=== PATIENT | female | born 1935 | race Two or more races ===

== ENCOUNTER 2020-07-19 01:58 | Inpatient (IN) | payer MEDICARE, OTHER ==
[2020-07-19] VITALS (7 sets, daily range): BP systolic 105–146; BP diastolic 66–97
[~2020-07-19] VITALS: Ht 167.6 cm; Wt 59.0 kg
[~2020-07-19 01:58] MED LIST: ASPIR 8181 MG ORAL; CENTRUM CHEWAB1 EACH PO; COD LIVER OIL1 EAC3 PO; LEVOTHYROXINE112 MCG ORAL; LISINOPRIL5 MG ORAL; METFORMIN HCL500 M1 ORAL; METOPROLOL TART25 MG ORAL; OMEPRAZOLE20 M3 ORAL; [UNRECOGNIZED DRUG - CODE] PO
[2020-07-19] MEDS ORDERED: dexAMETHasone 10mg/ml Inj IV ONE (02:00)
[2020-07-19] MEDS ORDERED: cefTRIAXone 1 GM in NS 55 ML IV ONE (02:00)
[2020-07-19] MEDS ORDERED: Azithromycin 500 MG in NS 275 ML IVPB ONE (02:00)
[2020-07-19] MEDS ORDERED: Enoxaparin 60mg Inj SUBQ ONE (02:00)
--- NOTE | 2020-07-19 02:06 | Emergency Room Report ---
History of Present Illness General Chief Complaint: To Be Triaged Source: Patient, Medical Record, EMS Present Illness HPI This is a 84-year-old female from a [facility]. She has a past medical history of CHF, A. fib, hypertension, diabetes and recently diagnosed with Covid on July 15. She presents with chief complaint of respiratory distress. She was desaturation to 79% on room air. Nursing staff called 911. EMS placed her on nonrebreather which brought it up to the mid 80 percentile. Patient history is limited because of her dementia. There is no noted fever or chills. No nausea no vomiting. She does have a cough. Patient is a DNR/DNI. Allergies: Coded Allergies: SULFAMETHOXAZOLE (Verified Allergy, Unknown, 07/19/20) TRIMETHOPRIM (Verified Allergy, Unknown, 07/19/20) Patient History Past Medical History: see triage record, old chart reviewed, HTN, CHF, AFib Past Surgical History: other Pertinent Family History: none Social History: Denies: smoking Now: No Immunizations: other Reviewed Nursing Documentation: PMH: Agreed; PSxH: Agreed Nursing Documentation-PMH Hx Cardiac Problems: No - HYPERTHYROID Hx Hypertension: Yes Hx Diabetes: Yes Review of Systems Eye: Denies: eye pain, blurred vision ENT: Denies: ear pain, nose congestion, throat swelling Respiratory: Reports: shortness of breath; Denies: cough Cardiovascular: Denies: chest pain, palpitations Gastrointestinal: Denies: abdominal pain, diarrhea, nausea, vomiting Musculoskeletal: Denies: back pain, joint pain Skin: Denies: rash Neurological: Denies: headache, numbness Endocrine: Denies: increased thirst, increased urine Hematologic/Lymphatic: Denies: easy bruising All Other Systems: negative except mentioned in HPI Physical Exam Vitals with hypoxia Sp02 EP Interpretation: reviewed, abnormal General Appearance: alert, moderate distress, cachetic, Chronically Ill Head: normocephalic, atraumatic Eyes: bilateral eye PERRL, bilateral eye EOMI ENT: hearing grossly normal, dry mucus membranes Neck: full range of motion, supple, no meningismus Respiratory: chest non-tender, respiratory distress, decreased breath sounds Cardiovascular #1: regular rate, rhythm, no murmur Gastrointestinal: normal bowel sounds, non tender, no mass, no organomegaly, no bruit, non-distended Musculoskeletal: back normal, normal range of motion Neurologic: alert Psychiatric: mood/affect normal Skin: no rash Procedures Critical Care Time Critical Care Time Critical care is mandated in this patient who presented with respiratory distress with hypoxia. Patient require my urgent intervention to attenuate the risks of respiratory collapse which may lead to cardiovascular collapse and . Critical care time is 35 minutes excluding any reportable procedure. Critical care time included evaluation, multiple reevaluation, looking at old charts, interpreting laboratory and diagnostic data, discussing case with patient and family and consultants, and charting. Medical Decision Making Diagnostic Impression: Primary Impression: Pneumonia due to COVID-19 virus Additional Impressions: Respiratory failure with hypoxia Qualified Codes: J96.01 - Acute respiratory failure with hypoxia Acute hyponatremia Sepsis Qualified Codes: A41.9 - Sepsis, unspecified organism; R65.20 - Severe sepsis without septic shock; J96.01 - Acute respiratory failure with hypoxia SUZETTE (acute kidney injury) ER Course Patient presents with respiratory failure secondary to Covid pneumonia. Antibiotics given here. I also gave her steroid and Lovenox. Will admit for further work-up and monitoring. Prognosis is poor. I discussed the case with Dr. Rankin for admission. EKG Diagnostic Results Troponin ordered: Yes Rate: normal Rhythm: other - afib ST Segments: other - NSST changess Rhythm Strip Diag. Results EP Interpretation: yes Rate: 100 Rhythm: no PVC's, no ectopy Chest X-Ray Diagnostic Results Chest X-Ray Diagnostic Results : Chest X-Ray Ordered: Yes # of Views/Limited/Complete: 1 View Indication: Shortness of Breath EP Interpretation: Yes Interpretation: no effusion, no pneumothorax, other - b/l interstitial infiltrates Impression: Other - b/l interstitial infiltrates Status: improved Disposition: ADMITTED INPATIENT Condition: Serious Chandan Mijares MD Jul 19, 2020 02:06
--- NOTE | 2020-07-19 02:10 | NUR ---
ED Nurse Note: Pt LOWELL from [facility], staff reports they found pt satting in 70's, placed pt on non-rebreather and o2 sat did not go up, ptc spo2 in traige is 96% on 15L. PT is A&OX0, VSS, COVID +. Pt placed in isolation room and on phototypesetting equipment monitor.
[2020-07-19 02:29] LABS: EOSINOPHILS % (AUTO) 4.3 % (0.0-3.0); HEMATOCRIT 31.8 % (37.0-47.0); HEMOGLOBIN 11.4 G/DL (12.0-16.0); LYMPHOCYTES % (AUTO) 19.8 % (20.0-45.0); MEAN CORPUSCULAR VOLUME 91 FL (80-99); MONOCYTES % (AUTO) 9.5 % (1.0-10.0); NEUTROPHILS % (AUTO) 65.4 % (45.0-75.0); PLATELET COUNT 244 K/UL (150-450); WHITE BLOOD COUNT 9.5 K/UL (4.8-10.8)
[2020-07-19 02:41] LABS: INR 1.2 (0.9-1.1)
[2020-07-19 02:49] LABS: ALBUMIN 3.3 G/DL (3.4-5.0); ALBUMIN/GLOBULIN RATIO 0.7 (1.0-2.7); BILIRUBIN,TOTAL 0.6 MG/DL (0.2-1.0); CALCIUM 9.2 MG/DL (8.5-10.1); CKMB 3.4 NG/ML (0.0-3.6); CREATININE 1.9 MG/DL (0.55-1.30); POTASSIUM 5.4 MMOL/L (3.5-5.1)
--- NOTE | 2020-07-19 02:50 | Diagnostic Imaging Report ---
EXAM: XR Chest, 1 View CLINICAL HISTORY: SOB TECHNIQUE: Frontal view of the chest. COMPARISON: 01/14/14 FINDINGS: Lungs: Low lung volumes with bronchovascular crowding. No consolidation, pleural effusion, or pneumothorax. Pleural space: See above. Heart: Mild cardiomegaly. Mediastinum: Unremarkable. Bones/joints: Osteopenia. IMPRESSION: 1. Low lung volumes with bronchovascular crowding. 2. Mild cardiomegaly. 3. Otherwise no acute cardiopulmonary disease. 4. If there is continued concern, consider frontal and lateral chest radiographs or CT.
[2020-07-19] MEDS ORDERED: CARDIZEM CD240 MG ORAL (03:40)
[2020-07-19] MEDS ORDERED: FUROSEMIDE20 M1 ORAL (03:40)
[2020-07-19] MEDS ORDERED: VITAMIN D325 MC1 PO (03:40)
[2020-07-19] MEDS ORDERED: CEFTRIAXON1 GM/50 ML IV (03:40)
[2020-07-19] MEDS ORDERED: VITAMIN B-12500 MCG ORAL (03:40)
[2020-07-19] MEDS ORDERED: NOVOLIN R100 UNIT/1 SUBQ (03:40)
[2020-07-19] MEDS ORDERED: ACETAMINOPHEN325 M1 ORAL (03:40)
[2020-07-19] MEDS ORDERED: METFORMIN HCL850 M1 ORAL (03:43)
[2020-07-19] MEDS ORDERED: MAGNESIUM400 M1 PO (03:43)
[2020-07-19] MEDS ORDERED: MELATONIN3 M2 PO (03:43)
[2020-07-19] MEDS ORDERED: METOPROLOL TAR100 M1 ORAL (03:43)
[2020-07-19] MEDS ORDERED: LOSARTAN POTASS50 MG ORAL (03:44)
[2020-07-19] MEDS ORDERED: MIRTAZAPINE15 M3 ORAL (03:46)
[2020-07-19] MEDS ORDERED: MULTI-BETIC TA1 EAC1 ORAL (03:46)
[2020-07-19] MEDS ORDERED: TUBERSOL (PPD)0.1 ML IDERMAL (03:46)
[2020-07-19] MEDS ORDERED: POTASSIUM CHLO10 ME2 PO (03:46)
[2020-07-19] MEDS ORDERED: PERIDEX15 ML MM (03:46)
[2020-07-19] MEDS ORDERED: ZINC SULFATE220 M1 ORAL (03:47)
[2020-07-19 04:33] LABS: APPEARANCE,URINE TURBID; BILIRUBIN, URINE NEGATIVE (NEGATIVE); COLOR,URINE RED; GLUCOSE, URINE (UA) NEGATIVE (NEGATIVE); NITRITE,URINE NEGATIVE (NEGATIVE); PH,URINE 7 (4.5-8.0); PROTEIN,URINE 4+ (NEGATIVE); UROBILINOGEN,URINE NORMAL MG/DL (0.0-1.0)
[2020-07-19 04:36] LABS: KETONES,URINE 2+ (NEGATIVE); LEUKOCYTE ESTERASE ,URINE 1+ (NEGATIVE)
--- NOTE | 2020-07-19 04:40 | NUR ---
NURSE NOTES: Received report from JENNIFER Moran from ER for admission to room 207-2. Dx respiratory distress with desaturation, sepsis, and COVID positive 07/15/20; allergy to sulfamethoxazole-trimethoprim; DNR/DNI code status, with IV line on R forearm 20 gauge infusing IV NS 500 ml @ 125 ml/hr; f/c placed in ED 16FR @0215 with hematuria. Addendum: 07/19/20 at 0604 by Elina Means RN Per JENNIFER Moran from ER. Pt on non-rebreather mask 15L with 02 sat 100%; Will be transitioned to O2 therapy via NC @ 6L/min prior to floor transfer per JENNIFER Moran.
--- NOTE | 2020-07-19 05:00 | NUR ---
TRANSFER TO FLOOR: Patient transferred to as ordered, per Dr Rankin. Report given to JENNIFER Abbott. Belongings and medications given to . Family and or S/O informed of transfer.
--- NOTE | 2020-07-19 05:10 | NUR ---
NURSE NOTES: Received pt via gurney from ED @ 0510 with 2 RNs; transferred to bed by 2 RNs; On O2 therapy via NC @ 6L/min, R FA IV site infusing with IV NS 500 ml bolus, F/C noted 16FR with stat-lock in place draining with bloody urine; BLE also noted with heel protectors; Pt AOX0-1 (NAME), arousable to voice, verbal but confused; v/s taken; pt repositioned for comfort; with skin tear in L forearm 1cmx0.5cm, dry with scab, BUE/ble MULTIPLE SCATTERED BRUISES/DISCOLORATIONS, R foot +3-4 pitting edema; satellite project site monitor in place; Call light within reach; bed locked and in low position; side rails x 3. Will continue to monitor.
--- NOTE | 2020-07-19 05:55 | NUR ---
NURSE NOTES: Messaged Dr. Rankin regarding pt and for orders. Awaiting response.
--- NOTE | 2020-07-19 07:20 | NUR ---
NURSE HAND-OFF REPORT: Important Events on Shift: Admitted frrom ED @ 0510; dx: sepsis, covid positive, PNA; with FC 16 FR inserted at ED, with hematuria; L anterior forearm with dry scab, R forearm 20 gauge saline locked; Dr. Rankin messaged regarding pt condition and for orders; awaiting response; O2 via NC @ 6L/min Patient Status: stable Diet: cardiac Pending Orders: Y (admission orders) Pending Results/Labs: per MD orders Pending MD notification: Dr. Rankin for admission orders Latest Vital Signs: Temperature 95.1 , Pulse 128 , B/P 146 /73 , Respiratory Rate 20 , O2 SAT 100 , Nasal Cannula, O2 Flow Rate 6.0 . Vital Sign Comment: stable EKG Rhythm: Atrial Fibrillation Rhythm change?: N MD Notified?: N - MD Response: Latest [place] Fall Score: 45 Fall Risk: High Risk Safety Measures: Call light Within Reach, Bed Alarm Zone 1, Side Rails Side Rails x2, Bed position Low and Locked. Fall Precautions: Report given to JENNIFER Nation[].
--- NOTE | 2020-07-19 07:37 | NUR ---
NURSE NOTES: Pt received from Jerrell RODRIGUEZ. Pt in bed sleeping. Bed low and locked, call light within reach. Pt in contact/droplet isolation for Covid. Endorsed to me that some orders are still pending, I will follow up with Dr. Rankin. No distress notesd.
--- NOTE | 2020-07-19 09:12 | Consultation ---
Consult Note Consult Note I am asked to evaluate the patient at the request of Dr. Rankin for hyponatremia and renal failure Initial labs ordered Full note to follow This is a 84-year-old female from a residential. She has a past medical history of CHF, A. fib, hypertension, diabetes and recently diagnosed with Covid on July 15. She presents with chief complaint of respiratory distress. She was desaturation to 79% on room air. Nursing staff called 911. EMS placed her on nonrebreather which brought it up to the mid 80 percentile. Patient history is limited because of her dementia. There is no noted fever or chills. No nausea no vomiting. She does have a cough. Patient is a DNR/DNI. Allergies: SULFAMETHOXAZOLE (Verified Allergy, Unknown, 07/19/20) TRIMETHOPRIM (Verified Allergy, Unknown, 07/19/20) Past Medical History: see triage record, old chart reviewed, HTN, CHF, AFib Hx Cardiac Problems: No - HYPERTHYROID Hx Hypertension: Yes Hx Diabetes: Yes PHYSICAL EXAMINATION: The patient's physical examination was not performed by myself due to the patient's COVID-19 infection in order to minimize the chance of infection. Emergency room physician's data was reviewed. The patient was felt to be a cachectic, thin female. Neck was nontender. Normal alignment. Chest wall was supposedly nontender. Lungs are clear. Breath sounds were normal. Cardiac examination, regular pulses. Normal rate. Regular rate and rhythm. Abdomen is soft, nontender. Extremities, normal range of motion and nontender LABORATORY VALUES: Her white count was 8, hemoglobin 10.2, and platelet count 209. Chemistry, her sodium was 118. She has a history of 115 on prior evaluation earlier in the morning today, and in 2013 she was admitted with a sodium of 110. Potassium 5.4, chloride 82, bicarb 32, creatinine 1.8, and glucose of 131. A1c of 6.4, osmolality 268, uric acid is 7.3. Calcium is 9.2 with a magnesium of 1.8. Iron of 77, 27% saturation. Liver function tests were normal. Coags, INR 1.2 and PTT of 31. D-dimer of 0.44. Urinalysis, qge-cunzagmi-xz-count rbc's, 10-15 wbc's. . Assessment/Plan Acute renal failure Acute respiratory failure with hypoxia Severe hyponatremia Sepsis History of hypertension History of diabetes mellitus DNR DNI Plan of care: Saline infusion Monitor renal parameters and electrolytes Avoid nephrotoxic's Saline infusion Per consultants Jethro Cleaning MD Jul 19, 2020 09:12
[2020-07-19] MEDS ORDERED: Albuterol/Ipratropium 3ml neb HHN PRN (09:15)
[2020-07-19] MEDS ORDERED: Promethazine/Codeine 5ml UD ORAL PRN (09:15)
[2020-07-19] MEDS ORDERED: Miralax 17gm pkt ORAL PRN (09:15)
[2020-07-19 10:15] LABS: BASOPHILS % (AUTO) 0.4 % (0.0-2.0); EOSINOPHILS % (AUTO) 0.4 % (0.0-3.0); HEMATOCRIT 29.7 % (37.0-47.0); HEMOGLOBIN 10.2 G/DL (12.0-16.0); LYMPHOCYTES % (AUTO) 13.3 % (20.0-45.0); MEAN CORPUSCULAR VOLUME 93 FL (80-99); MONOCYTES % (AUTO) 2.3 % (1.0-10.0); NEUTROPHILS % (AUTO) 83.6 % (45.0-75.0); PLATELET COUNT 209 K/UL (150-450); RED BLOOD COUNT 3.21 M/UL (4.20-5.40); RED CELL DISTRIBUTION WIDTH 12.3 % (11.6-14.8)
--- NOTE | 2020-07-19 10:25 | Consultation ---
History of Present Illness General Date patient seen: Jul 19, 2020 Chief Complaint: Dyspnea/Respdistress Present Illness HPI 84-year-old female with a past medical history of CHF, A. fib, hypertension, diabetes and recently diagnosed with Covid on June 2020 presented with chief complaint of respiratory distress. She was desaturation to 79% on room air. Nursing staff called 911. EMS placed her on nonrebreather which brought it up to the mid 80 percentile. Patient history is limited because of her dementia. There is no noted fever or chills. No nausea no vomiting. She does have a cough. Patient is a DNR/DNI.n Her CXR showed hyperlucency without any infiltrate. Allergies: Coded Allergies: SULFAMETHOXAZOLE (Verified Allergy, Unknown, 07/19/20) TRIMETHOPRIM (Verified Allergy, Unknown, 07/19/20) Medication History Scheduled Albuterol Sulfate* (Albuterol Sulfate Hfa*), 2 PUFF INH Q6H, (Reported) Ascorbic Acid* (Ascorbic Acid*), 500 MG ORAL DAILY, (Reported) Ascorbic Acid* (Ascorbic Acid*), 1,000 MG ORAL DAILY, (Reported) Chlorhexidine Gluconate (Peridex), 15 ML MM BID, (Reported) Cholecalciferol (Vitamin D3) (Vitamin D3*), 25 MCG PO DAILY, (Reported) Cyanocobalamin (Vitamin B-12)* (Vitamin B-12*), 2,500 MCG ORAL DAILY, (Reported) Diltiazem Hcl* (Cardizem Cd*), 240 MG ORAL DAILY, (Reported) Furosemide* (Lasix*), 20 MG ORAL DAILY, (Reported) Insulin Regular, Human* (Novolin R*), 0 SUBQ .SLIDING SCALE, (Reported) Levothyroxine Sodium* (Synthroid*), 100 MCG ORAL DAILY, (Reported) Losartan Potassium* (Losartan Potassium*), 50 MG ORAL DAILY, (Reported) Magnesium Oxide (Magnesium), 400 MG PO BID, (Reported) Melatonin (Melatonin), 3 MG PO BEDTIME, (Reported) Metformin Hcl (Metformin Hcl Er), 750 MG ORAL BID, (Reported) Metoprolol Tartrate* (Metoprolol Tartrate*), 100 MG ORAL EVERY 12 HOURS, (Reported) Mirtazapine* (Mirtazapine*), 15 MG ORAL BEDTIME, (Reported) Multivit W-Mn/Fa/Lycop/Lut/Ala (Multi-Betic Tablet), 1 TAB ORAL DAILY, (Reported) Potassium Chloride (Potassium Chloride), 10 MEQ PO DAILY, (Reported) Zinc Sulfate (Zinc Sulfate*), 220 MG ORAL DAILY, (Reported) Scheduled PRN Acetaminophen* (Acetaminophen 325MG Tablet*), 650 MG ORAL Q6H PRN for Temp >100.5, (Reported) Discontinued Medications Aspirin* (Aspir 81*), 81 MG ORAL DAILY, (Reported) Discontinued Reason: Therapy completed Ceftriaxone Na/Dextrose,Iso (Ceftriaxone 1 Gm Piggyback), 1 GM IV, (Reported) Discontinued Reason: Therapy completed Cyanocobalamin (Vitamin B-12) (B-12), 5,000 MCG PO, (Reported) Discontinued Reason: Therapy completed Folic Acid/Mv,Fe,Other Min (Centrum Chewable Tablet), 1 EACH PO DAILY, (Report ed) Discontinued Reason: Therapy completed Levothyroxine Sodium* (Levothyroxine Sodium*), 100 MCG ORAL DAILY, (Reported) Discontinued Reason: Prescription changed Lisinopril (Lisinopril*), 2.5 MG ORAL DAILY, (Reported) Discontinued Reason: Therapy completed Metformin Hcl* (Metformin Hcl*), 500 MG ORAL TWICE A DAY, (Reported) Discontinued Reason: Therapy completed Metformin Hcl* (Metformin Hcl*), 750 MG ORAL DAILY, (Reported) Discontinued Reason: Therapy completed Metoprolol Tartrate* (Metoprolol Tartrate*), 25 MG ORAL BID, (Reported) Discontinued Reason: Therapy completed Omeprazole (Omeprazole), 20 MG ORAL DAILY, (Reported) Discontinued Reason: Therapy completed Tuberculin Ppd (Tubersol), 0.1 ML IDERMAL, (Reported) Discontinued Reason: Therapy completed Vit A & D3 In Cod Liver Oil (Cod Liver Oil Softgel), 1 EACH PO DAILY, (Reported) Discontinued Reason: Therapy completed Patient History Healthcare decision maker Resuscitation status Advanced Directive on File Past Medical/Surgical History Past Medical/Surgical History: (1) Alzheimer's dementia (2) Diabetes mellitus (3) Chronic atrial fibrillation Review of Systems All Other Systems: negative except mentioned in HPI Physical Exam General Appearance: cachetic, thin Lines, tubes and drains: peripheral HEENT: normocephalic, atraumatic Neck: non-tender, normal alignment Respiratory/Chest: chest wall non-tender, lungs clear, normal breath sounds Cardiovascular/Chest: normal peripheral pulses, normal rate, regular rhythm Abdomen: normal bowel sounds, non tender Genitourinary/Rectal: normal genital exam, normal rectal exam Extremities: normal range of motion, non-tender Skin Exam: normal pigmentation Last 24 Hour Vital Signs Date Time Temp Pulse Resp B/P (MAP) Pulse Ox O2 Delivery O2 Flow Rate FiO2 07/19/20 08:00 95.5 120 20 121/97 (105) 100 07/19/20 06:33 Nasal Cannula 6.0 07/19/20 05:00 128 07/19/20 05:00 95.1 114 20 146/73 (97) 100 07/19/20 05:00 99.0 76 18 105/67 99 Nasal Cannula 6.0 07/19/20 04:00 99.0 76 18 105/67 99 Nasal Cannula 6.0 07/19/20 02:15 99.0 68 20 144/97 76 Non-Rebreather 15.0 07/19/20 02:15 68 20 Non-Rebreather 15.0 07/19/20 02:04 99.0 68 20 144/97 (113) 76 Non-Rebreather 15.0 Intake and Output 07/18/20 07/19/20 19:00 07:00 Intake Total 500 ml Output Total 1200 ml Balance -700 ml Intake Other 500 ml Output Urine Total 1200 ml Laboratory Tests Test 07/19/20 02:00 07/19/20 04:00 07/19/20 04:10 07/19/20 09:50 White Blood Count 9.5 K/UL (4.8-10.8) 8.0 K/UL (4.8-10.8) Red Blood Count 3.50 M/UL (4.20-5.40) L 3.21 M/UL (4.20-5.40) L Hemoglobin 11.4 G/DL (12.0-16.0) L 10.2 G/DL (12.0-16.0) L Hematocrit 31.8 % (37.0-47.0) L 29.7 % (37.0-47.0) L Mean Corpuscular Volume 91 FL (80-99) 93 FL (80-99) Mean Corpuscular Hemoglobin 32.5 PG (27.0-31.0) H 31.7 PG (27.0-31.0) H Mean Corpuscular Hemoglobin Concent 35.9 G/DL (32.0-36.0) 34.3 G/DL (32.0-36.0) Red Cell Distribution Width 12.0 % (11.6-14.8) 12.3 % (11.6-14.8) Platelet Count 244 K/UL (150-450) 209 K/UL (150-450) Mean Platelet Volume 7.8 FL (6.5-10.1) 8.4 FL (6.5-10.1) Neutrophils (%) (Auto) 65.4 % (45.0-75.0) 83.6 % (45.0-75.0) H Lymphocytes (%) (Auto) 19.8 % (20.0-45.0) L 13.3 % (20.0-45.0) L Monocytes (%) (Auto) 9.5 % (1.0-10.0) 2.3 % (1.0-10.0) Eosinophils (%) (Auto) 4.3 % (0.0-3.0) H 0.4 % (0.0-3.0) Basophils (%) (Auto) 1.0 % (0.0-2.0) 0.4 % (0.0-2.0) Prothrombin Time 13.1 SEC (9.30-11.50) H Prothromb Time International Ratio 1.2 (0.9-1.1) H Activated Partial Thromboplast Time 31 SEC (23-33) D-Dimer 0.44 mg/L FEU (0.00-0.49) Sodium Level 115 MMOL/L (136-145) *L Pending Potassium Level 5.4 MMOL/L (3.5-5.1) H Pending Chloride Level 80 MMOL/L (98-107) L Pending Carbon Dioxide Level 29 MMOL/L (21-32) Pending Anion Gap 5 mmol/L (5-15) Blood Urea Nitrogen 27 mg/dL (7-18) H Pending Creatinine 1.9 MG/DL (0.55-1.30) H Pending Estimat Glomerular Filtration Rate 25.1 mL/min (>60) Pending Glucose Level 91 MG/DL (74-106) Pending Lactic Acid Level 2.50 mmol/L (0.4-2.0) H 3.60 mmol/L (0.66-2.22) H Calcium Level 9.2 MG/DL (8.5-10.1) Pending Ferritin 214 NG/ML (8-388) Total Bilirubin 0.6 MG/DL (0.2-1.0) Pending Aspartate Amino Transf (AST/SGOT) 28 U/L (15-37) Pending Alanine Aminotransferase (ALT/SGPT) 19 U/L (12-78) Pending Alkaline Phosphatase 84 U/L (46-116) Pending Lactate Dehydrogenase 226 U/L (81-234) Total Creatine Kinase 85 U/L (26-308) Creatine Kinase MB 3.4 NG/ML (0.0-3.6) Creatine Kinase MB Relative Index 4.0 Troponin I 0.000 ng/mL (0.000-0.056) C-Reactive Protein, Quantitative 4.8 mg/dL (0.00-0.90) H Pending Pro-B-Type Natriuretic Peptide 3711 pg/mL (0-125) H Pending Total Protein 7.8 G/DL (6.4-8.2) Pending Albumin 3.3 G/DL (3.4-5.0) L Pending Globulin 4.5 g/dL Pending Albumin/Globulin Ratio 0.7 (1.0-2.7) L Lipase 203 U/L (73-393) Urine Color Red Urine Appearance Turbid Urine pH 7 (4.5-8.0) Urine Specific Mcclure 1.010 (1.005-1.035) Urine Protein 4+ (NEGATIVE) H Urine Glucose (UA) Negative (NEGATIVE) Urine Ketones 2+ (NEGATIVE) H Urine Blood 5+ (NEGATIVE) H Urine Nitrite Negative (NEGATIVE) Urine Bilirubin Negative (NEGATIVE) Urine Urobilinogen Normal MG/DL (0.0-1.0) Urine Leukocyte Esterase 1+ (NEGATIVE) H Urine RBC Tntc /HPF (0 - 2) H Urine WBC 10-15 /HPF (0 - 2) H Urine Squamous Epithelial Cells Occasional /LPF Urine Bacteria Few /HPF (NONE) Osmolality Pending Uric Acid Pending Phosphorus Level Pending Magnesium Level Pending Iron Level Pending Unsaturated Iron Binding Pending Gamma Glutamyl Transpeptidase Pending Triglycerides Level Pending Cholesterol Level Pending LDL Cholesterol Pending HDL Cholesterol Pending Cholesterol/HDL Ratio Pending Vitamin B12 Level Pending Folate Pending Thyroid Stimulating Hormone (TSH) Pending Height (Feet): 5 Height (Inches): 6.00 Weight (Pounds): 130 Medications Current Medications Medications (Trade) Dose Ordered Sig/Ranjeet Route PRN Reason Start Time Stop Time Status Last Admin Dose Admin Acetaminophen (Tylenol) 650 mg Q6H PRN ORAL Temp >100.5 07/19/20 09:15 08/18/20 09:14 Albuterol/ Ipratropium (Albuterol/ Ipratropium) 3 ml Q4H PRN HHN Shortness of Breath 07/19/20 09:15 07/24/20 09:14 Aspirin (Ecotrin) 81 mg DAILY ORAL 07/20/20 09:00 09/03/20 08:59 Azithromycin 250 mg/Dextrose 275 ml @ 275 mls/hr Q24HRS IV 07/20/20 02:00 07/25/20 01:59 Ceftriaxone Sodium 1 gm/ Dextrose 55 ml @ 110 mls/hr Q24H IVPB 07/20/20 02:00 07/27/20 01:59 Dexamethasone (Decadron) 4 mg DAILY ORAL 07/20/20 09:00 07/29/20 09:01 Dextrose (Dextrose 50%) 25 ml Q30M PRN IV Hypoglycemia 07/19/20 09:15 10/17/20 09:14 Dextrose (Dextrose 50%) 50 ml Q30M PRN IV Hypoglycemia 07/19/20 09:15 10/17/20 09:14 Dextrose/Sodium Chloride 1,000 ml @ 75 mls/hr [id number] IV 07/19/20 09:15 08/18/20 09:14 Diltiazem HCl (Cardizem ER) 240 mg DAILY ORAL 07/20/20 09:00 08/19/20 08:59 Docusate Sodium (Colace) 100 mg THREE TIMES A DAY ORAL 07/19/20 13:00 08/18/20 12:59 Heparin Sodium (Porcine) (Heparin 5000 units/ml) 5,000 units EVERY 12 HOURS SUBQ 07/19/20 21:00 09/02/20 20:59 Insulin Aspart (NovoLOG) BEFORE MEALS AND HS SUBQ 07/19/20 11:30 10/17/20 11:29 Levothyroxine Sodium (Synthroid) 100 mcg Q24H ORAL 07/20/20 06:30 08/19/20 06:29 Metoprolol Tartrate (Lopressor) 25 mg Q12HR ORAL 07/19/20 21:00 10/17/20 20:59 Ondansetron HCl (Zofran) 4 mg Q6H PRN IVP Nausea & Vomiting 07/19/20 09:15 08/18/20 09:14 Pantoprazole (Protonix) 40 mg EVERY 12 HOURS ORAL 07/19/20 10:00 08/18/20 09:59 Polyethylene Glycol (Miralax) 17 gm DAILYPRN PRN ORAL Constipation 07/19/20 09:15 08/18/20 09:14 Promethazine HCl/ Codeine (Phenergan with Codeine) 5 ml Q6H PRN ORAL cough 07/19/20 09:15 08/18/20 09:14 Assessment/Plan Problem List: (1) Respiratory failure with hypoxia ICD Codes: J96.91 - Respiratory failure, unspecified with hypoxia SNOMED: 08827110084911523 Qualifiers: Qualified Codes: J96.01 - Acute respiratory failure with hypoxia (2) Acute hyponatremia ICD Codes: E87.1 - Hypo-osmolality and hyponatremia SNOMED: 0933063, 0904797 (3) SUZETTE (acute kidney injury) ICD Codes: N17.9 - Acute kidney failure, unspecified SNOMED: 90077449, 6326643 (4) Chronic atrial fibrillation ICD Codes: I48.20 - Chronic atrial fibrillation, unspecified SNOMED: 217636955 (5) Diabetes mellitus ICD Codes: E11.9 - Type 2 diabetes mellitus without complications SNOMED: 65550827 (6) Alzheimer's dementia ICD Codes: G30.9 - Alzheimer's disease, unspecified; F02.80 - Dementia in other diseases classified elsewhere without behavioral disturbance SNOMED: 97360672 Assessment/Plan: iv Fluids with NS hyponatremia work up V/q scan and duplex of legs. sliding scale diabetic diet respiratory treatment titrate fio2 to sat of 92% 2Decho to look at right heart pressure. Riccardo Drew MD Jul 19, 2020 10:25
[2020-07-19 10:42] LABS: ALANINE AMINOTRANSFERASE 13 U/L (12-78); ALBUMIN 3.1 G/DL (3.4-5.0); ALBUMIN/GLOBULIN RATIO 0.7 (1.0-2.7); ALKALINE PHOSPHATASE 79 U/L (46-116); ANION GAP 7 mmol/L (5-15); ASPARTATE AMINO TRANSFERASE 30 U/L (15-37); BILIRUBIN,TOTAL 0.5 MG/DL (0.2-1.0); BLOOD UREA NITROGEN 33 mg/dL (7-18); CARBON DIOXIDE 27 MMOL/L (21-32); CHLORIDE 83 MMOL/L (98-107); CHOLESTEROL 129 MG/DL (< 200); GAMMA GLUTAMYL TRANSPEPTIDASE 7 U/L (5-85); HDL CHOLESTEROL 41 MG/DL (40-60); PHOSPHORUS 3.4 MG/DL (2.5-4.9); POTASSIUM 5.4 MMOL/L (3.5-5.1); TRIGLYCERIDES 56 MG/DL (30-150)
[2020-07-19] MEDS: D5NS 1,000 ML IV SCH ×3 (10:48→22:19)
[2020-07-19 10:49] LABS: CALCIUM 9.2 MG/DL (8.5-10.1); CREATININE 1.8 MG/DL (0.55-1.30)
[2020-07-19 10:51] LABS: SODIUM 118 MMOL/L (136-145)
[2020-07-19] MEDS ORDERED: NaCl 3% 500ml 250 ML IV ONE (12:00)
--- NOTE | 2020-07-19 12:05 | Consultation ---
History of Present Illness General Date patient seen: Jul 19, 2020 Time patient seen: 12:00 Chief Complaint: Dyspnea/Respdistress Referring physician: Dr. Rankin Reason for Consultation: COVID Present Illness HPI 84yo F who presents from SN[facility] with COVID pna, acute hypoxia. Dx'd with COVID on 07/15. Was desatting to 79% on RA, now on 5L NC, calm in bed. No fevers/chills. No leukocytosis. No N/V. Does have a cough. Of note is DNR/DNI. Pt is not interactive, moans to touch PMH: CHF Afib HTN DM2 Allergies: Coded Allergies: SULFAMETHOXAZOLE (Verified Allergy, Unknown, 07/19/20) TRIMETHOPRIM (Verified Allergy, Unknown, 07/19/20) Medication History Scheduled Aspirin* (Aspir 81*), 81 MG ORAL DAILY, (Reported) Cholecalciferol (Vitamin D3) (Vitamin D3*), 25 MCG PO DAILY, (Reported) Cyanocobalamin (Vitamin B-12)* (Vitamin B-12*), 2,500 MCG ORAL DAILY, (Reported) Diltiazem Hcl* (Cardizem Cd*), 240 MG ORAL DAILY, (Reported) Folic Acid/Mv,Fe,Other Min (Centrum Chewable Tablet), 1 EACH PO DAILY, (Reported) Furosemide* (Lasix*), 20 MG ORAL DAILY, (Reported) Insulin Regular, Human* (Novolin R*), 0 SUBQ .SLIDING SCALE, (Reported) Levothyroxine Sodium* (Levothyroxine Sodium*), 100 MCG ORAL DAILY, (Reported) Lisinopril (Lisinopril*), 2.5 MG ORAL DAILY, (Reported) Losartan Potassium* (Losartan Potassium*), 50 MG ORAL DAILY, (Reported) Metformin Hcl* (Metformin Hcl*), 500 MG ORAL TWICE A DAY, (Reported) Metformin Hcl* (Metformin Hcl*), 750 MG ORAL DAILY, (Reported) Metoprolol Tartrate* (Metoprolol Tartrate*), 25 MG ORAL BID, (Reported) Metoprolol Tartrate* (Metoprolol Tartrate*), 100 MG ORAL EVERY 12 HOURS, (Reported) Mirtazapine* (Mirtazapine*), 15 MG ORAL BEDTIME, (Reported) Multivit W-Mn/Fa/Lycop/Lut/Ala (Multi-Betic Tablet), 1 TAB ORAL DAILY, (Reported) Omeprazole (Omeprazole), 20 MG ORAL DAILY, (Reported) Vit A & D3 In Cod Liver Oil (Cod Liver Oil Softgel), 1 EACH PO DAILY, (Reported) Zinc Sulfate (Zinc Sulfate*), 220 MG ORAL DAILY, (Reported) Scheduled PRN Acetaminophen* (Acetaminophen 325MG Tablet*), 650 MG ORAL Q6H PRN for Temp >100.5, (Reported) Miscellaneous Medications Ceftriaxone Na/Dextrose,Iso (Ceftriaxone 1 Gm Piggyback), 1 GM IV, (Reported) Chlorhexidine Gluconate (Peridex), 15 ML MM, (Reported) Cyanocobalamin (Vitamin B-12) (B-12), 5,000 MCG PO, (Reported) Magnesium Oxide (Magnesium), 400 MG PO, (Reported) Melatonin (Melatonin), 3 MG PO, (Reported) Potassium Chloride (Potassium Chloride), 10 MEQ PO, (Reported) Tuberculin Ppd (Tubersol), 0.1 ML IDERMAL, (Reported) Patient History Healthcare decision maker Resuscitation status Advanced Directive on File Review of Systems ROS Narrative Unable to assess 2/2 pt condition Physical Exam Physical Exam Narrative Gen: NAD on NC HEENT: NCAT Pulm: BL chest rise on NC Abd: Soft, NTND Ext: No c/c/e Neuro: Not interactive, moans to touch Lines: Alanis w/ blood tinged urine in bag Last 24 Hour Vital Signs Date Time Temp Pulse Resp B/P (MAP) Pulse Ox O2 Delivery O2 Flow Rate FiO2 07/19/20 08:00 95.5 120 20 121/97 (105) 100 07/19/20 06:33 Nasal Cannula 6.0 07/19/20 05:00 128 07/19/20 05:00 95.1 114 20 146/73 (97) 100 07/19/20 05:00 99.0 76 18 105/67 99 Nasal Cannula 6.0 07/19/20 04:00 99.0 76 18 105/67 99 Nasal Cannula 6.0 07/19/20 02:15 99.0 68 20 144/97 76 Non-Rebreather 15.0 07/19/20 02:15 68 20 Non-Rebreather 15.0 11/23/20 02:04 99.0 68 20 144/97 (113) 76 Non-Rebreather 15.0 Intake and Output0 07/18/20 07/19/20 19:00 07:00 Intake Total 500 ml Output Total 1200 ml Balance -700 ml Intake Other 500 ml Output Urine Total 1200 ml Laboratory Tests Test 07/19/20 02:00 07/19/20 04:00 07/19/20 04:10 07/19/20 09:50 White Blood Count 9.5 K/UL (4.8-10.8) 8.0 K/UL (4.8-10.8) Red Blood Count 3.50 M/UL (4.20-5.40) L 3.21 M/UL (4.20-5.40) L Hemoglobin 11.4 G/DL (12.0-16.0) L 10.2 G/DL (12.0-16.0) L Hematocrit 31.8 % (37.0-47.0) L 29.7 % (37.0-47.0) L Mean Corpuscular Volume 91 FL (80-99) 93 FL (80-99) Mean Corpuscular Hemoglobin 32.5 PG (27.0-31.0) H 31.7 PG (27.0-31.0) H Mean Corpuscular Hemoglobin Concent 35.9 G/DL (32.0-36.0) 34.3 G/DL (32.0-36.0) Red Cell Distribution Width 12.0 % (11.6-14.8) 12.3 % (11.6-14.8) Platelet Count 244 K/UL (150-450) 209 K/UL (150-450) Mean Platelet Volume 7.8 FL (6.5-10.1) 8.4 FL (6.5-10.1) Neutrophils (%) (Auto) 65.4 % (45.0-75.0) 83.6 % (45.0-75.0) H Lymphocytes (%) (Auto) 19.8 % (20.0-45.0) L 13.3 % (20.0-45.0) L Monocytes (%) (Auto) 9.5 % (1.0-10.0) 2.3 % (1.0-10.0) Eosinophils (%) (Auto) 4.3 % (0.0-3.0) H 0.4 % (0.0-3.0) Basophils (%) (Auto) 1.0 % (0.0-2.0) 0.4 % (0.0-2.0) Prothrombin Time 13.1 SEC (9.30-11.50) H Prothromb Time International Ratio 1.2 (0.9-1.1) H Activated Partial Thromboplast Time 31 SEC (23-33) D-Dimer 0.44 mg/L FEU (0.00-0.49) Sodium Level 115 MMOL/L (136-145) *L 118 MMOL/L (136-145) *L Potassium Level 5.4 MMOL/L (3.5-5.1) H 5.4 MMOL/L (3.5-5.1) H Chloride Level 80 MMOL/L (98-107) L 83 MMOL/L (98-107) L Carbon Dioxide Level 29 MMOL/L (21-32) 27 MMOL/L (21-32) Anion Gap 5 mmol/L (5-15) 7 mmol/L (5-15) Blood Urea Nitrogen 27 mg/dL (7-18) H 33 mg/dL (7-18) H Creatinine 1.9 MG/DL (0.55-1.30) H 1.8 MG/DL (0.55-1.30) H Estimat Glomerular Filtration Rate 25.1 mL/min (>60) 26.7 mL/min (>60) Glucose Level 91 MG/DL (74-106) 131 MG/DL (74-106) H Lactic Acid Level 2.50 mmol/L (0.4-2.0) H 3.60 mmol/L (0.66-2.22) H Calcium Level 9.2 MG/DL (8.5-10.1) 9.2 MG/DL (8.5-10.1) Ferritin 214 NG/ML (8-388) Total Bilirubin 0.6 MG/DL (0.2-1.0) 0.5 MG/DL (0.2-1.0) Aspartate Amino Transf (AST/SGOT) 28 U/L (15-37) 30 U/L (15-37) Alanine Aminotransferase (ALT/SGPT) 19 U/L (12-78) 13 U/L (12-78) Alkaline Phosphatase 84 U/L (46-116) 79 U/L (46-116) Lactate Dehydrogenase 226 U/L (81-234) Total Creatine Kinase 85 U/L (26-308) Creatine Kinase MB 3.4 NG/ML (0.0-3.6) Creatine Kinase MB Relative Index 4.0 Troponin I 0.000 ng/mL (0.000-0.056) C-Reactive Protein, Quantitative 4.8 mg/dL (0.00-0.90) H 4.2 mg/dL (0.00-0.90) H Pro-B-Type Natriuretic Peptide 3711 pg/mL (0-125) H 5171 pg/mL (0-125) H Total Protein 7.8 G/DL (6.4-8.2) 7.3 G/DL (6.4-8.2) Albumin 3.3 G/DL (3.4-5.0) L 3.1 G/DL (3.4-5.0) L Globulin 4.5 g/dL 4.2 g/dL Albumin/Globulin Ratio 0.7 (1.0-2.7) L 0.7 (1.0-2.7) L Lipase 203 U/L (73-393) Urine Color Red Urine Appearance Turbid Urine pH 7 (4.5-8.0) Urine Specific Norden 1.010 (1.005-1.035) Urine Protein 4+ (NEGATIVE) H Urine Glucose (UA) Negative (NEGATIVE) Urine Ketones 2+ (NEGATIVE) H Urine Blood 5+ (NEGATIVE) H Urine Nitrite Negative (NEGATIVE) Urine Bilirubin Negative (NEGATIVE) Urine Urobilinogen Normal MG/DL (0.0-1.0) Urine Leukocyte Esterase 1+ (NEGATIVE) H Urine RBC Tntc /HPF (0 - 2) H Urine WBC 10-15 /HPF (0 - 2) H Urine Squamous Epithelial Cells Occasional /LPF Urine Bacteria Few /HPF (NONE) Hemoglobin A1c 6.4 % (4.3-6.0) H Osmolality 268 mOsm/kg (297-317) L Uric Acid 7.3 MG/DL (2.6-7.2) H Phosphorus Level 3.4 MG/DL (2.5-4.9) Magnesium Level 1.8 MG/DL (1.8-2.4) Iron Level Pending Unsaturated Iron Binding Pending Gamma Glutamyl Transpeptidase 7 U/L (5-85) Triglycerides Level 56 MG/DL (30-150) Cholesterol Level 129 MG/DL (< 200) LDL Cholesterol 70 mg/dL (<100) HDL Cholesterol 41 MG/DL (40-60) Cholesterol/HDL Ratio 3.1 (3.3-4.4) L Vitamin B12 Level Pending Folate Pending Thyroid Stimulating Hormone (TSH) 1.046 uiU/mL (0.358-3.740) Height (Feet): 5 Height (Inches): 6.00 Weight (Pounds): 130 Medications Current Medications Medications (Trade) Dose Ordered Sig/Ranjeet Route PRN Reason Start Time Stop Time Status Last Admin Dose Admin Acetaminophen (Tylenol) 650 mg Q6H PRN ORAL Temp >100.5 07/19/20 09:15 08/18/20 09:14 Albuterol/ Ipratropium (Albuterol/ Ipratropium) 3 ml Q4H PRN HHN Shortness of Breath 07/19/20 09:15 07/24/20 09:14 Aspirin (Ecotrin) 81 mg DAILY ORAL 07/20/20 09:00 09/03/20 08:59 Azithromycin 250 mg/Dextrose 275 ml @ 275 mls/hr Q24HRS IV 07/20/20 02:00 07/25/20 01:59 Ceftriaxone Sodium 1 gm/ Dextrose 55 ml @ 110 mls/hr Q24H IVPB 07/20/20 02:00 07/27/20 01:59 Dexamethasone (Decadron) 4 mg DAILY ORAL 07/20/20 09:00 07/29/20 09:01 Dextrose (Dextrose 50%) 25 ml Q30M PRN IV Hypoglycemia 07/19/20 09:15 10/17/20 09:14 Dextrose (Dextrose 50%) 50 ml Q30M PRN IV Hypoglycemia 07/19/20 09:15 10/17/20 09:14 Dextrose/Sodium Chloride 1,000 ml @ 100 mls/hr Q10H IV 07/19/20 09:15 08/18/20 09:14 07/19/20 10:48 Diltiazem HCl (Cardizem ER) 240 mg DAILY ORAL 07/20/20 09:00 08/19/20 08:59 Docusate Sodium (Colace) 100 mg THREE TIMES A DAY ORAL 07/19/20 13:00 08/18/20 12:59 Heparin Sodium (Porcine) (Heparin 5000 units/ml) 5,000 units EVERY 12 HOURS SUBQ 07/19/20 21:00 09/02/20 20:59 Insulin Aspart (NovoLOG) BEFORE MEALS AND HS SUBQ 07/19/20 11:30 10/17/20 11:29 Levothyroxine Sodium (Synthroid) 100 mcg Q24H ORAL 07/20/20 06:30 08/19/20 06:29 Metoprolol Tartrate (Lopressor) 25 mg Q12HR ORAL 07/19/20 21:00 10/17/20 20:59 Ondansetron HCl (Zofran) 4 mg Q6H PRN IVP Nausea & Vomiting 07/19/20 09:15 08/18/20 09:14 Pantoprazole (Protonix) 40 mg EVERY 12 HOURS IVP 07/19/20 21:00 08/18/20 20:59 Polyethylene Glycol (Miralax) 17 gm DAILYPRN PRN ORAL Constipation 07/19/20 09:15 08/18/20 09:14 Promethazine HCl/ Codeine (Phenergan with Codeine) 5 ml Q6H PRN ORAL cough 07/19/20 09:15 08/18/20 09:14 Sodium Chloride 250 ml @ 30 mls/hr ONCE ONCE IV 07/19/20 12:00 07/19/20 20:19 Assessment/Plan Assessment/Plan: 84yo F with: Afebrile Normal WBC Leukopenia COVID pna, dx'd 07/15 Acute hypoxic resp failure 2/2 COVID pna 07/19 BCx p UA +blood, 10-15 WBC, UCx p Resp cx p CXR: No acute infiltrate SUZETTE on CKD, Cr 1.8, CrCl ~20 PMH: CHF Afib HTN DM2 Plan: Increase dexamethasone to 6mg daily, #1 Cont CTX/azithro #1/5 empiric Not candidate for remdesvir currently given CrCl <30, will trend SUZETTE and start RDV is able in coming days No convalescent plasma available at this institution unfortunately Monitor CBC/CMP Monitor resp status Monitor temp curve, hemodynamics D/w RN Thank you for this consult. [facility] will continue to follow. Nataly Babcock M.D. Jul 19, 2020 12:05
[2020-07-19 12:30] LABS: % IRON SATURATION 27 % (15-50); IRON 77 ug/dL (50-175); TOTAL IRON BINDING CAPACITY 291 ug/dL (250-450)
--- NOTE | 2020-07-19 12:37 | NUR ---
CASE MANAGEMENT:REVIEW 84 YR OLD FEMALE BIBA FROM [facility] CC: SOB. SATS 70% SI: SEPSIS. COVID PNEUMONIA. HYPONATREMIA RESPIRATORY FAILURE W/HYPOXIA 98.9 68 20 144/97 76% ON 15L NON REBREATHER NA-115 K+5.4 BUN+27 CR+1.9 IS: IV AZITHROMYCIN IV ROCEPHIN IV DECADRON IVF NS@ 125/HR LOVENOX CHEST XRAY : TO TELEMETRY DCP: RETURN TO [facility]
[2020-07-19] MEDS ORDERED: Varibar Nectar 240ml MC PRN (12:45)
[2020-07-19] MEDS ORDERED: Varibar Honey 250ml MC PRN (12:45)
[2020-07-19] MEDS ORDERED: Varibar Thin Liquid powder 148gm MC PRN (12:45)
[2020-07-19] MEDS ORDERED: Varibar Pudding 230ml MC PRN (12:45)
[2020-07-19] MEDS: Docusate 100mg cap ORAL SCH ×2 (13:00→17:19)
[2020-07-19] MEDS: NovoLOG Insulin Flexpen SUBQ SCH ×3 (14:33→21:00)
--- NOTE | 2020-07-19 15:49 | Diagnostic Imaging Report ---
Indications: Shortness of breath Technique: IV administration 5 mCi 99m technetium macroaggregated albumin. Images obtained over the lungs in multiple projections. No aerosol images obtained, due to patient being Covid positive Comparison: Chest radiograph earlier the same day Findings: On all of the views, tracer intensity within the right lung is uniformly lower than that of the left lung, although right lung tracer distribution is homogeneous without definite focal defect. Impression: Asymmetric tracer distribution, left lung more than right. Suspect that this is artifactual, probably due to asymmetric overlapping soft tissues, but makes exam nondiagnostic for exclusion of pulmonary embolus
--- NOTE | 2020-07-19 17:32 | NUR ---
Speech Pathology Note (Bedside Dysphagia Evaluation) [facility]: Admission date is 07/15/2020 Diet: Mechanical soft and thin liquid. COVID positive on 07/15/2020 Code Status: DNR/DNI Prior to [facility]: Unclear Brief Note: Ms. Aceves is a-84 year old female admitted from [facility] on 07/19/2020 for hypoxemia on room air. Pt was found to be hyponatremia (118), hyperkalemia (5.4) c/w BUN/Creatine 33/1.8. The CBC, coag. are unremarkable. Cardiac enzyme remarkable for BNP 5.171. CXR is noted to be no acute cardiopulmonary process. TTE is remarkable for moderate AV, and MV calcification, Moderate A.I, MR, and TR. Mild pulmonary hypertension reported. PMH: HTN, CHF, Afib Discussion with NSG: Pt tends to pocket food and not swallow concerning for poor intake. Urine output noted at bedside. Findings: Ms. Aceves is alert and oriented to self. She follows commands if she wants to. Tardive dyskinesia is noted. No dentures available. The mucosa is dry. Her voice is intact. Given her PO trials with mashed potato, carrot and apple juice. She was able to tolerate them without overt s.s of aspiration. However intake was minimum by stating " wait.. I don't want to anymore.." She consumed approximately 100c of apple juice and one bit each of food trial. Interpretation: 1. Adequate swallow 2. Poor PO intake with hyponatremia and renal failure Plan: 1. Change to pureed diet and thin liquid 2. Pt may need PEG feeding for failure to thrive Amy Villa
--- NOTE | 2020-07-19 17:46 | Diagnostic Imaging Report ---
Indication: Acute renal failure Technique: Grayscale and duplex images of the kidneys, retroperitoneum, and bladder were obtained. Comparison: none Findings: Right kidney measures 9 cm in length. Left kidney measures 8.7 cm in length. Both kidneys demonstrate normal echogenicity. There is mild right hydronephrosis. No hydronephrosis on the left. Right kidney demonstrates a cyst. Normal inferior vena cava. Bladder contains a Alanis catheter. Bladder volume calculated at 42 mL despite the Alanis catheter. Impression: Mild right hydronephrosis, etiology not demonstrated Alanis catheter. Incompletely empty bladder Incidental finding right renal cyst.
--- NOTE | 2020-07-19 18:27 | NUR ---
NURSE HAND-OFF REPORT: Important Events on Shift:[Pt in afib/flutter and tachy with higest of 136. Dr. Mcclure aware. Hematuria with clots noted, Dr. Cleaning aware. Per Speech eval, she can swallow puree however she only took 1 bite, possible NG tube if she is refusing nutrition and meds. ] Patient Status: [in bed resting] Diet: [Cardiac pure moist] Pending Orders: [] Pending Results/Labs:[] Pending MD notification:[Please relay to Dr Cleaning in AM that hematuria persists and urine output is more than normal with clots noted.] Latest Vital Signs: Temperature 97.7 , Pulse 132 , B/P 120 /69 , Respiratory Rate 22 , O2 SAT 100 , Nasal Cannula, O2 Flow Rate 4.0 . Vital Sign Comment: [] EKG Rhythm: Sinus Tachycardia Rhythm change?: Y Notified?: Y -Dr Kami WALTER Response: Aware, nno Latest [place] Fall Score: 45 Fall Risk: High Risk Safety Measures: Call light Within Reach, Bed Alarm Zone 1, Side Rails Side Rails x3, Bed position Low and Locked. Fall Precautions: Yellow Socks Yellow Gown Door Sign Report given to [Pending rn assignment]. Addendum: 07/19/20 at 1911 by Chapis Lewis RN Report given to Sunshine RODRIGUEZ.
--- NOTE | 2020-07-19 18:35 | History & Physical ---
History and Physical History & Physicial Dictated for Int Med-DR Rankin no. [id number] Dudley Rebollar MD Jul 19, 2020 18:35
--- NOTE | 2020-07-19 19:30 | NUR ---
NURSE NOTES: Patient received from JENNIFER Nation. Patient is sleeping but arousable. She is making some humming sound as I approach and introduced myself. Patient is A/O x 1. Addendum: 07/19/20 at 2204 by Sunshine Reeder RN Patient received from JENNIFER Nation. Patient is sleeping but arousable. She is making some humming sound as I approach and introduced myself. Patient is A/O x 1. Patient is unable to verbalize her needs. Patient is on 4 L nasal cannula satting at 99%. Patient has a 16 greenlandic nelson catheter, hematuria noted. Patient has a right forearm 20 gauge with NS 3% running at 30 ml/hr. Bed is in the lowest position and locked, call light within reach. Will continue to monitor.
--- NOTE | 2020-07-19 19:30 | History and Physical Report ---
DATE OF ADMISSION: 07/19/2020 CHIEF COMPLAINT: The patient is an 84-year-old white female, who presents with a chief complaint of respiratory distress. HISTORY OF PRESENT ILLNESS: The patient is a resident of [facility]. According to staff at [facility], the patient became extremely short of breath on July 18, 2020. The patient was found to have oxygen saturation of 97% on room air. EMS was called. The patient is transported to [facility] for evaluation of hypoxic respiratory distress. The patient was reportedly COVID positive on July 15, 2020. A chest x-ray in the emergency room revealed bilateral pneumonia. The patient is admitted with COVID-19 pneumonia. REVIEW OF SYSTEMS: Unable to assess secondary to the patient's mental status. PAST MEDICAL HISTORY: Significant for: 1. Alzheimer's dementia. 2. Hypertension. 3. Congestive heart failure. 4. Atrial fibrillation. 5. Hypothyroidism. 6. History of COVID-19 positive on July 15, 2020. PAST SURGICAL HISTORY: Denies. CURRENT MEDICATIONS: 1. Tylenol 650 mg p.o. q.6 h. p.r.n. 2. Aspirin 81 mg p.o. daily. 3. Ceftriaxone 1 g IV daily. 4. Vitamin D3 25 mcg p.o. daily. 5. Vitamin B12 5000 mcg p.o. daily. 6. Diltiazem 240 mg p.o. daily. 7. Folic acid/multivitamin one tablet p.o. daily. 8. Lasix 20 mg p.o. daily. 9. Regular insulin sliding scale. 10. Levothyroxine 112 mcg p.o. daily. 11. Lisinopril 2.5 mg p.o. daily. 12. Losartan 50 mg p.o. daily. 13. Metformin 500 mg p.o. twice daily. 14. Metoprolol 25 mg p.o. twice daily. 15. Mirtazapine 15 mg p.o. nightly. 16. Omeprazole 20 mg p.o. daily. 17. Potassium chloride 10 mEq p.o. daily. 18. Zinc sulfate 220 mg p.o. daily. ALLERGIES: Bactrim. SOCIAL HISTORY: The patient is a and lives at [facility]. The patient denies tobacco or alcohol use. PHYSICAL EXAMINATION: VITAL SIGNS: Temperature 99.0, respirations 20, pulse 60, blood pressure 144/97. Pulse oximetry 76% on 100% non-rebreather. GENERAL: The patient is a well-developed and well-nourished female, in moderate respiratory distress. HEENT: Eyes, pupils are equal and responsive to light and accommodation. Extraocular movements are intact. NECK: Supple without lymphadenopathy. CHEST: Decreased breath sounds in bilateral bases, otherwise without wheezes or rales. CARDIOVASCULAR: Regular rhythm and rate. S1, S2 normal without murmurs, rubs, or gallops. ABDOMEN: Soft, nontender, nondistended. Positive bowel sounds. No evidence of hepatosplenomegaly. Currently, no rebound or guarding noted. EXTREMITIES: Negative for clubbing, cyanosis, or edema. RECTAL/GENITAL: Not performed. NEUROLOGIC: Cranial nerves II through XII are grossly intact without focal deficits. IMAGING: Chest x-ray revealed no acute disease. LABORATORY STUDIES: WBC 9.5, hemoglobin 11.4, hematocrit 31.8, platelets 244,000. Sodium 115, potassium 5.4, chloride 80, CO2 29, BUN 27, creatinine 1.9. Glucose 91. BNP elevated 3711. ASSESSMENT: This is an 84-year-old female with: 1. COVID-19 positive. 2. Pneumonia. 3. Alzheimer's dementia. 4. Hypertension. 5. Congestive heart failure. 6. Atrial fibrillation. 7. Hypothyroidism. 8. Diabetes type 2. 9. Hyponatremia. TREATMENT: 1. COVID-19/pneumonia. An Infectious Disease consultation has been obtained with . The patient has been started on Decadron intravenously. We will follow recommendations of Infectious Disease. The patient has been started on ceftriaxone and azithromycin intravenously for presumed pneumonia. A Pulmonary consultation has been obtained with Dr. Riccardo Drew. 2. Alzheimer's dementia. 3. Hypertension. The patient is currently hypotensive. Restart diltiazem when blood pressure normalizes. 4. Congestive heart failure. Cardiology consultation has been obtained with Dr. Hema Mcclure. 5. Atrial fibrillation. 6. Hypothyroidism. Continue Levoxyl as above. 7. Diabetes type 2. NovoLog sliding scale has been instituted. Dudley Rebollar M.D. DR: FRANCISCO JOB#: [id number] CC:
[2020-07-19] MEDS: Heparin 5000 units/ml inj SUBQ SCH (19:53)
[2020-07-19] MEDS ORDERED: Pantoprazole Inj IVP SCH (21:00)
--- NOTE | 2020-07-19 21:12 | Cardiology Progress Note ---
Assessment/Plan Assessment/Plan [id number] iv bb to control heart rate dnr dni cvid 19 infection per id na treatment per dr millan Objective Last 24 Hour Vital Signs Date Time Temp Pulse Resp B/P (MAP) Pulse Ox O2 Delivery O2 Flow Rate FiO2 07/19/20 16:00 132 07/19/20 16:00 97.7 129 22 120/69 (86) 100 07/19/20 12:00 95.8 72 20 114/66 (82) 100 07/19/20 12:00 64 07/19/20 09:00 Nasal Cannula 4.0 07/19/20 08:00 95.5 120 20 121/97 (105) 100 07/19/20 06:33 Nasal Cannula 6.0 07/19/20 05:00 128 07/19/20 05:00 95.1 114 20 146/73 (97) 100 07/19/20 05:00 99.0 76 18 105/67 99 Nasal Cannula 6.0 07/19/20 04:00 99.0 76 18 105/67 99 Nasal Cannula 6.0 07/19/20 02:15 99.0 68 20 144/97 76 Non-Rebreather 15.0 07/19/20 02:15 68 20 Non-Rebreather 15.0 07/19/20 02:04 99.0 68 20 144/97 (113) 76 Non-Rebreather 15.0 Intake and Output 07/18/20 07/19/20 19:00 07:00 Intake Total 500 ml Output Total 1200 ml Balance -700 ml Intake Other 500 ml Output Urine Total 1200 ml Laboratory Tests Test 07/19/20 02:00 07/19/20 04:00 07/19/20 04:10 07/19/20 09:50 White Blood Count 9.5 K/UL (4.8-10.8) 8.0 K/UL (4.8-10.8) Red Blood Count 3.50 M/UL (4.20-5.40) L 3.21 M/UL (4.20-5.40) L Hemoglobin 11.4 G/DL (12.0-16.0) L 10.2 G/DL (12.0-16.0) L Hematocrit 31.8 % (37.0-47.0) L 29.7 % (37.0-47.0) L Mean Corpuscular Volume 91 FL (80-99) 93 FL (80-99) Mean Corpuscular Hemoglobin 32.5 PG (27.0-31.0) H 31.7 PG (27.0-31.0) H Mean Corpuscular Hemoglobin Concent 35.9 G/DL (32.0-36.0) 34.3 G/DL (32.0-36.0) Red Cell Distribution Width 12.0 % (11.6-14.8) 12.3 % (11.6-14.8) Platelet Count 244 K/UL (150-450) 209 K/UL (150-450) Mean Platelet Volume 7.8 FL (6.5-10.1) 8.4 FL (6.5-10.1) Neutrophils (%) (Auto) 65.4 % (45.0-75.0) 83.6 % (45.0-75.0) H Lymphocytes (%) (Auto) 19.8 % (20.0-45.0) L 13.3 % (20.0-45.0) L Monocytes (%) (Auto) 9.5 % (1.0-10.0) 2.3 % (1.0-10.0) Eosinophils (%) (Auto) 4.3 % (0.0-3.0) H 0.4 % (0.0-3.0) Basophils (%) (Auto) 1.0 % (0.0-2.0) 0.4 % (0.0-2.0) Prothrombin Time 13.1 SEC (9.30-11.50) H Prothromb Time International Ratio 1.2 (0.9-1.1) H Activated Partial Thromboplast Time 31 SEC (23-33) D-Dimer 0.44 mg/L FEU (0.00-0.49) Sodium Level 115 MMOL/L (136-145) *L 118 MMOL/L (136-145) *L Potassium Level 5.4 MMOL/L (3.5-5.1) H 5.4 MMOL/L (3.5-5.1) H Chloride Level 80 MMOL/L (98-107) L 83 MMOL/L (98-107) L Carbon Dioxide Level 29 MMOL/L (21-32) 27 MMOL/L (21-32) Anion Gap 5 mmol/L (5-15) 7 mmol/L (5-15) Blood Urea Nitrogen 27 mg/dL (7-18) H 33 mg/dL (7-18) H Creatinine 1.9 MG/DL (0.55-1.30) H 1.8 MG/DL (0.55-1.30) H Estimat Glomerular Filtration Rate 25.1 mL/min (>60) 26.7 mL/min (>60) Glucose Level 91 MG/DL (74-106) 131 MG/DL (74-106) H Lactic Acid Level 2.50 mmol/L (0.4-2.0) H 3.60 mmol/L (0.66-2.22) H Calcium Level 9.2 MG/DL (8.5-10.1) 9.2 MG/DL (8.5-10.1) Ferritin 214 NG/ML (8-388) Total Bilirubin 0.6 MG/DL (0.2-1.0) 0.5 MG/DL (0.2-1.0) Aspartate Amino Transf (AST/SGOT) 28 U/L (15-37) 30 U/L (15-37) Alanine Aminotransferase (ALT/SGPT) 19 U/L (12-78) 13 U/L (12-78) Alkaline Phosphatase 84 U/L (46-116) 79 U/L (46-116) Lactate Dehydrogenase 226 U/L (81-234) Total Creatine Kinase 85 U/L (26-308) Creatine Kinase MB 3.4 NG/ML (0.0-3.6) Creatine Kinase MB Relative Index 4.0 Troponin I 0.000 ng/mL (0.000-0.056) C-Reactive Protein, Quantitative 4.8 mg/dL (0.00-0.90) H 4.2 mg/dL (0.00-0.90) H Pro-B-Type Natriuretic Peptide 3711 pg/mL (0-125) H 5171 pg/mL (0-125) H Total Protein 7.8 G/DL (6.4-8.2) 7.3 G/DL (6.4-8.2) Albumin 3.3 G/DL (3.4-5.0) L 3.1 G/DL (3.4-5.0) L Globulin 4.5 g/dL 4.2 g/dL Albumin/Globulin Ratio 0.7 (1.0-2.7) L 0.7 (1.0-2.7) L Lipase 203 U/L (73-393) Urine Color Red Urine Appearance Turbid Urine pH 7 (4.5-8.0) Urine Specific [place] 1.010 (1.005-1.035) Urine Protein 4+ (NEGATIVE) H Urine Glucose (UA) Negative (NEGATIVE) Urine Ketones 2+ (NEGATIVE) H Urine Blood 5+ (NEGATIVE) H Urine Nitrite Negative (NEGATIVE) Urine Bilirubin Negative (NEGATIVE) Urine Urobilinogen Normal MG/DL (0.0-1.0) Urine Leukocyte Esterase 1+ (NEGATIVE) H Urine RBC Tntc /HPF (0 - 2) H Urine WBC 10-15 /HPF (0 - 2) H Urine Squamous Epithelial Cells Occasional /LPF Urine Bacteria Few /HPF (NONE) Hemoglobin A1c 6.4 % (4.3-6.0) H Osmolality 268 mOsm/kg (297-317) L Uric Acid 7.3 MG/DL (2.6-7.2) H Phosphorus Level 3.4 MG/DL (2.5-4.9) Magnesium Level 1.8 MG/DL (1.8-2.4) Iron Level 77 ug/dL (50-175) Total Iron Binding Capacity 291 ug/dL (250-450) Percent Iron Saturation 27 % (15-50) Unsaturated Iron Binding 214 ug/dL (112-346) Gamma Glutamyl Transpeptidase 7 U/L (5-85) Triglycerides Level 56 MG/DL (30-150) Cholesterol Level 129 MG/DL (< 200) LDL Cholesterol 70 mg/dL (<100) HDL Cholesterol 41 MG/DL (40-60) Cholesterol/HDL Ratio 3.1 (3.3-4.4) L Vitamin B12 Level > 2000 PG/ML (193-986) H Folate 24.4 NG/ML (8.6-58.9) Thyroid Stimulating Hormone (TSH) 1.046 uiU/mL (0.358-3.740) Test 07/19/20 21:00 POC Whole Blood Glucose 144 MG/DL (74-106) H Hema Mcclure MD Jul 19, 2020 21:12
[2020-07-19] MEDS ORDERED: Metoprolol Tartrate 5mg/5ml Inj IVP PRN (21:30)
[2020-07-20] VITALS: BP 115/63
[2020-07-20] MEDS ORDERED: Azithromycin 250 MG in D5W 275 ML IV SCH (02:00)
[2020-07-20] MEDS ORDERED: Azithromycin 500mg Inj ONE (03:15)
[2020-07-20] MEDS: cefTRIAXone 1 GM in D5W 55 ML IVPB SCH (03:29)
[2020-07-20 04:00] VITALS: BP 126/63
[2020-07-20] MEDS: Azithromycin 250 MG in D5W 275 ML IVPB SCH (05:03)
--- NOTE | 2020-07-20 05:14 | Consultation ---
DATE OF CONSULTATION: 07/19/2020 CARDIAC CONSULTATION REFERRING PHYSICIAN: Mateo Rankin M.D. REASON FOR REFERRAL: Tachycardia. HISTORY OF PRESENT ILLNESS: This is an 84-year-old female who is not able to provide any meaningful history. The patient is a resident of a convalescent facility. She has a history of multiple medical problems. She was diagnosed with COVID-19 in June 2020, presented with chief complaint of respiratory distress, saturation was 79% on room air. 911 was notified. EMS placed the patient on nonrebreather mask, brought her to the emergency room with saturation of 80%. The patient was not able to provide any meaningful history. She is in COVID isolation. Information is obtained from review of the patient's chart. PAST MEDICAL HISTORY: Positive for gastroesophageal reflux disease, urinary tract infection, combined systolic and diastolic heart failure, repeated falls, pressure ulcers, stage I, atrophic vaginitis, dysphagia, oropharyngeal phase, toxic metabolic encephalopathy, cellulitis, diabetes mellitus, hypothyroidism, hypertension, asthma, dementia, and atrial fibrillation. ALLERGIES: She is allergic to Septra. SOCIAL HISTORY: She lives in a convalescent facility . PHYSICAL EXAMINATION: The patient's physical examination was not performed by myself due to the patient's COVID-19 infection in order to minimize the chance of infection. Emergency room physician's data was reviewed. The patient was felt to be a cachectic, thin female. Neck was nontender. Normal alignment. Chest wall was supposedly nontender. Lungs are clear. Breath sounds were normal. Cardiac examination, regular pulses. Normal rate. Regular rate and rhythm. Abdomen is soft, nontender. Extremities, normal range of motion and nontender . LABORATORY VALUES: Her white count was 8, hemoglobin 10.2, and platelet count 209. Chemistry, her sodium was 118. She has a history of 115 on prior evaluation earlier in the morning today, and in 2013 she was admitted with a sodium of 110. Potassium 5.4, chloride 82, bicarb 32, creatinine 1.8, and glucose of 131. A1c of 6.4, osmolality 268, uric acid is 7.3. Calcium is 9.2 with a magnesium of 1.8. Iron of 77, 27% saturation. Liver function tests were normal. Coags, INR 1.2 and PTT of 31. D-dimer of 0.44. Urinalysis, ryl-zfuoczaa-ew-count rbc's, 10-15 wbc's. IMAGING: A chest x-ray performed showed low lung volumes, bronchoalveolar crowding, mild cardiomegaly, otherwise no acute cardiopulmonary disease processes. She did have a V/Q scan of her lung that showed asymmetric with left lung more than right, suspected to be artifactual due to asymmetric overlapping soft tissues, but the exam is felt to be nondiagnostic for pulmonary embolus. Renal ultrasound was performed and showed mild right hydronephrosis, etiology not demonstrated, Alanis catheter, incompletely empty bladder. Echocardiogram preliminary report shows technically difficult study, ejection fraction 55-60, moderate aortic, mitral, tricuspid regurgitation, PA pressure of 42. EKG, tremor artifact limits the interpretation, however appears to have atrial fibrillation and slight leftward axis. There is biphasic T-waves in V4, V5, and V6. The chronicity is unknown, although the patient's electrocardiogram in 2013 showed sinus rhythm and at least those T-wave changes were not present at that time. ASSESSMENT AND PLAN: 1. Respiratory failure. 2. Hyponatremia. 3. History of atrial fibrillation. 4. History of diastolic and systolic heart failure. 5. Moderate mitral, aortic, and tricuspid regurgitation. 6. Dementia. 7. Tachycardia, likely secondary to demand. This patient was seen in cardiac consultation. The patient's blood pressure is 120/69, last temperature of 97.7, axillary, heart rate of 129. She appears to be sinus on telemetry. She may have converted sometime between last night. The patient has advance directive of not to be resuscitated. She will have some medications to help with the heart rate. I will try to administer some beta-blockers to see if that will help her. Avoid beta-agonist inhalers if it all possible, and she will be treated under direction of Dr. Cleaning for her sodium. She has received some dexamethasone already and she has received some Cardizem 240 mg daily and metoprolol 25 mg q.12h. as well that she can take orally. If not, intravenous dosing can be administered. The patient is being treated under infectious disease consultation for the COVID. Hema Mcclure M.D. DR: ANN JOB#: [id number] CC:
[2020-07-20] MEDS: D5NS 1,000 ML IV SCH (05:53)
[2020-07-20 06:44] LABS: EOSINOPHILS % (AUTO) 0.1 % (0.0-3.0); HEMATOCRIT 27.1 % (37.0-47.0); HEMOGLOBIN 9.3 G/DL (12.0-16.0); LYMPHOCYTES % (AUTO) 10.4 % (20.0-45.0); MEAN CORPUSCULAR VOLUME 94 FL (80-99); MONOCYTES % (AUTO) 10.3 % (1.0-10.0); NEUTROPHILS % (AUTO) 78.2 % (45.0-75.0); PLATELET COUNT 215 K/UL (150-450); RED BLOOD COUNT 2.87 M/UL (4.20-5.40); RED CELL DISTRIBUTION WIDTH 12.7 % (11.6-14.8); WHITE BLOOD COUNT 8.3 K/UL (4.8-10.8)
[2020-07-20 07:15] LABS: ALBUMIN 2.7 G/DL (3.4-5.0); ALBUMIN/GLOBULIN RATIO 0.8 (1.0-2.7); BILIRUBIN,TOTAL 0.4 MG/DL (0.2-1.0); CALCIUM 8.6 MG/DL (8.5-10.1); CREATININE 1.6 MG/DL (0.55-1.30); PHOSPHORUS 3.2 MG/DL (2.5-4.9); POTASSIUM 4.5 MMOL/L (3.5-5.1)
[2020-07-20] MEDS: NovoLOG Insulin Flexpen SUBQ SCH ×3 (07:16→21:00)
--- NOTE | 2020-07-20 07:27 | Infectious Diseases Prog Note ---
Assessment/Plan 84yo F with: Afebrile Normal WBC Leukopenia COVID pna, dx'd 07/15 Acute hypoxic resp failure 2/2 COVID pna 07/19 BCx NTD UA +blood, 10-15 WBC, UCx NTD Resp cx p CXR: No acute infiltrate SUZETTE on CKD, Cr 1.8, CrCl ~20 07/19 Renal US: Mild right hydro. R/o PE: 07/19 VQ scan: Asymmetric tracer distribution, left lung more than right. Suspect that this is artifactual, probably due to asymmetric overlapping soft tissues, but makes exam nondiagnostic for exclusion of pulmonary embolus PMH: CHF Afib HTN DM2 Dementia Plan: Not yet candidate for remdesivir, CrCl 24, will trend SUZETTE and when CrCl 30 will start remdesivir, d/w Pharmacy at length Cont dexamethasone 6mg daily, #2 Cont CTX/azithro #2/5 empiric No convalescent plasma available at this institution unfortunately Monitor CBC/CMP Monitor resp status Monitor temp curve, hemodynamics D/w RN Thank you for this consult. [facility] will continue to follow. Subjective Allergies: Coded Allergies: SULFAMETHOXAZOLE (Verified Allergy, Unknown, 07/19/20) TRIMETHOPRIM (Verified Allergy, Unknown, 07/19/20) AF 3L NC WBC 8.3 NAD in bed, on 2L satting 100% More awake today, denies any complaint Objective Last 24 Hour Vital Signs Date Time Temp Pulse Resp B/P (MAP) Pulse Ox O2 Delivery O2 Flow Rate FiO2 07/20/20 00:00 116 07/20/20 00:00 97.5 92 20 115/63 (80) 99 07/19/20 22:26 100 Nasal Cannula 3.0 32 07/19/20 21:00 Nasal Cannula 4.0 07/19/20 20:00 97.9 125 21 119/80 (93) 99 07/19/20 20:00 134 07/19/20 16:00 132 07/19/20 16:00 97.7 129 22 120/69 (86) 100 07/19/20 12:00 95.8 72 20 114/66 (82) 100 07/19/20 12:00 64 07/19/20 09:00 Nasal Cannula 4.0 07/19/20 08:00 95.5 120 20 121/97 (105) 100 Height (Feet): 5 Height (Inches): 6.00 Weight (Pounds): 130 Gen: NAD in bed on NC HEENT: NCAT Pulm: BL chest rise on NC, non-labored Abd: Thin, soft, NTND Ext: No c/c/e Neuro: Awake, interactive Microbiology Date/Time Source Procedure Growth Status 07/19/20 02:10 Blood Blood Culture - Preliminary NO GROWTH AFTER 24 HOURS Resulted 07/19/20 02:00 Blood Blood Culture - Preliminary NO GROWTH AFTER 24 HOURS Resulted Laboratory Tests Test 07/19/20 09:50 07/19/20 21:00 07/20/20 05:42 White Blood Count 8.0 K/UL (4.8-10.8) 8.3 K/UL (4.8-10.8) Red Blood Count 3.21 M/UL (4.20-5.40) L 2.87 M/UL (4.20-5.40) L Hemoglobin 10.2 G/DL (12.0-16.0) L 9.3 G/DL (12.0-16.0) L Hematocrit 29.7 % (37.0-47.0) L 27.1 % (37.0-47.0) L Mean Corpuscular Volume 93 FL (80-99) 94 FL (80-99) Mean Corpuscular Hemoglobin 31.7 PG (27.0-31.0) H 32.3 PG (27.0-31.0) H Mean Corpuscular Hemoglobin Concent 34.3 G/DL (32.0-36.0) 34.2 G/DL (32.0-36.0) Red Cell Distribution Width 12.3 % (11.6-14.8) 12.7 % (11.6-14.8) Platelet Count 209 K/UL (150-450) 215 K/UL (150-450) Mean Platelet Volume 8.4 FL (6.5-10.1) 7.9 FL (6.5-10.1) Neutrophils (%) (Auto) 83.6 % (45.0-75.0) H 78.2 % (45.0-75.0) H Lymphocytes (%) (Auto) 13.3 % (20.0-45.0) L 10.4 % (20.0-45.0) L Monocytes (%) (Auto) 2.3 % (1.0-10.0) 10.3 % (1.0-10.0) H Eosinophils (%) (Auto) 0.4 % (0.0-3.0) 0.1 % (0.0-3.0) Basophils (%) (Auto) 0.4 % (0.0-2.0) 1.0 % (0.0-2.0) Sodium Level 118 MMOL/L (136-145) *L 126 MMOL/L (136-145) L Potassium Level 5.4 MMOL/L (3.5-5.1) H 4.5 MMOL/L (3.5-5.1) Chloride Level 83 MMOL/L (98-107) L 92 MMOL/L (98-107) L Carbon Dioxide Level 27 MMOL/L (21-32) 26 MMOL/L (21-32) Anion Gap 7 mmol/L (5-15) 8 mmol/L (5-15) Blood Urea Nitrogen 33 mg/dL (7-18) H 29 mg/dL (7-18) H Creatinine 1.8 MG/DL (0.55-1.30) H 1.6 MG/DL (0.55-1.30) H Estimat Glomerular Filtration Rate 26.7 mL/min (>60) 30.6 mL/min (>60) Glucose Level 131 MG/DL (74-106) H 222 MG/DL (74-106) H Hemoglobin A1c 6.4 % (4.3-6.0) H Osmolality 268 mOsm/kg (297-317) L Uric Acid 7.3 MG/DL (2.6-7.2) H 8.3 MG/DL (2.6-7.2) H Calcium Level 9.2 MG/DL (8.5-10.1) 8.6 MG/DL (8.5-10.1) Phosphorus Level 3.4 MG/DL (2.5-4.9) 3.2 MG/DL (2.5-4.9) Magnesium Level 1.8 MG/DL (1.8-2.4) 1.8 MG/DL (1.8-2.4) Iron Level 77 ug/dL (50-175) Total Iron Binding Capacity 291 ug/dL (250-450) Percent Iron Saturation 27 % (15-50) Unsaturated Iron Binding 214 ug/dL (112-346) Total Bilirubin 0.5 MG/DL (0.2-1.0) 0.4 MG/DL (0.2-1.0) Gamma Glutamyl Transpeptidase 7 U/L (5-85) Aspartate Amino Transf (AST/SGOT) 30 U/L (15-37) 20 U/L (15-37) Alanine Aminotransferase (ALT/SGPT) 13 U/L (12-78) 15 U/L (12-78) Alkaline Phosphatase 79 U/L (46-116) 61 U/L (46-116) C-Reactive Protein, Quantitative 4.2 mg/dL (0.00-0.90) H 3.2 mg/dL (0.00-0.90) H Pro-B-Type Natriuretic Peptide 5171 pg/mL (0-125) H 7449 pg/mL (0-125) H Total Protein 7.3 G/DL (6.4-8.2) 6.3 G/DL (6.4-8.2) L Albumin 3.1 G/DL (3.4-5.0) L 2.7 G/DL (3.4-5.0) L Globulin 4.2 g/dL 3.6 g/dL Albumin/Globulin Ratio 0.7 (1.0-2.7) L 0.8 (1.0-2.7) L Triglycerides Level 56 MG/DL (30-150) Cholesterol Level 129 MG/DL (< 200) LDL Cholesterol 70 mg/dL (<100) HDL Cholesterol 41 MG/DL (40-60) Cholesterol/HDL Ratio 3.1 (3.3-4.4) L Vitamin B12 Level > 2000 PG/ML (193-986) H Folate 24.4 NG/ML (8.6-58.9) Thyroid Stimulating Hormone (TSH) 1.046 uiU/mL (0.358-3.740) POC Whole Blood Glucose 144 MG/DL (74-106) H Current Medications Medications (Trade) Dose Ordered Sig/Ranjeet Route PRN Reason Start Time Stop Time Status Last Admin Dose Admin Acetaminophen (Tylenol) 650 mg Q6H PRN ORAL Temp >100.5 07/19/20 09:15 08/18/20 09:14 Albuterol/ Ipratropium (Albuterol/ Ipratropium) 3 ml Q4H PRN HHN Shortness of Breath 07/19/20 09:15 07/24/20 09:14 Aspirin (Ecotrin) 81 mg DAILY ORAL 07/20/20 09:00 09/03/20 08:59 Azithromycin 250 mg/Dextrose 275 ml @ 275 mls/hr Q24H IVPB 07/20/20 03:30 07/25/20 03:29 07/20/20 05:03 Barium Sulfate (Varibar Honey) 250 ml NOW PRN RAD 07/19/20 12:45 07/22/20 12:43 Barium Sulfate (Varibar [place]) 240 ml NOW PRN RAD 07/19/20 12:45 07/22/20 12:43 Barium Sulfate (Varibar Pudding) 230 ml NOW PRN RAD 07/19/20 12:45 07/22/20 12:43 Barium Sulfate (Varibar Thin Liquid powder) 148 gm NOW PRN RAD 07/19/20 12:45 07/22/20 12:43 Ceftriaxone Sodium 1 gm/ Dextrose 55 ml @ 110 mls/hr Q24H IVPB 07/20/20 02:00 07/27/20 01:59 07/20/20 03:29 Dexamethasone Sodium Phosphate (Decadron 10mg/ ml Inj) 6 mg DAILY IV 07/20/20 09:00 07/29/20 09:01 Dextrose (Dextrose 50%) 25 ml Q30M PRN IV Hypoglycemia 07/19/20 09:15 10/17/20 09:14 Dextrose (Dextrose 50%) 50 ml Q30M PRN IV Hypoglycemia 07/19/20 09:15 10/17/20 09:14 Dextrose/Sodium Chloride 1,000 ml @ 100 mls/hr Q10H IV 07/19/20 09:15 08/18/20 09:14 07/19/20 10:48 Diltiazem HCl (Cardizem ER) 240 mg DAILY ORAL 07/20/20 09:00 08/19/20 08:59 Docusate Sodium (Colace) 100 mg THREE TIMES A DAY ORAL 07/19/20 13:00 08/18/20 12:59 Heparin Sodium (Porcine) (Heparin 5000 units/ml) 5,000 units EVERY 12 HOURS SUBQ 07/19/20 21:00 09/02/20 20:59 Insulin Aspart (NovoLOG) BEFORE MEALS AND HS SUBQ 07/19/20 11:30 10/17/20 11:29 07/20/20 07:16 Levothyroxine Sodium (Synthroid) 100 mcg Q24H ORAL 07/20/20 06:30 08/19/20 06:29 Metoprolol Tartrate (Lopressor) 2.5 mg Q4H PRN IVP HR 118 or higher 07/19/20 21:30 10/17/20 21:29 Ondansetron HCl (Zofran) 4 mg Q6H PRN IVP Nausea & Vomiting 07/19/20 09:15 08/18/20 09:14 Polyethylene Glycol (Miralax) 17 gm DAILYPRN PRN ORAL Constipation 07/19/20 09:15 08/18/20 09:14 Promethazine HCl/ Codeine (Phenergan with Codeine) 5 ml Q6H PRN ORAL cough 07/19/20 09:15 08/18/20 09:14 Nataly Babcock M.D. Jul 20, 2020 07:27
--- NOTE | 2020-07-20 07:30 | NUR ---
NURSE NOTES: Received report from Larisa RN. Alert and oriented x0. Call light in reach. Bed at lowest position locked with side rails up.
--- NOTE | 2020-07-20 07:30 | NUR ---
NURSE HAND-OFF REPORT: Important Events on Shift:[Patient is DNI/DNR] Patient Status: [Stable] Diet: [] Pending Orders: [] Pending Results/Labs:[] Pending MD notification:[] Latest Vital Signs: Temperature 97.5 , Pulse 75 , B/P 126 /63 , Respiratory Rate 18 , O2 SAT 100 , Nasal Cannula, O2 Flow Rate 3.0 . Vital Sign Comment: [] EKG Rhythm: Atrial Flutter Rhythm change?: N MD Notified?: N -Dr Kami WALTER Response: Latest [place] Fall Score: 45 Fall Risk: High Risk Safety Measures: Call light Within Reach, Bed Alarm Zone 1, Side Rails Side Rails x3, Bed position Low and Locked. Fall Precautions: Yellow Socks Yellow Gown Door Sign Report given to [JENNIFER Peres].
--- NOTE | 2020-07-20 07:31 | NUR ---
NURSE NOTES: Received patient in bed asleep. O2 via NC at 4LPM in place. No SOB or acute distress. IV line intact and patent. FC intact, draining red-tinged urine. HOB elevated. Bed locked in low position. Call light within reach. Will continue plan of care.
[2020-07-20 08:00] VITALS: BP 125/61
[2020-07-20] MEDS: Heparin 5000 units/ml inj SUBQ SCH ×2 (09:00→21:00)
[2020-07-20] MEDS ORDERED: Aspirin EC 81mg tab ORAL SCH (09:00)
[2020-07-20] MEDS ORDERED: DILTIAZEM HCL 240 MG ORAL SCH (09:00)
[2020-07-20] MEDS: Aspirin EC 81mg tab ORAL SCH (10:00)
[2020-07-20] MEDS ORDERED: NaCl 3% 500ml 500 ML IV ONE (10:00)
[2020-07-20] MEDS: dexAMETHasone 10mg/ml Inj IV SCH (10:02)
[2020-07-20] MEDS: DILTIAZEM HCL 240 MG ORAL SCH (10:02)
[2020-07-20] MEDS: Docusate 100mg cap ORAL SCH ×3 (10:02→18:00)
--- NOTE | 2020-07-20 10:58 | NUR ---
NURSE NOTES:WOUND ASSESSMENT PATIENT AWAKE AND ALERT. NON-VERBAL AND REQUIRES ASSISTANCE WITH REPOSITIONING. NOTED BRUISING BILATERALLY ON FOREARMS WITH SCABS ON THE LEFT. SKIN INTACT. NO DRAINAGE. LEFT HEEL- DTI MEASURES 4.5X5.0CM. DARK PURPLE IN COLOR. SLIGHTLY BOGGY TO TOUCH. RECOMMEND- APPLY CAVILON SKIN PROTECTOR AND COVER WITH OPTIFOAM DRESSING. REPLACE EVERY 3 DAYS AND NEEDED. CONTINUE TO USE THE HEEL PROTECTOR BOOTS. LEAVE IN PLACE. ALSO RECOMMEND: REPOSITION AT LEAST EVERY 2 HOURS OR TOLERATED. ELEVATE HEELS WITH PILLOWS IF BOOTS REMOVED. CONTINUE WOUND PREVENTION PROTOCOLS
[2020-07-20] MEDS ORDERED: SYNTHROID100 MCG ORAL (11:28)
[2020-07-20] MEDS ORDERED: ALBUTEROL SULF8.5 G1 INH (11:28)
[2020-07-20] MEDS ORDERED: METFORMIN HCL750 MG ORAL (11:28)
[2020-07-20] MEDS ORDERED: ASCORBIC ACID500 MG ORAL (11:28)
--- NOTE | 2020-07-20 11:31 | Nephrology Progress Note ---
Assessment/Plan Problem List: (1) SUZETTE (acute kidney injury) (2) Acute hyponatremia (3) Alzheimer's dementia (4) Chronic atrial fibrillation (5) Diabetes mellitus Assessment Acute renal failure Acute respiratory failure with hypoxia Severe hyponatremia Sepsis History of hypertension History of diabetes mellitus DNR DNI Plan July 20: Serum sodium 126. Labs reviewed. Serum creatinine down to 1.6. Medication list reviewed. Continue current management. Continue to monitor electrolytes and renal parameters. July 19: Saline infusion Monitor renal parameters and electrolytes Avoid nephrotoxic's Saline infusion Per consultants Subjective ROS Limited/Unobtainable: No Constitutional: Reports: malaise, weakness Objective Objective Last 24 Hour Vital Signs Date Time Temp Pulse Resp B/P (MAP) Pulse Ox O2 Delivery O2 Flow Rate FiO2 07/20/20 10:02 64 125/61 07/20/20 08:00 97.7 64 24 125/61 (82) 100 07/20/20 07:20 100 Nasal Cannula 2.0 28 07/20/20 04:00 97.5 68 18 126/63 (84) 100 07/20/20 04:00 75 07/20/20 00:00 116 07/20/20 00:00 97.5 92 20 115/63 (80) 99 07/19/20 22:26 100 Nasal Cannula 3.0 32 07/19/20 21:00 Nasal Cannula 4.0 07/19/20 20:00 97.9 125 21 119/80 (93) 99 07/19/20 20:00 134 07/19/20 16:00 132 07/19/20 16:00 97.7 129 22 120/69 (86) 100 07/19/20 12:00 95.8 72 20 114/66 (82) 100 07/19/20 12:00 64 Intake and Output 07/19/20 07/20/20 19:00 07:00 Output Total 1300 ml 600 ml Balance -1300 ml -600 ml Output Urine Total 1300 ml 600 ml # Voids 1 1 Current Medications Medications (Trade) Dose Ordered Sig/Ranjeet Route PRN Reason Start Time Stop Time Status Last Admin Dose Admin Acetaminophen (Tylenol) 650 mg Q6H PRN ORAL Temp >100.5 07/19/20 09:15 08/18/20 09:14 Albuterol/ Ipratropium (Albuterol/ Ipratropium) 3 ml Q4H PRN HHN Shortness of Breath 07/19/20 09:15 07/24/20 09:14 Aspirin (Ecotrin) 81 mg DAILY ORAL 07/20/20 10:00 09/03/20 09:59 Azithromycin 250 mg/Dextrose 275 ml @ 275 mls/hr Q24H IVPB 07/20/20 03:30 07/25/20 03:29 07/20/20 05:03 Barium Sulfate (Varibar Honey) 250 ml NOW PRN RAD 07/19/20 12:45 07/22/20 12:43 Barium Sulfate (Varibar [place]) 240 ml NOW PRN RAD 07/19/20 12:45 07/22/20 12:43 Barium Sulfate (Varibar Pudding) 230 ml NOW PRN RAD 07/19/20 12:45 07/22/20 12:43 Barium Sulfate (Varibar Thin Liquid powder) 148 gm NOW PRN RAD 07/19/20 12:45 07/22/20 12:43 Ceftriaxone Sodium 1 gm/ Dextrose 55 ml @ 110 mls/hr Q24H IVPB 07/20/20 02:00 07/27/20 01:59 07/20/20 03:29 Dexamethasone Sodium Phosphate (Decadron 10mg/ ml Inj) 6 mg DAILY IV 07/20/20 09:00 07/29/20 09:01 07/20/20 10:02 Dextrose (Dextrose 50%) 25 ml Q30M PRN IV Hypoglycemia 07/19/20 09:15 10/17/20 09:14 Dextrose (Dextrose 50%) 50 ml Q30M PRN IV Hypoglycemia 07/19/20 09:15 10/17/20 09:14 Diltiazem HCl (Cardizem ER) 240 mg DAILY ORAL 07/20/20 10:00 08/19/20 09:59 07/20/20 10:02 Docusate Sodium (Colace) 100 mg THREE TIMES A DAY ORAL 07/20/20 09:45 08/19/20 09:44 07/20/20 10:02 Heparin Sodium (Porcine) (Heparin 5000 units/ml) 5,000 units EVERY 12 HOURS SUBQ 07/19/20 21:00 09/02/20 20:59 Insulin Aspart (NovoLOG) BEFORE MEALS AND HS SUBQ 07/19/20 11:30 10/17/20 11:29 07/20/20 07:16 Levothyroxine Sodium (Synthroid) 100 mcg Q24H ORAL 07/20/20 06:30 08/19/20 06:29 Metoprolol Tartrate (Lopressor) 2.5 mg Q4H PRN IVP HR 118 or higher 07/19/20 21:30 10/17/20 21:29 Ondansetron HCl (Zofran) 4 mg Q6H PRN IVP Nausea & Vomiting 07/19/20 09:15 08/18/20 09:14 Polyethylene Glycol (Miralax) 17 gm DAILYPRN PRN ORAL Constipation 07/19/20 09:15 08/18/20 09:14 Promethazine HCl/ Codeine (Phenergan with Codeine) 5 ml Q6H PRN ORAL cough 07/19/20 09:15 08/18/20 09:14 Sodium Chloride 500 ml @ 30 mls/hr ONCE ONCE IV 07/20/20 10:00 07/21/20 02:39 07/20/20 10:04 Laboratory Tests 07/19/20 21:00: POC Whole Blood Glucose 144H 07/20/20 05:42: White Blood Count 8.3, Red Blood Count 2.87L, Hemoglobin 9.3L, Hematocrit 27.1L, Mean Corpuscular Volume 94, Mean Corpuscular Hemoglobin 32.3H, Mean Corpuscular Hemoglobin Concent 34.2, Red Cell Distribution Width 12.7, Platelet Count 215, Mean Platelet Volume 7.9, Neutrophils (%) (Auto) 78.2H, Lymphocytes (%) (Auto) 10.4L, Monocytes (%) (Auto) 10.3H, Eosinophils (%) (Auto) 0.1, Basophils (%) (Auto) 1.0, Sodium Level 126L, Potassium Level 4.5, Chloride Level 92L, Carbon Dioxide Level 26, Anion Gap 8, Blood Urea Nitrogen 29H, Creatinine 1.6H, Estimat Glomerular Filtration Rate 30.6, Glucose Level 222H, Uric Acid 8.3H, Calcium Level 8.6, Phosphorus Level 3.2, Magnesium Level 1.8, Total Bilirubin 0.4, Aspartate Amino Transf (AST/SGOT) 20, Alanine Aminotransferase (ALT/SGPT) 15, Alkaline Phosphatase 61, C-Reactive Protein, Quantitative 3.2H, Pro-B-Type Natriuretic Peptide 7449H, Total Protein 6.3L, Albumin 2.7L, Globulin 3.6, Albumin/Globulin Ratio 0.8L Height (Feet): 5 Height (Inches): 6.00 Weight (Pounds): 130 General Appearance: no apparent distress, lethargic Cardiovascular: other - Variable Respiratory/Chest: decreased breath sounds Abdomen: distended Jethro Cleaning MD Jul 20, 2020 11:31
[2020-07-20 12:00] VITALS: BP 117/58
--- NOTE | 2020-07-20 12:20 | Pulmonology Progress Note ---
Subjective ROS Limited/Unobtainable: No Constitutional: Reports: no symptoms HEENT: Repors: no symptoms Allergies: Coded Allergies: SULFAMETHOXAZOLE (Verified Allergy, Unknown, 07/19/20) TRIMETHOPRIM (Verified Allergy, Unknown, 07/19/20) Objective Last 24 Hour Vital Signs Date Time Temp Pulse Resp B/P (MAP) Pulse Ox O2 Delivery O2 Flow Rate FiO2 07/20/20 10:02 64 125/61 07/20/20 08:00 97.7 64 24 125/61 (82) 100 07/20/20 07:20 100 Nasal Cannula 2.0 28 07/20/20 04:00 97.5 68 18 126/63 (84) 100 07/20/20 04:00 75 07/20/20 00:00 116 07/20/20 00:00 97.5 92 20 115/63 (80) 99 07/19/20 22:26 100 Nasal Cannula 3.0 32 07/19/20 21:00 Nasal Cannula 4.0 07/19/20 20:00 97.9 125 21 119/80 (93) 99 07/19/20 20:00 134 07/19/20 16:00 132 07/19/20 16:00 97.7 129 22 120/69 (86) 100 Intake and Output 07/19/20 07/20/20 19:00 07:00 Output Total 1300 ml 600 ml Balance -1300 ml -600 ml Output Urine Total 1300 ml 600 ml # Voids 1 1 General Appearance: cachetic HEENT: normocephalic, atraumatic Respiratory: chest wall non-tender, lungs clear Cardiovascular: normal peripheral pulses, normal rate Abdomen: normal bowel sounds, soft, non tender, no organomegaly Genitourinary: normal external genitalia Skin: no rash Microbiology Date/Time Source Procedure Growth Status 07/19/20 04:00 Urine,Clean Catch Urine Culture - Preliminary NO GROWTH Resulted 07/19/20 02:10 Blood Blood Culture - Preliminary NO GROWTH AFTER 24 HOURS Resulted 07/19/20 02:00 Blood Blood Culture - Preliminary NO GROWTH AFTER 24 HOURS Resulted Laboratory Tests 07/19/20 21:00: POC Whole Blood Glucose 144H 07/20/20 05:42: White Blood Count 8.3, Red Blood Count 2.87L, Hemoglobin 9.3L, Hematocrit 27.1L, Mean Corpuscular Volume 94, Mean Corpuscular Hemoglobin 32.3H, Mean Corpuscular Hemoglobin Concent 34.2, Red Cell Distribution Width 12.7, Platelet Count 215, Mean Platelet Volume 7.9, Neutrophils (%) (Auto) 78.2H, Lymphocytes (%) (Auto) 10.4L, Monocytes (%) (Auto) 10.3H, Eosinophils (%) (Auto) 0.1, Basophils (%) (Auto) 1.0, Sodium Level 126L, Potassium Level 4.5, Chloride Level 92L, Carbon Dioxide Level 26, Anion Gap 8, Blood Urea Nitrogen 29H, Creatinine 1.6H, Estimat Glomerular Filtration Rate 30.6, Glucose Level 222H, Uric Acid 8.3H, Calcium Level 8.6, Phosphorus Level 3.2, Magnesium Level 1.8, Total Bilirubin 0.4, Aspartate Amino Transf (AST/SGOT) 20, Alanine Aminotransferase (ALT/SGPT) 15, Alkaline Phosphatase 61, C-Reactive Protein, Quantitative 3.2H, Pro-B-Type Natriuretic Peptide 7449H, Total Protein 6.3L, Albumin 2.7L, Globulin 3.6, Albumin/Globulin Ratio 0.8L 07/20/20 11:44: POC Whole Blood Glucose 147H Current Medications Medications (Trade) Dose Ordered Sig/Ranjeet Route PRN Reason Start Time Stop Time Status Last Admin Dose Admin Acetaminophen (Tylenol) 650 mg Q6H PRN ORAL Temp >100.5 07/19/20 09:15 08/18/20 09:14 Albuterol/ Ipratropium (Albuterol/ Ipratropium) 3 ml Q4H PRN HHN Shortness of Breath 07/19/20 09:15 07/24/20 09:14 Aspirin (Ecotrin) 81 mg DAILY ORAL 07/20/20 10:00 09/03/20 09:59 Azithromycin 250 mg/Dextrose 275 ml @ 275 mls/hr Q24H IVPB 07/20/20 03:30 07/25/20 03:29 07/20/20 05:03 Barium Sulfate (Varibar Honey) 250 ml NOW PRN MC RAD 07/19/20 12:45 07/22/20 12:43 Barium Sulfate (Varibar [place]) 240 ml NOW PRN MC RAD 07/19/20 12:45 07/22/20 12:43 Barium Sulfate (Varibar Pudding) 230 ml NOW PRN RAD 07/19/20 12:45 07/22/20 12:43 Barium Sulfate (Varibar Thin Liquid powder) 148 gm NOW PRN RAD 07/19/20 12:45 07/22/20 12:43 Ceftriaxone Sodium 1 gm/ Dextrose 55 ml @ 110 mls/hr Q24H IVPB 07/20/20 02:00 07/27/20 01:59 07/20/20 03:29 Dexamethasone Sodium Phosphate (Decadron 10mg/ ml Inj) 6 mg DAILY IV 07/20/20 09:00 07/29/20 09:01 07/20/20 10:02 Dextrose (Dextrose 50%) 25 ml Q30M PRN IV Hypoglycemia 07/20/20 12:00 10/18/20 11:59 Dextrose (Dextrose 50%) 50 ml Q30M PRN IV Hypoglycemia 07/20/20 12:00 10/18/20 11:59 Diltiazem HCl (Cardizem ER) 240 mg DAILY ORAL 07/20/20 10:00 08/19/20 09:59 07/20/20 10:02 Docusate Sodium (Colace) 100 mg THREE TIMES A DAY ORAL 07/20/20 09:45 08/19/20 09:44 07/20/20 10:02 Heparin Sodium (Porcine) (Heparin 5000 units/ml) 5,000 units EVERY 12 HOURS SUBQ 07/19/20 21:00 09/02/20 20:59 Insulin Aspart (NovoLOG) give half dose if not eating BEFORE MEALS AND HS SUBQ 07/20/20 16:30 10/18/20 16:29 Levothyroxine Sodium (Synthroid) 100 mcg Q24H ORAL 07/20/20 06:30 08/19/20 06:29 Metoprolol Tartrate (Lopressor) 2.5 mg Q4H PRN IVP HR 118 or higher 07/19/20 21:30 10/17/20 21:29 Ondansetron HCl (Zofran) 4 mg Q6H PRN IVP Nausea & Vomiting 07/19/20 09:15 08/18/20 09:14 Polyethylene Glycol (Miralax) 17 gm DAILYPRN PRN ORAL Constipation 07/19/20 09:15 12/23/20 09:14 Promethazine HCl/ Codeine (Phenergan with Codeine) 5 ml Q6H PRN ORAL cough 07/19/20 09:15 08/18/20 09:14 Sodium Chloride 500 ml @ 30 mls/hr ONCE ONCE IV 07/20/20 10:00 07/21/20 02:39 07/20/20 10:04 Assessment/Plan Problems: (1) Respiratory failure with hypoxia (2) Acute hyponatremia (3) SUZETTE (acute kidney injury) (4) Chronic atrial fibrillation (5) Diabetes mellitus (6) Alzheimer's dementia Assessment/Plan continue Fluids with NS hyponatremia improving V/q scan was negative sliding scale diabetic diet, pending swallow study respiratory treatment titrate fio2 to sat of 92% 2Decho to look at right heart pressure. Riccardo Drew MD Jul 20, 2020 12:20
--- NOTE | 2020-07-20 12:31 | Cardiology Progress Note ---
Assessment/Plan Assessment/Plan 1. Respiratory insuf 2. Hyponatremia. 3. History of atrial fibrillation.now in atrial flutter 4. History of diastolic and systolic heart failure. 5. Moderate mitral, aortic, and tricuspid regurgitation. 6. Dementia. 7. Tachycardia, likely secondary to demand. 8.. Renal insuf hr controlled with iv bb cr improved na improved but still low nursing note reviewed tele persoanlly reviewed atrial flutter ekg personally reviewed on dexa but not remdizivir as has renal insuf watch for chf with hydration i do not see anticoag being administered priro to admission Subjective Subjective per nursing staff PATIENT AWAKE AND ALERT. NON-VERBAL AND REQUIRES ASSISTANCE WITH REPOSITIONING. NOTED BRUISING BILATERALLY ON FOREARMS WITH SCABS ON THE LEFT. SKIN INTACT. NO DRAINAGE. Objective Last 24 Hour Vital Signs Date Time Temp Pulse Resp B/P (MAP) Pulse Ox O2 Delivery O2 Flow Rate FiO2 07/20/20 10:02 64 125/61 07/20/20 08:00 97.7 64 24 125/61 (82) 100 07/20/20 07:20 100 Nasal Cannula 2.0 28 07/20/20 04:00 97.5 68 18 126/63 (84) 100 07/20/20 04:00 75 07/20/20 00:00 116 07/20/20 00:00 97.5 92 20 115/63 (80) 99 07/19/20 22:26 100 Nasal Cannula 3.0 32 07/19/20 21:00 Nasal Cannula 4.0 07/19/20 20:00 97.9 125 21 119/80 (93) 99 07/19/20 20:00 134 07/19/20 16:00 132 07/19/20 16:00 97.7 129 22 120/69 (86) 100 General Appearance: patient on isolation - pt with covid 19 in isoaltion i did nto phsycially see pt but reviewed exam finding from other MDs Intake and Output 07/19/20 07/20/20 19:00 07:00 Output Total 1300 ml 600 ml Balance -1300 ml -600 ml Output Urine Total 1300 ml 600 ml # Voids 1 1 Laboratory Tests Test 07/19/20 21:00 07/20/20 05:42 07/20/20 11:44 POC Whole Blood Glucose 144 MG/DL (74-106) H 147 MG/DL (74-106) H White Blood Count 8.3 K/UL (4.8-10.8) Red Blood Count 2.87 M/UL (4.20-5.40) L Hemoglobin 9.3 G/DL (12.0-16.0) L Hematocrit 27.1 % (37.0-47.0) L Mean Corpuscular Volume 94 FL (80-99) Mean Corpuscular Hemoglobin 32.3 PG (27.0-31.0) H Mean Corpuscular Hemoglobin Concent 34.2 G/DL (32.0-36.0) Red Cell Distribution Width 12.7 % (11.6-14.8) Platelet Count 215 K/UL (150-450) Mean Platelet Volume 7.9 FL (6.5-10.1) Neutrophils (%) (Auto) 78.2 % (45.0-75.0) H Lymphocytes (%) (Auto) 10.4 % (20.0-45.0) L Monocytes (%) (Auto) 10.3 % (1.0-10.0) H Eosinophils (%) (Auto) 0.1 % (0.0-3.0) Basophils (%) (Auto) 1.0 % (0.0-2.0) Sodium Level 126 MMOL/L (136-145) L Potassium Level 4.5 MMOL/L (3.5-5.1) Chloride Level 92 MMOL/L (98-107) L Carbon Dioxide Level 26 MMOL/L (21-32) Anion Gap 8 mmol/L (5-15) Blood Urea Nitrogen 29 mg/dL (7-18) H Creatinine 1.6 MG/DL (0.55-1.30) H Estimat Glomerular Filtration Rate 30.6 mL/min (>60) Glucose Level 222 MG/DL (74-106) H Uric Acid 8.3 MG/DL (2.6-7.2) H Calcium Level 8.6 MG/DL (8.5-10.1) Phosphorus Level 3.2 MG/DL (2.5-4.9) Magnesium Level 1.8 MG/DL (1.8-2.4) Total Bilirubin 0.4 MG/DL (0.2-1.0) Aspartate Amino Transf (AST/SGOT) 20 U/L (15-37) Alanine Aminotransferase (ALT/SGPT) 15 U/L (12-78) Alkaline Phosphatase 61 U/L (46-116) C-Reactive Protein, Quantitative 3.2 mg/dL (0.00-0.90) H Pro-B-Type Natriuretic Peptide 7449 pg/mL (0-125) H Total Protein 6.3 G/DL (6.4-8.2) L Albumin 2.7 G/DL (3.4-5.0) L Globulin 3.6 g/dL Albumin/Globulin Ratio 0.8 (1.0-2.7) L Microbiology Date/Time Source Procedure Growth Status 07/19/20 04:00 Urine,Clean Catch Urine Culture - Preliminary NO GROWTH Resulted 07/19/20 02:10 Blood Blood Culture - Preliminary NO GROWTH AFTER 24 HOURS Resulted 07/19/20 02:00 Blood Blood Culture - Preliminary NO GROWTH AFTER 24 HOURS Resulted Objective per ID HEENT: NCAT Pulm: BL chest rise on NC, non-labored Abd: Thin, soft, NTND Ext: No c/c/e Neuro: Awake, interactive Hema Mcclure MD Jul 20, 2020 12:31
--- NOTE | 2020-07-20 14:30 | NUR ---
NURSE NOTES: Daughter is allowing NG tube insertion for patient but will let patient keep it for only 3 to 5 days. But if patient pulls it out by herself, she does not want it reinserted. Daughter does not want patient to be on restraints either. Dr Drew aware and said not to but NG tube anymore. Patient still with very poor PO intake, insulin doses not given.
[2020-07-20 16:00] VITALS: BP 93/55
--- NOTE | 2020-07-20 17:31 | Internal Med Progress Note ---
Subjective Date of Service: Jul 20, 2020 Physician Name Dudley Rebollar Attending Physician Mateo Rankin MD Current Medications Medications (Trade) Dose Ordered Sig/Ranjeet Route PRN Reason Start Time Stop Time Status Last Admin Dose Admin Acetaminophen (Tylenol) 650 mg Q6H PRN ORAL Temp >100.5 07/19/20 09:15 08/18/20 09:14 Albuterol/ Ipratropium (Albuterol/ Ipratropium) 3 ml Q4H PRN HHN Shortness of Breath 07/19/20 09:15 07/24/20 09:14 Aspirin (Ecotrin) 81 mg DAILY ORAL 07/20/20 10:00 09/03/20 09:59 Azithromycin 250 mg/Dextrose 275 ml @ 275 mls/hr Q24H IVPB 07/20/20 03:30 07/25/20 03:29 07/20/20 05:03 Barium Sulfate (Varibar [place]) 250 ml NOW PRN MC RAD 07/19/20 12:45 07/22/20 12:43 Barium Sulfate (Varibar [place]) 240 ml NOW PRN MC RAD 07/19/20 12:45 07/22/20 12:43 Barium Sulfate (Varibar Pudding) 230 ml NOW PRN MC RAD 07/19/20 12:45 07/22/20 12:43 Barium Sulfate (Varibar Thin Liquid powder) 148 gm NOW PRN MC RAD 07/19/20 12:45 07/22/20 12:43 Ceftriaxone Sodium 1 gm/ Dextrose 55 ml @ 110 mls/hr Q24H IVPB 07/20/20 02:00 07/27/20 01:59 07/20/20 03:29 Dexamethasone Sodium Phosphate (Decadron 10mg/ ml Inj) 6 mg DAILY IV 07/20/20 09:00 07/29/20 09:01 07/20/20 10:02 Dextrose (Dextrose 50%) 25 ml Q30M PRN IV Hypoglycemia 07/20/20 12:00 10/18/20 11:59 Dextrose (Dextrose 50%) 50 ml Q30M PRN IV Hypoglycemia 07/20/20 12:00 10/18/20 11:59 Diltiazem HCl (Cardizem ER) 240 mg DAILY ORAL 07/20/20 10:00 08/19/20 09:59 07/20/20 10:02 Docusate Sodium (Colace) 100 mg THREE TIMES A DAY ORAL 07/20/20 09:45 08/19/20 09:44 07/20/20 10:02 Heparin Sodium (Porcine) (Heparin 5000 units/ml) 5,000 units EVERY 12 HOURS SUBQ 07/19/20 21:00 09/02/20 20:59 Insulin Aspart (NovoLOG) give half dose if not eating BEFORE MEALS AND HS SUBQ 07/20/20 16:30 10/18/20 16:29 Levothyroxine Sodium (Synthroid) 100 mcg Q24H ORAL 07/20/20 06:30 08/19/20 06:29 Metoprolol Tartrate (Lopressor) 2.5 mg Q4H PRN IVP HR 118 or higher 07/19/20 21:30 10/17/20 21:29 Ondansetron HCl (Zofran) 4 mg Q6H PRN IVP Nausea & Vomiting 07/19/20 09:15 08/18/20 09:14 Polyethylene Glycol (Miralax) 17 gm DAILYPRN PRN ORAL Constipation 07/19/20 09:15 08/18/20 09:14 Promethazine HCl/ Codeine (Phenergan with Codeine) 5 ml Q6H PRN ORAL cough 07/19/20 09:15 08/18/20 09:14 Sodium Chloride 500 ml @ 30 mls/hr ONCE ONCE IV 07/20/20 10:00 07/21/20 02:39 07/20/20 10:04 Allergies: Coded Allergies: SULFAMETHOXAZOLE (Verified Allergy, Unknown, 07/19/20) TRIMETHOPRIM (Verified Allergy, Unknown, 07/19/20) ROS Limited/Unobtainable: Yes Subjective 84 YO F admitted with COVID 19 pos and respiratory failure. Now COVID 19 pneumonia. Cover for Int Sergio-Dr Rankin Objective Last Vital Signs Date Time Temp Pulse Resp B/P (MAP) Pulse Ox O2 Delivery O2 Flow Rate FiO2 07/20/20 12:00 84 07/20/20 12:00 97.6 20 117/58 (77) 100 07/20/20 09:00 Nasal Cannula 4.0 07/20/20 07:20 28 Laboratory Tests Test 07/19/20 21:00 07/20/20 05:42 07/20/20 11:44 POC Whole Blood Glucose 144 MG/DL (74-106) H 147 MG/DL (74-106) H White Blood Count 8.3 K/UL (4.8-10.8) Red Blood Count 2.87 M/UL (4.20-5.40) L Hemoglobin 9.3 G/DL (12.0-16.0) L Hematocrit 27.1 % (37.0-47.0) L Mean Corpuscular Volume 94 FL (80-99) Mean Corpuscular Hemoglobin 32.3 PG (27.0-31.0) H Mean Corpuscular Hemoglobin Concent 34.2 G/DL (32.0-36.0) Red Cell Distribution Width 12.7 % (11.6-14.8) Platelet Count 215 K/UL (150-450) Mean Platelet Volume 7.9 FL (6.5-10.1) Neutrophils (%) (Auto) 78.2 % (45.0-75.0) H Lymphocytes (%) (Auto) 10.4 % (20.0-45.0) L Monocytes (%) (Auto) 10.3 % (1.0-10.0) H Eosinophils (%) (Auto) 0.1 % (0.0-3.0) Basophils (%) (Auto) 1.0 % (0.0-2.0) Sodium Level 126 MMOL/L (136-145) L Potassium Level 4.5 MMOL/L (3.5-5.1) Chloride Level 92 MMOL/L (98-107) L Carbon Dioxide Level 26 MMOL/L (21-32) Anion Gap 8 mmol/L (5-15) Blood Urea Nitrogen 29 mg/dL (7-18) H Creatinine 1.6 MG/DL (0.55-1.30) H Estimat Glomerular Filtration Rate 30.6 mL/min (>60) Glucose Level 222 MG/DL (74-106) H Uric Acid 8.3 MG/DL (2.6-7.2) H Calcium Level 8.6 MG/DL (8.5-10.1) Phosphorus Level 3.2 MG/DL (2.5-4.9) Magnesium Level 1.8 MG/DL (1.8-2.4) Total Bilirubin 0.4 MG/DL (0.2-1.0) Aspartate Amino Transf (AST/SGOT) 20 U/L (15-37) Alanine Aminotransferase (ALT/SGPT) 15 U/L (12-78) Alkaline Phosphatase 61 U/L (46-116) C-Reactive Protein, Quantitative 3.2 mg/dL (0.00-0.90) H Pro-B-Type Natriuretic Peptide 7449 pg/mL (0-125) H Total Protein 6.3 G/DL (6.4-8.2) L Albumin 2.7 G/DL (3.4-5.0) L Globulin 3.6 g/dL Albumin/Globulin Ratio 0.8 (1.0-2.7) L Microbiology Date/Time Source Procedure Growth Status 07/19/20 04:00 Urine,Clean Catch Urine Culture - Preliminary NO GROWTH Resulted 07/19/20 02:10 Blood Blood Culture - Preliminary NO GROWTH AFTER 24 HOURS Resulted 07/19/20 02:00 Blood Blood Culture - Preliminary NO GROWTH AFTER 24 HOURS Resulted Intake and Output 07/19/20 07/20/20 19:00 07:00 Output Total 1300 ml 600 ml Balance -1300 ml -600 ml Output Urine Total 1300 ml 600 ml # Voids 1 1 Objective PHYSICAL EXAMINATION: GENERAL: The patient is a well-developed and well-nourished female, in moderate respiratory distress. HEENT: Eyes, pupils are equal and responsive to light and accommodation. Extraocular movements are intact. NECK: Supple without lymphadenopathy. CHEST: Decreased breath sounds in bilateral bases, otherwise without wheezes or rales. CARDIOVASCULAR: Regular rhythm and rate. S1, S2 normal without murmurs, rubs, or gallops. ABDOMEN: Soft, nontender, nondistended. Positive bowel sounds. No evidence of hepatosplenomegaly. Currently, no rebound or guarding noted. EXTREMITIES: Negative for clubbing, cyanosis, or edema. RECTAL/GENITAL: Not performed. NEUROLOGIC: Cranial nerves II through XII are grossly intact without focal deficits. Assessment/Plan Assessment/Plan TREATMENT: 1. COVID-19/pneumonia. An Infectious Disease consultation has been obtained with Dr. Babcock. The patient has been started on Decadron intravenously. We will follow recommendations of Infectious Disease. ABX=ceftriaxone and azithromycin A Pulmonary consultation has been obtained with Dr. Riccardo Drew. 2. Alzheimer's dementia. 3. Hypertension. The patient is currently hypotensive. Hold diltiazem. 4. Congestive heart failure. Cardiology consultation has been obtained with Dr. Hema Mcclure. 5. Atrial fibrillation. 6. Hypothyroidism. Continue Levoxyl as above. 7. Diabetes type 2. A NovoLog sliding scale has been instituted. Dudley Rebollar MD Jul 20, 2020 17:31
--- NOTE | 2020-07-20 19:18 | NUR ---
NURSE HAND-OFF REPORT: Important Events on Shift:Patient for NG tube insertion, but daughter said that patient is likely to pull out NG tube and she doesn't want patient to be on restraints. If patient gets an NG tube, daughter wants it taken out within 3 to 5 days. If patient pulls out NG tube, daughter doesnt want it reinserted. Dr Drew aware and instructed RN not to insert NG tube anymore. Patient is not eating. Insulin doses not given today by RN. Patient Status: lethargic but arousable Diet: CCHO med, pureed moist Pending Orders: Pending Results/Labs: Pending MD notification: Latest Vital Signs: Temperature 97.7 , Pulse 170 , B/P 93 /55 , Respiratory Rate 20 , O2 SAT 100 , Nasal Cannula, O2 Flow Rate 2.0 . Vital Sign Comment: EKG Rhythm: Atrial Flutter Rhythm change?: N MD Notified?: Y -Dr Kami WALTER Response: Latest [place] Fall Score: 45 Fall Risk: High Risk Safety Measures: Call light Within Reach, Bed Alarm Zone 1, Side Rails Side Rails x3, Bed position Low and Locked. Fall Precautions: Yellow Socks Yellow Gown Door Sign Report given to Nona RODRIGUEZ.
[2020-07-20 20:00] VITALS: BP 101/66
[2020-07-21] VITALS: BP 118/71
[2020-07-21] MEDS: cefTRIAXone 1 GM in D5W 55 ML IVPB SCH (02:00)
[2020-07-21] MEDS: Azithromycin 250 MG in D5W 275 ML IVPB SCH (03:30)
[2020-07-21 04:00] VITALS: BP 119/65
[2020-07-21] MEDS ORDERED: cefTRIAXone 1 GM in D5W 55 ML IVPB SCH (04:30)
--- NOTE | 2020-07-21 05:00 | NUR ---
NURSE NOTES: Rocephin and Zithromycin administered late. Spoke with Jamie at pharmacy to clarify orders. Administered late due to medication dispensing issues and IV dislodged. Dr. Viki lee.
[2020-07-21] MEDS ORDERED: Azithromycin 250 MG in D5W 275 ML IV SCH (05:15)
[2020-07-21] MEDS ORDERED: Azithromycin 250 MG in D5W 275 ML IVPB SCH (06:15)
[2020-07-21] MEDS: NovoLOG Insulin Flexpen SUBQ SCH ×4 (06:30→20:52)
[2020-07-21 07:20] LABS: HEMATOCRIT 27.3 % (37.0-47.0); HEMOGLOBIN 9.1 G/DL (12.0-16.0); MEAN CORPUSCULAR VOLUME 97 FL (80-99); PLATELET COUNT 238 K/UL (150-450); RED BLOOD COUNT 2.81 M/UL (4.20-5.40); RED CELL DISTRIBUTION WIDTH 13.4 % (11.6-14.8); WHITE BLOOD COUNT 8.3 K/UL (4.8-10.8)
--- NOTE | 2020-07-21 07:32 | Infectious Diseases Prog Note ---
Assessment/Plan 84yo F with: Afebrile Normal WBC Leukopenia COVID pna, dx'd 07/15 Acute hypoxic resp failure 2/2 COVID pna 07/19 BCx NTD UA +blood, 10-15 WBC, UCx NTD Resp cx p CXR: No acute infiltrate SUZETTE on CKD, Cr 1.8, CrCl ~20 07/19 Renal US: Mild right hydro. R/o PE: 07/19 VQ scan: Asymmetric tracer distribution, left lung more than right. Suspect that this is artifactual, probably due to asymmetric overlapping soft tissues, but makes exam nondiagnostic for exclusion of pulmonary embolus PMH: CHF Afib HTN DM2 Dementia Plan: SUZETTE improving, but pt satting 100% on 2L NC, so will hold off on remdesivor for now Cont dexamethasone 6mg daily, #3 Cont CTX/azithro #3/5 empiric No convalescent plasma available at this institution unfortunately Monitor CBC/CMP Monitor resp status Monitor temp curve, hemodynamics D/w RN Thank you for this consult. [facility] will continue to follow. Subjective Allergies: Coded Allergies: SULFAMETHOXAZOLE (Verified Allergy, Unknown, 07/19/20) TRIMETHOPRIM (Verified Allergy, Unknown, 07/19/20) AF WBC 8.3 NAD in bed Satting 100% on 2L NC Objective Last 24 Hour Vital Signs Date Time Temp Pulse Resp B/P (MAP) Pulse Ox O2 Delivery O2 Flow Rate FiO2 07/21/20 00:00 111 07/21/20 00:00 97.7 110 16 118/71 (87) 100 07/20/20 21:00 Nasal Cannula 4.0 07/20/20 20:00 97.9 86 16 101/66 (78) 100 07/20/20 20:00 103 07/20/20 18:56 100 Nasal Cannula 2.0 28 07/20/20 16:00 97.7 61 20 93/55 (68) 100 07/20/20 16:00 170 07/20/20 12:00 84 07/20/20 12:00 97.6 99 20 117/58 (77) 100 07/20/20 10:02 64 125/61 07/20/20 09:00 Nasal Cannula 4.0 07/20/20 08:00 97.7 64 24 125/61 (82) 100 07/20/20 08:00 83 Height (Feet): 5 Height (Inches): 6.00 Weight (Pounds): 130 Gen: NAD in bed on NC HEENT: NCAT Pulm: BL chest rise on NC, non-labored Abd: Thin, soft, NTND Ext: No c/c/e Neuro: Awake, interactive Microbiology Date/Time Source Procedure Growth Status 07/19/20 04:00 Urine,Clean Catch Urine Culture - Final NO GROWTH AFTER 48 HOURS Complete 07/19/20 02:10 Blood Blood Culture - Preliminary NO GROWTH AFTER 48 HOURS Resulted 07/19/20 02:00 Blood Blood Culture - Preliminary NO GROWTH AFTER 48 HOURS Resulted Laboratory Tests Test 07/20/20 11:44 07/20/20 18:21 07/20/20 23:29 07/21/20 05:42 POC Whole Blood Glucose 147 MG/DL (74-106) H 168 MG/DL (74-106) H 167 MG/DL (74-106) H 214 MG/DL (74-106) H Test 07/21/20 06:49 White Blood Count 8.3 K/UL (4.8-10.8) Red Blood Count 2.81 M/UL (4.20-5.40) L Hemoglobin 9.1 G/DL (12.0-16.0) L Hematocrit 27.3 % (37.0-47.0) L Mean Corpuscular Volume 97 FL (80-99) Mean Corpuscular Hemoglobin 32.2 PG (27.0-31.0) H Mean Corpuscular Hemoglobin Concent 33.2 G/DL (32.0-36.0) Red Cell Distribution Width 13.4 % (11.6-14.8) Platelet Count 238 K/UL (150-450) Mean Platelet Volume 7.2 FL (6.5-10.1) Neutrophils (%) (Auto) % (45.0-75.0) Lymphocytes (%) (Auto) % (20.0-45.0) Monocytes (%) (Auto) % (1.0-10.0) Eosinophils (%) (Auto) % (0.0-3.0) Basophils (%) (Auto) % (0.0-2.0) Neutrophils % (Manual) Pending Lymphocytes % (Manual) Pending Platelet Estimate Pending Platelet Morphology Pending Sodium Level Pending Potassium Level Pending Chloride Level Pending Carbon Dioxide Level Pending Blood Urea Nitrogen Pending Creatinine Pending Estimat Glomerular Filtration Rate Pending Glucose Level Pending Calcium Level Pending Current Medications Medications (Trade) Dose Ordered Sig/Ranjeet Route PRN Reason Start Time Stop Time Status Last Admin Dose Admin Acetaminophen (Tylenol) 650 mg Q6H PRN ORAL Temp >100.5 07/19/20 09:15 08/18/20 09:14 Albuterol/ Ipratropium (Albuterol/ Ipratropium) 3 ml Q4H PRN HHN Shortness of Breath 07/19/20 09:15 07/24/20 09:14 Aspirin (Ecotrin) 81 mg DAILY ORAL 07/20/20 10:00 09/03/20 09:59 Azithromycin 250 mg/Dextrose 275 ml @ 275 mls/hr ONCE IVPB 07/21/20 06:15 07/21/20 09:00 07/21/20 06:42 Azithromycin 250 mg/Dextrose 275 ml @ 275 mls/hr Q24H IVPB 07/20/20 03:30 07/25/20 03:29 07/20/20 05:03 Barium Sulfate (Varibar Honey) 250 ml NOW PRN MC RAD 07/19/20 12:45 07/22/20 12:43 Barium Sulfate (Varibar [place]) 240 ml NOW PRN MC RAD 07/19/20 12:45 07/22/20 12:43 Barium Sulfate (Varibar Pudding) 230 ml NOW PRN MC RAD 07/19/20 12:45 07/22/20 12:43 Barium Sulfate (Varibar Thin Liquid powder) 148 gm NOW PRN MC RAD 07/19/20 12:45 07/22/20 12:43 Ceftriaxone Sodium 1 gm/ Dextrose 55 ml @ 110 mls/hr Q24H IVPB 07/20/20 02:00 07/27/20 01:59 07/20/20 03:29 Dexamethasone Sodium Phosphate (Decadron 10mg/ ml Inj) 6 mg DAILY IV 07/20/20 09:00 07/29/20 09:01 07/20/20 10:02 Dextrose (Dextrose 50%) 25 ml Q30M PRN IV Hypoglycemia 07/20/20 12:00 10/18/20 11:59 Dextrose (Dextrose 50%) 50 ml Q30M PRN IV Hypoglycemia 07/20/20 12:00 10/18/20 11:59 Diltiazem HCl (Cardizem ER) 240 mg DAILY ORAL 07/20/20 10:00 08/19/20 09:59 07/20/20 10:02 Docusate Sodium (Colace) 100 mg THREE TIMES A DAY ORAL 07/20/20 09:45 08/19/20 09:44 07/20/20 10:02 Heparin Sodium (Porcine) (Heparin 5000 units/ml) 5,000 units EVERY 12 HOURS SUBQ 07/19/20 21:00 09/02/20 20:59 Insulin Aspart (NovoLOG) give half dose if not eating BEFORE MEALS AND HS SUBQ 07/20/20 16:30 10/18/20 16:29 07/20/20 21:00 Levothyroxine Sodium (Synthroid) 100 mcg Q24H ORAL 07/21/20 06:30 08/20/20 06:29 Metoprolol Tartrate (Lopressor) 2.5 mg Q4H PRN IVP HR 118 or higher 07/19/20 21:30 10/17/20 21:29 Ondansetron HCl (Zofran) 4 mg Q6H PRN IVP Nausea & Vomiting 07/19/20 09:15 08/18/20 09:14 Polyethylene Glycol (Miralax) 17 gm DAILYPRN PRN ORAL Constipation 07/19/20 09:15 08/18/20 09:14 Promethazine HCl/ Codeine (Phenergan with Codeine) 5 ml Q6H PRN ORAL cough 07/19/20 09:15 08/18/20 09:14 Nataly Babcock M.D. Jul 21, 2020 07:32
[2020-07-21 07:48] LABS: CALCIUM 8.6 MG/DL (8.5-10.1); CREATININE 1.4 MG/DL (0.55-1.30); POTASSIUM 4.1 MMOL/L (3.5-5.1)
[2020-07-21 08:00] VITALS: BP 107/96
--- NOTE | 2020-07-21 08:16 | NUR ---
NURSE NOTES: Received report from Nona Perkins RN. Patient is in supine position, sleeping, in no apparent distress.
--- NOTE | 2020-07-21 08:18 | NUR ---
HAND-OFF: Report given to JENNIFER Platt. Endorsed plan of care. Patient stable remains at baseline.
[2020-07-21] MEDS: DILTIAZEM HCL 240 MG ORAL SCH (09:00)
[2020-07-21] MEDS: Heparin 5000 units/ml inj SUBQ SCH ×2 (09:00→20:49)
--- NOTE | 2020-07-21 09:03 | NUR ---
RD ASSESSMENT & RECOMMENDATIONS SEE CARE ACTIVITY FOR COMPLETE ASSESSMENT DAILY ESTIMATED NEEDS: Needs based on Pulmonary, DM, underweight 48.5kg 30-35 kcals/kg 6233-7309 total kcals 1-1.5 g protein/kg 49-73 g total protein 25-30ml/kcal mL/kg 8777-6814 total fluid mLs NUTRITION DIAGNOSIS: Altered nutrition related lab values r/t diabetes and clinical status as evidenced by A1C 6.4, BG 200's, on decadron. CURRENT DIET:CCHO MED/ puree PO DIET RECOMMENDATIONS: Liberalized REGULAR DIET/ texture per REGISTERED CLIENT ASSOCIATE ADDITIONAL RECOMMENDATIONS: 1) Add Glucerna 1 tetra TID w/ meals 2) NON ORAL FEEDS/ TEMPORARY if part of POC 3) Obtain an accurate CBW 4) Rec D5 w/ increased insulin coverage w/ current poor po intake
[2020-07-21 10:07] LABS: ALANINE AMINOTRANSFERASE 15 U/L (12-78); ALKALINE PHOSPHATASE 63 U/L (46-116); ASPARTATE AMINO TRANSFERASE 21 U/L (15-37); BILIRUBIN,DIRECT 0.1 MG/DL (0.0-0.3); BILIRUBIN,TOTAL 0.3 MG/DL (0.2-1.0); PHOSPHORUS 2.9 MG/DL (2.5-4.9)
[2020-07-21] MEDS: dexAMETHasone 10mg/ml Inj IV SCH (10:15)
[2020-07-21] MEDS: Aspirin EC 81mg tab ORAL SCH (10:16)
[2020-07-21] MEDS: Docusate 100mg cap ORAL SCH ×3 (10:16→17:15)
--- NOTE | 2020-07-21 11:35 | Pulmonology Progress Note ---
Subjective ROS Limited/Unobtainable: Yes Constitutional: Reports: no symptoms HEENT: Repors: no symptoms Allergies: Coded Allergies: SULFAMETHOXAZOLE (Verified Allergy, Unknown, 07/19/20) TRIMETHOPRIM (Verified Allergy, Unknown, 07/19/20) Objective Last 24 Hour Vital Signs Date Time Temp Pulse Resp B/P (MAP) Pulse Ox O2 Delivery O2 Flow Rate FiO2 07/21/20 09:00 61 107/96 07/21/20 08:00 80 07/21/20 08:00 96.7 61 20 107/96 (100) 100 07/21/20 04:00 98.2 85 16 119/65 (83) 100 07/21/20 04:00 114 07/21/20 00:00 111 07/21/20 00:00 97.7 110 16 118/71 (87) 100 07/20/20 21:00 Nasal Cannula 4.0 07/20/20 20:00 97.9 86 16 101/66 (78) 100 07/20/20 20:00 103 07/20/20 18:56 100 Nasal Cannula 2.0 28 07/20/20 16:00 97.7 61 20 93/55 (68) 100 07/20/20 16:00 170 07/20/20 12:00 84 07/20/20 12:00 97.6 99 20 117/58 (77) 100 Intake and Output 07/20/20 07/21/20 19:00 07:00 Output Total 600 ml Balance -600 ml Output Urine Total 600 ml # Voids 1 General Appearance: cachetic HEENT: normocephalic, atraumatic Respiratory: chest wall non-tender, lungs clear Cardiovascular: normal peripheral pulses, normal rate Abdomen: normal bowel sounds, soft, non tender, no organomegaly Genitourinary: normal external genitalia Skin: no rash Microbiology Date/Time Source Procedure Growth Status 07/19/20 04:00 Urine,Clean Catch Urine Culture - Final NO GROWTH AFTER 48 HOURS Complete 07/19/20 02:10 Blood Blood Culture - Preliminary NO GROWTH AFTER 48 HOURS Resulted 07/19/20 02:00 Blood Blood Culture - Preliminary NO GROWTH AFTER 48 HOURS Resulted Laboratory Tests 07/20/20 11:44: POC Whole Blood Glucose 147H 07/20/20 18:21: POC Whole Blood Glucose 168H 07/20/20 23:29: POC Whole Blood Glucose 167H 07/21/20 05:42: POC Whole Blood Glucose 214H 07/21/20 06:49: White Blood Count 8.3, Red Blood Count 2.81L, Hemoglobin 9.1L, Hematocrit 27.3L, Mean Corpuscular Volume 97, Mean Corpuscular Hemoglobin 32.2H, Mean Corpuscular Hemoglobin Concent 33.2, Red Cell Distribution Width 13.4, Platelet Count 238, Mean Platelet Volume 7.2, Neutrophils (%) (Auto) , Lymphocytes (%) (Auto) , Monocytes (%) (Auto) , Eosinophils (%) (Auto) , Basophils (%) (Auto) , Differential Total Cells Counted 100, Neutrophils % (Manual) 80H, Lymphocytes % (Manual) 8L, Monocytes % (Manual) 12H, Eosinophils % (Manual) 0, Basophils % (Manual) 0, Band Neutrophils 0, Platelet Estimate Adequate, Platelet Morphology Normal, Hypochromasia 1+, Sodium Level 139, Potassium Level 4.1, Chloride Level 104, Carbon Dioxide Level 26, Anion Gap 9, Blood Urea Nitrogen 23H, Creatinine 1.4H, Estimat Glomerular Filtration Rate 35.7, Glucose Level 221H, Uric Acid 7.5H, Calcium Level 8.6, Phosphorus Level 2.9, Magnesium Level 1.9, Total Bilirubin 0.3, Direct Bilirubin 0.1, Aspartate Amino Transf (AST/SGOT) 21, Alanine Aminotransferase (ALT/SGPT) 15, Alkaline Phosphatase 63, Total Protein 6.7, Albumin 3.0L 07/21/20 11:24: POC Whole Blood Glucose [Pending] Current Medications Medications (Trade) Dose Ordered Sig/Ranjeet Route PRN Reason Start Time Stop Time Status Last Admin Dose Admin Acetaminophen (Tylenol) 650 mg Q6H PRN ORAL Temp >100.5 07/19/20 09:15 08/18/20 09:14 Albuterol/ Ipratropium (Albuterol/ Ipratropium) 3 ml Q4H PRN HHN Shortness of Breath 07/19/20 09:15 07/24/20 09:14 Aspirin (Ecotrin) 81 mg DAILY ORAL 07/20/20 10:00 09/03/20 09:59 07/21/20 10:16 Azithromycin 250 mg/Dextrose 275 ml @ 275 mls/hr Q24H IVPB 07/20/20 03:30 07/25/20 03:29 07/20/20 05:03 Barium Sulfate (Varibar Honey) 250 ml NOW PRN RAD 07/19/20 12:45 07/22/20 12:43 Barium Sulfate (Varibar [place]) 240 ml NOW PRN RAD 07/19/20 12:45 07/22/20 12:43 Barium Sulfate (Varibar Pudding) 230 ml NOW PRN RAD 07/19/20 12:45 07/22/20 12:43 Barium Sulfate (Varibar Thin Liquid powder) 148 gm NOW PRN RAD 07/19/20 12:45 07/22/20 12:43 Ceftriaxone Sodium 1 gm/ Dextrose 55 ml @ 110 mls/hr Q24H IVPB 07/20/20 02:00 07/27/20 01:59 07/20/20 03:29 Dexamethasone Sodium Phosphate (Decadron 10mg/ ml Inj) 6 mg DAILY IV 07/20/20 09:00 07/29/20 09:01 07/21/20 10:15 Dextrose (Dextrose 50%) 25 ml Q30M PRN IV Hypoglycemia 07/20/20 12:00 10/18/20 11:59 Dextrose (Dextrose 50%) 50 ml Q30M PRN IV Hypoglycemia 07/20/20 12:00 10/18/20 11:59 Diltiazem HCl (Cardizem ER) 240 mg DAILY ORAL 07/20/20 10:00 08/19/20 09:59 07/20/20 10:02 Docusate Sodium (Colace) 100 mg THREE TIMES A DAY ORAL 07/20/20 09:45 08/19/20 09:44 07/21/20 10:16 Heparin Sodium (Porcine) (Heparin 5000 units/ml) 5,000 units EVERY 12 HOURS SUBQ 07/19/20 21:00 09/02/20 20:59 Insulin Aspart (NovoLOG) give half dose if not eating BEFORE MEALS AND HS SUBQ 07/20/20 16:30 10/18/20 16:29 07/21/20 06:30 Levothyroxine Sodium (Synthroid) 100 mcg Q24H ORAL 07/21/20 06:30 08/20/20 06:29 Metoprolol Tartrate (Lopressor) 2.5 mg Q4H PRN IVP HR 118 or higher 07/19/20 21:30 10/17/20 21:29 Ondansetron HCl (Zofran) 4 mg Q6H PRN IVP Nausea & Vomiting 07/19/20 09:15 08/18/20 09:14 Polyethylene Glycol (Miralax) 17 gm DAILYPRN PRN ORAL Constipation 07/19/20 09:15 08/18/20 09:14 Promethazine HCl/ Codeine (Phenergan with Codeine) 5 ml Q6H PRN ORAL cough 07/19/20 09:15 08/18/20 09:14 Assessment/Plan Problems: (1) Respiratory failure with hypoxia (2) Acute hyponatremia (3) SUZETTE (acute kidney injury) (4) Chronic atrial fibrillation (5) Diabetes mellitus (6) Alzheimer's dementia Assessment/Plan oxygenation improving renal function improving hyponatremia improving V/q scan was negative sliding scale diabetic diet, pending swallow study respiratory treatment titrate fio2 to sat of 92% dvt prophylaxis. Riccardo Drew MD Jul 21, 2020 11:35
--- NOTE | 2020-07-21 11:38 | Internal Med Progress Note ---
Subjective Date of Service: Jul 21, 2020 Physician Name Dudley Rebollar Attending Physician Mateo Rankin MD Current Medications Medications (Trade) Dose Ordered Sig/Ranjeet Route PRN Reason Start Time Stop Time Status Last Admin Dose Admin Acetaminophen (Tylenol) 650 mg Q6H PRN ORAL Temp >100.5 07/19/20 09:15 08/18/20 09:14 Albuterol/ Ipratropium (Albuterol/ Ipratropium) 3 ml Q4H PRN HHN Shortness of Breath 07/19/20 09:15 07/24/20 09:14 Aspirin (Ecotrin) 81 mg DAILY ORAL 07/20/20 10:00 09/03/20 09:59 07/21/20 10:16 Azithromycin 250 mg/Dextrose 275 ml @ 275 mls/hr Q24H IVPB 07/20/20 03:30 07/25/20 03:29 07/20/20 05:03 Barium Sulfate (Varibar Honey) 250 ml NOW PRN MC RAD 07/19/20 12:45 07/22/20 12:43 Barium Sulfate (Varibar [place]) 240 ml NOW PRN MC RAD 07/19/20 12:45 07/22/20 12:43 Barium Sulfate (Varibar Pudding) 230 ml NOW PRN MC RAD 07/19/20 12:45 07/22/20 12:43 Barium Sulfate (Varibar Thin Liquid powder) 148 gm NOW PRN MC RAD 07/19/20 12:45 07/22/20 12:43 Ceftriaxone Sodium 1 gm/ Dextrose 55 ml @ 110 mls/hr Q24H IVPB 07/20/20 02:00 07/27/20 01:59 07/20/20 03:29 Dexamethasone Sodium Phosphate (Decadron 10mg/ ml Inj) 6 mg DAILY IV 07/20/20 09:00 07/29/20 09:01 07/21/20 10:15 Dextrose (Dextrose 50%) 25 ml Q30M PRN IV Hypoglycemia 07/20/20 12:00 10/18/20 11:59 Dextrose (Dextrose 50%) 50 ml Q30M PRN IV Hypoglycemia 07/20/20 12:00 10/18/20 11:59 Diltiazem HCl (Cardizem ER) 240 mg DAILY ORAL 07/20/20 10:00 08/19/20 09:59 07/20/20 10:02 Docusate Sodium (Colace) 100 mg THREE TIMES A DAY ORAL 07/20/20 09:45 08/19/20 09:44 07/21/20 10:16 Heparin Sodium (Porcine) (Heparin 5000 units/ml) 5,000 units EVERY 12 HOURS SUBQ 07/19/20 21:00 09/02/20 20:59 Insulin Aspart (NovoLOG) give half dose if not eating BEFORE MEALS AND HS SUBQ 07/20/20 16:30 10/18/20 16:29 07/21/20 06:30 Levothyroxine Sodium (Synthroid) 100 mcg Q24H ORAL 07/21/20 06:30 08/20/20 06:29 Metoprolol Tartrate (Lopressor) 2.5 mg Q4H PRN IVP HR 118 or higher 07/19/20 21:30 10/17/20 21:29 Ondansetron HCl (Zofran) 4 mg Q6H PRN IVP Nausea & Vomiting 07/19/20 09:15 08/18/20 09:14 Polyethylene Glycol (Miralax) 17 gm DAILYPRN PRN ORAL Constipation 07/19/20 09:15 08/18/20 09:14 Promethazine HCl/ Codeine (Phenergan with Codeine) 5 ml Q6H PRN ORAL cough 07/19/20 09:15 08/18/20 09:14 Allergies: Coded Allergies: SULFAMETHOXAZOLE (Verified Allergy, Unknown, 07/19/20) TRIMETHOPRIM (Verified Allergy, Unknown, 07/19/20) ROS Limited/Unobtainable: No Constitutional: Reports: no symptoms HEENT: Reports: no symptoms Cardiovascular: Reports: no symptoms Respiratory: Reports: no symptoms Gastrointestinal/Abdominal: Reports: no symptoms Genitourinary: Reports: no symptoms Neurologic/Psychiatric: Reports: no symptoms Subjective 84 YO F admitted with COVID 19 pos and respiratory failure. Now COVID 19 pneumonia. Cover for Int Sergio-Dr Rankin Objective Last Vital Signs Date Time Temp Pulse Resp B/P (MAP) Pulse Ox O2 Delivery O2 Flow Rate FiO2 07/21/20 09:00 61 107/96 07/21/20 08:00 96.7 20 100 07/20/20 21:00 Nasal Cannula 4.0 11/24/20 18:56 28 Laboratory Tests Test 07/20/20 11:44 07/20/20 18:21 07/20/20 23:29 07/21/20 05:42 POC Whole Blood Glucose 147 MG/DL (74-106) H 168 MG/DL (74-106) H 167 MG/DL (74-106) H 214 MG/DL (74-106) H Test 07/21/20 06:49 07/21/20 11:24 White Blood Count 8.3 K/UL (4.8-10.8) Red Blood Count 2.81 M/UL (4.20-5.40) L Hemoglobin 9.1 G/DL (12.0-16.0) L Hematocrit 27.3 % (37.0-47.0) L Mean Corpuscular Volume 97 FL (80-99) Mean Corpuscular Hemoglobin 32.2 PG (27.0-31.0) H Mean Corpuscular Hemoglobin Concent 33.2 G/DL (32.0-36.0) Red Cell Distribution Width 13.4 % (11.6-14.8) Platelet Count 238 K/UL (150-450) Mean Platelet Volume 7.2 FL (6.5-10.1) Neutrophils (%) (Auto) % (45.0-75.0) Lymphocytes (%) (Auto) % (20.0-45.0) Monocytes (%) (Auto) % (1.0-10.0) Eosinophils (%) (Auto) % (0.0-3.0) Basophils (%) (Auto) % (0.0-2.0) Differential Total Cells Counted 100 Neutrophils % (Manual) 80 % (45-75) H Lymphocytes % (Manual) 8 % (20-45) L Monocytes % (Manual) 12 % (1-10) H Eosinophils % (Manual) 0 % (0-3) Basophils % (Manual) 0 % (0-2) Band Neutrophils 0 % (0-8) Platelet Estimate Adequate Platelet Morphology Normal Hypochromasia 1+ Sodium Level 139 MMOL/L (136-145) Potassium Level 4.1 MMOL/L (3.5-5.1) Chloride Level 104 MMOL/L (98-107) Carbon Dioxide Level 26 MMOL/L (21-32) Anion Gap 9 mmol/L (5-15) Blood Urea Nitrogen 23 mg/dL (7-18) H Creatinine 1.4 MG/DL (0.55-1.30) H Estimat Glomerular Filtration Rate 35.7 mL/min (>60) Glucose Level 221 MG/DL (74-106) H Uric Acid 7.5 MG/DL (2.6-7.2) H Calcium Level 8.6 MG/DL (8.5-10.1) Phosphorus Level 2.9 MG/DL (2.5-4.9) Magnesium Level 1.9 MG/DL (1.8-2.4) Total Bilirubin 0.3 MG/DL (0.2-1.0) Direct Bilirubin 0.1 MG/DL (0.0-0.3) Aspartate Amino Transf (AST/SGOT) 21 U/L (15-37) Alanine Aminotransferase (ALT/SGPT) 15 U/L (12-78) Alkaline Phosphatase 63 U/L (46-116) Total Protein 6.7 G/DL (6.4-8.2) Albumin 3.0 G/DL (3.4-5.0) L POC Whole Blood Glucose Pending Microbiology Date/Time Source Procedure Growth Status 07/19/20 04:00 Urine,Clean Catch Urine Culture - Final NO GROWTH AFTER 48 HOURS Complete 07/19/20 02:10 Blood Blood Culture - Preliminary NO GROWTH AFTER 48 HOURS Resulted 07/19/20 02:00 Blood Blood Culture - Preliminary NO GROWTH AFTER 48 HOURS Resulted Intake and Output 07/20/20 07/21/20 19:00 07:00 Output Total 600 ml Balance -600 ml Output Urine Total 600 ml # Voids 1 Objective PHYSICAL EXAMINATION: GENERAL: The patient is a well-developed and well-nourished female, in moderate respiratory distress. HEENT: Eyes, pupils are equal and responsive to light and accommodation. Extraocular movements are intact. NECK: Supple without lymphadenopathy. CHEST: Decreased breath sounds in bilateral bases, otherwise without wheezes or rales. CARDIOVASCULAR: Regular rhythm and rate. S1, S2 normal without murmurs, rubs, or gallops. ABDOMEN: Soft, nontender, nondistended. Positive bowel sounds. No evidence of hepatosplenomegaly. Currently, no rebound or guarding noted. EXTREMITIES: Negative for clubbing, cyanosis, or edema. RECTAL/GENITAL: Not performed. NEUROLOGIC: Cranial nerves II through XII are grossly intact without focal deficits. Assessment/Plan Assessment/Plan ASSESSMENT: This is an 84-year-old female with: 1. COVID-19 positive. 2. Pneumonia. 3. Alzheimer's dementia. 4. Hypertension. 5. Congestive heart failure. 6. Atrial fibrillation. 7. Hypothyroidism. 8. Diabetes type 2. 9. Hyponatremia-resolving TREATMENT: 1. COVID-19/pneumonia. An Infectious Disease consultation has been obtained with Dr. Babcock. The patient has been started on Decadron intravenously. We will follow recommendations of Infectious Disease. ABX=ceftriaxone and azithromycin A Pulmonary consultation has been obtained with Dr. Riccardo Drew. Not a candidate for remdesivir per ID 2. Alzheimer's dementia. 3. Hypertension. The patient is currently hypotensive. Hold diltiazem. 4. Congestive heart failure. Cardiology consultation has been obtained with Dr. Hema Mcclure. 5. Atrial fibrillation. 6. Hypothyroidism. Continue Levoxyl as above. 7. Diabetes type 2. A NovoLog sliding scale has been instituted. Dudley Rebollar MD Jul 21, 2020 11:38
[2020-07-21 12:00] VITALS: BP 127/85
--- NOTE | 2020-07-21 12:07 | Nephrology Progress Note ---
Assessment/Plan Problem List: (1) SUZETTE (acute kidney injury) (2) Acute hyponatremia (3) Alzheimer's dementia (4) Chronic atrial fibrillation (5) Diabetes mellitus Assessment Acute renal failure Acute respiratory failure with hypoxia Severe hyponatremia Sepsis History of hypertension History of diabetes mellitus DNR DNI Plan July 21: Serum sodium improved. Lab reviewed. Serum creatinine improved. Continue current management. July 20: Serum sodium 126. Labs reviewed. Serum creatinine down to 1.6. Medication list reviewed. Continue current management. Continue to monitor electrolytes and renal parameters. July 19: Saline infusion Monitor renal parameters and electrolytes Avoid nephrotoxic's Saline infusion Per consultants Subjective ROS Limited/Unobtainable: No Constitutional: Reports: malaise, weakness Objective Objective Last 24 Hour Vital Signs Date Time Temp Pulse Resp B/P (MAP) Pulse Ox O2 Delivery O2 Flow Rate FiO2 07/21/20 09:00 61 107/96 07/21/20 08:00 80 07/21/20 08:00 96.7 61 20 107/96 (100) 100 07/21/20 04:00 98.2 85 16 119/65 (83) 100 07/21/20 04:00 114 07/21/20 00:00 111 07/21/20 00:00 97.7 110 16 118/71 (87) 100 07/20/20 21:00 Nasal Cannula 4.0 07/20/20 20:00 97.9 86 16 101/66 (78) 100 07/20/20 20:00 103 07/20/20 18:56 100 Nasal Cannula 2.0 28 07/20/20 16:00 97.7 61 20 93/55 (68) 100 07/20/20 16:00 170 Intake and Output 07/20/20 07/21/20 19:00 07:00 Output Total 600 ml Balance -600 ml Output Urine Total 600 ml # Voids 1 Current Medications Medications (Trade) Dose Ordered Sig/Ranjeet Route PRN Reason Start Time Stop Time Status Last Admin Dose Admin Acetaminophen (Tylenol) 650 mg Q6H PRN ORAL Temp >100.5 07/19/20 09:15 08/18/20 09:14 Albuterol/ Ipratropium (Albuterol/ Ipratropium) 3 ml Q4H PRN HHN Shortness of Breath 07/19/20 09:15 07/24/20 09:14 Aspirin (Ecotrin) 81 mg DAILY ORAL 07/20/20 10:00 09/03/20 09:59 07/21/20 10:16 Azithromycin 250 mg/Dextrose 275 ml @ 275 mls/hr Q24H IVPB 07/20/20 03:30 07/25/20 03:29 07/20/20 05:03 Barium Sulfate (Varibar Honey) 250 ml NOW PRN MC RAD 07/19/20 12:45 07/22/20 12:43 Barium Sulfate (Varibar [place]) 240 ml NOW PRN MC RAD 07/19/20 12:45 07/22/20 12:43 Barium Sulfate (Varibar Pudding) 230 ml NOW PRN MC RAD 07/19/20 12:45 07/22/20 12:43 Barium Sulfate (Varibar Thin Liquid powder) 148 gm NOW PRN RAD 07/19/20 12:45 07/22/20 12:43 Ceftriaxone Sodium 1 gm/ Dextrose 55 ml @ 110 mls/hr Q24H IVPB 07/20/20 02:00 07/27/20 01:59 07/20/20 03:29 Dexamethasone Sodium Phosphate (Decadron 10mg/ ml Inj) 6 mg DAILY IV 07/20/20 09:00 07/29/20 09:01 07/21/20 10:15 Dextrose (Dextrose 50%) 25 ml Q30M PRN IV Hypoglycemia 07/20/20 12:00 10/18/20 11:59 Dextrose (Dextrose 50%) 50 ml Q30M PRN IV Hypoglycemia 07/20/20 12:00 10/18/20 11:59 Diltiazem HCl (Cardizem ER) 240 mg DAILY ORAL 07/20/20 10:00 08/19/20 09:59 07/20/20 10:02 Docusate Sodium (Colace) 100 mg THREE TIMES A DAY ORAL 07/20/20 09:45 08/19/20 09:44 07/21/20 10:16 Heparin Sodium (Porcine) (Heparin 5000 units/ml) 5,000 units EVERY 12 HOURS SUBQ 07/19/20 21:00 09/02/20 20:59 Insulin Aspart (NovoLOG) give half dose if not eating BEFORE MEALS AND HS SUBQ 07/20/20 16:30 10/18/20 16:29 07/21/20 06:30 Levothyroxine Sodium (Synthroid) 100 mcg Q24H ORAL 07/21/20 06:30 08/20/20 06:29 Metoprolol Tartrate (Lopressor) 2.5 mg Q4H PRN IVP HR 118 or higher 07/19/20 21:30 10/17/20 21:29 Ondansetron HCl (Zofran) 4 mg Q6H PRN IVP Nausea & Vomiting 07/19/20 09:15 08/18/20 09:14 Polyethylene Glycol (Miralax) 17 gm DAILYPRN PRN ORAL Constipation 07/19/20 09:15 08/18/20 09:14 Promethazine HCl/ Codeine (Phenergan with Codeine) 5 ml Q6H PRN ORAL cough 07/19/20 09:15 08/18/20 09:14 Laboratory Tests 07/20/20 18:21: POC Whole Blood Glucose 168H 07/20/20 23:29: POC Whole Blood Glucose 167H 07/21/20 05:42: POC Whole Blood Glucose 214H 07/21/20 06:49: White Blood Count 8.3, Red Blood Count 2.81L, Hemoglobin 9.1L, Hematocrit 27.3L, Mean Corpuscular Volume 97, Mean Corpuscular Hemoglobin 32.2H, Mean Corpuscular Hemoglobin Concent 33.2, Red Cell Distribution Width 13.4, Platelet Count 238, Mean Platelet Volume 7.2, Neutrophils (%) (Auto) , Lymphocytes (%) (Auto) , Monocytes (%) (Auto) , Eosinophils (%) (Auto) , Basophils (%) (Auto) , Differential Total Cells Counted 100, Neutrophils % (Manual) 80H, Lymphocytes % (Manual) 8L, Monocytes % (Manual) 12H, Eosinophils % (Manual) 0, Basophils % (Manual) 0, Band Neutrophils 0, Platelet Estimate Adequate, Platelet Morphology Normal, Hypochromasia 1+, Sodium Level 139, Potassium Level 4.1, Chloride Level 104, Carbon Dioxide Level 26, Anion Gap 9, Blood Urea Nitrogen 23H, Creatinine 1.4H, Estimat Glomerular Filtration Rate 35.7, Glucose Level 221H, Uric Acid 7.5H, Calcium Level 8.6, Phosphorus Level 2.9, Magnesium Level 1.9, Total Bilirubin 0.3, Direct Bilirubin 0.1, Aspartate Amino Transf (AST/SGOT) 21, Alanine Aminotransferase (ALT/SGPT) 15, Alkaline Phosphatase 63, Total Protein 6.7, Albumin 3.0L 07/21/20 11:24: POC Whole Blood Glucose [Pending] Height (Feet): 5 Height (Inches): 6.00 Weight (Pounds): 130 General Appearance: no apparent distress, lethargic Cardiovascular: other - Rate variable Respiratory/Chest: decreased breath sounds Abdomen: distended Jethro Cleaning MD Jul 21, 2020 12:07
--- NOTE | 2020-07-21 13:00 | Cardiology Report ---
APPROVED REPORT EKG Measurement Heart [id number] P70 [id number] <Conclusion> Atrial flutter with variable AV block Possible Anterior infarct, age undetermined Abnormal ECG
--- NOTE | 2020-07-21 13:01 | NUR ---
CASE MANAGEMENT:REVIEW 07/21/20 SI:COVID PNEUMONIA 96.7 82 20 127/85 100% ON 4L/NC H/H-9.1/27.3 BUN+23 CR+1.4 IS: SYNTHROID PO Q24 CARDIZEM PO QD ASA PO QD IV DECADRON Q24 IV AZITHROMYCIN Q24 IV ROCEPHIN Q24 HEPARIN SQ Q12 : TELEMETRY STATUS DCP: FROM [facility]
[2020-07-21 16:00] VITALS: BP 120/91
--- NOTE | 2020-07-21 19:10 | NUR ---
NURSE NOTES: RECEIVED REPORT FROM JENNIFER FLYNN. PATIENT ASLEEP, OPENS EYES TO TACTILE STIMULI ONLY. NO S/SX OF PAIN OR DISCOMFORT NOTED AT THIS TIME. BREATHING IS EVEN AND UNLABORED ON 3LPM VIA NC, NO S/SX OF DISTRESS NOTED AT THIS TIME- RR 17, SAO2 97% ON CURRENT SETTINGS. IV SITE ON RFA PATENT, INTACT, ASYMPTOMATIC, AND SALINE-LOCKED. VALDES CATHETER DRAINING WELL TO GRAVITY- NO URINE SEE IN DRAINAGE BAG AT THIS TIME. FALL AND ASPIRATION PRECAUTIONS IN PLACE. BED LOCKED AND IN LOWEST POSITION, SIDERAILS UP X 3. CALL LIGHT WITHIN REACH, WILL CONTINUE TO MONITOR PER POC.
--- NOTE | 2020-07-21 19:40 | NUR ---
NURSE HAND-OFF REPORT: Important Events on Shift: Patient slept most of the day. Patient Status: Stable Diet: CCHO medium puree. Patient not eating. Pending Orders: N/A Pending Results/Labs:am labs, CBC, CMP, Mg. Phos. Pending MD notification:N/A Latest Vital Signs: Temperature 98.1 , Pulse 101 , B/P 120 /91 , Respiratory Rate 19 , O2 SAT 100 , Nasal Cannula, O2 Flow Rate 4.0 . Vital Sign Comment: Stable EKG Rhythm: Atrial Flutter Rhythm change?: N Notified?: Y Katherine Mcclure MD Response: Latest [place] Fall Score: 45 Fall Risk: High Risk Safety Measures: Call light Within Reach, Bed Alarm Zone 1, Side Rails Side Rails x3, Bed position Low and Locked. Fall Precautions: Yellow Socks Yellow Gown Door Sign Report given to Argenis Lopez RN..
[2020-07-21 20:00] VITALS: BP 133/80
--- NOTE | 2020-07-21 20:40 | Cardiology Progress Note ---
Assessment/Plan Assessment/Plan 1. Respiratory insuf 2. Hyponatremia. 3. History of atrial fibrillation.now in atrial flutter 4. History of diastolic and systolic heart failure. 5. Moderate mitral, aortic, and tricuspid regurgitation. 6. Dementia. 7. Tachycardia, likely secondary to demand. 8.. 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 PATIENT ASLEEP, OPENS EYES TO TACTILE STIMULI ONLY. NO S/SX OF PAIN OR DISCOMFORT NOTED AT THIS TIME. BREATHING IS EVEN AND UNLABORED ON 3LPM VIA NC, NO S/SX OF DISTRESS NOTED AT THIS TIME- RR 17, SAO2 97% ON CURRENT SETTINGS. Objective Last 24 Hour Vital Signs Date Time Temp Pulse Resp B/P (MAP) Pulse Ox O2 Delivery O2 Flow Rate FiO2 07/21/20 16:00 101 07/21/20 16:00 98.1 71 19 120/91 (101) 100 07/21/20 12:00 90 07/21/20 12:00 96.7 82 20 127/85 (99) 100 07/21/20 09:00 Nasal Cannula 4.0 07/21/20 09:00 61 107/96 07/21/20 08:00 80 07/21/20 08:00 96.7 61 20 107/96 (100) 100 07/21/20 04:00 98.2 85 16 119/65 (83) 100 07/21/20 04:00 114 07/21/20 00:00 111 07/21/20 00:00 97.7 110 16 118/71 (87) 100 07/20/20 21:00 Nasal Cannula 4.0 Intake and Output 07/20/20 07/21/20 19:00 07:00 Output Total 600 ml Balance -600 ml Output Urine Total 600 ml # Voids 1 Laboratory Tests Test 07/20/20 23:29 07/21/20 05:42 07/21/20 06:49 07/21/20 11:24 POC Whole Blood Glucose 167 MG/DL (74-106) H 214 MG/DL (74-106) H Pending White Blood Count 8.3 K/UL (4.8-10.8) Red Blood Count 2.81 M/UL (4.20-5.40) L Hemoglobin 9.1 G/DL (12.0-16.0) L Hematocrit 27.3 % (37.0-47.0) L Mean Corpuscular Volume 97 FL (80-99) Mean Corpuscular Hemoglobin 32.2 PG (27.0-31.0) H Mean Corpuscular Hemoglobin Concent 33.2 G/DL (32.0-36.0) Red Cell Distribution Width 13.4 % (11.6-14.8) Platelet Count 238 K/UL (150-450) Mean Platelet Volume 7.2 FL (6.5-10.1) Neutrophils (%) (Auto) % (45.0-75.0) Lymphocytes (%) (Auto) % (20.0-45.0) Monocytes (%) (Auto) % (1.0-10.0) Eosinophils (%) (Auto) % (0.0-3.0) Basophils (%) (Auto) % (0.0-2.0) Differential Total Cells Counted 100 Neutrophils % (Manual) 80 % (45-75) H Lymphocytes % (Manual) 8 % (20-45) L Monocytes % (Manual) 12 % (1-10) H Eosinophils % (Manual) 0 % (0-3) Basophils % (Manual) 0 % (0-2) Band Neutrophils 0 % (0-8) Platelet Estimate Adequate Platelet Morphology Normal Hypochromasia 1+ Sodium Level 139 MMOL/L (136-145) Potassium Level 4.1 MMOL/L (3.5-5.1) Chloride Level 104 MMOL/L (98-107) Carbon Dioxide Level 26 MMOL/L (21-32) Anion Gap 9 mmol/L (5-15) Blood Urea Nitrogen 23 mg/dL (7-18) H Creatinine 1.4 MG/DL (0.55-1.30) H Estimat Glomerular Filtration Rate 35.7 mL/min (>60) Glucose Level 221 MG/DL (74-106) H Uric Acid 7.5 MG/DL (2.6-7.2) H Calcium Level 8.6 MG/DL (8.5-10.1) Phosphorus Level 2.9 MG/DL (2.5-4.9) Magnesium Level 1.9 MG/DL (1.8-2.4) Total Bilirubin 0.3 MG/DL (0.2-1.0) Direct Bilirubin 0.1 MG/DL (0.0-0.3) Aspartate Amino Transf (AST/SGOT) 21 U/L (15-37) Alanine Aminotransferase (ALT/SGPT) 15 U/L (12-78) Alkaline Phosphatase 63 U/L (46-116) Total Protein 6.7 G/DL (6.4-8.2) Albumin 3.0 G/DL (3.4-5.0) L Test 07/21/20 15:56 07/21/20 20:12 POC Whole Blood Glucose 196 MG/DL (74-106) H 160 MG/DL (74-106) H Microbiology Date/Time Source Procedure Growth Status 07/19/20 04:00 Urine,Clean Catch Urine Culture - Final NO GROWTH AFTER 48 HOURS Complete 07/19/20 02:10 Blood Blood Culture - Preliminary NO GROWTH AFTER 48 HOURS Resulted 07/19/20 02:00 Blood Blood Culture - Preliminary NO GROWTH AFTER 48 HOURS Resulted Objective per ID Gen: NAD in bed on NC HEENT: NCAT Pulm: BL chest rise on NC, non-labored Abd: Thin, soft, NTND Ext: No c/c/e Neuro: Awake, interactive Hema Mcclure MD Jul 21, 2020 20:40
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
--- NOTE | 2020-07-21 22:27 | NUR ---
INTER-FACILITY TRANSFER: Patient transferred to [facility]2 FROM 207-2, per MD ORDER BY DR. QUINTANA. Report given to JENNIFER BEE. Patient transferred with valuables and medications. Belongings verified upon transferr and given to CRISTAL- PATIENT ONLY HAS BILATERAL HEEL PROTECTORS IN POSSESSION. Family/S.O. notified of transfer.
[2020-07-22] VITALS: BP 137/87
[2020-07-22] MEDS: cefTRIAXone 1 GM in D5W 55 ML IVPB SCH (02:06)
[2020-07-22] MEDS: Azithromycin 250 MG in D5W 275 ML IVPB SCH (03:08)
--- NOTE | 2020-07-22 03:52 | NUR ---
NURSE NOTES: Patient noted to have dusky skin. 02 sat 92-93% on 3L nasal cannula. Patient responsive only to painful stimuli. IV access intact. Alanis catheter draining cloudy yellow liquid.
[2020-07-22 04:00] VITALS: BP 144/76
[2020-07-22 06:27] LABS: HEMATOCRIT 29.3 % (37.0-47.0); HEMOGLOBIN 9.5 G/DL (12.0-16.0); MEAN CORPUSCULAR VOLUME 98 FL (80-99); PLATELET COUNT 252 K/UL (150-450); RED BLOOD COUNT 2.98 M/UL (4.20-5.40); RED CELL DISTRIBUTION WIDTH 13.3 % (11.6-14.8); WHITE BLOOD COUNT 7.5 K/UL (4.8-10.8)
[2020-07-22] MEDS: NovoLOG Insulin Flexpen SUBQ SCH ×4 (06:31→21:23)
[2020-07-22 06:56] LABS: ALBUMIN 3.2 G/DL (3.4-5.0); ALBUMIN/GLOBULIN RATIO 0.8 (1.0-2.7); BILIRUBIN,TOTAL 0.4 MG/DL (0.2-1.0); CALCIUM 9.2 MG/DL (8.5-10.1); CREATININE 1.5 MG/DL (0.55-1.30); PHOSPHORUS 2.4 MG/DL (2.5-4.9); POTASSIUM 4.5 MMOL/L (3.5-5.1)
--- NOTE | 2020-07-22 07:10 | NUR ---
NURSE NOTES: Handoff received from Sugar RODRIGUEZ. Patient is awake, non-verbal, responsive to painful stimuli. Right forearm IV 20g is patent and intact. Alanis catheter is patent and draining to gravity. Patient is on 3L nasal cannula. Bed is low and locked, side rails up x2, call light is within reach.
[2020-07-22 08:00] VITALS: BP 131/62
--- NOTE | 2020-07-22 08:43 | Diagnostic Imaging Report ---
EXAM: XR Chest, 1 View CLINICAL HISTORY: SOB TECHNIQUE: Frontal view of the chest. COMPARISON: Chest radiograph July 19, 2020 FINDINGS/IMPRESSION: No focal consolidation, pleural effusion, or pneumothorax. Emphysema with chronically increased interstitial markings. Cardiomegaly. Calcified aorta. Right rotator cuff calcific tendinitis. Cholecystomy clips. Diffuse osseous demineralization.
[2020-07-22] MEDS: Docusate 100mg cap ORAL SCH ×3 (08:54→16:54)
[2020-07-22] MEDS: dexAMETHasone 10mg/ml Inj IV SCH (08:54)
[2020-07-22] MEDS: DILTIAZEM HCL 240 MG ORAL SCH (08:55)
[2020-07-22] MEDS: Aspirin EC 81mg tab ORAL SCH (08:56)
[2020-07-22] MEDS: Heparin 5000 units/ml inj SUBQ SCH ×2 (09:00→21:00)
--- NOTE | 2020-07-22 10:55 | Nephrology Progress Note ---
Assessment/Plan Problem List: (1) SUZETTE (acute kidney injury) (2) Acute hyponatremia (3) Alzheimer's dementia (4) Chronic atrial fibrillation (5) Diabetes mellitus Assessment Acute renal failure Acute respiratory failure with hypoxia Severe hyponatremia Sepsis History of hypertension History of diabetes mellitus DNR DNI Plan July 22: Labs reviewed. Renal parameters stable. Abnormal chemistries and electrolytes addressed. Continue per consultants. July 21: Serum sodium improved. Lab reviewed. Serum creatinine improved. Continue current management. July 20: Serum sodium 126. Labs reviewed. Serum creatinine down to 1.6. Medication list reviewed. Continue current management. Continue to monitor electrolytes and renal parameters. July 19: Saline infusion Monitor renal parameters and electrolytes Avoid nephrotoxic's Saline infusion Per consultants Subjective ROS Limited/Unobtainable: No Constitutional: Reports: malaise Objective Objective Last 24 Hour Vital Signs Date Time Temp Pulse Resp B/P (MAP) Pulse Ox O2 Delivery O2 Flow Rate FiO2 07/22/20 09:00 Nasal Cannula 3.0 07/22/20 08:55 76 131/62 07/22/20 08:00 96.6 76 17 131/62 (85) 100 07/22/20 04:00 97.0 59 17 144/76 (98) 93 07/22/20 00:00 97.9 79 18 137/87 (104) 96 07/21/20 21:00 Nasal Cannula 3.0 07/21/20 20:00 98.6 81 20 133/80 (97) 96 07/21/20 20:00 116 07/21/20 16:00 101 07/21/20 16:00 98.1 71 19 120/91 (101) 100 07/21/20 12:00 90 07/21/20 12:00 96.7 82 20 127/85 (99) 100 Intake and Output 07/21/20 07/22/20 19:00 07:00 Output Total 350 ml 750 ml Balance -350 ml -750 ml Output Urine Total 350 ml 750 ml # Voids 2 # Bowel Movements 1 Current Medications Medications (Trade) Dose Ordered Sig/Ranjeet Route PRN Reason Start Time Stop Time Status Last Admin Dose Admin Acetaminophen (Tylenol) 650 mg Q6H PRN ORAL Temp >100.5 07/19/20 09:15 08/18/20 09:14 Albuterol/ Ipratropium (Albuterol/ Ipratropium) 3 ml Q4H PRN HHN Shortness of Breath 07/19/20 09:15 07/24/20 09:14 Aspirin (Ecotrin) 81 mg DAILY ORAL 07/20/20 10:00 09/03/20 09:59 07/22/20 08:56 Azithromycin 250 mg/Dextrose 275 ml @ 275 mls/hr Q24H IVPB 07/20/20 03:30 07/25/20 03:29 07/22/20 03:08 Barium Sulfate (Varibar Honey) 250 ml NOW PRN RAD 07/19/20 12:45 07/22/20 12:43 Barium Sulfate (Varibar [place]) 240 ml NOW PRN RAD 07/19/20 12:45 07/22/20 12:43 Barium Sulfate (Varibar Pudding) 230 ml NOW PRN RAD 07/19/20 12:45 07/22/20 12:43 Barium Sulfate (Varibar Thin Liquid powder) 148 gm NOW PRN RAD 07/19/20 12:45 07/22/20 12:43 Ceftriaxone Sodium 1 gm/ Dextrose 55 ml @ 110 mls/hr Q24H IVPB 07/22/20 02:00 07/27/20 01:59 07/22/20 02:06 Dexamethasone Sodium Phosphate (Decadron 10mg/ ml Inj) 6 mg DAILY IV 07/20/20 09:00 07/29/20 09:01 07/22/20 08:54 Dextrose (Dextrose 50%) 25 ml Q30M PRN IV Hypoglycemia 07/20/20 12:00 10/18/20 11:59 Dextrose (Dextrose 50%) 50 ml Q30M PRN IV Hypoglycemia 07/20/20 12:00 10/18/20 11:59 Diltiazem HCl (Cardizem ER) 240 mg DAILY ORAL 07/20/20 10:00 08/19/20 09:59 07/22/20 08:55 Docusate Sodium (Colace) 100 mg THREE TIMES A DAY ORAL 07/20/20 09:45 08/19/20 09:44 07/22/20 08:54 Heparin Sodium (Porcine) (Heparin 5000 units/ml) 5,000 units EVERY 12 HOURS SUBQ 07/19/20 21:00 09/02/20 20:59 Insulin Aspart (NovoLOG) give half dose if not eating BEFORE MEALS AND HS SUBQ 07/20/20 16:30 10/18/20 16:29 07/22/20 06:31 Levothyroxine Sodium (Synthroid) 100 mcg Q24H ORAL 07/21/20 06:30 08/20/20 06:29 Metoprolol Tartrate (Lopressor) 2.5 mg Q4H PRN IVP HR 118 or higher 07/19/20 21:30 10/17/20 21:29 Ondansetron HCl (Zofran) 4 mg Q6H PRN IVP Nausea & Vomiting 07/19/20 09:15 08/18/20 09:14 Polyethylene Glycol (Miralax) 17 gm DAILYPRN PRN ORAL Constipation 07/19/20 09:15 08/18/20 09:14 Promethazine HCl/ Codeine (Phenergan with Codeine) 5 ml Q6H PRN ORAL cough 07/19/20 09:15 08/18/20 09:14 Sodium Phosphate 15 mm/Sodium Chloride 280 ml @ 70.273 mls/ hr ONCE ONCE IVPB 07/22/20 12:00 07/22/20 15:59 Laboratory Tests 07/21/20 11:24: POC Whole Blood Glucose [Pending] 07/21/20 15:56: POC Whole Blood Glucose 196H 07/21/20 20:12: POC Whole Blood Glucose 160H 07/22/20 04:00: White Blood Count 7.5, Red Blood Count 2.98L, Hemoglobin 9.5L, Hematocrit 29.3L, Mean Corpuscular Volume 98, Mean Corpuscular Hemoglobin 32.0H, Mean Corpuscular Hemoglobin Concent 32.5, Red Cell Distribution Width 13.3, Platelet Count 252, Mean Platelet Volume 6.6, Neutrophils (%) (Auto) , Lymphocytes (%) (Auto) , Monocytes (%) (Auto) , Eosinophils (%) (Auto) , Basophils (%) (Auto) , Neutrophils % (Manual) [Pending], Lymphocytes % (Manual) [Pending], Platelet Estimate [Pending], Platelet Morphology [Pending], Sodium Level 134L, Potassium Level 4.5, Chloride Level 100, Carbon Dioxide Level 28, Anion Gap 6, Blood Urea Nitrogen 23H, Creatinine 1.5H, Estimat Glomerular Filtration Rate 32.9, Glucose Level 168H, Calcium Level 9.2, Phosphorus Level 2.4L, Magnesium Level 1.9, Total Bilirubin 0.4, Aspartate Amino Transf (AST/SGOT) 26, Alanine Aminotransferase (ALT/SGPT) 20, Alkaline Phosphatase 63, Pro-B-Type Natriuretic Peptide 5563H, Total Protein 7.1, Albumin 3.2L, Globulin 3.9, Albumin/Globulin Ratio 0.8L Height (Feet): 5 Height (Inches): 6.00 Weight (Pounds): 130 General Appearance: no apparent distress, lethargic Cardiovascular: normal rate Respiratory/Chest: decreased breath sounds Abdomen: soft Jethro Cleaning MD Jul 22, 2020 10:55
[2020-07-22 12:00] VITALS: BP 141/61
[2020-07-22] MEDS ORDERED: Sodium Phosphate 15 MM in NS 275 ML IVPB ONE (12:00)
--- NOTE | 2020-07-22 12:03 | Pulmonology Progress Note ---
Subjective ROS Limited/Unobtainable: No Constitutional: Reports: no symptoms HEENT: Repors: no symptoms Respiratory: Reports: no symptoms Allergies: Coded Allergies: SULFAMETHOXAZOLE (Verified Allergy, Unknown, 07/19/20) TRIMETHOPRIM (Verified Allergy, Unknown, 07/19/20) Objective Last 24 Hour Vital Signs Date Time Temp Pulse Resp B/P (MAP) Pulse Ox O2 Delivery O2 Flow Rate FiO2 07/22/20 09:00 Nasal Cannula 3.0 07/22/20 08:55 76 131/62 07/22/20 08:00 96.6 76 17 131/62 (85) 100 07/22/20 04:00 97.0 59 17 144/76 (98) 93 07/22/20 00:00 97.9 79 18 137/87 (104) 96 07/21/20 21:00 Nasal Cannula 3.0 07/21/20 20:00 98.6 81 20 133/80 (97) 96 07/21/20 20:00 116 07/21/20 16:00 101 07/21/20 16:00 98.1 71 19 120/91 (101) 100 Intake and Output 07/21/20 07/22/20 19:00 07:00 Output Total 350 ml 750 ml Balance -350 ml -750 ml Output Urine Total 350 ml 750 ml # Voids 2 # Bowel Movements 1 General Appearance: cachetic HEENT: normocephalic, atraumatic Respiratory: chest wall non-tender, lungs clear Cardiovascular: normal peripheral pulses, normal rate Abdomen: normal bowel sounds, soft, non tender, no organomegaly Genitourinary: normal external genitalia Skin: no rash Laboratory Tests 07/21/20 15:56: POC Whole Blood Glucose 196H 07/21/20 20:12: POC Whole Blood Glucose 160H 07/22/20 04:00: White Blood Count 7.5, Red Blood Count 2.98L, Hemoglobin 9.5L, Hematocrit 29.3L, Mean Corpuscular Volume 98, Mean Corpuscular Hemoglobin 32.0H, Mean Corpuscular Hemoglobin Concent 32.5, Red Cell Distribution Width 13.3, Platelet Count 252, Mean Platelet Volume 6.6, Neutrophils (%) (Auto) , Lymphocytes (%) (Auto) , Monocytes (%) (Auto) , Eosinophils (%) (Auto) , Basophils (%) (Auto) , Differential Total Cells Counted 100, Neutrophils % (Manual) 93H, Lymphocytes % (Manual) 4L, Monocytes % (Manual) 3, Eosinophils % (Manual) 0, Basophils % (Manual) 0, Band Neutrophils 0, Platelet Estimate Adequate, Platelet Morphology Normal, Hypochromasia 1+, Macrocytosis 1+, Sodium Level 134L, Potassium Level 4.5, Chloride Level 100, Carbon Dioxide Level 28, Anion Gap 6, Blood Urea Nitrogen 23H, Creatinine 1.5H, Estimat Glomerular Filtration Rate 32.9, Glucose Level 168H, Calcium Level 9.2, Phosphorus Level 2.4L, Magnesium Level 1.9, Total Bilirubin 0.4, Aspartate Amino Transf (AST/SGOT) 26, Alanine Aminotransferase (ALT/SGPT) 20, Alkaline Phosphatase 63, Pro-B-Type Natriuretic Peptide 5563H, Total Protein 7.1, Albumin 3.2L, Globulin 3.9, Albumin/Globulin Ratio 0.8L Current Medications Medications (Trade) Dose Ordered Sig/Ranjeet Route PRN Reason Start Time Stop Time Status Last Admin Dose Admin Acetaminophen (Tylenol) 650 mg Q6H PRN ORAL Temp >100.5 07/19/20 09:15 08/18/20 09:14 Albuterol/ Ipratropium (Albuterol/ Ipratropium) 3 ml Q4H PRN HHN Shortness of Breath 07/19/20 09:15 07/24/20 09:14 Aspirin (Ecotrin) 81 mg DAILY ORAL 07/20/20 10:00 09/03/20 09:59 07/22/20 08:56 Azithromycin 250 mg/Dextrose 275 ml @ 275 mls/hr Q24H IVPB 07/20/20 03:30 07/25/20 03:29 07/22/20 03:08 Barium Sulfate (Varibar Honey) 250 ml NOW PRN MC RAD 07/19/20 12:45 07/22/20 12:43 Barium Sulfate (Varibar [place]) 240 ml NOW PRN MC RAD 07/19/20 12:45 07/22/20 12:43 Barium Sulfate (Varibar Pudding) 230 ml NOW PRN MC RAD 07/19/20 12:45 07/22/20 12:43 Barium Sulfate (Varibar Thin Liquid powder) 148 gm NOW PRN MC RAD 07/19/20 12:45 07/22/20 12:43 Ceftriaxone Sodium 1 gm/ Dextrose 55 ml @ 110 mls/hr Q24H IVPB 07/22/20 02:00 07/27/20 01:59 07/22/20 02:06 Dexamethasone Sodium Phosphate (Decadron 10mg/ ml Inj) 6 mg DAILY IV 07/20/20 09:00 07/29/20 09:01 07/22/20 08:54 Dextrose (Dextrose 50%) 25 ml Q30M PRN IV Hypoglycemia 07/20/20 12:00 10/18/20 11:59 Dextrose (Dextrose 50%) 50 ml Q30M PRN IV Hypoglycemia 07/20/20 12:00 10/18/20 11:59 Diltiazem HCl (Cardizem ER) 240 mg DAILY ORAL 07/20/20 10:00 08/19/20 09:59 07/22/20 08:55 Docusate Sodium (Colace) 100 mg THREE TIMES A DAY ORAL 07/20/20 09:45 08/19/20 09:44 07/22/20 08:54 Heparin Sodium (Porcine) (Heparin 5000 units/ml) 5,000 units EVERY 12 HOURS SUBQ 07/19/20 21:00 09/02/20 20:59 Insulin Aspart (NovoLOG) give half dose if not eating BEFORE MEALS AND HS SUBQ 07/20/20 16:30 10/18/20 16:29 07/22/20 06:31 Levothyroxine Sodium (Synthroid) 100 mcg Q24H ORAL 07/21/20 06:30 08/20/20 06:29 Metoprolol Tartrate (Lopressor) 2.5 mg Q4H PRN IVP HR 118 or higher 07/19/20 21:30 10/17/20 21:29 Ondansetron HCl (Zofran) 4 mg Q6H PRN IVP Nausea & Vomiting 07/19/20 09:15 08/18/20 09:14 Polyethylene Glycol (Miralax) 17 gm DAILYPRN PRN ORAL Constipation 07/19/20 09:15 08/18/20 09:14 Promethazine HCl/ Codeine (Phenergan with Codeine) 5 ml Q6H PRN ORAL cough 07/19/20 09:15 08/18/20 09:14 Sodium Phosphate 15 mm/Sodium Chloride 280 ml @ 70.273 mls/ hr ONCE ONCE IVPB 07/22/20 12:00 07/22/20 15:59 Assessment/Plan Problems: (1) Respiratory failure with hypoxia (2) Acute hyponatremia (3) SUZETTE (acute kidney injury) (4) Chronic atrial fibrillation (5) Diabetes mellitus (6) Alzheimer's dementia Assessment/Plan no new complains renal function stable, creatinine is 1.5 hyponatremia improving sliding scale diabetic diet, pending swallow study respiratory treatment titrate fio2 to sat of 92% dvt prophylaxis. Riccardo Drew MD Jul 22, 2020 12:03
--- NOTE | 2020-07-22 13:58 | Internal Med Progress Note ---
Subjective Date of Service: Jul 22, 2020 Physician Name KeturahDudley Attending Physician Mateo Rankin MD Current Medications Medications (Trade) Dose Ordered Sig/Ranjeet Route PRN Reason Start Time Stop Time Status Last Admin Dose Admin Acetaminophen (Tylenol) 650 mg Q6H PRN ORAL Temp >100.5 07/19/20 09:15 08/18/20 09:14 Albuterol/ Ipratropium (Albuterol/ Ipratropium) 3 ml Q4H PRN HHN Shortness of Breath 07/19/20 09:15 07/24/20 09:14 Aspirin (Ecotrin) 81 mg DAILY ORAL 07/20/20 10:00 09/03/20 09:59 07/22/20 08:56 Azithromycin 250 mg/Dextrose 275 ml @ 275 mls/hr Q24H IVPB 07/20/20 03:30 07/25/20 03:29 07/22/20 03:08 Ceftriaxone Sodium 1 gm/ Dextrose 55 ml @ 110 mls/hr Q24H IVPB 07/22/20 02:00 07/27/20 01:59 07/22/20 02:06 Dexamethasone Sodium Phosphate (Decadron 10mg/ ml Inj) 6 mg DAILY IV 07/20/20 09:00 07/29/20 09:01 07/22/20 08:54 Dextrose (Dextrose 50%) 25 ml Q30M PRN IV Hypoglycemia 07/20/20 12:00 10/18/20 11:59 Dextrose (Dextrose 50%) 50 ml Q30M PRN IV Hypoglycemia 07/20/20 12:00 10/18/20 11:59 Diltiazem HCl (Cardizem ER) 240 mg DAILY ORAL 07/20/20 10:00 08/19/20 09:59 07/22/20 08:55 Docusate Sodium (Colace) 100 mg THREE TIMES A DAY ORAL 07/20/20 09:45 08/19/20 09:44 07/22/20 08:54 Heparin Sodium (Porcine) (Heparin 5000 units/ml) 5,000 units EVERY 12 HOURS SUBQ 07/19/20 21:00 09/02/20 20:59 Insulin Aspart (NovoLOG) give half dose if not eating BEFORE MEALS AND HS SUBQ 07/20/20 16:30 10/18/20 16:29 07/22/20 12:19 Levothyroxine Sodium (Synthroid) 100 mcg Q24H ORAL 07/21/20 06:30 08/20/20 06:29 Metoprolol Tartrate (Lopressor) 2.5 mg Q4H PRN IVP HR 118 or higher 07/19/20 21:30 10/17/20 21:29 Ondansetron HCl (Zofran) 4 mg Q6H PRN IVP Nausea & Vomiting 07/19/20 09:15 08/18/20 09:14 Polyethylene Glycol (Miralax) 17 gm DAILYPRN PRN ORAL Constipation 07/19/20 09:15 08/18/20 09:14 Promethazine HCl/ Codeine (Phenergan with Codeine) 5 ml Q6H PRN ORAL cough 07/19/20 09:15 08/18/20 09:14 Sodium Phosphate 15 mm/Sodium Chloride 280 ml @ 70.273 mls/ hr ONCE ONCE IVPB 07/22/20 12:00 07/22/20 15:59 07/22/20 12:20 Allergies: Coded Allergies: SULFAMETHOXAZOLE (Verified Allergy, Unknown, 07/19/20) TRIMETHOPRIM (Verified Allergy, Unknown, 07/19/20) ROS Limited/Unobtainable: Yes Subjective 84 YO F admitted with COVID 19 pos and respiratory failure. Now COVID 19 pneumonia. Cover for Int Med-Dr Rankin Objective Last Vital Signs Date Time Temp Pulse Resp B/P (MAP) Pulse Ox O2 Delivery O2 Flow Rate FiO2 07/22/20 12:00 96.8 73 18 141/61 (87) 99 07/22/20 09:00 Nasal Cannula 3.0 07/20/20 18:56 28 Laboratory Tests Test 07/21/20 15:56 07/21/20 20:12 07/22/20 04:00 07/22/20 12:08 POC Whole Blood Glucose 196 MG/DL (74-106) H 160 MG/DL (74-106) H 156 MG/DL (74-106) H White Blood Count 7.5 K/UL (4.8-10.8) Red Blood Count 2.98 M/UL (4.20-5.40) L Hemoglobin 9.5 G/DL (12.0-16.0) L Hematocrit 29.3 % (37.0-47.0) L Mean Corpuscular Volume 98 FL (80-99) Mean Corpuscular Hemoglobin 32.0 PG (27.0-31.0) H Mean Corpuscular Hemoglobin Concent 32.5 G/DL (32.0-36.0) Red Cell Distribution Width 13.3 % (11.6-14.8) Platelet Count 252 K/UL (150-450) Mean Platelet Volume 6.6 FL (6.5-10.1) Neutrophils (%) (Auto) % (45.0-75.0) Lymphocytes (%) (Auto) % (20.0-45.0) Monocytes (%) (Auto) % (1.0-10.0) Eosinophils (%) (Auto) % (0.0-3.0) Basophils (%) (Auto) % (0.0-2.0) Differential Total Cells Counted 100 Neutrophils % (Manual) 93 % (45-75) H Lymphocytes % (Manual) 4 % (20-45) L Monocytes % (Manual) 3 % (1-10) Eosinophils % (Manual) 0 % (0-3) Basophils % (Manual) 0 % (0-2) Band Neutrophils 0 % (0-8) Platelet Estimate Adequate Platelet Morphology Normal Hypochromasia 1+ Macrocytosis 1+ Sodium Level 134 MMOL/L (136-145) L Potassium Level 4.5 MMOL/L (3.5-5.1) Chloride Level 100 MMOL/L (98-107) Carbon Dioxide Level 28 MMOL/L (21-32) Anion Gap 6 mmol/L (5-15) Blood Urea Nitrogen 23 mg/dL (7-18) H Creatinine 1.5 MG/DL (0.55-1.30) H Estimat Glomerular Filtration Rate 32.9 mL/min (>60) Glucose Level 168 MG/DL (74-106) H Calcium Level 9.2 MG/DL (8.5-10.1) Phosphorus Level 2.4 MG/DL (2.5-4.9) L Magnesium Level 1.9 MG/DL (1.8-2.4) Total Bilirubin 0.4 MG/DL (0.2-1.0) Aspartate Amino Transf (AST/SGOT) 26 U/L (15-37) Alanine Aminotransferase (ALT/SGPT) 20 U/L (12-78) Alkaline Phosphatase 63 U/L (46-116) Pro-B-Type Natriuretic Peptide 5563 pg/mL (0-125) H Total Protein 7.1 G/DL (6.4-8.2) Albumin 3.2 G/DL (3.4-5.0) L Globulin 3.9 g/dL Albumin/Globulin Ratio 0.8 (1.0-2.7) L Intake and Output 07/21/20 07/22/20 18:59 06:59 Output Total 350 ml 750 ml Balance -350 ml -750 ml Output Urine Total 350 ml 750 ml # Voids 2 # Bowel Movements 1 Objective PHYSICAL EXAMINATION: GENERAL: The patient is a well-developed and well-nourished female, in moderate respiratory distress. HEENT: Eyes, pupils are equal and responsive to light and accommodation. Extraocular movements are intact. NECK: Supple without lymphadenopathy. CHEST: Decreased breath sounds in bilateral bases, otherwise without wheezes or rales. CARDIOVASCULAR: Regular rhythm and rate. S1, S2 normal without murmurs, rubs, or gallops. ABDOMEN: Soft, nontender, nondistended. Positive bowel sounds. No evidence of hepatosplenomegaly. Currently, no rebound or guarding noted. EXTREMITIES: Negative for clubbing, cyanosis, or edema. RECTAL/GENITAL: Not performed. NEUROLOGIC: Cranial nerves II through XII are grossly intact without focal deficits. Assessment/Plan Assessment/Plan ASSESSMENT: This is an 84-year-old female with: 1. COVID-19 positive. 2. Pneumonia. 3. Alzheimer's dementia. 4. Hypertension. 5. Congestive heart failure. 6. Atrial fibrillation. 7. Hypothyroidism. 8. Diabetes type 2. 9. Hyponatremia-resolving TREATMENT: 1. COVID-19/pneumonia. An Infectious Disease = Dr. Babcock. Continue Decadron intravenously. ABX=ceftriaxone and azithromycin A Pulmonary consultation has been obtained with Dr. Riccardo Drew. Not a candidate for remdesivir per ID 2. Alzheimer's dementia. 3. Hypertension. The patient is currently hypotensive. Hold diltiazem. 4. Congestive heart failure. Cardiology consultation has been obtained with Dr. Hema Mcclure. 5. Atrial fibrillation. 6. Hypothyroidism. Continue Levoxyl as above. 7. Diabetes type 2. A NovoLog sliding scale has been instituted. Dudley Rebollar MD Jul 22, 2020 13:58
[2020-07-22 16:00] VITALS: BP 116/51
--- NOTE | 2020-07-22 18:16 | NUR ---
CHARGE NURSE NOTE: Spoke with DEANGELO Alonzo. She asked to call or (ID) to get an order for COVID PCR test . Pt has never been tested at [facility] [place] for COVID 19, but has a history Covid+ at [facility]. and were called, messages left.
--- NOTE | 2020-07-22 18:40 | NUR ---
NURSE HAND-OFF: Important Events on Shift:[None] Patient Status: Stable Diet: Pureed CCHO med Pending Orders: COVID swab PCR Pending Results/Labs:CBC BMP Pending MD notification: Latest Vital Signs: Temperature 96.3 , Pulse 73 , B/P 116 /51 , Respiratory Rate 17 , O2 SAT 100 , Nasal Cannula, O2 Flow Rate 3.0 . Vital Sign Comment: Stable Latest [place] Fall Score: 45 Fall Risk: High Risk Safety Measures: Call light Within Reach, Bed Alarm Zone 1, Side Rails Side Rails x3, Bed position Low and Locked. Fall Precautions: Yellow Socks Yellow Gown Door Sign Report given to Noa RODRIGUEZ.
--- NOTE | 2020-07-22 19:00 | NUR ---
NURSE NOTES: Received report from JENNIFER Connell. Pt sleeping in bed, on NC 3L. Iv site intact and patent. Alanis in place and draining yellow urine. No hematuria noted. No acute distress noted. Bed low and locked, side rails up, alarm on, call light is within reach. Will continue to monitor.
[2020-07-22 20:00] VITALS: BP 127/78
--- NOTE | 2020-07-22 21:24 | NUR ---
NURSE NOTES: Collected PCR covid swab and sent to the lab
[2020-07-23] VITALS: BP 123/50
[2020-07-23] MEDS: cefTRIAXone 1 GM in D5W 55 ML IVPB SCH (02:44)
[2020-07-23] MEDS: Azithromycin 250 MG in D5W 275 ML IVPB SCH (03:15)
[2020-07-23 04:00] VITALS: BP 118/70
[2020-07-23] MEDS: NovoLOG Insulin Flexpen SUBQ SCH ×4 (06:17→20:30)
--- NOTE | 2020-07-23 06:52 | NUR ---
NURSE HAND-OFF: Important Events on Shift:covid swab,tachycardia Patient Status: Diet: CCHO M, Pureed moist Pending Orders: Pending Results/Labs:AM labs Pending MD notification: Latest Vital Signs: Temperature 98.0 , Pulse 110 , B/P 118 /70 , Respiratory Rate 18 , O2 SAT 98 , Nasal Cannula, O2 Flow Rate 3.0 . Vital Sign Comment: [] Latest [place] Fall Score: 45 Fall Risk: High Risk Safety Measures: Call light Within Reach, Bed Alarm Zone 1, Side Rails Side Rails x3, Bed position Low and Locked. Fall Precautions: Yellow Socks Yellow Gown Door Sign Addendum: 07/23/20 at 0726 by ISH YI RN RN HAND-OFF: Report given to
[2020-07-23 07:01] LABS: CREATININE 1.3 MG/DL (0.55-1.30); POTASSIUM 3.6 MMOL/L (3.5-5.1)
[2020-07-23 07:02] LABS: HEMOGLOBIN 9.3 G/DL (12.0-16.0); MEAN CORPUSCULAR VOLUME 91 FL (80-99); PLATELET COUNT 270 K/UL (150-450); RED BLOOD COUNT 2.87 M/UL (4.20-5.40); RED CELL DISTRIBUTION WIDTH 13.6 % (11.6-14.8); WHITE BLOOD COUNT 11.4 K/UL (4.8-10.8)
--- NOTE | 2020-07-23 07:25 | NUR ---
NURSE NOTES: RECEIVED PATIENT A/A/OX1, CONFUSED. MUMBLES. RESPONSE TO TACTILE STIMULI. NO S/SX OF PAIN OR DISCOMFORT NOTED. BREATHING IS EVEN AND UNLABORED ON 3LPM VIA NC, NO S/SX OF DISTRESS NOTED AT THIS TIME. PIV SITE ON RFA PATENT, INTACT, ASYMPTOMATIC, AND SALINE-LOCKED. VALDES CATHETER DRAINING WELL TO GRAVITY WITH YELLOW COLORED URINE. NO HEMATURIA PRESENT. KEPT BED IN THE LOWEST POSITION. FALL AND ASPIRATION PRECAUTIONS INPLACE. SIDERAILS ARE UPX3. CALL LIGHT WITHIN REACH, WILL CONTINUE TO MONITOR.
[2020-07-23 08:00] VITALS: BP 126/62
[2020-07-23] MEDS: dexAMETHasone 10mg/ml Inj IV SCH (08:08)
[2020-07-23] MEDS: DILTIAZEM HCL 240 MG ORAL SCH (08:16)
[2020-07-23] MEDS: Docusate 100mg cap ORAL SCH ×3 (08:16→17:05)
[2020-07-23] MEDS: Aspirin EC 81mg tab ORAL SCH (08:16)
--- NOTE | 2020-07-23 09:44 | Infectious Diseases Prog Note ---
Assessment/Plan 84yo F with: Afebrile Normal WBC Leukopenia COVID pna, dx'd 07/15 Acute hypoxic resp failure 2/2 COVID pna 07/19 BCx NTD UA +blood, 10-15 WBC, UCx NTD Resp cx p CXR: No acute infiltrate SUZETTE , sp 07/19 Renal US: Mild right hydro. R/o PE: 07/19 VQ scan: Asymmetric tracer distribution, left lung more than right. Suspect that this is artifactual, probably due to asymmetric overlapping soft tissues, but makes exam nondiagnostic for exclusion of pulmonary embolus PMH: CHF Afib HTN DM2 Dementia Plan: Cont dexamethasone 6mg daily, #5 Cont CTX/azithro #5/5 empiric will start RDV (SUZETTE improved, on 3 L NC )( as per pharm, Hospital policy would not provide the Rx, if pt is not a candidate for RDV if DNR/DNI ) No convalescent plasma available at this institution unfortunately Monitor CBC/CMP Monitor resp status Monitor temp curve, hemodynamics D/w RN Thank you for this consult. [facility] will continue to follow. Subjective Allergies: Coded Allergies: SULFAMETHOXAZOLE (Verified Allergy, Unknown, 07/19/20) TRIMETHOPRIM (Verified Allergy, Unknown, 07/19/20) Afebrile no acute event Objective Last 24 Hour Vital Signs Date Time Temp Pulse Resp B/P (MAP) Pulse Ox O2 Delivery O2 Flow Rate FiO2 07/23/20 09:00 Nasal Cannula 3.0 07/23/20 08:16 68 126/62 07/23/20 08:00 97.8 68 18 126/62 (83) 100 07/23/20 04:00 98.0 110 18 118/70 (86) 98 07/23/20 00:00 98.4 95 18 123/50 (74) 98 07/22/20 21:00 Nasal Cannula 3.0 07/22/20 20:00 98.2 110 20 127/78 (94) 98 07/22/20 16:00 96.3 73 17 116/51 (72) 100 07/22/20 12:00 96.8 73 18 141/61 (87) 99 Height (Feet): 5 Height (Inches): 6.00 Weight (Pounds): 130 HEENT: anicteric Respiratory/Chest: no respiratory distress Cardiovascular: regularly irregular Abdomen: soft, non tender Laboratory Tests Test 07/22/20 12:08 07/22/20 15:54 07/22/20 21:18 07/23/20 05:15 POC Whole Blood Glucose 156 MG/DL (74-106) H 303 MG/DL (74-106) H 220 MG/DL (74-106) H White Blood Count 11.4 K/UL (4.8-10.8) #H Red Blood Count 2.87 M/UL (4.20-5.40) L Hemoglobin 9.3 G/DL (12.0-16.0) L Hematocrit 26.0 % (37.0-47.0) L Mean Corpuscular Volume 91 FL (80-99) Mean Corpuscular Hemoglobin 32.6 PG (27.0-31.0) H Mean Corpuscular Hemoglobin Concent 35.9 G/DL (32.0-36.0) Red Cell Distribution Width 13.6 % (11.6-14.8) Platelet Count 270 K/UL (150-450) Mean Platelet Volume 6.9 FL (6.5-10.1) Neutrophils (%) (Auto) % (45.0-75.0) Lymphocytes (%) (Auto) % (20.0-45.0) Monocytes (%) (Auto) % (1.0-10.0) Eosinophils (%) (Auto) % (0.0-3.0) Basophils (%) (Auto) % (0.0-2.0) Neutrophils % (Manual) Pending Lymphocytes % (Manual) Pending Platelet Estimate Pending Platelet Morphology Pending Sodium Level 138 MMOL/L (136-145) Potassium Level 3.6 MMOL/L (3.5-5.1) Chloride Level 100 MMOL/L (98-107) Carbon Dioxide Level 30 MMOL/L (21-32) Anion Gap 8 mmol/L (5-15) Blood Urea Nitrogen 26 mg/dL (7-18) H Creatinine 1.3 MG/DL (0.55-1.30) Estimat Glomerular Filtration Rate 38.8 mL/min (>60) Glucose Level 215 MG/DL (74-106) H Calcium Level 9.0 MG/DL (8.5-10.1) Current Medications Medications (Trade) Dose Ordered Sig/Ranjeet Route PRN Reason Start Time Stop Time Status Last Admin Dose Admin Acetaminophen (Tylenol) 650 mg Q6H PRN ORAL Temp >100.5 07/19/20 09:15 08/18/20 09:14 Albuterol/ Ipratropium (Albuterol/ Ipratropium) 3 ml Q4H PRN HHN Shortness of Breath 07/19/20 09:15 07/24/20 09:14 Aspirin (Ecotrin) 81 mg DAILY ORAL 07/20/20 10:00 09/03/20 09:59 07/23/20 08:16 Azithromycin 250 mg/Dextrose 275 ml @ 275 mls/hr Q24H IVPB 07/20/20 03:30 07/25/20 03:29 07/23/20 03:15 Ceftriaxone Sodium 1 gm/ Dextrose 55 ml @ 110 mls/hr Q24H IVPB 07/22/20 02:00 07/27/20 01:59 07/23/20 02:44 Dexamethasone Sodium Phosphate (Decadron 10mg/ ml Inj) 6 mg DAILY IV 07/20/20 09:00 07/29/20 09:01 07/23/20 08:08 Dextrose (Dextrose 50%) 25 ml Q30M PRN IV Hypoglycemia 07/20/20 12:00 10/18/20 11:59 Dextrose (Dextrose 50%) 50 ml Q30M PRN IV Hypoglycemia 07/20/20 12:00 10/18/20 11:59 Diltiazem HCl (Cardizem ER) 240 mg DAILY ORAL 07/20/20 10:00 08/19/20 09:59 07/23/20 08:16 Docusate Sodium (Colace) 100 mg THREE TIMES A DAY ORAL 07/20/20 09:45 08/19/20 09:44 07/23/20 08:16 Heparin Sodium (Porcine) (Heparin 5000 units/ml) 5,000 units EVERY 12 HOURS SUBQ 07/19/20 21:00 09/02/20 20:59 Insulin Aspart (NovoLOG) give half dose if not eating BEFORE MEALS AND HS SUBQ 07/20/20 16:30 10/18/20 16:29 07/23/20 06:17 Levothyroxine Sodium (Synthroid) 100 mcg Q24H ORAL 07/21/20 06:30 08/20/20 06:29 07/23/20 06:16 Metoprolol Tartrate (Lopressor) 2.5 mg Q4H PRN IVP HR 118 or higher 07/19/20 21:30 10/17/20 21:29 Ondansetron HCl (Zofran) 4 mg Q6H PRN IVP Nausea & Vomiting 07/19/20 09:15 08/18/20 09:14 Polyethylene Glycol (Miralax) 17 gm DAILYPRN PRN ORAL Constipation 07/19/20 09:15 08/18/20 09:14 Promethazine HCl/ Codeine (Phenergan with Codeine) 5 ml Q6H PRN ORAL cough 07/19/20 09:15 08/18/20 09:14 Jaron Carlson MD Jul 23, 2020 09:44
[2020-07-23] MEDS: Heparin 5000 units/ml inj SUBQ SCH ×2 (10:27→20:27)
--- NOTE | 2020-07-23 11:00 | Nephrology Progress Note ---
Assessment/Plan Problem List: (1) SUZETTE (acute kidney injury) (2) Acute hyponatremia (3) Alzheimer's dementia (4) Chronic atrial fibrillation (5) Diabetes mellitus Assessment Acute renal failure Acute respiratory failure with hypoxia Severe hyponatremia Sepsis History of hypertension History of diabetes mellitus DNR DNI Plan July 23: Labs reviewed. Renal parameters stable. Continue per consultants. July 22: Labs reviewed. Renal parameters stable. Abnormal chemistries and electrolytes addressed. Continue per consultants. July 21: Serum sodium improved. Lab reviewed. Serum creatinine improved. Continue current management. July 20: Serum sodium 126. Labs reviewed. Serum creatinine down to 1.6. Medication list reviewed. Continue current management. Continue to monitor electrolytes and renal parameters. July 19: Saline infusion Monitor renal parameters and electrolytes Avoid nephrotoxic's Saline infusion Per consultants Subjective ROS Limited/Unobtainable: No Constitutional: Reports: malaise, weakness Objective Objective Last 24 Hour Vital Signs Date Time Temp Pulse Resp B/P (MAP) Pulse Ox O2 Delivery O2 Flow Rate FiO2 07/23/20 09:00 Nasal Cannula 3.0 07/23/20 08:16 68 126/62 07/23/20 08:00 97.8 68 18 126/62 (83) 100 07/23/20 04:00 98.0 110 18 118/70 (86) 98 07/23/20 00:00 98.4 95 18 123/50 (74) 98 07/22/20 21:00 Nasal Cannula 3.0 07/22/20 20:00 98.2 110 20 127/78 (94) 98 07/22/20 16:00 96.3 73 17 116/51 (72) 100 07/22/20 12:00 96.8 73 18 141/61 (87) 99 l Intake and Output 07/22/20 07/23/20 19:00 07:00 Intake Total 350 ml Output Total 400 ml 500 ml Balance -50 ml -500 ml Other 350 ml Output Urine Total 400 ml 500 ml # Voids 1 Current Medications Medications (Trade) Dose Ordered Sig/Ranjeet Route PRN Reason Start Time Stop Time Status Last Admin Dose Admin Acetaminophen (Tylenol) 650 mg Q6H PRN ORAL Temp >100.5 07/19/20 09:15 08/18/20 09:14 Albuterol/ Ipratropium (Albuterol/ Ipratropium) 3 ml Q4H PRN HHN Shortness of Breath 07/19/20 09:15 07/24/20 09:14 Aspirin (Ecotrin) 81 mg DAILY ORAL 07/20/20 10:00 09/03/20 09:59 07/23/20 08:16 Azithromycin 250 mg/Dextrose 275 ml @ 275 mls/hr Q24H IVPB 07/20/20 03:30 07/24/20 23:59 07/23/20 03:15 Ceftriaxone Sodium 1 gm/ Dextrose 55 ml @ 110 mls/hr Q24H IVPB 07/22/20 02:00 07/23/20 23:59 07/23/20 02:44 Dexamethasone Sodium Phosphate (Decadron 10mg/ ml Inj) 6 mg DAILY IV 07/20/20 09:00 07/29/20 09:01 07/23/20 08:08 Dextrose (Dextrose 50%) 25 ml Q30M PRN IV Hypoglycemia 07/20/20 12:00 10/18/20 11:59 Dextrose (Dextrose 50%) 50 ml Q30M PRN IV Hypoglycemia 07/20/20 12:00 10/18/20 11:59 Diltiazem HCl (Cardizem ER) 240 mg DAILY ORAL 07/20/20 10:00 08/19/20 09:59 07/23/20 08:16 Docusate Sodium (Colace) 100 mg THREE TIMES A DAY ORAL 07/20/20 09:45 08/19/20 09:44 07/23/20 08:16 Heparin Sodium (Porcine) (Heparin 5000 units/ml) 5,000 units EVERY 12 HOURS SUBQ 07/23/20 10:30 09/06/20 10:29 07/23/20 10:27 Insulin Aspart (NovoLOG) give half dose if not eating BEFORE MEALS AND HS SUBQ 07/20/20 16:30 10/18/20 16:29 07/23/20 06:17 Levothyroxine Sodium (Synthroid) 100 mcg Q24H ORAL 07/21/20 06:30 08/20/20 06:29 07/23/20 06:16 Metoprolol Tartrate (Lopressor) 2.5 mg Q4H PRN IVP HR 118 or higher 07/19/20 21:30 10/17/20 21:29 Ondansetron HCl (Zofran) 4 mg Q6H PRN IVP Nausea & Vomiting 07/19/20 09:15 08/18/20 09:14 Polyethylene Glycol (Miralax) 17 gm DAILYPRN PRN ORAL Constipation 07/19/20 09:15 08/18/20 09:14 Promethazine HCl/ Codeine (Phenergan with Codeine) 5 ml Q6H PRN ORAL cough 07/19/20 09:15 08/18/20 09:14 Laboratory Tests 07/22/20 12:08: POC Whole Blood Glucose 156H 07/22/20 15:54: POC Whole Blood Glucose 303H 07/22/20 21:18: POC Whole Blood Glucose 220H 07/23/20 05:15: White Blood Count 11.4#H, Red Blood Count 2.87L, Hemoglobin 9.3L, Hematocrit 26.0L, Mean Corpuscular Volume 91, Mean Corpuscular Hemoglobin 32.6H, Mean Corpuscular Hemoglobin Concent 35.9, Red Cell Distribution Width 13.6, Platelet Count 270, Mean Platelet Volume 6.9, Neutrophils (%) (Auto) , Lymphocytes (%) (Auto) , Monocytes (%) (Auto) , Eosinophils (%) (Auto) , Basophils (%) (Auto) , Differential Total Cells Counted 100, Neutrophils % (Manual) 91H, Lymphocytes % (Manual) 6L, Monocytes % (Manual) 3, Eosinophils % (Manual) 0, Basophils % (Manual) 0, Band Neutrophils 0, Platelet Estimate Adequate, Platelet Morphology Normal, Hypochromasia 1+, Sodium Level 138, Potassium Level 3.6, Chloride Level 100, Carbon Dioxide Level 30, Anion Gap 8, Blood Urea Nitrogen 26H, Creatinine 1.3, Estimat Glomerular Filtration Rate 38.8, Glucose Level 215H, Calcium Level 9.0 Height (Feet): 5 Height (Inches): 6.00 Weight (Pounds): 130 General Appearance: no apparent distress, lethargic Cardiovascular: arrhythmia Respiratory/Chest: decreased breath sounds Jethro Cleaning MD Jul 23, 2020 11:00
[2020-07-23 11:37] VITALS: BP 130/61
--- NOTE | 2020-07-23 11:58 | Pulmonology Progress Note ---
Subjective ROS Limited/Unobtainable: No Constitutional: Reports: no symptoms HEENT: Repors: no symptoms Respiratory: Reports: no symptoms Allergies: Coded Allergies: SULFAMETHOXAZOLE (Verified Allergy, Unknown, 07/19/20) TRIMETHOPRIM (Verified Allergy, Unknown, 07/19/20) Objective Last 24 Hour Vital Signs Date Time Temp Pulse Resp B/P (MAP) Pulse Ox O2 Delivery O2 Flow Rate FiO2 07/23/20 11:37 96.3 59 18 130/61 (84) 100 07/23/20 09:00 Nasal Cannula 3.0 07/23/20 08:16 68 126/62 07/23/20 08:00 97.8 68 18 126/62 (83) 100 07/23/20 04:00 98.0 110 18 118/70 (86) 98 07/23/20 00:00 98.4 95 18 123/50 (74) 98 07/22/20 21:00 Nasal Cannula 3.0 07/22/20 20:00 98.2 110 20 127/78 (94) 98 07/22/20 16:00 96.3 73 17 116/51 (72) 100 07/22/20 12:00 96.8 73 18 141/61 (87) 99 Intake and Output 07/22/20 07/23/20 19:00 07:00 Intake Total 350 ml Output Total 400 ml 500 ml Balance -50 ml -500 ml Other 350 ml Output Urine Total 400 ml 500 ml # Voids 1 General Appearance: cachetic HEENT: normocephalic, atraumatic Respiratory: chest wall non-tender, lungs clear Cardiovascular: normal peripheral pulses, normal rate Abdomen: normal bowel sounds, soft, non tender, no organomegaly Genitourinary: normal external genitalia Skin: no rash Laboratory Tests 07/22/20 12:08: POC Whole Blood Glucose 156H 07/22/20 15:54: POC Whole Blood Glucose 303H 07/22/20 21:18: POC Whole Blood Glucose 220H 07/23/20 05:15: White Blood Count 11.4#H, Red Blood Count 2.87L, Hemoglobin 9.3L, Hematocrit 26.0L, Mean Corpuscular Volume 91, Mean Corpuscular Hemoglobin 32.6H, Mean Corpuscular Hemoglobin Concent 35.9, Red Cell Distribution Width 13.6, Platelet Count 270, Mean Platelet Volume 6.9, Neutrophils (%) (Auto) , Lymphocytes (%) (Auto) , Monocytes (%) (Auto) , Eosinophils (%) (Auto) , Basophils (%) (Auto) , Differential Total Cells Counted 100, Neutrophils % (Manual) 91H, Lymphocytes % (Manual) 6L, Monocytes % (Manual) 3, Eosinophils % (Manual) 0, Basophils % (Manual) 0, Band Neutrophils 0, Platelet Estimate Adequate, Platelet Morphology Normal, Hypochromasia 1+, Sodium Level 138, Potassium Level 3.6, Chloride Level 100, Carbon Dioxide Level 30, Anion Gap 8, Blood Urea Nitrogen 26H, Creatinine 1.3, Estimat Glomerular Filtration Rate 38.8, Glucose Level 215H, Calcium Level 9.0 Current Medications Medications (Trade) Dose Ordered Sig/Ranjeet Route PRN Reason Start Time Stop Time Status Last Admin Dose Admin Acetaminophen (Tylenol) 650 mg Q6H PRN ORAL Temp >100.5 07/19/20 09:15 08/18/20 09:14 Albuterol/ Ipratropium (Albuterol/ Ipratropium) 3 ml Q4H PRN HHN Shortness of Breath 07/19/20 09:15 07/24/20 09:14 Aspirin (Ecotrin) 81 mg DAILY ORAL 07/20/20 10:00 09/03/20 09:59 07/23/20 08:16 Azithromycin 250 mg/Dextrose 275 ml @ 275 mls/hr Q24H IVPB 07/20/20 03:30 07/24/20 23:59 07/23/20 03:15 Ceftriaxone Sodium 1 gm/ Dextrose 55 ml @ 110 mls/hr Q24H IVPB 07/22/20 02:00 07/23/20 23:59 07/23/20 02:44 Dexamethasone Sodium Phosphate (Decadron 10mg/ ml Inj) 6 mg DAILY IV 07/20/20 09:00 07/29/20 09:01 07/23/20 08:08 Dextrose (Dextrose 50%) 25 ml Q30M PRN IV Hypoglycemia 07/20/20 12:00 10/18/20 11:59 Dextrose (Dextrose 50%) 50 ml Q30M PRN IV Hypoglycemia 07/20/20 12:00 10/18/20 11:59 Diltiazem HCl (Cardizem ER) 240 mg DAILY ORAL 07/20/20 10:00 08/19/20 09:59 07/23/20 08:16 Docusate Sodium (Colace) 100 mg THREE TIMES A DAY ORAL 07/20/20 09:45 08/19/20 09:44 07/23/20 08:16 Heparin Sodium (Porcine) (Heparin 5000 units/ml) 5,000 units EVERY 12 HOURS SUBQ 07/23/20 10:30 09/06/20 10:29 07/23/20 10:27 Insulin Aspart (NovoLOG) give half dose if not eating BEFORE MEALS AND HS SUBQ 07/20/20 16:30 10/18/20 16:29 07/23/20 06:17 Levothyroxine Sodium (Synthroid) 100 mcg Q24H ORAL 07/21/20 06:30 08/20/20 06:29 07/23/20 06:16 Metoprolol Tartrate (Lopressor) 2.5 mg Q4H PRN IVP HR 118 or higher 07/19/20 21:30 10/17/20 21:29 Ondansetron HCl (Zofran) 4 mg Q6H PRN IVP Nausea & Vomiting 07/19/20 09:15 08/18/20 09:14 Polyethylene Glycol (Miralax) 17 gm DAILYPRN PRN ORAL Constipation 07/19/20 09:15 08/18/20 09:14 Promethazine HCl/ Codeine (Phenergan with Codeine) 5 ml Q6H PRN ORAL cough 07/19/20 09:15 08/18/20 09:14 Assessment/Plan Problems: (1) Respiratory failure with hypoxia (2) Acute hyponatremia (3) SUZETTE (acute kidney injury) (4) Chronic atrial fibrillation (5) Diabetes mellitus (6) Alzheimer's dementia Assessment/Plan no new complains renal function stable, creatinine is 1.3 today No new cultures hyponatremia improving sliding scale diabetic diet, pending swallow study respiratory treatment titrate fio2 to sat of 92% dvt prophylaxis. Riccardo Drew MD Jul 23, 2020 11:57
--- NOTE | 2020-07-23 14:21 | NUR ---
CASE MANAGEMENT:REVIEW SI;COVID PNEUMONIA. SEPSIS. 98.4 110 18 98% 3L NC WBC 11.4 H/H 9.3/26.0 BUN 26 BG 215 IS;HEPARIN SUBQ Q12 Na PHOSPHATE IV ONCE ROCEPHIN IV Q24 SYNTHROID PO QD ASA PO QD DECADRON IV QD ZITHROMAX IV QD MED SURG STATUS DCP;FROM [facility]
--- NOTE | 2020-07-23 14:45 | Internal Med Progress Note ---
Subjective Date of Service: Jul 23, 2020 Physician Name Dudley Rebollar Attending Physician Mateo Rankin MD Current Medications Medications (Trade) Dose Ordered Sig/Ranjeet Route PRN Reason Start Time Stop Time Status Last Admin Dose Admin Acetaminophen (Tylenol) 650 mg Q6H PRN ORAL Temp >100.5 07/19/20 09:15 08/18/20 09:14 Albuterol/ Ipratropium (Albuterol/ Ipratropium) 3 ml Q4H PRN HHN Shortness of Breath 07/19/20 09:15 07/24/20 09:14 Aspirin (Ecotrin) 81 mg DAILY ORAL 07/20/20 10:00 09/03/20 09:59 07/23/20 08:16 Azithromycin 250 mg/Dextrose 275 ml @ 275 mls/hr Q24H IVPB 07/20/20 03:30 07/24/20 23:59 07/23/20 03:15 Ceftriaxone Sodium 1 gm/ Dextrose 55 ml @ 110 mls/hr Q24H IVPB 07/22/20 02:00 07/23/20 23:59 07/23/20 02:44 Dexamethasone Sodium Phosphate (Decadron 10mg/ ml Inj) 6 mg DAILY IV 07/20/20 09:00 07/29/20 09:01 07/23/20 08:08 Dextrose (Dextrose 50%) 25 ml Q30M PRN IV Hypoglycemia 07/20/20 12:00 10/18/20 11:59 Dextrose (Dextrose 50%) 50 ml Q30M PRN IV Hypoglycemia 07/20/20 12:00 10/18/20 11:59 Diltiazem HCl (Cardizem ER) 240 mg DAILY ORAL 07/20/20 10:00 08/19/20 09:59 07/23/20 08:16 Docusate Sodium (Colace) 100 mg THREE TIMES A DAY ORAL 07/20/20 09:45 08/19/20 09:44 07/23/20 13:59 Heparin Sodium (Porcine) (Heparin 5000 units/ml) 5,000 units EVERY 12 HOURS SUBQ 07/23/20 10:30 09/06/20 10:29 07/23/20 10:27 Insulin Aspart (NovoLOG) give half dose if not eating BEFORE MEALS AND HS SUBQ 07/20/20 16:30 10/18/20 16:29 07/23/20 12:31 Levothyroxine Sodium (Synthroid) 100 mcg Q24H ORAL 07/21/20 06:30 08/20/20 06:29 07/23/20 06:16 Metoprolol Tartrate (Lopressor) 2.5 mg Q4H PRN IVP HR 118 or higher 07/19/20 21:30 10/17/20 21:29 Ondansetron HCl (Zofran) 4 mg Q6H PRN IVP Nausea & Vomiting 07/19/20 09:15 08/18/20 09:14 Polyethylene Glycol (Miralax) 17 gm DAILYPRN PRN ORAL Constipation 07/19/20 09:15 08/18/20 09:14 Promethazine HCl/ Codeine (Phenergan with Codeine) 5 ml Q6H PRN ORAL cough 07/19/20 09:15 08/18/20 09:14 Allergies: Coded Allergies: SULFAMETHOXAZOLE (Verified Allergy, Unknown, 07/19/20) TRIMETHOPRIM (Verified Allergy, Unknown, 07/19/20) ROS Limited/Unobtainable: Yes Subjective 84 YO F admitted with COVID 19 pos and respiratory failure. Now COVID 19 pneumonia. Cover for Int Med-Dr Rankin Objective Last Vital Signs Date Time Temp Pulse Resp B/P (MAP) Pulse Ox O2 Delivery O2 Flow Rate FiO2 07/23/20 11:37 96.3 59 18 130/61 (84) 100 07/23/20 09:00 Nasal Cannula 3.0 07/20/20 18:56 28 Laboratory Tests Test 07/22/20 15:54 07/22/20 21:18 07/23/20 05:15 07/23/20 12:27 POC Whole Blood Glucose 303 MG/DL (74-106) H 220 MG/DL (74-106) H Pending White Blood Count 11.4 K/UL (4.8-10.8) #H Red Blood Count 2.87 M/UL (4.20-5.40) L Hemoglobin 9.3 G/DL (12.0-16.0) L Hematocrit 26.0 % (37.0-47.0) L Mean Corpuscular Volume 91 FL (80-99) Mean Corpuscular Hemoglobin 32.6 PG (27.0-31.0) H Mean Corpuscular Hemoglobin Concent 35.9 G/DL (32.0-36.0) Red Cell Distribution Width 13.6 % (11.6-14.8) Platelet Count 270 K/UL (150-450) Mean Platelet Volume 6.9 FL (6.5-10.1) Neutrophils (%) (Auto) % (45.0-75.0) Lymphocytes (%) (Auto) % (20.0-45.0) Monocytes (%) (Auto) % (1.0-10.0) Eosinophils (%) (Auto) % (0.0-3.0) Basophils (%) (Auto) % (0.0-2.0) Differential Total Cells Counted 100 Neutrophils % (Manual) 91 % (45-75) H Lymphocytes % (Manual) 6 % (20-45) L Monocytes % (Manual) 3 % (1-10) Eosinophils % (Manual) 0 % (0-3) Basophils % (Manual) 0 % (0-2) Band Neutrophils 0 % (0-8) Platelet Estimate Adequate Platelet Morphology Normal Hypochromasia 1+ Sodium Level 138 MMOL/L (136-145) Potassium Level 3.6 MMOL/L (3.5-5.1) Chloride Level 100 MMOL/L (98-107) Carbon Dioxide Level 30 MMOL/L (21-32) Anion Gap 8 mmol/L (5-15) Blood Urea Nitrogen 26 mg/dL (7-18) H Creatinine 1.3 MG/DL (0.55-1.30) Estimat Glomerular Filtration Rate 38.8 mL/min (>60) Glucose Level 215 MG/DL (74-106) H Calcium Level 9.0 MG/DL (8.5-10.1) Intake and Output 07/22/20 07/23/20 19:00 07:00 Intake Total 350 ml Output Total 400 ml 500 ml Balance -50 ml -500 ml Other 350 ml Output Urine Total 400 ml 500 ml # Voids 1 Objective PHYSICAL EXAMINATION: GENERAL: The patient is a well-developed and well-nourished female, in moderate respiratory distress. HEENT: Eyes, pupils are equal and responsive to light and accommodation. Extraocular movements are intact. NECK: Supple without lymphadenopathy. CHEST: Decreased breath sounds in bilateral bases, otherwise without wheezes or rales. CARDIOVASCULAR: Regular rhythm and rate. S1, S2 normal without murmurs, rubs, or gallops. ABDOMEN: Soft, nontender, nondistended. Positive bowel sounds. No evidence of hepatosplenomegaly. Currently, no rebound or guarding noted. EXTREMITIES: Negative for clubbing, cyanosis, or edema. RECTAL/GENITAL: Not performed. NEUROLOGIC: Cranial nerves II through XII are grossly intact without focal deficits. Assessment/Plan Assessment/Plan ASSESSMENT: This is an 84-year-old female with: 1. COVID-19 positive. 2. Pneumonia. 3. Alzheimer's dementia. 4. Hypertension. 5. Congestive heart failure. 6. Atrial fibrillation. 7. Hypothyroidism. 8. Diabetes type 2. 9. Hyponatremia-resolving TREATMENT: 1. COVID-19/pneumonia. An Infectious Disease = Dr. Babcock. Continue Decadron intravenously. ABX=ceftriaxone; S/P azithromycin A Pulmonary consultation has been obtained with Dr. Riccardo Drew. Not a candidate for remdesivir per ID 2. Alzheimer's dementia. 3. Hypertension. The patient is currently hypotensive. Hold diltiazem. 4. Congestive heart failure. Cardiology consultation has been obtained with Dr. Hema Mcclure. 5. Atrial fibrillation. 6. Hypothyroidism. Continue Levoxyl as above. 7. Diabetes type 2. A NovoLog sliding scale has been instituted. Dudley Rebollar MD Jul 23, 2020 14:45
--- NOTE | 2020-07-23 15:42 | Cardiology Progress Note ---
Assessment/Plan Assessment/Plan 1. Respiratory insuf 2. Hyponatremia. 3. Hhis atrial fib atrial flutter 4. History of diastolic and systolic heart failure. 5. Moderate mitral, aortic, and tricuspid regurgitation. 6. Dementia. 7. Tachycardia, likely secondary to demand. 8.. Renal insuf hr controlled with iv bb cr improved na normal nursing note reviewed off tele not fel to need remdizivir as oxygeation has improved i do not see anticoag being administered priro to admission will consider if not at fall risk Subjective Subjective per nursing staff RECEIVED PATIENT A/A/OX1, CONFUSED. MUMBLES. RESPONSE TO TACTILE STIMULI. NO S/SX OF PAIN OR DISCOMFORT NOTED. BREATHING IS EVEN AND UNLABORED ON 3LPM VIA NC, NO S/SX OF DISTRESS NOTED AT THIS TIME. PIV SITE ON RFA PATENT, INTACT, ASYMPTOMATIC, AND SALINE-LOCKED Objective Last 24 Hour Vital Signs Date Time Temp Pulse Resp B/P (MAP) Pulse Ox O2 Delivery O2 Flow Rate FiO2 07/23/20 11:37 96.3 59 18 130/61 (84) 100 07/23/20 09:00 Nasal Cannula 3.0 07/23/20 08:16 68 126/62 07/23/20 08:00 97.8 68 18 126/62 (83) 100 07/23/20 04:00 98.0 110 18 118/70 (86) 98 07/23/20 00:00 98.4 95 18 123/50 (74) 98 07/22/20 21:00 Nasal Cannula 3.0 07/22/20 20:00 98.2 110 20 127/78 (94) 98 07/22/20 16:00 96.3 73 17 116/51 (72) 100 General Appearance: patient on isolation Intake and Output 07/22/20 07/23/20 19:00 07:00 Intake Total 350 ml Output Total 400 ml 500 ml Balance -50 ml -500 ml Other 350 ml Output Urine Total 400 ml 500 ml # Voids 1 Laboratory Tests Test 07/22/20 15:54 07/22/20 21:18 07/23/20 05:15 07/23/20 12:27 POC Whole Blood Glucose 303 MG/DL (74-106) H 220 MG/DL (74-106) H Pending White Blood Count 11.4 K/UL (4.8-10.8) #H Red Blood Count 2.87 M/UL (4.20-5.40) L Hemoglobin 9.3 G/DL (12.0-16.0) L Hematocrit 26.0 % (37.0-47.0) L Mean Corpuscular Volume 91 FL (80-99) Mean Corpuscular Hemoglobin 32.6 PG (27.0-31.0) H Mean Corpuscular Hemoglobin Concent 35.9 G/DL (32.0-36.0) Red Cell Distribution Width 13.6 % (11.6-14.8) Platelet Count 270 K/UL (150-450) Mean Platelet Volume 6.9 FL (6.5-10.1) Neutrophils (%) (Auto) % (45.0-75.0) Lymphocytes (%) (Auto) % (20.0-45.0) Monocytes (%) (Auto) % (1.0-10.0) Eosinophils (%) (Auto) % (0.0-3.0) Basophils (%) (Auto) % (0.0-2.0) Differential Total Cells Counted 100 Neutrophils % (Manual) 91 % (45-75) H Lymphocytes % (Manual) 6 % (20-45) L Monocytes % (Manual) 3 % (1-10) Eosinophils % (Manual) 0 % (0-3) Basophils % (Manual) 0 % (0-2) Band Neutrophils 0 % (0-8) Platelet Estimate Adequate Platelet Morphology Normal Hypochromasia 1+ Sodium Level 138 MMOL/L (136-145) Potassium Level 3.6 MMOL/L (3.5-5.1) Chloride Level 100 MMOL/L (98-107) Carbon Dioxide Level 30 MMOL/L (21-32) Anion Gap 8 mmol/L (5-15) Blood Urea Nitrogen 26 mg/dL (7-18) H Creatinine 1.3 MG/DL (0.55-1.30) Estimat Glomerular Filtration Rate 38.8 mL/min (>60) Glucose Level 215 MG/DL (74-106) H Calcium Level 9.0 MG/DL (8.5-10.1) Objective per ID Respiratory/Chest: no respiratory distress Cardiovascular: regularly irregular Abdomen: soft, non tender Heam Mcclure MD Jul 23, 2020 15:42
[2020-07-23 16:07] VITALS: BP 120/62
--- NOTE | 2020-07-23 19:20 | NUR ---
NURSE HAND-OFF: Important Events on Shift:[KEEP PATIENT CLEAN, COMFORTABLE. 1;1 FEEDING; BS MONITORING] Patient Status: [NO SIGNIFICANT CHANGE] Diet: [[facility] MED PUREED MOIST] Pending Orders: [LABS] Pending Results/Labs:[AM] Pending MD notification:[] Latest Vital Signs: Temperature 96.8 , Pulse 63 , B/P 120 /62 , Respiratory Rate 18 , O2 SAT 100 , Nasal Cannula, O2 Flow Rate 2.0 . Vital Sign Comment: [] Latest [place] Fall Score: 45 Fall Risk: High Risk Safety Measures: Call light Within Reach, Bed Alarm Zone 1, Side Rails Side Rails x3, Bed position Low and Locked. Fall Precautions: Yellow Socks Yellow Gown Door Sign Report given to [KARLOS].
--- NOTE | 2020-07-23 19:31 | NUR ---
NURSE NOTES: Received patient in bed, patient is confused, disoriented, mumbles , on oxygen at 3 liters/min, breathing treatments are scheduled q 4 hours, patient has a Alanis catheter 16 fr inserted 07/19/20 for retention. Call light is within reach, bed is lowered, locked, alarm is on, will continue to monitor for comfort and safety.
[2020-07-23 20:00] VITALS: BP 143/80
[2020-07-24] VITALS: BP 144/90
[2020-07-24] MEDS: Azithromycin 250 MG in D5W 275 ML IVPB SCH (03:55)
[2020-07-24 04:00] VITALS: BP 132/74
[2020-07-24] MEDS: NovoLOG Insulin Flexpen SUBQ SCH ×4 (06:07→21:12)
--- NOTE | 2020-07-24 07:25 | NUR ---
NURSE HAND-OFF: Important Events on Shift:am BS 226, turned , repositioned. Patient Status: DNR/DNI Diet: CCHO med pureed, crush meds Pending Orders: Pending Results/Labs: Pending MD notification: Latest Vital Signs: Temperature 97.5 , Pulse 87 , B/P 132 /74 , Respiratory Rate 18 , O2 SAT 98 , Nasal Cannula, O2 Flow Rate 3.0 . Vital Sign Comment: Latest Sal[place] Fall Score: 45 Fall Risk: High Risk Safety Measures: Call light Within Reach, Bed Alarm Zone 1, Side Rails Side Rails x3, Bed position Low and Locked. Fall Precautions: Yellow Socks Yellow Gown Door Sign Report given to Lorenzo RODRIGUEZ
--- NOTE | 2020-07-24 07:56 | NUR ---
NURSE NOTES: Received pt from JENNIFER Hoffman, pt was resting no acute distress. call light w/in reach.
[2020-07-24 08:00] VITALS: BP 141/70
[2020-07-24] MEDS: dexAMETHasone 10mg/ml Inj IV SCH (09:06)
[2020-07-24] MEDS: Docusate 100mg cap ORAL SCH ×3 (09:07→17:45)
[2020-07-24] MEDS: DILTIAZEM HCL 240 MG ORAL SCH (09:07)
[2020-07-24] MEDS: Aspirin EC 81mg tab ORAL SCH (09:07)
[2020-07-24] MEDS: Heparin 5000 units/ml inj SUBQ SCH ×2 (09:08→21:09)
--- NOTE | 2020-07-24 09:08 | Infectious Diseases Prog Note ---
Assessment/Plan 84yo F with: Afebrile Normal WBC Leukopenia COVID pna, dx'd 07/15 Acute hypoxic resp failure 2/2 COVID pna 07/19 BCx NTD UA +blood, 10-15 WBC, UCx NTD Resp cx p CXR: No acute infiltrate SUZETTE , sp 07/19 Renal US: Mild right hydro. R/o PE: 07/19 VQ scan: Asymmetric tracer distribution, left lung more than right. Suspect that this is artifactual, probably due to asymmetric overlapping soft tissues, but makes exam nondiagnostic for exclusion of pulmonary embolus PMH: CHF Afib HTN DM2 Dementia Plan: Cont dexamethasone 6mg daily, #6 07/23/20 - SP CTX/azithro #5/5 empiric would start RDV (SUZETTE improved, on 3 L NC ) as per pharm, Hospital policy would not provide the Rx, if pt is not a candidate for RDV if DNR/DNI ) No convalescent plasma available at this institution unfortunately Monitor CBC/CMP Monitor resp status Monitor temp curve, hemodynamics D/w RN Thank you for this consult. [facility] will continue to follow. Subjective Allergies: Coded Allergies: SULFAMETHOXAZOLE (Verified Allergy, Unknown, 07/19/20) TRIMETHOPRIM (Verified Allergy, Unknown, 07/19/20) Afebrile Remains on NC WBCs slightly increased today Objective Last 24 Hour Vital Signs Date Time Temp Pulse Resp B/P (MAP) Pulse Ox O2 Delivery O2 Flow Rate FiO2 07/24/20 04:00 97.5 87 18 132/74 (93) 98 07/24/20 00:00 98.3 94 18 144/90 (108) 100 07/23/20 21:21 Nasal Cannula 3.0 07/23/20 20:00 96.4 85 18 143/80 (101) 94 07/23/20 19:19 100 Nasal Cannula 2.0 28 07/23/20 16:07 96.8 63 18 120/62 (81) 96 07/23/20 11:37 96.3 59 18 130/61 (84) 100 Height (Feet): 5 Height (Inches): 6.00 Weight (Pounds): 130 GEN: NAD HEENT: NCAT, MMM, EOMI Chest: RRR, Equal rise and fall B/L Abdomen: soft, non distended Laboratory Tests Test 07/23/20 12:27 07/23/20 17:07 07/24/20 08:05 POC Whole Blood Glucose Pending 213 MG/DL (74-106) H White Blood Count Pending Red Blood Count Pending Hemoglobin Pending Hematocrit Pending Mean Corpuscular Volume Pending Mean Corpuscular Hemoglobin Pending Mean Corpuscular Hemoglobin Concent Pending Red Cell Distribution Width Pending Platelet Count Pending Mean Platelet Volume Pending Neutrophils (%) (Auto) Pending Lymphocytes (%) (Auto) Pending Monocytes (%) (Auto) Pending Eosinophils (%) (Auto) Pending Basophils (%) (Auto) Pending Sodium Level Pending Potassium Level Pending Chloride Level Pending Carbon Dioxide Level Pending Blood Urea Nitrogen Pending Creatinine Pending Estimat Glomerular Filtration Rate Pending Glucose Level Pending Calcium Level Pending Phosphorus Level Pending Magnesium Level Pending Total Bilirubin Pending Aspartate Amino Transf (AST/SGOT) Pending Alanine Aminotransferase (ALT/SGPT) Pending Alkaline Phosphatase Pending C-Reactive Protein, Quantitative Pending Pro-B-Type Natriuretic Peptide Pending Total Protein Pending Albumin Pending Globulin Pending Current Medications Medications (Trade) Dose Ordered Sig/Ranjeet Route PRN Reason Start Time Stop Time Status Last Admin Dose Admin Acetaminophen (Tylenol) 650 mg Q6H PRN ORAL Temp >100.5 07/19/20 09:15 08/18/20 09:14 Albuterol/ Ipratropium (Albuterol/ Ipratropium) 3 ml Q4H PRN HHN Shortness of Breath 07/19/20 09:15 07/24/20 09:14 Aspirin (Ecotrin) 81 mg DAILY ORAL 07/20/20 10:00 09/03/20 09:59 07/23/20 08:16 Azithromycin 250 mg/Dextrose 275 ml @ 275 mls/hr Q24H IVPB 07/20/20 03:30 07/24/20 23:59 07/24/20 03:55 Dexamethasone Sodium Phosphate (Decadron 10mg/ ml Inj) 6 mg DAILY IV 07/20/20 09:00 07/29/20 09:01 07/23/20 08:08 Dextrose (Dextrose 50%) 25 ml Q30M PRN IV Hypoglycemia 07/20/20 12:00 10/18/20 11:59 Dextrose (Dextrose 50%) 50 ml Q30M PRN IV Hypoglycemia 07/20/20 12:00 10/18/20 11:59 Diltiazem HCl (Cardizem ER) 240 mg DAILY ORAL 07/20/20 10:00 08/19/20 09:59 07/23/20 08:16 Docusate Sodium (Colace) 100 mg THREE TIMES A DAY ORAL 07/20/20 09:45 08/19/20 09:44 07/23/20 17:05 Heparin Sodium (Porcine) (Heparin 5000 units/ml) 5,000 units EVERY 12 HOURS SUBQ 07/23/20 10:30 09/06/20 10:29 07/23/20 20:27 Insulin Aspart (NovoLOG) give half dose if not eating BEFORE MEALS AND HS SUBQ 07/20/20 16:30 10/18/20 16:29 07/24/20 06:07 Levothyroxine Sodium (Synthroid) 100 mcg Q24H ORAL 07/21/20 06:30 08/20/20 06:29 07/23/20 06:16 Metoprolol Tartrate (Lopressor) 2.5 mg Q4H PRN IVP HR 118 or higher 07/19/20 21:30 10/17/20 21:29 Ondansetron HCl (Zofran) 4 mg Q6H PRN IVP Nausea & Vomiting 07/19/20 09:15 08/18/20 09:14 Polyethylene Glycol (Miralax) 17 gm DAILYPRN PRN ORAL Constipation 07/19/20 09:15 08/18/20 09:14 Promethazine HCl/ Codeine (Phenergan with Codeine) 5 ml Q6H PRN ORAL cough 07/19/20 09:15 08/18/20 09:14 Scar Zamora MD Jul 24, 2020 09:08
[2020-07-24 09:10] LABS: ALANINE AMINOTRANSFERASE 39 U/L (12-78); ALBUMIN 3.4 G/DL (3.4-5.0); ALKALINE PHOSPHATASE 65 U/L (46-116); ASPARTATE AMINO TRANSFERASE 39 U/L (15-37); BILIRUBIN,TOTAL 0.5 MG/DL (0.2-1.0); BLOOD UREA NITROGEN 23 mg/dL (7-18); CALCIUM 8.9 MG/DL (8.5-10.1); CARBON DIOXIDE 29 MMOL/L (21-32); CHLORIDE 99 MMOL/L (98-107); CREATININE 1.2 MG/DL (0.55-1.30); PHOSPHORUS 1.9 MG/DL (2.5-4.9); POTASSIUM 3.8 MMOL/L (3.5-5.1); SODIUM 136 MMOL/L (136-145)
[2020-07-24 10:13] LABS: HEMOGLOBIN 8.9 G/DL (12.0-16.0); MEAN CORPUSCULAR VOLUME 93 FL (80-99); PLATELET COUNT 239 K/UL (150-450); RED BLOOD COUNT 2.81 M/UL (4.20-5.40); RED CELL DISTRIBUTION WIDTH 12.8 % (11.6-14.8); WHITE BLOOD COUNT 13.6 K/UL (4.8-10.8)
[2020-07-24 12:00] VITALS: BP 126/68
--- NOTE | 2020-07-24 13:27 | Cardiology Progress Note ---
Assessment/Plan Assessment/Plan 1. Respiratory insuf 2. Hyponatremia. 3. Hhis atrial fib atrial flutter 4. History of diastolic and systolic heart failure. 5. Moderate mitral, aortic, and tricuspid regurgitation. 6. Dementia. 7. Tachycardia, likely secondary to demand. 8.. Renal insuf hr controlled with iv bb cr improved na normal nursing note reviewed off tele not fel to need remdizivir as oxygeation has improved i do not see anticoag being administered priro to admission will consider if not at fall risk Subjective ROS Limited/Unobtainable: Yes Subjective per nursing staff Received patient in bed, patient is confused, disoriented, mumbles , on oxygen at 3 liters/min, breathing treatments are scheduled q 4 hours, Objective Last 24 Hour Vital Signs Date Time Temp Pulse Resp B/P (MAP) Pulse Ox O2 Delivery O2 Flow Rate FiO2 07/24/20 12:00 97.0 91 18 126/68 (87) 96 07/24/20 10:03 99 Nasal Cannula 2.0 28 07/24/20 09:07 78 141/70 07/24/20 09:00 Nasal Cannula 3.0 07/24/20 08:00 97.8 87 18 141/70 (93) 100 07/24/20 04:00 97.5 87 18 132/74 (93) 98 07/24/20 00:00 98.3 94 18 144/90 (108) 100 07/23/20 21:21 Nasal Cannula 3.0 07/23/20 20:00 96.4 85 18 143/80 (101) 94 07/23/20 19:19 100 Nasal Cannula 2.0 28 07/23/20 16:07 96.8 63 18 120/62 (81) 96 Intake and Output 07/23/20 07/24/20 19:00 07:00 Intake Total 360 ml Output Total 400 ml 600 ml Balance -40 ml -600 ml Intake Oral 360 ml Output Urine Total 400 ml 600 ml Laboratory Tests Test 07/23/20 17:07 07/24/20 08:05 07/24/20 11:50 POC Whole Blood Glucose 213 MG/DL (74-106) H Pending White Blood Count 13.6 K/UL (4.8-10.8) H Red Blood Count 2.81 M/UL (4.20-5.40) L Hemoglobin 8.9 G/DL (12.0-16.0) L Hematocrit 26.0 % (37.0-47.0) L Mean Corpuscular Volume 93 FL (80-99) Mean Corpuscular Hemoglobin 31.6 PG (27.0-31.0) H Mean Corpuscular Hemoglobin Concent 34.1 G/DL (32.0-36.0) Red Cell Distribution Width 12.8 % (11.6-14.8) Platelet Count 239 K/UL (150-450) Mean Platelet Volume 6.7 FL (6.5-10.1) Neutrophils (%) (Auto) % (45.0-75.0) Lymphocytes (%) (Auto) % (20.0-45.0) Monocytes (%) (Auto) % (1.0-10.0) Eosinophils (%) (Auto) % (0.0-3.0) Basophils (%) (Auto) % (0.0-2.0) Differential Total Cells Counted 100 Neutrophils % (Manual) 95 % (45-75) H Lymphocytes % (Manual) 5 % (20-45) L Monocytes % (Manual) 0 % (1-10) L Eosinophils % (Manual) 0 % (0-3) Basophils % (Manual) 0 % (0-2) Band Neutrophils 0 % (0-8) Platelet Estimate Adequate Platelet Morphology Normal Red Blood Cell Morphology Normal Sodium Level 136 MMOL/L (136-145) Potassium Level 3.8 MMOL/L (3.5-5.1) Chloride Level 99 MMOL/L (98-107) Carbon Dioxide Level 29 MMOL/L (21-32) Blood Urea Nitrogen 23 mg/dL (7-18) H Creatinine 1.2 MG/DL (0.55-1.30) Estimat Glomerular Filtration Rate 42.6 mL/min (>60) Glucose Level 191 MG/DL (74-106) H Calcium Level 8.9 MG/DL (8.5-10.1) Phosphorus Level 1.9 MG/DL (2.5-4.9) L Magnesium Level 1.6 MG/DL (1.8-2.4) L Total Bilirubin 0.5 MG/DL (0.2-1.0) Aspartate Amino Transf (AST/SGOT) 39 U/L (15-37) H Alanine Aminotransferase (ALT/SGPT) 39 U/L (12-78) Alkaline Phosphatase 65 U/L (46-116) C-Reactive Protein, Quantitative < 0.4 mg/dL (0.00-0.90) Pro-B-Type Natriuretic Peptide 3798 pg/mL (0-125) H Total Protein 6.9 G/DL (6.4-8.2) Albumin 3.4 G/DL (3.4-5.0) Globulin 3.5 g/dL Albumin/Globulin Ratio 1.0 (1.0-2.7) Objective per ID Respiratory/Chest: no respiratory distress Cardiovascular: regularly irregular Abdomen: soft, non tender Hema Mcclure MD Jul 24, 2020 13:27
--- NOTE | 2020-07-24 14:49 | Internal Med Progress Note ---
Subjective Date of Service: Jul 24, 2020 Physician Name KeturahDudley Attending Physician Mateo Rankin MD Current Medications Medications (Trade) Dose Ordered Sig/Ranjeet Route PRN Reason Start Time Stop Time Status Last Admin Dose Admin Acetaminophen (Tylenol) 650 mg Q6H PRN ORAL Temp >100.5 07/19/20 09:15 08/18/20 09:14 Aspirin (Ecotrin) 81 mg DAILY ORAL 07/20/20 10:00 09/03/20 09:59 07/24/20 09:07 Dexamethasone Sodium Phosphate (Decadron 4mg/ml vial) 6 mg DAILY IVP 07/25/20 09:00 07/29/20 09:01 Dextrose (Dextrose 50%) 25 ml Q30M PRN IV Hypoglycemia 07/20/20 12:00 10/18/20 11:59 Dextrose (Dextrose 50%) 50 ml Q30M PRN IV Hypoglycemia 07/20/20 12:00 10/18/20 11:59 Diltiazem HCl (Cardizem ER) 240 mg DAILY ORAL 07/20/20 10:00 08/19/20 09:59 07/24/20 09:07 Docusate Sodium (Colace) 100 mg THREE TIMES A DAY ORAL 07/20/20 09:45 08/19/20 09:44 07/24/20 12:41 Heparin Sodium (Porcine) (Heparin 5000 units/ml) 5,000 units EVERY 12 HOURS SUBQ 07/23/20 10:30 09/06/20 10:29 07/24/20 09:08 Insulin Aspart (NovoLOG) give half dose if not eating BEFORE MEALS AND HS SUBQ 07/20/20 16:30 10/18/20 16:29 07/24/20 11:52 Levothyroxine Sodium (Synthroid) 100 mcg Q24H ORAL 07/21/20 06:30 08/20/20 06:29 07/23/20 06:16 Metoprolol Tartrate (Lopressor) 2.5 mg Q4H PRN IVP HR 118 or higher 07/19/20 21:30 10/17/20 21:29 Ondansetron HCl (Zofran) 4 mg Q6H PRN IVP Nausea & Vomiting 07/19/20 09:15 08/18/20 09:14 Polyethylene Glycol (Miralax) 17 gm DAILYPRN PRN ORAL Constipation 07/19/20 09:15 08/18/20 09:14 Promethazine HCl/ Codeine (Phenergan with Codeine) 5 ml Q6H PRN ORAL cough 07/19/20 09:15 08/18/20 09:14 Allergies: Coded Allergies: SULFAMETHOXAZOLE (Verified Allergy, Unknown, 07/19/20) TRIMETHOPRIM (Verified Allergy, Unknown, 07/19/20) ROS Limited/Unobtainable: Yes Subjective 84 YO F admitted with COVID 19 pos and respiratory failure. Now COVID 19 pneumonia. Cover for Int Med-Dr Rankin Objective Last Vital Signs Date Time Temp Pulse Resp B/P (MAP) Pulse Ox O2 Delivery O2 Flow Rate FiO2 07/24/20 12:00 97.0 91 18 126/68 (87) 96 07/24/20 10:03 Nasal Cannula 2.0 28 Laboratory Tests Test 07/23/20 17:07 07/24/20 08:05 07/24/20 11:50 POC Whole Blood Glucose 213 MG/DL (74-106) H Pending White Blood Count 13.6 K/UL (4.8-10.8) H Red Blood Count 2.81 M/UL (4.20-5.40) L Hemoglobin 8.9 G/DL (12.0-16.0) L Hematocrit 26.0 % (37.0-47.0) L Mean Corpuscular Volume 93 FL (80-99) Mean Corpuscular Hemoglobin 31.6 PG (27.0-31.0) H Mean Corpuscular Hemoglobin Concent 34.1 G/DL (32.0-36.0) Red Cell Distribution Width 12.8 % (11.6-14.8) Platelet Count 239 K/UL (150-450) Mean Platelet Volume 6.7 FL (6.5-10.1) Neutrophils (%) (Auto) % (45.0-75.0) Lymphocytes (%) (Auto) % (20.0-45.0) Monocytes (%) (Auto) % (1.0-10.0) Eosinophils (%) (Auto) % (0.0-3.0) Basophils (%) (Auto) % (0.0-2.0) Differential Total Cells Counted 100 Neutrophils % (Manual) 95 % (45-75) H Lymphocytes % (Manual) 5 % (20-45) L Monocytes % (Manual) 0 % (1-10) L Eosinophils % (Manual) 0 % (0-3) Basophils % (Manual) 0 % (0-2) Band Neutrophils 0 % (0-8) Platelet Estimate Adequate Platelet Morphology Normal Red Blood Cell Morphology Normal Sodium Level 136 MMOL/L (136-145) Potassium Level 3.8 MMOL/L (3.5-5.1) Chloride Level 99 MMOL/L (98-107) Carbon Dioxide Level 29 MMOL/L (21-32) Blood Urea Nitrogen 23 mg/dL (7-18) H Creatinine 1.2 MG/DL (0.55-1.30) Estimat Glomerular Filtration Rate 42.6 mL/min (>60) Glucose Level 191 MG/DL (74-106) H Calcium Level 8.9 MG/DL (8.5-10.1) Phosphorus Level 1.9 MG/DL (2.5-4.9) L Magnesium Level 1.6 MG/DL (1.8-2.4) L Total Bilirubin 0.5 MG/DL (0.2-1.0) Aspartate Amino Transf (AST/SGOT) 39 U/L (15-37) H Alanine Aminotransferase (ALT/SGPT) 39 U/L (12-78) Alkaline Phosphatase 65 U/L (46-116) C-Reactive Protein, Quantitative < 0.4 mg/dL (0.00-0.90) Pro-B-Type Natriuretic Peptide 3798 pg/mL (0-125) H Total Protein 6.9 G/DL (6.4-8.2) Albumin 3.4 G/DL (3.4-5.0) Globulin 3.5 g/dL Albumin/Globulin Ratio 1.0 (1.0-2.7) Intake and Output 07/23/20 07/24/20 19:00 07:00 Intake Total 360 ml Output Total 400 ml 600 ml Balance -40 ml -600 ml Intake Oral 360 ml Output Urine Total 400 ml 600 ml Objective PHYSICAL EXAMINATION: GENERAL: The patient is a well-developed and well-nourished female, in moderate respiratory distress. HEENT: Eyes, pupils are equal and responsive to light and accommodation. Extraocular movements are intact. NECK: Supple without lymphadenopathy. CHEST: Decreased breath sounds in bilateral bases, otherwise without wheezes or rales. CARDIOVASCULAR: Regular rhythm and rate. S1, S2 normal without murmurs, rubs, or gallops. ABDOMEN: Soft, nontender, nondistended. Positive bowel sounds. No evidence of hepatosplenomegaly. Currently, no rebound or guarding noted. EXTREMITIES: Negative for clubbing, cyanosis, or edema. RECTAL/GENITAL: Not performed. NEUROLOGIC: Cranial nerves II through XII are grossly intact without focal deficits. Assessment/Plan Assessment/Plan ASSESSMENT: This is an 84-year-old female with: 1. COVID-19 positive. 2. Pneumonia. 3. Alzheimer's dementia. 4. Hypertension. 5. Congestive heart failure. 6. Atrial fibrillation. 7. Hypothyroidism. 8. Diabetes type 2. 9. Hyponatremia-resolving TREATMENT: 1. COVID-19/pneumonia. An Infectious Disease = Dr. Babcock. Continue Decadron intravenously. ABX=ceftriaxone; S/P azithromycin A Pulmonary consultation has been obtained with Dr. Riccardo Drew. Not a candidate for remdesivir per ID 2. Alzheimer's dementia. 3. Hypertension. The patient is currently hypotensive. Hold diltiazem. 4. Congestive heart failure. Cardiology consultation has been obtained with Dr. Hema Mcclure. 5. Atrial fibrillation. 6. Hypothyroidism. Continue Levoxyl as above. 7. Diabetes type 2. A NovoLog sliding scale has been instituted. Dudley Rebollar MD Jul 24, 2020 14:49
--- NOTE | 2020-07-24 15:49 | Nephrology Progress Note ---
Assessment/Plan Problem List: (1) SUZETTE (acute kidney injury) (2) Acute hyponatremia (3) Alzheimer's dementia (4) Chronic atrial fibrillation (5) Diabetes mellitus Assessment Acute renal failure Acute respiratory failure with hypoxia Severe hyponatremia Sepsis History of hypertension History of diabetes mellitus DNR DNI Plan July 24: Labs reviewed. Abnormal electrolytes and chemistries addressed. Continue per consultants. July 23: Labs reviewed. Renal parameters stable. Continue per consultants. July 22: Labs reviewed. Renal parameters stable. Abnormal chemistries and electrolytes addressed. Continue per consultants. July 21: Serum sodium improved. Lab reviewed. Serum creatinine improved. Continue current management. July 20: Serum sodium 126. Labs reviewed. Serum creatinine down to 1.6. Medication list reviewed. Continue current management. Continue to monitor electrolytes and renal parameters. July 19: Saline infusion Monitor renal parameters and electrolytes Avoid nephrotoxic's Saline infusion Per consultants Subjective ROS Limited/Unobtainable: No Constitutional: Reports: malaise Objective Objective Last 24 Hour Vital Signs Date Time Temp Pulse Resp B/P (MAP) Pulse Ox O2 Delivery O2 Flow Rate FiO2 07/24/20 12:00 97.0 91 18 126/68 (87) 96 07/24/20 10:03 99 Nasal Cannula 2.0 28 07/24/20 09:07 78 141/70 07/24/20 09:00 Nasal Cannula 3.0 07/24/20 08:00 97.8 87 18 141/70 (93) 100 07/24/20 04:00 97.5 87 18 132/74 (93) 98 07/24/20 00:00 98.3 94 18 144/90 (108) 100 07/23/20 21:21 Nasal Cannula 3.0 07/23/20 20:00 96.4 85 18 143/80 (101) 94 07/23/20 19:19 100 Nasal Cannula 2.0 28 07/23/20 16:07 96.8 63 18 120/62 (81) 96 Intake and Output 07/23/20 07/24/20 19:00 07:00 Intake Total 360 ml Output Total 400 ml 600 ml Balance -40 ml -600 ml Intake Oral 360 ml Output Urine Total 400 ml 600 ml Current Medications Medications (Trade) Dose Ordered Sig/Ranjeet Route PRN Reason Start Time Stop Time Status Last Admin Dose Admin Acetaminophen (Tylenol) 650 mg Q6H PRN ORAL Temp >100.5 07/19/20 09:15 08/18/20 09:14 Aspirin (Ecotrin) 81 mg DAILY ORAL 07/20/20 10:00 09/03/20 09:59 07/24/20 09:07 Dexamethasone Sodium Phosphate (Decadron 4mg/ml vial) 6 mg DAILY IVP 07/25/20 09:00 07/29/20 09:01 Dextrose (Dextrose 50%) 25 ml Q30M PRN IV Hypoglycemia 07/20/20 12:00 10/18/20 11:59 Dextrose (Dextrose 50%) 50 ml Q30M PRN IV Hypoglycemia 07/20/20 12:00 10/18/20 11:59 Diltiazem HCl (Cardizem ER) 240 mg DAILY ORAL 07/20/20 10:00 08/19/20 09:59 07/24/20 09:07 Docusate Sodium (Colace) 100 mg THREE TIMES A DAY ORAL 07/20/20 09:45 08/19/20 09:44 07/24/20 12:41 Heparin Sodium (Porcine) (Heparin 5000 units/ml) 5,000 units EVERY 12 HOURS SUBQ 07/23/20 10:30 09/06/20 10:29 07/24/20 09:08 Insulin Aspart (NovoLOG) give half dose if not eating BEFORE MEALS AND HS SUBQ 07/20/20 16:30 10/18/20 16:29 07/24/20 11:52 Levothyroxine Sodium (Synthroid) 100 mcg Q24H ORAL 07/21/20 06:30 08/20/20 06:29 07/23/20 06:16 Metoprolol Tartrate (Lopressor) 2.5 mg Q4H PRN IVP HR 118 or higher 07/19/20 21:30 10/17/20 21:29 Ondansetron HCl (Zofran) 4 mg Q6H PRN IVP Nausea & Vomiting 07/19/20 09:15 08/18/20 09:14 Polyethylene Glycol (Miralax) 17 gm DAILYPRN PRN ORAL Constipation 07/19/20 09:15 08/18/20 09:14 Promethazine HCl/ Codeine (Phenergan with Codeine) 5 ml Q6H PRN ORAL cough 07/19/20 09:15 08/18/20 09:14 Laboratory Tests 07/23/20 17:07: POC Whole Blood Glucose 213H 07/24/20 08:05: White Blood Count 13.6H, Red Blood Count 2.81L, Hemoglobin 8.9L, Hematocrit 26.0L, Mean Corpuscular Volume 93, Mean Corpuscular Hemoglobin 31.6H, Mean Corpuscular Hemoglobin Concent 34.1, Red Cell Distribution Width 12.8, Platelet Count 239, Mean Platelet Volume 6.7, Neutrophils (%) (Auto) , Lymphocytes (%) (Auto) , Monocytes (%) (Auto) , Eosinophils (%) (Auto) , Basophils (%) (Auto) , Differential Total Cells Counted 100, Neutrophils % (Manual) 95H, Lymphocytes % (Manual) 5L, Monocytes % (Manual) 0L, Eosinophils % (Manual) 0, Basophils % (Manual) 0, Band Neutrophils 0, Platelet Estimate Adequate, Platelet Morphology Normal, Red Blood Cell Morphology Normal, Sodium Level 136, Potassium Level 3.8, Chloride Level 99, Carbon Dioxide Level 29, Blood Urea Nitrogen 23H, Creatinine 1.2, Estimat Glomerular Filtration Rate 42.6, Glucose Level 191H, Calcium Level 8.9, Phosphorus Level 1.9L, Magnesium Level 1.6L, Total Bilirubin 0.5, Aspartate Amino Transf (AST/SGOT) 39H, Alanine Aminotransferase (ALT/SGPT) 39, Alkaline Phosphatase 65, C-Reactive Protein, Quantitative < 0.4, Pro-B-Type Natriuretic Peptide 3798H, Total Protein 6.9, Albumin 3.4, Globulin 3.5, Albumin/Globulin Ratio 1.0 07/24/20 11:50: POC Whole Blood Glucose [Pending] Height (Feet): 5 Height (Inches): 6.00 Weight (Pounds): 130 General Appearance: no apparent distress Cardiovascular: normal rate Respiratory/Chest: decreased breath sounds Abdomen: soft, distended Jethro Cleaning MD Jul 24, 2020 15:49
[2020-07-24 16:00] VITALS: BP 121/56
[2020-07-24] MEDS ORDERED: Potassium Phosphate 20 MM in NS 275 ML IV ONE (17:00)
--- NOTE | 2020-07-24 18:42 | Pulmonology Progress Note ---
Subjective ROS Limited/Unobtainable: No Constitutional: Reports: no symptoms HEENT: Repors: no symptoms Respiratory: Reports: no symptoms Allergies: Coded Allergies: SULFAMETHOXAZOLE (Verified Allergy, Unknown, 07/19/20) TRIMETHOPRIM (Verified Allergy, Unknown, 07/19/20) Objective Last 24 Hour Vital Signs Date Time Temp Pulse Resp B/P (MAP) Pulse Ox O2 Delivery O2 Flow Rate FiO2 07/24/20 16:00 97.0 72 18 121/56 (77) 98 07/24/20 12:00 97.0 91 18 126/68 (87) 96 07/24/20 10:03 99 Nasal Cannula 2.0 28 07/24/20 09:07 78 141/70 07/24/20 09:00 Nasal Cannula 3.0 07/24/20 08:00 97.8 87 18 141/70 (93) 100 07/24/20 04:00 97.5 87 18 132/74 (93) 98 07/24/20 00:00 98.3 94 18 144/90 (108) 100 07/23/20 21:21 Nasal Cannula 3.0 07/23/20 20:00 96.4 85 18 143/80 (101) 94 07/23/20 19:19 100 Nasal Cannula 2.0 28 Intake and Output 07/23/20 07/24/20 19:00 07:00 Intake Total 360 ml Output Total 400 ml 600 ml Balance -40 ml -600 ml Intake Oral 360 ml Output Urine Total 400 ml 600 ml General Appearance: cachetic HEENT: normocephalic, atraumatic Respiratory: chest wall non-tender, lungs clear Cardiovascular: normal peripheral pulses, normal rate Abdomen: normal bowel sounds, soft, non tender, no organomegaly Genitourinary: normal external genitalia Skin: no rash Laboratory Tests 07/24/20 08:05: White Blood Count 13.6H, Red Blood Count 2.81L, Hemoglobin 8.9L, Hematocrit 26.0L, Mean Corpuscular Volume 93, Mean Corpuscular Hemoglobin 31.6H, Mean Corpuscular Hemoglobin Concent 34.1, Red Cell Distribution Width 12.8, Platelet Count 239, Mean Platelet Volume 6.7, Neutrophils (%) (Auto) , Lymphocytes (%) (Auto) , Monocytes (%) (Auto) , Eosinophils (%) (Auto) , Basophils (%) (Auto) , Differential Total Cells Counted 100, Neutrophils % (Manual) 95H, Lymphocytes % (Manual) 5L, Monocytes % (Manual) 0L, Eosinophils % (Manual) 0, Basophils % (Manual) 0, Band Neutrophils 0, Platelet Estimate Adequate, Platelet Morphology Normal, Red Blood Cell Morphology Normal, Sodium Level 136, Potassium Level 3.8, Chloride Level 99, Carbon Dioxide Level 29, Blood Urea Nitrogen 23H, Creatinine 1.2, Estimat Glomerular Filtration Rate 42.6, Glucose Level 191H, Calcium Level 8.9, Phosphorus Level 1.9L, Magnesium Level 1.6L, Total Bilirubin 0.5, Aspartate Amino Transf (AST/SGOT) 39H, Alanine Aminotransferase (ALT/SGPT) 39, Alkaline Phosphatase 65, C-Reactive Protein, Quantitative < 0.4, Pro-B-Type Natriuretic Peptide 3798H, Total Protein 6.9, Albumin 3.4, Globulin 3.5, Albumin/Globulin Ratio 1.0 07/24/20 11:50: POC Whole Blood Glucose [Pending] 07/24/20 16:55: POC Whole Blood Glucose 299H Current Medications Medications (Trade) Dose Ordered Sig/Ranjeet Route PRN Reason Start Time Stop Time Status Last Admin Dose Admin Acetaminophen (Tylenol) 650 mg Q6H PRN ORAL Temp >100.5 07/19/20 09:15 08/18/20 09:14 Aspirin (Ecotrin) 81 mg DAILY ORAL 07/20/20 10:00 09/03/20 09:59 07/24/20 09:07 Dexamethasone Sodium Phosphate (Decadron 4mg/ml vial) 6 mg DAILY IVP 07/25/20 09:00 07/29/20 09:01 Dextrose (Dextrose 50%) 25 ml Q30M PRN IV Hypoglycemia 07/20/20 12:00 10/18/20 11:59 Dextrose (Dextrose 50%) 50 ml Q30M PRN IV Hypoglycemia 07/20/20 12:00 10/18/20 11:59 Diltiazem HCl (Cardizem ER) 240 mg DAILY ORAL 07/20/20 10:00 08/19/20 09:59 07/24/20 09:07 Docusate Sodium (Colace) 100 mg THREE TIMES A DAY ORAL 07/20/20 09:45 08/19/20 09:44 07/24/20 17:45 Heparin Sodium (Porcine) (Heparin 5000 units/ml) 5,000 units EVERY 12 HOURS SUBQ 07/23/20 10:30 09/06/20 10:29 07/24/20 09:08 Insulin Aspart (NovoLOG) give half dose if not eating BEFORE MEALS AND HS SUBQ 07/20/20 16:30 10/18/20 16:29 07/24/20 16:57 Levothyroxine Sodium (Synthroid) 100 mcg Q24H ORAL 07/21/20 06:30 08/20/20 06:29 07/23/20 06:16 Metoprolol Tartrate (Lopressor) 2.5 mg Q4H PRN IVP HR 118 or higher 07/19/20 21:30 10/17/20 21:29 Ondansetron HCl (Zofran) 4 mg Q6H PRN IVP Nausea & Vomiting 07/19/20 09:15 08/18/20 09:14 Polyethylene Glycol (Miralax) 17 gm DAILYPRN PRN ORAL Constipation 07/19/20 09:15 08/18/20 09:14 Potassium Phosphate 20 mm/ Sodium Chloride 281.6667 ml @ 46.944 m... ONCE ONCE IV 07/24/20 17:00 07/24/20 22:59 07/24/20 17:44 Promethazine HCl/ Codeine (Phenergan with Codeine) 5 ml Q6H PRN ORAL cough 07/19/20 09:15 08/18/20 09:14 Assessment/Plan Problems: (1) Respiratory failure with hypoxia (2) Acute hyponatremia (3) SUZETTE (acute kidney injury) (4) Chronic atrial fibrillation (5) Diabetes mellitus (6) Alzheimer's dementia Assessment/Plan no new complains renal function stable, No new cultures hyponatremia improving sliding scale diabetic diet, pending swallow study respiratory treatment titrate fio2 to sat of 92% dvt prophylaxis. Riccardo Drew MD Jul 24, 2020 18:42
--- NOTE | 2020-07-24 19:00 | NUR ---
NURSE NOTES: received pt and report from JENNIFER Ventura. Pt alert and oriented x 1, she is drowsy and fatigued but responds to calling her name or shaking her. she does not speak. IV site noted and running fluid as ordered. nelson noted and draining. skin intact. optifoam dressings noted clean dry and intact. plan of care discussed.
--- NOTE | 2020-07-24 19:34 | NUR ---
HAND-OFF: Report given to JENNIFER Willson, pt is stable condition.
--- NOTE | 2020-07-24 19:57 | NUR ---
NURSE NOTES: Dr. Zamora notified of pts neg covid result. he still wants pt on covid isolation precautions. He said will most likely do another covid test on Sunday. Will carry out request.
[2020-07-24 20:00] VITALS: BP_SYST 128; BP_SYST 136; BP_DIAS 60; BP_DIAS 65
[2020-07-25] VITALS: BP 139/66
[2020-07-25 04:00] VITALS: BP 134/69
[2020-07-25] MEDS: NovoLOG Insulin Flexpen SUBQ SCH ×4 (05:46→23:06)
[2020-07-25 07:02] LABS: HEMATOCRIT 26.3 % (37.0-47.0); HEMOGLOBIN 9.4 G/DL (12.0-16.0); MEAN CORPUSCULAR VOLUME 91 FL (80-99); PLATELET COUNT 243 K/UL (150-450); RED BLOOD COUNT 2.91 M/UL (4.20-5.40); WHITE BLOOD COUNT 13.2 K/UL (4.8-10.8)
--- NOTE | 2020-07-25 07:38 | NUR ---
NURSE HAND-OFF: Important Events on Shift:accuchecks Patient Status: stable Diet: consistent carb Pending Orders: NA Pending Results/Labs:NA Pending MD notification:NA Latest Vital Signs: Temperature 98.9 , Pulse 76 , B/P 134 /69 , Respiratory Rate 20 , O2 SAT 96 , Nasal Cannula, O2 Flow Rate 3.0 . Vital Sign Comment: stable through the shift Latest [place] Fall Score: 45 Fall Risk: High Risk Safety Measures: Call light Within Reach, Bed Alarm Zone 1, Side Rails Side Rails x3, Bed position Low and Locked. Fall Precautions: Yellow Socks Yellow Gown Door Sign Report given to Eric/JENNIFER Tony.
[2020-07-25 07:44] LABS: POTASSIUM 4.5 MMOL/L (3.5-5.1)
[2020-07-25 08:00] VITALS: BP 133/67
--- NOTE | 2020-07-25 08:29 | NUR ---
Patient stable, alert to self, garbled speech. Vitals: 96.4 F, 80 BPM, 18 RR, 133/67 BP, 95% with 2 L of NC. Skin intact. Not Producing sputum for lab. Isolation precautions in place for Covid-19. Bed in lowest position and locked. Call light within reach. Will continue to monitor.
[2020-07-25] MEDS: Heparin 5000 units/ml inj SUBQ SCH ×2 (09:00→23:05)
[2020-07-25] MEDS: Aspirin EC 81mg tab ORAL SCH (09:52)
[2020-07-25] MEDS: DILTIAZEM HCL 240 MG ORAL SCH (09:52)
[2020-07-25] MEDS: Docusate 100mg cap ORAL SCH ×2 (09:53→12:13)
--- NOTE | 2020-07-25 10:15 | NUR ---
RN gave a warmer for her slightly low body temperature of 96.4 F. Patient states that her "legs are always cold". Patient stable and asymptomatic. Call light within reach. Bed in lowest position and locked. Will continue to monitor.
[2020-07-25 12:00] VITALS: BP 136/69
--- NOTE | 2020-07-25 12:33 | NUR ---
Patient's VS within normal range. Temperature laurent to 97.7. Skin is dry and warm. Call light within reach, bed in lowest position, locked. No respiratory distress noted. Will continue to monitor.
--- NOTE | 2020-07-25 14:15 | Nephrology Progress Note ---
Assessment/Plan Problem List: (1) SUZETTE (acute kidney injury) (2) Acute hyponatremia (3) Alzheimer's dementia (4) Chronic atrial fibrillation (5) Diabetes mellitus Assessment Acute renal failure Acute respiratory failure with hypoxia Severe hyponatremia Sepsis History of hypertension History of diabetes mellitus DNR DNI Plan July 25: Labs reviewed. Continue to observe serum sodium and glucose level. Continue per consultants. July 24: Labs reviewed. Abnormal electrolytes and chemistries addressed. Continue per consultants. July 23: Labs reviewed. Renal parameters stable. Continue per consultants. July 22: Labs reviewed. Renal parameters stable. Abnormal chemistries and electrolytes addressed. Continue per consultants. July 21: Serum sodium improved. Lab reviewed. Serum creatinine improved. Continue current management. July 20: Serum sodium 126. Labs reviewed. Serum creatinine down to 1.6. Medication list reviewed. Continue current management. Continue to monitor electrolytes and renal parameters. July 19: Saline infusion Monitor renal parameters and electrolytes Avoid nephrotoxic's Saline infusion Per consultants Subjective ROS Limited/Unobtainable: No Constitutional: Reports: malaise Objective Objective Last 24 Hour Vital Signs Date Time Temp Pulse Resp B/P (MAP) Pulse Ox O2 Delivery O2 Flow Rate FiO2 07/25/20 12:00 97.7 84 19 136/69 (91) 99 07/25/20 09:52 80 133/67 07/25/20 09:00 Nasal Cannula 3.0 07/25/20 08:00 96.4 80 18 133/67 (89) 95 07/25/20 07:41 95 Nasal Cannula 2.0 07/25/20 04:00 98.9 76 20 134/69 (90) 96 07/25/20 00:00 98.8 100 18 139/66 (90) 95 07/24/20 21:00 Nasal Cannula 3.0 07/24/20 20:00 98.9 83 20 128/65 (86) 96 07/24/20 19:55 98 Nasal Cannula 2.0 07/24/20 16:00 97.0 72 18 121/56 (77) 98 Intake and Output 07/24/20 07/25/20 19:00 07:00 Intake Total 720 ml Output Total 700 ml 900 ml Balance 20 ml -900 ml Intake Oral 720 ml Output Urine Total 700 ml 900 ml # Voids 1 # Bowel Movements 1 Current Medications Medications (Trade) Dose Ordered Sig/Ranjeet Route PRN Reason Start Time Stop Time Status Last Admin Dose Admin Acetaminophen (Tylenol) 650 mg Q6H PRN ORAL Temp >100.5 07/19/20 09:15 08/18/20 09:14 Aspirin (Ecotrin) 81 mg DAILY ORAL 07/20/20 10:00 09/03/20 09:59 07/25/20 09:52 Dexamethasone Sodium Phosphate (Decadron 4mg/ml vial) 6 mg DAILY IVP 07/25/20 09:00 07/29/20 09:01 07/25/20 09:53 Dextrose (Dextrose 50%) 25 ml Q30M PRN IV Hypoglycemia 07/20/20 12:00 10/18/20 11:59 Dextrose (Dextrose 50%) 50 ml Q30M PRN IV Hypoglycemia 07/20/20 12:00 10/18/20 11:59 Diltiazem HCl (Cardizem ER) 240 mg DAILY ORAL 07/20/20 10:00 08/19/20 09:59 07/25/20 09:52 Docusate Sodium (Colace) 100 mg THREE TIMES A DAY ORAL 07/20/20 09:45 08/19/20 09:44 07/25/20 12:13 Heparin Sodium (Porcine) (Heparin 5000 units/ml) 5,000 units EVERY 12 HOURS SUBQ 07/23/20 10:30 09/06/20 10:29 07/25/20 09:00 Insulin Aspart (NovoLOG) give half dose if not eating BEFORE MEALS AND HS SUBQ 07/20/20 16:30 10/18/20 16:29 07/25/20 12:13 Levothyroxine Sodium (Synthroid) 100 mcg Q24H ORAL 07/21/20 06:30 08/20/20 06:29 07/25/20 05:46 Metoprolol Tartrate (Lopressor) 2.5 mg Q4H PRN IVP HR 118 or higher 07/19/20 21:30 10/17/20 21:29 Ondansetron HCl (Zofran) 4 mg Q6H PRN IVP Nausea & Vomiting 07/19/20 09:15 08/18/20 09:14 Polyethylene Glycol (Miralax) 17 gm DAILYPRN PRN ORAL Constipation 07/19/20 09:15 08/18/20 09:14 Promethazine HCl/ Codeine (Phenergan with Codeine) 5 ml Q6H PRN ORAL cough 07/19/20 09:15 08/18/20 09:14 Laboratory Tests 07/24/20 16:55: POC Whole Blood Glucose 299H 07/24/20 21:04: POC Whole Blood Glucose 266H 07/25/20 05:23: POC Whole Blood Glucose 205H 07/25/20 06:35: White Blood Count 13.2H, Red Blood Count 2.91L, Hemoglobin 9.4L, Hematocrit 26.3L, Mean Corpuscular Volume 91, Mean Corpuscular Hemoglobin 32.5H, Mean Corpuscular Hemoglobin Concent 35.9, Red Cell Distribution Width 13.0, Platelet Count 243, Mean Platelet Volume 7.2, Neutrophils (%) (Auto) , Lymphocytes (%) (Auto) , Monocytes (%) (Auto) , Eosinophils (%) (Auto) , Basophils (%) (Auto) , Differential Total Cells Counted 100, Neutrophils % (Manual) 87H, Lymphocytes % (Manual) 4L, Monocytes % (Manual) 5, Eosinophils % (Manual) 0, Basophils % (Manual) 0, Metamyelocytes % 2H, Myelocytes % 2H, Band Neutrophils 0, Platelet Estimate Adequate, Platelet Morphology Normal, Anisocytosis 1+, Sodium Level 133L, Potassium Level 4.5, Chloride Level 98, Carbon Dioxide Level 29, Anion Gap 6, Blood Urea Nitrogen 22H, Creatinine 1.0, Estimat Glomerular Filtration Rate 52.5, Glucose Level 202H, Calcium Level 9.0 07/25/20 12:02: POC Whole Blood Glucose 233H Height (Feet): 5 Height (Inches): 6.00 Weight (Pounds): 130 General Appearance: no apparent distress Cardiovascular: normal rate Respiratory/Chest: decreased breath sounds Abdomen: soft Objective No change Jethro Cleaning MD Jul 25, 2020 14:14
--- NOTE | 2020-07-25 14:27 | Cardiology Progress Note ---
Assessment/Plan Assessment/Plan 1. Respiratory insuf 2. Hyponatremia. 3. Hhis atrial fib atrial flutter 4. History of diastolic and systolic heart failure. 5. Moderate mitral, aortic, and tricuspid regurgitation. 6. Dementia. 7. Tachycardia, likely secondary to demand. 8.. Renal insuf hr controlled with ipo cardizem cr improved na normal nursing note reviewed not fel to need remdizivir as oxygeation has improved will consider anticoag for stroke prevention if not at fall risk Subjective Subjective in covid 19 isoaltion Patient stable, alert to self, garbled speech. Vitals: 96.4 F, 80 BPM, 18 RR, 133/67 BP, 95% with 2 L of NC. Skin intact. Not Producing sputum for lab. Isolation precautions in place for Covid-19. Objective Last 24 Hour Vital Signs Date Time Temp Pulse Resp B/P (MAP) Pulse Ox O2 Delivery O2 Flow Rate FiO2 07/25/20 12:00 97.7 84 19 136/69 (91) 99 07/25/20 09:52 80 133/67 07/25/20 09:00 Nasal Cannula 3.0 07/25/20 08:00 96.4 80 18 133/67 (89) 95 07/25/20 07:41 95 Nasal Cannula 2.0 28 07/25/20 04:00 98.9 76 20 134/69 (90) 96 07/25/20 00:00 98.8 100 18 139/66 (90) 95 07/24/20 21:00 Nasal Cannula 3.0 07/24/20 20:00 98.9 83 20 128/65 (86) 96 07/24/20 19:55 98 Nasal Cannula 2.0 28 07/24/20 16:00 97.0 72 18 121/56 (77) 98 Intake and Output 07/24/20 07/25/20 19:00 07:00 Intake Total 720 ml Output Total 700 ml 900 ml Balance 20 ml -900 ml Intake Oral 720 ml Output Urine Total 700 ml 900 ml # Voids 1 # Bowel Movements 1 Laboratory Tests Test 07/24/20 16:55 07/24/20 21:04 07/25/20 05:23 07/25/20 06:35 POC Whole Blood Glucose 299 MG/DL (74-106) H 266 MG/DL (74-106) H 205 MG/DL (74-106) H White Blood Count 13.2 K/UL (4.8-10.8) H Red Blood Count 2.91 M/UL (4.20-5.40) L Hemoglobin 9.4 G/DL (12.0-16.0) L Hematocrit 26.3 % (37.0-47.0) L Mean Corpuscular Volume 91 FL (80-99) Mean Corpuscular Hemoglobin 32.5 PG (27.0-31.0) H Mean Corpuscular Hemoglobin Concent 35.9 G/DL (32.0-36.0) Red Cell Distribution Width 13.0 % (11.6-14.8) Platelet Count 243 K/UL (150-450) Mean Platelet Volume 7.2 FL (6.5-10.1) Neutrophils (%) (Auto) % (45.0-75.0) Lymphocytes (%) (Auto) % (20.0-45.0) Monocytes (%) (Auto) % (1.0-10.0) Eosinophils (%) (Auto) % (0.0-3.0) Basophils (%) (Auto) % (0.0-2.0) Differential Total Cells Counted 100 Neutrophils % (Manual) 87 % (45-75) H Lymphocytes % (Manual) 4 % (20-45) L Monocytes % (Manual) 5 % (1-10) Eosinophils % (Manual) 0 % (0-3) Basophils % (Manual) 0 % (0-2) Metamyelocytes % 2 % (0-0) H Myelocytes % 2 % (0-0) H Band Neutrophils 0 % (0-8) Platelet Estimate Adequate Platelet Morphology Normal Anisocytosis 1+ Sodium Level 133 MMOL/L (136-145) L Potassium Level 4.5 MMOL/L (3.5-5.1) Chloride Level 98 MMOL/L (98-107) Carbon Dioxide Level 29 MMOL/L (21-32) Anion Gap 6 mmol/L (5-15) Blood Urea Nitrogen 22 mg/dL (7-18) H Creatinine 1.0 MG/DL (0.55-1.30) Estimat Glomerular Filtration Rate 52.5 mL/min (>60) Glucose Level 202 MG/DL (74-106) H Calcium Level 9.0 MG/DL (8.5-10.1) Test 07/25/20 12:02 POC Whole Blood Glucose 233 MG/DL (74-106) H Microbiology Date/Time Source Procedure Growth Status 07/22/20 21:20 Nasopharynx Coronavirus COVID-19 PCR ([facility]) - Final Complete Hema Mcclure MD Jul 25, 2020 14:27
--- NOTE | 2020-07-25 15:42 | Internal Med Progress Note ---
Subjective Date of Service: Jul 25, 2020 Physician Name KeturahDudley Attending Physician Mateo Rankin MD Current Medications Medications (Trade) Dose Ordered Sig/Ranjeet Route PRN Reason Start Time Stop Time Status Last Admin Dose Admin Acetaminophen (Tylenol) 650 mg Q6H PRN ORAL Temp >100.5 07/19/20 09:15 08/18/20 09:14 Aspirin (Ecotrin) 81 mg DAILY ORAL 07/20/20 10:00 09/03/20 09:59 07/25/20 09:52 Dexamethasone Sodium Phosphate (Decadron 4mg/ml vial) 6 mg DAILY IVP 07/25/20 09:00 07/29/20 09:01 07/25/20 09:53 Dextrose (Dextrose 50%) 25 ml Q30M PRN IV Hypoglycemia 07/20/20 12:00 10/18/20 11:59 Dextrose (Dextrose 50%) 50 ml Q30M PRN IV Hypoglycemia 07/20/20 12:00 10/18/20 11:59 Diltiazem HCl (Cardizem ER) 240 mg DAILY ORAL 07/20/20 10:00 08/19/20 09:59 07/25/20 09:52 Docusate Sodium (Colace) 100 mg THREE TIMES A DAY ORAL 07/20/20 09:45 08/19/20 09:44 07/25/20 12:13 Heparin Sodium (Porcine) (Heparin 5000 units/ml) 5,000 units EVERY 12 HOURS SUBQ 07/23/20 10:30 09/06/20 10:29 07/25/20 09:00 Insulin Aspart (NovoLOG) give half dose if not eating BEFORE MEALS AND HS SUBQ 07/20/20 16:30 10/18/20 16:29 07/25/20 12:13 Levothyroxine Sodium (Synthroid) 100 mcg Q24H ORAL 07/21/20 06:30 08/20/20 06:29 07/25/20 05:46 Metoprolol Tartrate (Lopressor) 2.5 mg Q4H PRN IVP HR 118 or higher 07/19/20 21:30 10/17/20 21:29 Ondansetron HCl (Zofran) 4 mg Q6H PRN IVP Nausea & Vomiting 07/19/20 09:15 08/18/20 09:14 Polyethylene Glycol (Miralax) 17 gm DAILYPRN PRN ORAL Constipation 07/19/20 09:15 08/18/20 09:14 Promethazine HCl/ Codeine (Phenergan with Codeine) 5 ml Q6H PRN ORAL cough 07/19/20 09:15 08/18/20 09:14 Allergies: Coded Allergies: SULFAMETHOXAZOLE (Verified Allergy, Unknown, 07/19/20) TRIMETHOPRIM (Verified Allergy, Unknown, 07/19/20) ROS Limited/Unobtainable: Yes Subjective 84 YO F admitted with COVID 19 pos and respiratory failure. Now COVID 19 pneumonia. Cover for Int Med-Dr Rankin Objective Last Vital Signs Date Time Temp Pulse Resp B/P (MAP) Pulse Ox O2 Delivery O2 Flow Rate FiO2 07/25/20 12:00 97.7 84 19 136/69 (91) 99 07/25/20 09:00 Nasal Cannula 3.0 07/25/20 07:41 28 Laboratory Tests Test 07/24/20 16:55 07/24/20 21:04 07/25/20 05:23 07/25/20 06:35 POC Whole Blood Glucose 299 MG/DL (74-106) H 266 MG/DL (74-106) H 205 MG/DL (74-106) H White Blood Count 13.2 K/UL (4.8-10.8) H Red Blood Count 2.91 M/UL (4.20-5.40) L Hemoglobin 9.4 G/DL (12.0-16.0) L Hematocrit 26.3 % (37.0-47.0) L Mean Corpuscular Volume 91 FL (80-99) Mean Corpuscular Hemoglobin 32.5 PG (27.0-31.0) H Mean Corpuscular Hemoglobin Concent 35.9 G/DL (32.0-36.0) Red Cell Distribution Width 13.0 % (11.6-14.8) Platelet Count 243 K/UL (150-450) Mean Platelet Volume 7.2 FL (6.5-10.1) Neutrophils (%) (Auto) % (45.0-75.0) Lymphocytes (%) (Auto) % (20.0-45.0) Monocytes (%) (Auto) % (1.0-10.0) Eosinophils (%) (Auto) % (0.0-3.0) Basophils (%) (Auto) % (0.0-2.0) Differential Total Cells Counted 100 Neutrophils % (Manual) 87 % (45-75) H Lymphocytes % (Manual) 4 % (20-45) L Monocytes % (Manual) 5 % (1-10) Eosinophils % (Manual) 0 % (0-3) Basophils % (Manual) 0 % (0-2) Metamyelocytes % 2 % (0-0) H Myelocytes % 2 % (0-0) H Band Neutrophils 0 % (0-8) Platelet Estimate Adequate Platelet Morphology Normal Anisocytosis 1+ Sodium Level 133 MMOL/L (136-145) L Potassium Level 4.5 MMOL/L (3.5-5.1) Chloride Level 98 MMOL/L (98-107) Carbon Dioxide Level 29 MMOL/L (21-32) Anion Gap 6 mmol/L (5-15) Blood Urea Nitrogen 22 mg/dL (7-18) H Creatinine 1.0 MG/DL (0.55-1.30) Estimat Glomerular Filtration Rate 52.5 mL/min (>60) Glucose Level 202 MG/DL (74-106) H Calcium Level 9.0 MG/DL (8.5-10.1) Test 07/25/20 12:02 POC Whole Blood Glucose 233 MG/DL (74-106) H Microbiology Date/Time Source Procedure Growth Status 07/22/20 21:20 Nasopharynx Coronavirus COVID-19 PCR ([facility]) - Final Complete Intake and Output 07/24/20 07/25/20 19:00 07:00 Intake Total 720 ml Output Total 700 ml 900 ml Balance 20 ml -900 ml Intake Oral 720 ml Output Urine Total 700 ml 900 ml # Voids 1 # Bowel Movements 1 Objective PHYSICAL EXAMINATION: GENERAL: The patient is a well-developed and well-nourished female, in moderate respiratory distress. HEENT: Eyes, pupils are equal and responsive to light and accommodation. Extraocular movements are intact. NECK: Supple without lymphadenopathy. CHEST: Decreased breath sounds in bilateral bases, otherwise without wheezes or rales. CARDIOVASCULAR: Regular rhythm and rate. S1, S2 normal without murmurs, rubs, or gallops. ABDOMEN: Soft, nontender, nondistended. Positive bowel sounds. No evidence of hepatosplenomegaly. Currently, no rebound or guarding noted. EXTREMITIES: Negative for clubbing, cyanosis, or edema. RECTAL/GENITAL: Not performed. NEUROLOGIC: Cranial nerves II through XII are grossly intact without focal deficits. Assessment/Plan Assessment/Plan ASSESSMENT: This is an 84-year-old female with: 1. COVID-19 positive. 2. Pneumonia. 3. Alzheimer's dementia. 4. Hypertension. 5. Congestive heart failure. 6. Atrial fibrillation. 7. Hypothyroidism. 8. Diabetes type 2. 9. Hyponatremia-resolving TREATMENT: 1. COVID-19/pneumonia. An Infectious Disease = Dr. Babcock. Continue Decadron intravenously. ABX=ceftriaxone; S/P azithromycin A Pulmonary consultation has been obtained with Dr. Riccardo Drew. Not a candidate for remdesivir per ID 2. Alzheimer's dementia. 3. Hypertension. The patient is currently hypotensive. Hold diltiazem. 4. Congestive heart failure. Cardiology consultation has been obtained with Dr. Hema Mcclure. 5. Atrial fibrillation. 6. Hypothyroidism. Continue Levoxyl as above. 7. Diabetes type 2. A NovoLog sliding scale has been instituted. Dudley Rebollar MD Jul 25, 2020 15:42
--- NOTE | 2020-07-25 15:53 | NUR ---
NURSE NOTES: patient has order of colace 100mg TID which is not able to crush. notified Dr. Drew and received order changed to colace 100mg/10ml PO. order noted and carried out.
[2020-07-25 16:00] VITALS: BP 138/59
--- NOTE | 2020-07-25 17:02 | Pulmonology Progress Note ---
Subjective ROS Limited/Unobtainable: Yes Constitutional: Reports: no symptoms HEENT: Repors: no symptoms Respiratory: Reports: no symptoms Allergies: Coded Allergies: SULFAMETHOXAZOLE (Verified Allergy, Unknown, 07/19/20) TRIMETHOPRIM (Verified Allergy, Unknown, 07/19/20) Objective Last 24 Hour Vital Signs Date Time Temp Pulse Resp B/P (MAP) Pulse Ox O2 Delivery O2 Flow Rate FiO2 07/25/20 16:00 97.0 81 19 138/59 (85) 97 07/25/20 12:00 97.7 84 19 136/69 (91) 99 07/25/20 09:52 80 133/67 07/25/20 09:00 Nasal Cannula 3.0 07/25/20 08:00 96.4 80 18 133/67 (89) 95 07/25/20 07:41 95 Nasal Cannula 2.0 28 07/25/20 04:00 98.9 76 20 134/69 (90) 96 07/25/20 00:00 98.8 100 18 139/66 (90) 95 07/24/20 21:00 Nasal Cannula 3.0 07/24/20 20:00 98.9 83 20 128/65 (86) 96 07/24/20 19:55 98 Nasal Cannula 2.0 28 Intake and Output 07/24/20 07/25/20 19:00 07:00 Intake Total 720 ml Output Total 700 ml 900 ml Balance 20 ml -900 ml Intake Oral 720 ml Output Urine Total 700 ml 900 ml # Voids 1 # Bowel Movements 1 General Appearance: cachetic HEENT: normocephalic, atraumatic Respiratory: chest wall non-tender, lungs clear Cardiovascular: normal peripheral pulses, normal rate Abdomen: normal bowel sounds, soft, non tender, no organomegaly Genitourinary: normal external genitalia Skin: no rash Microbiology Date/Time Source Procedure Growth Status 07/22/20 21:20 Nasopharynx Coronavirus COVID-19 PCR ([facility]) - Final Complete Laboratory Tests 07/24/20 21:04: POC Whole Blood Glucose 266H 07/25/20 05:23: POC Whole Blood Glucose 205H 07/25/20 06:35: White Blood Count 13.2H, Red Blood Count 2.91L, Hemoglobin 9.4L, Hematocrit 26.3L, Mean Corpuscular Volume 91, Mean Corpuscular Hemoglobin 32.5H, Mean Corpuscular Hemoglobin Concent 35.9, Red Cell Distribution Width 13.0, Platelet Count 243, Mean Platelet Volume 7.2, Neutrophils (%) (Auto) , Lymphocytes (%) (Auto) , Monocytes (%) (Auto) , Eosinophils (%) (Auto) , Basophils (%) (Auto) , Differential Total Cells Counted 100, Neutrophils % (Manual) 87H, Lymphocytes % (Manual) 4L, Monocytes % (Manual) 5, Eosinophils % (Manual) 0, Basophils % (Manual) 0, Metamyelocytes % 2H, Myelocytes % 2H, Band Neutrophils 0, Platelet Estimate Adequate, Platelet Morphology Normal, Anisocytosis 1+, Sodium Level 133L, Potassium Level 4.5, Chloride Level 98, Carbon Dioxide Level 29, Anion Gap 6, Blood Urea Nitrogen 22H, Creatinine 1.0, Estimat Glomerular Filtration Rate 52.5, Glucose Level 202H, Calcium Level 9.0 07/25/20 12:02: POC Whole Blood Glucose 233H Current Medications Medications (Trade) Dose Ordered Sig/Ranjeet Route PRN Reason Start Time Stop Time Status Last Admin Dose Admin Acetaminophen (Tylenol) 650 mg Q6H PRN ORAL Temp >100.5 07/19/20 09:15 08/18/20 09:14 Aspirin (Ecotrin) 81 mg DAILY ORAL 07/20/20 10:00 09/03/20 09:59 07/25/20 09:52 Dexamethasone Sodium Phosphate (Decadron 4mg/ml vial) 6 mg DAILY IVP 07/25/20 09:00 07/29/20 09:01 07/25/20 09:53 Dextrose (Dextrose 50%) 25 ml Q30M PRN IV Hypoglycemia 07/20/20 12:00 10/18/20 11:59 Dextrose (Dextrose 50%) 50 ml Q30M PRN IV Hypoglycemia 07/20/20 12:00 10/18/20 11:59 Diltiazem HCl (Cardizem ER) 240 mg DAILY ORAL 07/20/20 10:00 08/19/20 09:59 07/25/20 09:52 Docusate Sodium (Colace) 100 mg THREE TIMES A DAY NG 07/25/20 18:00 08/24/20 17:59 Heparin Sodium (Porcine) (Heparin 5000 units/ml) 5,000 units EVERY 12 HOURS SUBQ 07/23/20 10:30 09/06/20 10:29 07/25/20 09:00 Insulin Aspart (NovoLOG) give half dose if not eating BEFORE MEALS AND HS SUBQ 07/20/20 16:30 10/18/20 16:29 07/25/20 12:13 Levothyroxine Sodium (Synthroid) 100 mcg Q24H ORAL 07/21/20 06:30 08/20/20 06:29 07/25/20 05:46 Metoprolol Tartrate (Lopressor) 2.5 mg Q4H PRN IVP HR 118 or higher 07/19/20 21:30 10/17/20 21:29 Ondansetron HCl (Zofran) 4 mg Q6H PRN IVP Nausea & Vomiting 07/19/20 09:15 08/18/20 09:14 Polyethylene Glycol (Miralax) 17 gm DAILYPRN PRN ORAL Constipation 07/19/20 09:15 08/18/20 09:14 Promethazine HCl/ Codeine (Phenergan with Codeine) 5 ml Q6H PRN ORAL cough 07/19/20 09:15 08/18/20 09:14 Assessment/Plan Problems: (1) Respiratory failure with hypoxia (2) Acute hyponatremia (3) SUZETTE (acute kidney injury) (4) Chronic atrial fibrillation (5) Diabetes mellitus (6) Alzheimer's dementia Assessment/Plan no new complains renal function stable, No new cultures hyponatremia improving sliding scale diabetic diet, pending swallow study respiratory treatment titrate fio2 to sat of 92% dvt prophylaxis. Riccardo Drew MD Jul 25, 2020 17:02
[2020-07-25] MEDS: Docusate 100mg/10ml Liq NG SCH (17:06)
--- NOTE | 2020-07-25 19:30 | NUR ---
NURSE NOTES: Receive a report from JENNIFER Fowler.
--- NOTE | 2020-07-25 19:51 | NUR ---
NURSE HAND-OFF: Important Events on Shift: Dexamethasone IVP, positive COVID Patient Status: stable Diet: CCHO medium Pending Orders: sputum cx Pending Results/Labs:n/a Pending MD notification:n/a Latest Vital Signs: Temperature 97.0 , Pulse 81 , B/P 138 /59 , Respiratory Rate 19 , O2 SAT 97 , Nasal Cannula, O2 Flow Rate 3.0 . Vital Sign Comment: stable Latest [place] Fall Score: 45 Fall Risk: High Risk Safety Measures: Call light Within Reach, Bed Alarm Zone 1, Side Rails Side Rails x3, Bed position Low and Locked. Fall Precautions: Yellow Socks Yellow Gown Door Sign Report given to JENNIFER Newman
[2020-07-25 20:00] VITALS: BP 132/64
--- NOTE | 2020-07-25 20:00 | NUR ---
NURSE NOTES: Pt is asleep but easily aroused. No acute distress noted. Denies pain. On O2 2L NC. No wheezing or coughing noted. Denies SOB. Verbally responsive and make own needs but forgetful. Yellow urine is patent via nelson catheter. Waiting for clearance from Covid-19 test on Sunday. Call light within reach. Will continue to monitor.
[2020-07-26] VITALS: BP 112/65
[2020-07-26 04:30] VITALS: BP 131/79
[2020-07-26] MEDS: NovoLOG Insulin Flexpen SUBQ SCH ×4 (05:56→21:58)
[2020-07-26 07:05] LABS: HEMATOCRIT 28.1 % (37.0-47.0); MEAN CORPUSCULAR VOLUME 90 FL (80-99); PLATELET COUNT 288 K/UL (150-450); RED BLOOD COUNT 3.11 M/UL (4.20-5.40); RED CELL DISTRIBUTION WIDTH 13.4 % (11.6-14.8); WHITE BLOOD COUNT 19.4 K/UL (4.8-10.8)
--- NOTE | 2020-07-26 07:30 | NUR ---
NURSE NOTES: Patient is in bed awake and able to verbalize needs. Stable. Patient appears confused, all safety measures provided. Breathing is even and unlabored, no visible signs of distress noted. Patient is in bed in locked and lowest position with call light within reach. All needs met at this time. WIll continue to monitor.
--- NOTE | 2020-07-26 07:30 | NUR ---
NURSE HAND-OFF: Important Events on Shift: no respiratory distress/ trying to get out of bed herself--provide fall precautions. Patient Status: stable Diet: [CCHO medium] Pending Orders: [] Pending Results/Labs:[] Pending MD notification:[] Latest Vital Signs: Temperature 98.5 , Pulse 72 , B/P 131 /79 , Respiratory Rate 19 , O2 SAT 94 , Nasal Cannula, O2 Flow Rate 2.0 . Vital Sign Comment: [] Latest Sal[place] Fall Score: 60 Fall Risk: High Risk Safety Measures: Call light Within Reach, Bed Alarm Zone 1, Side Rails Side Rails x3, Bed position Low and Locked. Fall Precautions: Yellow Socks Yellow Gown Door Sign Patient Fall Education Report given to JENNIFER Howard.
[2020-07-26 07:36] LABS: ALBUMIN 3.7 G/DL (3.4-5.0); BILIRUBIN,TOTAL 0.9 MG/DL (0.2-1.0); CALCIUM 9.5 MG/DL (8.5-10.1); CREATININE 1.3 MG/DL (0.55-1.30); POTASSIUM 4.1 MMOL/L (3.5-5.1)
[2020-07-26 08:00] VITALS: BP 141/93
[2020-07-26] MEDS: Docusate 100mg/10ml Liq NG SCH ×3 (08:51→16:55)
[2020-07-26] MEDS: Aspirin EC 81mg tab ORAL SCH (08:51)
[2020-07-26] MEDS: DILTIAZEM HCL 240 MG ORAL SCH (08:51)
[2020-07-26] MEDS: Heparin 5000 units/ml inj SUBQ SCH ×2 (08:52→21:59)
--- NOTE | 2020-07-26 10:18 | NUR ---
RD ASSESSMENT & RECOMMENDATIONS SEE CARE ACTIVITY FOR COMPLETE ASSESSMENT DAILY ESTIMATED NEEDS: Needs based on Pulmonary, DM, underweight 48.5kg 30-35 kcals/kg 8878-7188 total kcals 1-1.5 g protein/kg 49-73 g total protein 25-30ml/kcal mL/kg 4246-5500 total fluid mLs NUTRITION DIAGNOSIS: Altered nutrition related lab values r/t diabetes and clinical status as evidenced by A1C 6.4, BG 200's, on decadron. (CURRENT DIET:CCHO MED/ puree) PO DIET RECOMMENDATIONS: Liberalized REGULAR DIET/ texture per COMPUTER TYPESETTER ADDITIONAL RECOMMENDATIONS: 1) Add Glucerna 1 tetra TID w/ meals 2) NON ORAL FEEDS/ TEMPORARY if part of POC 3) Obtain an accurate CBW 4) Rec D5 w/ increased insulin coverage w/ current poor po intake
--- NOTE | 2020-07-26 10:35 | Infectious Diseases Prog Note ---
Assessment/Plan 84yo F with: Afebrile Normal WBC Leukopenia COVID pna, dx'd 07/15 Acute hypoxic resp failure 2/2 COVID pna 07/19 BCx NTD UA +blood, 10-15 WBC, UCx NTD Resp cx p CXR: No acute infiltrate SUZETTE , sp 07/19 Renal US: Mild right hydro. R/o PE: 07/19 VQ scan: Asymmetric tracer distribution, left lung more than right. Suspect that this is artifactual, probably due to asymmetric overlapping soft tissues, but makes exam nondiagnostic for exclusion of pulmonary embolus PMH: CHF Afib HTN DM2 Dementia Plan: Cont dexamethasone 6mg daily #8/10 07/23/20 SP CTX/azithro #5/ empiric Would start RDV (SUZETTE improved, on 3 L NC) as per pharm, Hospital policy would not provide the Rx, if pt is not a candidate for RDV if DNR/DNI) No convalescent plasma available at this institution unfortunately Monitor CBC/CMP Monitor resp status Monitor temp curve, hemodynamics D/w RN Thank you for this consult. [facility] will continue to follow. Subjective Allergies: Coded Allergies: SULFAMETHOXAZOLE (Verified Allergy, Unknown, 07/19/20) TRIMETHOPRIM (Verified Allergy, Unknown, 07/19/20) AF WBC 19 on steroids NAD in bed Satting 100% on 2L NC Objective Last 24 Hour Vital Signs Date Time Temp Pulse Resp B/P (MAP) Pulse Ox O2 Delivery O2 Flow Rate FiO2 07/26/20 08:51 99 141/93 07/26/20 04:30 98.5 72 19 131/79 (96) 94 07/26/20 00:00 98.5 86 19 112/65 (81) 95 07/25/20 21:00 Nasal Cannula 2.0 07/25/20 20:00 98.9 92 19 132/64 (86) 95 07/25/20 16:00 97.0 81 19 138/59 (85) 97 07/25/20 12:00 97.7 84 19 136/69 (91) 99 Height (Feet): 5 Height (Inches): 6.00 Weight (Pounds): 130 Gen: NAD in bed on NC HEENT: NCAT Pulm: BL chest rise on NC, non-labored Abd: Thin, soft, NTND Ext: No c/c/e Neuro: Awake, interactive Laboratory Tests Test 07/25/20 12:02 07/25/20 17:08 07/25/20 23:03 07/26/20 05:45 POC Whole Blood Glucose 233 MG/DL (74-106) H 228 MG/DL (74-106) H 230 MG/DL (74-106) H White Blood Count 19.4 K/UL (4.8-10.8) H Red Blood Count 3.11 M/UL (4.20-5.40) L Hemoglobin 10.0 G/DL (12.0-16.0) L Hematocrit 28.1 % (37.0-47.0) L Mean Corpuscular Volume 90 FL (80-99) Mean Corpuscular Hemoglobin 32.2 PG (27.0-31.0) H Mean Corpuscular Hemoglobin Concent 35.6 G/DL (32.0-36.0) Red Cell Distribution Width 13.4 % (11.6-14.8) Platelet Count 288 K/UL (150-450) Mean Platelet Volume 7.4 FL (6.5-10.1) Neutrophils (%) (Auto) % (45.0-75.0) Lymphocytes (%) (Auto) % (20.0-45.0) Monocytes (%) (Auto) % (1.0-10.0) Eosinophils (%) (Auto) % (0.0-3.0) Basophils (%) (Auto) % (0.0-2.0) Neutrophils % (Manual) Pending Lymphocytes % (Manual) Pending Platelet Estimate Pending Platelet Morphology Pending Sodium Level 132 MMOL/L (136-145) L Potassium Level 4.1 MMOL/L (3.5-5.1) Chloride Level 96 MMOL/L (98-107) L Carbon Dioxide Level 25 MMOL/L (21-32) Anion Gap 11 mmol/L (5-15) Blood Urea Nitrogen 26 mg/dL (7-18) H Creatinine 1.3 MG/DL (0.55-1.30) Estimat Glomerular Filtration Rate 38.8 mL/min (>60) Glucose Level 232 MG/DL (74-106) H Uric Acid 3.0 MG/DL (2.6-7.2) Calcium Level 9.5 MG/DL (8.5-10.1) Phosphorus Level 3.0 MG/DL (2.5-4.9) Magnesium Level 2.0 MG/DL (1.8-2.4) Total Bilirubin 0.9 MG/DL (0.2-1.0) Aspartate Amino Transf (AST/SGOT) 64 U/L (15-37) H Alanine Aminotransferase (ALT/SGPT) 89 U/L (12-78) H Alkaline Phosphatase 74 U/L (46-116) Total Protein 7.5 G/DL (6.4-8.2) Albumin 3.7 G/DL (3.4-5.0) Globulin 3.8 g/dL Albumin/Globulin Ratio 1.0 (1.0-2.7) Test 07/26/20 05:49 POC Whole Blood Glucose 212 MG/DL (74-106) H Current Medications Medications (Trade) Dose Ordered Sig/Ranjeet Route PRN Reason Start Time Stop Time Status Last Admin Dose Admin Acetaminophen (Tylenol) 650 mg Q6H PRN ORAL Temp >100.5 07/19/20 09:15 08/18/20 09:14 Aspirin (Ecotrin) 81 mg DAILY ORAL 07/20/20 10:00 09/03/20 09:59 07/26/20 08:51 Dexamethasone Sodium Phosphate (Decadron 4mg/ml vial) 6 mg DAILY IVP 07/25/20 09:00 07/29/20 09:01 07/26/20 08:51 Dextrose (Dextrose 50%) 25 ml Q30M PRN IV Hypoglycemia 07/20/20 12:00 10/18/20 11:59 Dextrose (Dextrose 50%) 50 ml Q30M PRN IV Hypoglycemia 07/20/20 12:00 10/18/20 11:59 Diltiazem HCl (Cardizem ER) 240 mg DAILY ORAL 07/20/20 10:00 08/19/20 09:59 07/26/20 08:51 Docusate Sodium (Colace) 100 mg THREE TIMES A DAY NG 07/25/20 18:00 08/24/20 17:59 07/26/20 08:51 Heparin Sodium (Porcine) (Heparin 5000 units/ml) 5,000 units EVERY 12 HOURS SUBQ 07/23/20 10:30 09/06/20 10:29 07/26/20 08:52 Insulin Aspart (NovoLOG) give half dose if not eating BEFORE MEALS AND HS SUBQ 07/20/20 16:30 10/18/20 16:29 07/26/20 05:56 Levothyroxine Sodium (Synthroid) 100 mcg Q24H ORAL 07/21/20 06:30 08/20/20 06:29 07/26/20 05:34 Ondansetron HCl (Zofran) 4 mg Q6H PRN IVP Nausea & Vomiting 07/19/20 09:15 08/18/20 09:14 Polyethylene Glycol (Miralax) 17 gm DAILYPRN PRN ORAL Constipation 07/19/20 09:15 08/18/20 09:14 Promethazine HCl/ Codeine (Phenergan with Codeine) 5 ml Q6H PRN ORAL cough 07/19/20 09:15 08/18/20 09:14 Sodium Chloride 250 ml @ 30 mls/hr ONCE ONCE IV 07/26/20 09:30 07/26/20 17:49 07/26/20 08:52 Nataly Babcock M.D. Jul 26, 2020 10:35
[2020-07-26 12:00] VITALS: BP 131/78
--- NOTE | 2020-07-26 13:46 | Nephrology Progress Note ---
Assessment/Plan Problem List: (1) SUZETTE (acute kidney injury) (2) Acute hyponatremia (3) Alzheimer's dementia (4) Chronic atrial fibrillation (5) Diabetes mellitus Assessment Acute renal failure Acute respiratory failure with hypoxia Severe hyponatremia Sepsis History of hypertension History of diabetes mellitus DNR DNI Plan July 26: Labs reviewed. Serum sodium 132. 250 cc 3% saline ordered. Continue per consultants. Continue to monitor renal parameters and electrolytes. July 25: Labs reviewed. Continue to observe serum sodium and glucose level. Continue per consultants. July 24: Labs reviewed. Abnormal electrolytes and chemistries addressed. Continue per consultants. July 23: Labs reviewed. Renal parameters stable. Continue per consultants. July 22: Labs reviewed. Renal parameters stable. Abnormal chemistries and electrolytes addressed. Continue per consultants. July 21: Serum sodium improved. Lab reviewed. Serum creatinine improved. Continue current management. July 20: Serum sodium 126. Labs reviewed. Serum creatinine down to 1.6. Medication list reviewed. Continue current management. Continue to monitor electrolytes and renal parameters. July 19: Saline infusion Monitor renal parameters and electrolytes Avoid nephrotoxic's Saline infusion Per consultants Subjective ROS Limited/Unobtainable: No Constitutional: Reports: malaise Objective Objective Last 24 Hour Vital Signs Date Time Temp Pulse Resp B/P (MAP) Pulse Ox O2 Delivery O2 Flow Rate FiO2 07/26/20 09:00 Nasal Cannula 2.0 07/26/20 08:51 99 141/93 07/26/20 08:00 97.3 99 20 141/93 (109) 94 07/26/20 04:30 98.5 72 19 131/79 (96) 94 07/26/20 00:00 98.5 86 19 112/65 (81) 95 07/25/20 21:00 Nasal Cannula 2.0 07/25/20 20:00 98.9 92 19 132/64 (86) 95 07/25/20 16:00 97.0 81 19 138/59 (85) 97 Intake and Output 07/25/20 07/26/20 19:00 07:00 Intake Total 660 ml Output Total 1000 ml Balance 660 ml -1000 ml Intake Oral 660 ml Output Urine Total 1000 ml # Voids 1 Current Medications Medications (Trade) Dose Ordered Sig/Ranjeet Route PRN Reason Start Time Stop Time Status Last Admin Dose Admin Acetaminophen (Tylenol) 650 mg Q6H PRN ORAL Temp >100.5 07/19/20 09:15 08/18/20 09:14 Aspirin (Ecotrin) 81 mg DAILY ORAL 07/20/20 10:00 09/03/20 09:59 07/26/20 08:51 Dexamethasone Sodium Phosphate (Decadron 4mg/ml vial) 6 mg DAILY IVP 07/25/20 09:00 07/29/20 09:01 07/26/20 08:51 Dextrose (Dextrose 50%) 25 ml Q30M PRN IV Hypoglycemia 07/20/20 12:00 10/18/20 11:59 Dextrose (Dextrose 50%) 50 ml Q30M PRN IV Hypoglycemia 07/20/20 12:00 10/18/20 11:59 Diltiazem HCl (Cardizem ER) 240 mg DAILY ORAL 07/20/20 10:00 08/19/20 09:59 07/26/20 08:51 Docusate Sodium (Colace) 100 mg THREE TIMES A DAY NG 07/25/20 18:00 08/24/20 17:59 07/26/20 12:09 Heparin Sodium (Porcine) (Heparin 5000 units/ml) 5,000 units EVERY 12 HOURS SUBQ 07/23/20 10:30 09/06/20 10:29 07/26/20 08:52 Insulin Aspart (NovoLOG) give half dose if not eating BEFORE MEALS AND HS SUBQ 07/20/20 16:30 10/18/20 16:29 07/26/20 12:15 Levothyroxine Sodium (Synthroid) 100 mcg Q24H ORAL 07/21/20 06:30 08/20/20 06:29 07/26/20 05:34 Ondansetron HCl (Zofran) 4 mg Q6H PRN IVP Nausea & Vomiting 07/19/20 09:15 08/18/20 09:14 Polyethylene Glycol (Miralax) 17 gm DAILYPRN PRN ORAL Constipation 07/19/20 09:15 08/18/20 09:14 Promethazine HCl/ Codeine (Phenergan with Codeine) 5 ml Q6H PRN ORAL cough 07/19/20 09:15 08/18/20 09:14 Sodium Chloride 250 ml @ 30 mls/hr ONCE ONCE IV 07/26/20 09:30 07/26/20 17:49 07/26/20 08:52 Laboratory Tests 07/25/20 17:08: POC Whole Blood Glucose 228H 07/25/20 23:03: POC Whole Blood Glucose 230H 07/26/20 05:45: White Blood Count 19.4H, Red Blood Count 3.11L, Hemoglobin 10.0L, Hematocrit 28.1L, Mean Corpuscular Volume 90, Mean Corpuscular Hemoglobin 32.2H, Mean Corpuscular Hemoglobin Concent 35.6, Red Cell Distribution Width 13.4, Platelet Count 288, Mean Platelet Volume 7.4, Neutrophils (%) (Auto) , Lymphocytes (%) (Auto) , Monocytes (%) (Auto) , Eosinophils (%) (Auto) , Basophils (%) (Auto) , Differential Total Cells Counted 100, Neutrophils % (Manual) 90H, Lymphocytes % (Manual) 8L, Monocytes % (Manual) 2, Eosinophils % (Manual) 0, Basophils % (Manual) 0, Band Neutrophils 0, Platelet Estimate Adequate, Platelet Morphology Normal, Red Blood Cell Morphology Normal, Sodium Level 132L, Potassium Level 4.1, Chloride Level 96L, Carbon Dioxide Level 25, Anion Gap 11, Blood Urea Nitrogen 26H, Creatinine 1.3, Estimat Glomerular Filtration Rate 38.8, Glucose Level 232H, Uric Acid 3.0, Calcium Level 9.5, Phosphorus Level 3.0, Magnesium Level 2.0, Total Bilirubin 0.9, Aspartate Amino Transf (AST/SGOT) 64H, Alanine Aminotransferase (ALT/SGPT) 89H, Alkaline Phosphatase 74, Total Protein 7.5, Albumin 3.7, Globulin 3.8, Albumin/Globulin Ratio 1.0 07/26/20 05:49: POC Whole Blood Glucose 212H 07/26/20 12:13: POC Whole Blood Glucose 228H Height (Feet): 5 Height (Inches): 6.00 Weight (Pounds): 130 General Appearance: no apparent distress Cardiovascular: tachycardia Respiratory/Chest: decreased breath sounds Abdomen: distended Objective No change Jethro Cleaning MD Jul 26, 2020 13:46
--- NOTE | 2020-07-26 14:45 | NUR ---
CASE MANAGEMENT:REVIEW SI;COVID PNEUMONIA. SEPSIS. 98.5 99 20 141/93 94% 2L NC WBC 19.4 H/H 10.0/28.1 NA 132 BUN 26 BG 232 AST 64 ALT 89 IS;IVF NS DECADRON IV QD DAY# 2/5 HEPARIN SQ Q12 CARDIZEM PO QD INSULIN NOVOLOG SQ QID SYNTHROID PO Q24 MED SURG STATUS DCP;FROM [place] [place]
[2020-07-26 16:00] VITALS: BP 141/72
--- NOTE | 2020-07-26 16:42 | Pulmonology Progress Note ---
Subjective ROS Limited/Unobtainable: No Constitutional: Reports: no symptoms HEENT: Repors: no symptoms Respiratory: Reports: no symptoms Allergies: Coded Allergies: SULFAMETHOXAZOLE (Verified Allergy, Unknown, 07/19/20) TRIMETHOPRIM (Verified Allergy, Unknown, 07/19/20) Objective Last 24 Hour Vital Signs Date Time Temp Pulse Resp B/P (MAP) Pulse Ox O2 Delivery O2 Flow Rate FiO2 07/26/20 12:00 96.5 90 20 131/78 (95) 96 07/26/20 09:00 Nasal Cannula 2.0 07/26/20 08:51 99 141/93 07/26/20 08:00 97.3 99 20 141/93 (109) 94 07/26/20 04:30 98.5 72 19 131/79 (96) 94 07/26/20 00:00 98.5 86 19 112/65 (81) 95 07/25/20 21:00 Nasal Cannula 2.0 07/25/20 20:00 98.9 92 19 132/64 (86) 95 Intake and Output 07/25/20 07/26/20 19:00 07:00 Intake Total 660 ml Output Total 1000 ml Balance 660 ml -1000 ml Intake Oral 660 ml Output Urine Total 1000 ml # Voids 1 General Appearance: cachetic HEENT: normocephalic, atraumatic Respiratory: chest wall non-tender, lungs clear Cardiovascular: normal peripheral pulses, normal rate Abdomen: normal bowel sounds, soft, non tender, no organomegaly Genitourinary: normal external genitalia Skin: no rash Lymphatic: no neck adenopathy, no groin adenopathy Laboratory Tests 07/25/20 17:08: POC Whole Blood Glucose 228H 07/25/20 23:03: POC Whole Blood Glucose 230H 07/26/20 05:45: White Blood Count 19.4H, Red Blood Count 3.11L, Hemoglobin 10.0L, Hematocrit 28.1L, Mean Corpuscular Volume 90, Mean Corpuscular Hemoglobin 32.2H, Mean Corpuscular Hemoglobin Concent 35.6, Red Cell Distribution Width 13.4, Platelet Count 288, Mean Platelet Volume 7.4, Neutrophils (%) (Auto) , Lymphocytes (%) (Auto) , Monocytes (%) (Auto) , Eosinophils (%) (Auto) , Basophils (%) (Auto) , Differential Total Cells Counted 100, Neutrophils % (Manual) 90H, Lymphocytes % (Manual) 8L, Monocytes % (Manual) 2, Eosinophils % (Manual) 0, Basophils % (Manual) 0, Band Neutrophils 0, Platelet Estimate Adequate, Platelet Morphology Normal, Red Blood Cell Morphology Normal, Sodium Level 132L, Potassium Level 4.1, Chloride Level 96L, Carbon Dioxide Level 25, Anion Gap 11, Blood Urea Nitrogen 26H, Creatinine 1.3, Estimat Glomerular Filtration Rate 38.8, Glucose Level 232H, Uric Acid 3.0, Calcium Level 9.5, Phosphorus Level 3.0, Magnesium Level 2.0, Total Bilirubin 0.9, Aspartate Amino Transf (AST/SGOT) 64H, Alanine Aminotransferase (ALT/SGPT) 89H, Alkaline Phosphatase 74, Total Protein 7.5, Albumin 3.7, Globulin 3.8, Albumin/Globulin Ratio 1.0 07/26/20 05:49: POC Whole Blood Glucose 212H 07/26/20 12:13: POC Whole Blood Glucose 228H Current Medications Medications (Trade) Dose Ordered Sig/Ranjeet Route PRN Reason Start Time Stop Time Status Last Admin Dose Admin Acetaminophen (Tylenol) 650 mg Q6H PRN ORAL Temp >100.5 07/19/20 09:15 08/18/20 09:14 Aspirin (Ecotrin) 81 mg DAILY ORAL 07/20/20 10:00 09/03/20 09:59 07/26/20 08:51 Dexamethasone Sodium Phosphate (Decadron 4mg/ml vial) 6 mg DAILY IVP 07/25/20 09:00 07/29/20 09:01 07/26/20 08:51 Dextrose (Dextrose 50%) 25 ml Q30M PRN IV Hypoglycemia 07/20/20 12:00 10/18/20 11:59 Dextrose (Dextrose 50%) 50 ml Q30M PRN IV Hypoglycemia 07/20/20 12:00 10/18/20 11:59 Diltiazem HCl (Cardizem ER) 240 mg DAILY ORAL 07/20/20 10:00 08/19/20 09:59 07/26/20 08:51 Docusate Sodium (Colace) 100 mg THREE TIMES A DAY NG 07/25/20 18:00 08/24/20 17:59 07/26/20 12:09 Heparin Sodium (Porcine) (Heparin 5000 units/ml) 5,000 units EVERY 12 HOURS SUBQ 07/23/20 10:30 09/06/20 10:29 07/26/20 08:52 Insulin Aspart (NovoLOG) give half dose if not eating BEFORE MEALS AND HS SUBQ 07/20/20 16:30 10/18/20 16:29 07/26/20 12:15 Levothyroxine Sodium (Synthroid) 100 mcg Q24H ORAL 07/21/20 06:30 08/20/20 06:29 07/26/20 05:34 Ondansetron HCl (Zofran) 4 mg Q6H PRN IVP Nausea & Vomiting 07/19/20 09:15 08/18/20 09:14 Polyethylene Glycol (Miralax) 17 gm DAILYPRN PRN ORAL Constipation 07/19/20 09:15 08/18/20 09:14 Promethazine HCl/ Codeine (Phenergan with Codeine) 5 ml Q6H PRN ORAL cough 07/19/20 09:15 08/18/20 09:14 Sodium Chloride 250 ml @ 30 mls/hr ONCE ONCE IV 07/26/20 09:30 07/26/20 17:49 07/26/20 08:52 Assessment/Plan Problems: (1) Respiratory failure with hypoxia (2) Acute hyponatremia (3) SUZETTE (acute kidney injury) (4) Chronic atrial fibrillation (5) Diabetes mellitus (6) Alzheimer's dementia Assessment/Plan no new complains renal function stable, No new cultures hyponatremia improving sliding scale diabetic diet, pending swallow study respiratory treatment titrate fio2 to sat of 92% dvt prophylaxis. Riccardo Drew MD Jul 26, 2020 16:42
--- NOTE | 2020-07-26 19:18 | NUR ---
NURSE HAND-OFF: Important Events on Shift: iv NaCl Patient Status: stable Diet: ccho med Pending Orders: n/a Pending Results/Labs:n/a Pending MD notification:n/a Latest Vital Signs: Temperature 98.4 , Pulse 96 , B/P 141 /72 , Respiratory Rate 18 , O2 SAT 96 , Nasal Cannula, O2 Flow Rate 2.0 . Vital Sign Comment: n/a Latest [place] Fall Score: 60 Fall Risk: High Risk Safety Measures: Call light Within Reach, Bed Alarm Zone 1, Side Rails Side Rails x3, Bed position Low and Locked. Fall Precautions: Yellow Socks Yellow Gown Door Sign Patient Fall Education Report given to Katiana RODRIGUEZ.
--- NOTE | 2020-07-26 19:18 | Internal Med Progress Note ---
Subjective Date of Service: Jul 26, 2020 Physician Name Dudley Rebollar Attending Physician Mateo Rankin MD Current Medications Medications (Trade) Dose Ordered Sig/Ranjeet Route PRN Reason Start Time Stop Time Status Last Admin Dose Admin Acetaminophen (Tylenol) 650 mg Q6H PRN ORAL Temp >100.5 07/19/20 09:15 08/18/20 09:14 Aspirin (Ecotrin) 81 mg DAILY ORAL 07/20/20 10:00 09/03/20 09:59 07/26/20 08:51 Dexamethasone Sodium Phosphate (Decadron 4mg/ml vial) 6 mg DAILY IVP 07/25/20 09:00 07/29/20 09:01 07/26/20 08:51 Dextrose (Dextrose 50%) 25 ml Q30M PRN IV Hypoglycemia 07/20/20 12:00 10/18/20 11:59 Dextrose (Dextrose 50%) 50 ml Q30M PRN IV Hypoglycemia 07/20/20 12:00 10/18/20 11:59 Diltiazem HCl (Cardizem ER) 240 mg DAILY ORAL 07/20/20 10:00 08/19/20 09:59 07/26/20 08:51 Docusate Sodium (Colace) 100 mg THREE TIMES A DAY NG 07/25/20 18:00 08/24/20 17:59 07/26/20 16:55 Heparin Sodium (Porcine) (Heparin 5000 units/ml) 5,000 units EVERY 12 HOURS SUBQ 07/23/20 10:30 09/06/20 10:29 07/26/20 08:52 Insulin Aspart (NovoLOG) give half dose if not eating BEFORE MEALS AND HS SUBQ 07/20/20 16:30 10/18/20 16:29 07/26/20 17:02 Levothyroxine Sodium (Synthroid) 100 mcg Q24H ORAL 07/21/20 06:30 08/20/20 06:29 07/26/20 05:34 Ondansetron HCl (Zofran) 4 mg Q6H PRN IVP Nausea & Vomiting 07/19/20 09:15 08/18/20 09:14 Polyethylene Glycol (Miralax) 17 gm DAILYPRN PRN ORAL Constipation 07/19/20 09:15 08/18/20 09:14 Promethazine HCl/ Codeine (Phenergan with Codeine) 5 ml Q6H PRN ORAL cough 07/19/20 09:15 08/18/20 09:14 Allergies: Coded Allergies: SULFAMETHOXAZOLE (Verified Allergy, Unknown, 07/19/20) TRIMETHOPRIM (Verified Allergy, Unknown, 07/19/20) ROS Limited/Unobtainable: Yes Subjective 84 YO F admitted with COVID 19 pos and respiratory failure. Now COVID 19 pneumonia. Cover for Int Med-Dr Rankin Objective Last Vital Signs Date Time Temp Pulse Resp B/P (MAP) Pulse Ox O2 Delivery O2 Flow Rate FiO2 07/26/20 16:00 96 Nasal Cannula 2.0 28 07/26/20 16:00 98.4 96 18 141/72 (95) Laboratory Tests Test 07/25/20 23:03 07/26/20 05:45 07/26/20 05:49 07/26/20 12:13 POC Whole Blood Glucose 230 MG/DL (74-106) H 212 MG/DL (74-106) H 228 MG/DL (74-106) H White Blood Count 19.4 K/UL (4.8-10.8) H Red Blood Count 3.11 M/UL (4.20-5.40) L Hemoglobin 10.0 G/DL (12.0-16.0) L Hematocrit 28.1 % (37.0-47.0) L Mean Corpuscular Volume 90 FL (80-99) Mean Corpuscular Hemoglobin 32.2 PG (27.0-31.0) H Mean Corpuscular Hemoglobin Concent 35.6 G/DL (32.0-36.0) Red Cell Distribution Width 13.4 % (11.6-14.8) Platelet Count 288 K/UL (150-450) Mean Platelet Volume 7.4 FL (6.5-10.1) Neutrophils (%) (Auto) % (45.0-75.0) Lymphocytes (%) (Auto) % (20.0-45.0) Monocytes (%) (Auto) % (1.0-10.0) Eosinophils (%) (Auto) % (0.0-3.0) Basophils (%) (Auto) % (0.0-2.0) Differential Total Cells Counted 100 Neutrophils % (Manual) 90 % (45-75) H Lymphocytes % (Manual) 8 % (20-45) L Monocytes % (Manual) 2 % (1-10) Eosinophils % (Manual) 0 % (0-3) Basophils % (Manual) 0 % (0-2) Band Neutrophils 0 % (0-8) Platelet Estimate Adequate Platelet Morphology Normal Red Blood Cell Morphology Normal Sodium Level 132 MMOL/L (136-145) L Potassium Level 4.1 MMOL/L (3.5-5.1) Chloride Level 96 MMOL/L (98-107) L Carbon Dioxide Level 25 MMOL/L (21-32) Anion Gap 11 mmol/L (5-15) Blood Urea Nitrogen 26 mg/dL (7-18) H Creatinine 1.3 MG/DL (0.55-1.30) Estimat Glomerular Filtration Rate 38.8 mL/min (>60) Glucose Level 232 MG/DL (74-106) H Uric Acid 3.0 MG/DL (2.6-7.2) Calcium Level 9.5 MG/DL (8.5-10.1) Phosphorus Level 3.0 MG/DL (2.5-4.9) Magnesium Level 2.0 MG/DL (1.8-2.4) Total Bilirubin 0.9 MG/DL (0.2-1.0) Aspartate Amino Transf (AST/SGOT) 64 U/L (15-37) H Alanine Aminotransferase (ALT/SGPT) 89 U/L (12-78) H Alkaline Phosphatase 74 U/L (46-116) Total Protein 7.5 G/DL (6.4-8.2) Albumin 3.7 G/DL (3.4-5.0) Globulin 3.8 g/dL Albumin/Globulin Ratio 1.0 (1.0-2.7) Test 07/26/20 16:59 POC Whole Blood Glucose 192 MG/DL (74-106) H Intake and Output 07/25/20 07/26/20 19:00 07:00 Intake Total 660 ml Output Total 1000 ml Balance 660 ml -1000 ml Intake Oral 660 ml Output Urine Total 1000 ml # Voids 1 Objective PHYSICAL EXAMINATION: GENERAL: The patient is a well-developed and well-nourished female, in moderate respiratory distress. HEENT: Eyes, pupils are equal and responsive to light and accommodation. Extraocular movements are intact. NECK: Supple without lymphadenopathy. CHEST: Decreased breath sounds in bilateral bases, otherwise without wheezes or rales. CARDIOVASCULAR: Regular rhythm and rate. S1, S2 normal without murmurs, rubs, or gallops. ABDOMEN: Soft, nontender, nondistended. Positive bowel sounds. No evidence of hepatosplenomegaly. Currently, no rebound or guarding noted. EXTREMITIES: Negative for clubbing, cyanosis, or edema. RECTAL/GENITAL: Not performed. NEUROLOGIC: Cranial nerves II through XII are grossly intact without focal deficits. Assessment/Plan Assessment/Plan ASSESSMENT: This is an 84-year-old female with: 1. COVID-19 positive. 2. Pneumonia. 3. Alzheimer's dementia. 4. Hypertension. 5. Congestive heart failure. 6. Atrial fibrillation. 7. Hypothyroidism. 8. Diabetes type 2. 9. Hyponatremia-resolving TREATMENT: 1. COVID-19/pneumonia. Infectious Disease = Dr. Babcock. S/P Decadron ABX= S/P ceftriaxone; S/P azithromycin A Pulmonary consultation has been obtained with Dr. Riccardo Drew. Not a candidate for remdesivir per ID 2. Alzheimer's dementia. 3. Hypertension. The patient is currently hypotensive. Hold diltiazem. 4. Congestive heart failure. Cardiology consultation has been obtained with Dr. Hema Mcclure. 5. Atrial fibrillation. 6. Hypothyroidism. Continue Levoxyl as above. 7. Diabetes type 2. A NovoLog sliding scale has been instituted. Dudley Rebollar MD Jul 26, 2020 19:18
--- NOTE | 2020-07-26 19:30 | NUR ---
NURSE NOTES: Patient is in bed awake and able to verbalize needs, is extremely confused though. Stable. All safety measures provided employed, fall precautions in place, bed alarm on. Breathing is even and unlabored, no visible signs of distress noted. Patient is in bed in locked and lowest position with call light within reach. All needs met at this time. Will continue to monitor.
[2020-07-26 20:00] VITALS: BP 137/90
--- NOTE | 2020-07-26 21:00 | NUR ---
NURSE NOTES: Upon assessment noted mutiple dti's on feet and ankle, 1st metatarsals bilaterally. pictures taken to be uploaded, will update and initiate wound care protocol
--- NOTE | 2020-07-26 22:00 | NUR ---
NURSE NOTES: uPLOADED PHOTOS FOR DINA LEVIN WITH A DIFFERENT V NUMBER, BUT ALL PICTURES CORRESPOND TO THIS PATIENT.
[2020-07-27] VITALS: BP 133/98
[2020-07-27 04:00] VITALS: BP 145/71
[2020-07-27] MEDS: NovoLOG Insulin Flexpen SUBQ SCH ×4 (06:44→20:25)
[2020-07-27 08:00] VITALS: BP 150/88
--- NOTE | 2020-07-27 08:00 | NUR ---
NURSE HAND-OFF: Important Events on Shift: wounds present on feet, updated on physical assessment, wearing bilateral heel protectors but wounds beneath, sacral/coccygeal dti suspected, wound care protocol initiated Patient Status: stable Diet: [facility] med turn and reposition frequently Report given to Bianca Geronimo RN
--- NOTE | 2020-07-27 08:03 | NUR ---
NURSE NOTES: Received patient in bed,awake, breathing is even and unlabored, no s/s of pain or discomfort. IV intact, no s/s of infiltration. Bed is in lowest position and locked. Bed alarm is on, will continue plan of care.
--- NOTE | 2020-07-27 08:23 | Infectious Diseases Prog Note ---
Assessment/Plan 84yo F with: Afebrile Normal WBC Leukopenia COVID pna, dx'd 07/15 Acute hypoxic resp failure 2/2 COVID pna 07/19 BCx NTD UA +blood, 10-15 WBC, UCx NTD CXR: No acute infiltrate SUZETTE , sp 07/19 Renal US: Mild right hydro. R/o PE: 07/19 VQ scan: Asymmetric tracer distribution, left lung more than right. Suspect that this is artifactual, probably due to asymmetric overlapping soft tissues, but makes exam nondiagnostic for exclusion of pulmonary embolus PMH: CHF Afib HTN DM2 Dementia Plan: Cont dexamethasone 6mg daily #9/10 OK to d/c isolation precautions on discharge given pt tested positive on 07/15, which is now >10 days ago, and pt has symptomatically improved 07/23/20 SP CTX/azithro #5/5 empiric Would start RDV (SUZETTE improved, on 3 L NC) as per pharm, Hospital policy would not provide the Rx, if pt is not a candidate for RDV if DNR/DNI) No convalescent plasma available at this institution unfortunately Monitor CBC/CMP Monitor resp status Monitor temp curve, hemodynamics D/w RN Thank you for this consult. [facility] will continue to follow. Subjective Allergies: Coded Allergies: SULFAMETHOXAZOLE (Verified Allergy, Unknown, 07/19/20) TRIMETHOPRIM (Verified Allergy, Unknown, 07/19/20) AF WBC 19 on steroids yesterday, today down to 18 NAD in bed Satting 100% on 2L NC Objective Last 24 Hour Vital Signs Date Time Temp Pulse Resp B/P (MAP) Pulse Ox O2 Delivery O2 Flow Rate FiO2 07/27/20 04:00 97.8 90 17 145/71 (95) 98 07/27/20 00:00 98.1 95 17 133/98 (110) 96 07/26/20 21:00 Nasal Cannula 2.0 07/26/20 20:00 97.9 114 18 137/90 (106) 96 07/26/20 16:00 96 Nasal Cannula 2.0 28 07/26/20 16:00 98.4 96 18 141/72 (95) 96 07/26/20 12:00 96.5 90 20 131/78 (95) 96 07/26/20 09:00 Nasal Cannula 2.0 07/26/20 08:51 99 141/93 Height (Feet): 5 Height (Inches): 6.00 Weight (Pounds): 130 Gen: NAD in bed on NC HEENT: NCAT Pulm: BL chest rise on NC, non-labored Abd: Thin, soft, NTND Ext: No c/c/e Neuro: Awake, interactive Laboratory Tests Test 07/26/20 12:13 07/26/20 16:59 07/26/20 21:50 07/27/20 06:42 POC Whole Blood Glucose 228 MG/DL (74-106) H 192 MG/DL (74-106) H 273 MG/DL (74-106) H 182 MG/DL (74-106) H Current Medications Medications (Trade) Dose Ordered Sig/Ranjeet Route PRN Reason Start Time Stop Time Status Last Admin Dose Admin Acetaminophen (Tylenol) 650 mg Q6H PRN ORAL Temp >100.5 07/19/20 09:15 08/18/20 09:14 Aspirin (Ecotrin) 81 mg DAILY ORAL 07/20/20 10:00 09/03/20 09:59 07/26/20 08:51 Dexamethasone Sodium Phosphate (Decadron 4mg/ml vial) 6 mg DAILY IVP 07/25/20 09:00 07/29/20 09:01 07/26/20 08:51 Dextrose (Dextrose 50%) 25 ml Q30M PRN IV Hypoglycemia 07/20/20 12:00 10/18/20 11:59 Dextrose (Dextrose 50%) 50 ml Q30M PRN IV Hypoglycemia 07/20/20 12:00 10/18/20 11:59 Diltiazem HCl (Cardizem ER) 240 mg DAILY ORAL 07/20/20 10:00 08/19/20 09:59 07/26/20 08:51 Docusate Sodium (Colace) 100 mg THREE TIMES A DAY NG 07/25/20 18:00 08/24/20 17:59 07/26/20 16:55 Heparin Sodium (Porcine) (Heparin 5000 units/ml) 5,000 units EVERY 12 HOURS SUBQ 07/23/20 10:30 09/06/20 10:29 07/26/20 21:59 Insulin Aspart (NovoLOG) give half dose if not eating BEFORE MEALS AND HS SUBQ 07/20/20 16:30 10/18/20 16:29 07/27/20 06:44 Levothyroxine Sodium (Synthroid) 100 mcg Q24H ORAL 07/21/20 06:30 08/20/20 06:29 07/27/20 06:33 Ondansetron HCl (Zofran) 4 mg Q6H PRN IVP Nausea & Vomiting 07/19/20 09:15 08/18/20 09:14 Polyethylene Glycol (Miralax) 17 gm DAILYPRN PRN ORAL Constipation 07/19/20 09:15 08/18/20 09:14 Promethazine HCl/ Codeine (Phenergan with Codeine) 5 ml Q6H PRN ORAL cough 07/19/20 09:15 08/18/20 09:14 Nataly Babcock M.D. Jul 27, 2020 08:23
[2020-07-27] MEDS: Docusate 100mg/10ml Liq NG SCH ×3 (08:48→17:00)
[2020-07-27] MEDS: DILTIAZEM HCL 240 MG ORAL SCH (08:48)
[2020-07-27] MEDS: Aspirin EC 81mg tab ORAL SCH (08:48)
[2020-07-27] MEDS: Heparin 5000 units/ml inj SUBQ SCH ×2 (08:50→20:18)
--- NOTE | 2020-07-27 09:00 | NUR ---
NURSE NOTES: teacher home therapy RN unable to draw the blood and this RN unable to draw the blood either. RN called lab and informed skiving machine operator to draw the blood for today's lab.
--- NOTE | 2020-07-27 10:18 | Nephrology Progress Note ---
Assessment/Plan Problem List: (1) SUZETTE (acute kidney injury) (2) Acute hyponatremia (3) Alzheimer's dementia (4) Chronic atrial fibrillation (5) Diabetes mellitus Assessment Acute renal failure Acute respiratory failure with hypoxia Severe hyponatremia Sepsis History of hypertension History of diabetes mellitus DNR DNI Plan July 27: No labs drawn today. Last serum sodium was 132 for which patient received 3% saline. Will check lab tomorrow. July 26: Labs reviewed. Serum sodium 132. 250 cc 3% saline ordered. Continue per consultants. Continue to monitor renal parameters and electrolytes. July 25: Labs reviewed. Continue to observe serum sodium and glucose level. Continue per consultants. July 24: Labs reviewed. Abnormal electrolytes and chemistries addressed. Continue per consultants. July 23: Labs reviewed. Renal parameters stable. Continue per consultants. July 22: Labs reviewed. Renal parameters stable. Abnormal chemistries and electrolytes addressed. Continue per consultants. July 21: Serum sodium improved. Lab reviewed. Serum creatinine improved. Continue current management. July 20: Serum sodium 126. Labs reviewed. Serum creatinine down to 1.6. Medication list reviewed. Continue current management. Continue to monitor electrolytes and renal parameters. July 19: Saline infusion Monitor renal parameters and electrolytes Avoid nephrotoxic's Saline infusion Per consultants Subjective ROS Limited/Unobtainable: No Constitutional: Reports: malaise Objective Objective Last 24 Hour Vital Signs Date Time Temp Pulse Resp B/P (MAP) Pulse Ox O2 Delivery O2 Flow Rate FiO2 07/27/20 08:48 105 150/88 07/27/20 08:00 97.3 105 17 150/88 (108) 98 07/27/20 04:00 97.8 90 17 145/71 (95) 98 07/27/20 00:00 98.1 95 17 133/98 (110) 96 07/26/20 21:00 Nasal Cannula 2.0 07/26/20 20:00 97.9 114 18 137/90 (106) 96 07/26/20 16:00 96 Nasal Cannula 2.0 28 07/26/20 16:00 98.4 96 18 141/72 (95) 96 07/26/20 12:00 96.5 90 20 131/78 (95) 96 Intake and Output 07/26/20 07/27/20 19:00 07:00 Intake Total 480 ml 500 ml Output Total 400 ml 400 ml Balance 80 ml 100 ml Intake Oral 480 ml Other 500 ml Output Urine Total 400 ml 400 ml No chemistry done today laboratory Tests 07/26/20 12:13: POC Whole Blood Glucose 228H 07/26/20 16:59: POC Whole Blood Glucose 192H 07/26/20 21:50: POC Whole Blood Glucose 273H 07/27/20 06:42: POC Whole Blood Glucose 182H Height (Feet): 5 Height (Inches): 6.00 Weight (Pounds): 130 General Appearance: no apparent distress Cardiovascular: tachycardia Respiratory/Chest: decreased breath sounds Abdomen: distended Objective No change Jethro Cleaning MD Jul 27, 2020 10:18
[2020-07-27 11:38] LABS: HEMATOCRIT 28.6 % (37.0-47.0); HEMOGLOBIN 9.8 G/DL (12.0-16.0); MEAN CORPUSCULAR VOLUME 94 FL (80-99); PLATELET COUNT 253 K/UL (150-450); RED BLOOD COUNT 3.03 M/UL (4.20-5.40); WHITE BLOOD COUNT 18.9 K/UL (4.8-10.8)
[2020-07-27 11:53] LABS: CALCIUM 9.4 MG/DL (8.5-10.1); POTASSIUM 4.3 MMOL/L (3.5-5.1)
[2020-07-27 12:00] VITALS: BP 143/68
--- NOTE | 2020-07-27 12:12 | Pulmonology Progress Note ---
Subjective ROS Limited/Unobtainable: No Constitutional: Reports: no symptoms HEENT: Repors: no symptoms Respiratory: Reports: no symptoms Allergies: Coded Allergies: SULFAMETHOXAZOLE (Verified Allergy, Unknown, 07/19/20) TRIMETHOPRIM (Verified Allergy, Unknown, 07/19/20) Objective Last 24 Hour Vital Signs Date Time Temp Pulse Resp B/P (MAP) Pulse Ox O2 Delivery O2 Flow Rate FiO2 07/27/20 09:00 Nasal Cannula 2.0 07/27/20 08:48 105 150/88 07/27/20 08:00 97.3 105 17 150/88 (108) 98 07/27/20 04:00 97.8 90 17 145/71 (95) 98 07/27/20 00:00 98.1 95 17 133/98 (110) 96 07/26/20 21:00 Nasal Cannula 2.0 07/26/20 20:00 97.9 114 18 137/90 (106) 96 07/26/20 16:00 96 Nasal Cannula 2.0 28 07/26/20 16:00 98.4 96 18 141/72 (95) 96 Intake and Output 07/26/20 07/27/20 19:00 07:00 Intake Total 480 ml 500 ml Output Total 400 ml 400 ml Balance 80 ml 100 ml Intake Oral 480 ml Other 500 ml Output Urine Total 400 ml 400 ml General Appearance: cachetic HEENT: normocephalic, atraumatic Respiratory: chest wall non-tender, lungs clear Cardiovascular: normal peripheral pulses, normal rate Abdomen: normal bowel sounds, soft, non tender, no organomegaly Genitourinary: normal external genitalia Skin: no rash Lymphatic: no neck adenopathy, no groin adenopathy Laboratory Tests 07/26/20 12:13: POC Whole Blood Glucose 228H 07/26/20 16:59: POC Whole Blood Glucose 192H 07/26/20 21:50: POC Whole Blood Glucose 273H 07/27/20 06:42: POC Whole Blood Glucose 182H 07/27/20 11:15: White Blood Count 18.9H, Red Blood Count 3.03L, Hemoglobin 9.8L, Hematocrit 28.6L, Mean Corpuscular Volume 94, Mean Corpuscular Hemoglobin 32.2H, Mean Corpuscular Hemoglobin Concent 34.1, Red Cell Distribution Width 13.0, Platelet Count 253, Mean Platelet Volume 7.5, Neutrophils (%) (Auto) , Lymphocytes (%) (Auto) , Monocytes (%) (Auto) , Eosinophils (%) (Auto) , Basophils (%) (Auto) , Differential Total Cells Counted 100, Neutrophils % (Manual) 92H, Lymphocytes % (Manual) 3L, Monocytes % (Manual) 5, Eosinophils % (Manual) 0, Basophils % (Manual) 0, Band Neutrophils 0, Platelet Estimate Adequate, Platelet Morphology Normal, Hypochromasia 1+, Sodium Level 137, Potassium Level 4.3, Chloride Level 101, Carbon Dioxide Level 28, Anion Gap 8, Blood Urea Nitrogen 25H, Creatinine 1.0, Estimat Glomerular Filtration Rate 52.5, Glucose Level 223H, Calcium Level 9.4 07/27/20 11:51: POC Whole Blood Glucose 209H Current Medications Medications (Trade) Dose Ordered Sig/Ranjeet Route PRN Reason Start Time Stop Time Status Last Admin Dose Admin Acetaminophen (Tylenol) 650 mg Q6H PRN ORAL Temp >100.5 07/19/20 09:15 08/18/20 09:14 Aspirin (Ecotrin) 81 mg DAILY ORAL 07/20/20 10:00 09/03/20 09:59 07/27/20 08:48 Dexamethasone Sodium Phosphate (Decadron 4mg/ml vial) 6 mg DAILY IVP 07/25/20 09:00 07/29/20 09:01 07/27/20 08:49 Dextrose (Dextrose 50%) 25 ml Q30M PRN IV Hypoglycemia 07/20/20 12:00 10/18/20 11:59 Dextrose (Dextrose 50%) 50 ml Q30M PRN IV Hypoglycemia 07/20/20 12:00 10/18/20 11:59 Diltiazem HCl (Cardizem ER) 240 mg DAILY ORAL 07/20/20 10:00 08/19/20 09:59 07/27/20 08:48 Docusate Sodium (Colace) 100 mg THREE TIMES A DAY NG 07/25/20 18:00 08/24/20 17:59 07/27/20 08:48 Heparin Sodium (Porcine) (Heparin 5000 units/ml) 5,000 units EVERY 12 HOURS SUBQ 07/23/20 10:30 09/06/20 10:29 07/27/20 08:50 Insulin Aspart (NovoLOG) give half dose if not eating BEFORE MEALS AND HS SUBQ 07/20/20 16:30 10/18/20 16:29 07/27/20 06:44 Levothyroxine Sodium (Synthroid) 100 mcg Q24H ORAL 07/21/20 06:30 08/20/20 06:29 07/27/20 06:33 Ondansetron HCl (Zofran) 4 mg Q6H PRN IVP Nausea & Vomiting 07/19/20 09:15 08/18/20 09:14 Polyethylene Glycol (Miralax) 17 gm DAILYPRN PRN ORAL Constipation 07/19/20 09:15 08/18/20 09:14 Promethazine HCl/ Codeine (Phenergan with Codeine) 5 ml Q6H PRN ORAL cough 07/19/20 09:15 08/18/20 09:14 Assessment/Plan Problems: (1) Respiratory failure with hypoxia (2) Acute hyponatremia (3) SUZETTE (acute kidney injury) (4) Chronic atrial fibrillation (5) Diabetes mellitus (6) Alzheimer's dementia Assessment/Plan wbc still high no new complains renal function stable, No new cultures sliding scale diabetic diet, pending swallow study respiratory treatment titrate fio2 to sat of 92% dvt prophylaxis. Riccardo Drew MD Jul 27, 2020 12:12
--- NOTE | 2020-07-27 13:07 | NUR ---
NURSE NOTES:WOUND CARE NOTES:Pt presented on admission with multipl Pressure Injuries.Sacral DTPI noted (L)5cm x (W)7.5cm Base of Pressure Injury is Maroon and indurated with non-blanchable erythema along borders. Dry Peeling skin noted to sacrococcygeal area. L Heel is Boggy with non-Blanchable erythema(L)5cm x (W)6cm. R heel is boggy with non-blanchable erythema(L)6.5cm x (W)6.5cm. DTPI L Hallux (L)3cmx (W)3.3cm.Base of injury is fluctuant with surrounding non-Blanchable erythema. DTPI R Hallux (L)1.1cm x (W)1cm. Base of Pressure Injury is purple with surrounding maroon borders. DTPI Medial R Malleolus (L)0.6cm x (W)0.8cm. Tx.Plan:Apply Moisture Barrier Paste to Sacrum. Cover with Optifoam Drsg . [place] every 3days and prn. Apply Cavilon Skin Barrier to Both heels, Malleoli , R and L Hallux.Cover each Presuer Injury with Optifoam drsg. Change every 7 days and prn. Reposition at least every 2hours or as tolerated. Off-load heels with Pillow. Reposition at least every 2hours or as tolerated.
--- NOTE | 2020-07-27 14:00 | NUR ---
NURSE NOTES: RN spoke to Dr. Babcock earlier regarding isolation status. Dr. Babcock is aware of covid result from 07/22/20.Dr. Babcock said if there is a record of covid positive from 07/15/20,it is ok to be off isolation. RN called [facility] medical records to ask if previous covid test is available. Per medical record,patient admitted on 07/15/20 from another hospital and she will look for the result and fax if present. Will follow up.
--- NOTE | 2020-07-27 15:17 | Cardiology Progress Note ---
Assessment/Plan Assessment/Plan 1. Respiratory insuf 2. Hyponatremia. 3. Hhis atrial fib atrial flutter 4. History of diastolic and systolic heart failure. 5. Moderate mitral, aortic, and tricuspid regurgitation. 6. Dementia. 7. Tachycardia, likely secondary to demand. 8.. Renal insuf hr controlled with cardizem cr improved na normal nursing note reviewed will add acei not fel to need remdizivir as oxygeation has improved will consider anticoag for stroke prevention if not at fall risk Subjective Subjective in covid 19 isoaltion patient in bed,awake, breathing is even and unlabored, no s/s of pain or discomfort. IV intact, no s/s of infiltration Objective Last 24 Hour Vital Signs Date Time Temp Pulse Resp B/P (MAP) Pulse Ox O2 Delivery O2 Flow Rate FiO2 07/27/20 12:00 97.0 93 20 143/68 (93) 96 07/27/20 09:00 Nasal Cannula 2.0 07/27/20 08:48 105 150/88 07/27/20 08:00 97.3 105 17 150/88 (108) 98 07/27/20 04:00 97.8 90 17 145/71 (95) 98 07/27/20 00:00 98.1 95 17 133/98 (110) 96 07/26/20 21:00 Nasal Cannula 2.0 07/26/20 20:00 97.9 114 18 137/90 (106) 96 07/26/20 16:00 96 Nasal Cannula 2.0 28 07/26/20 16:00 98.4 96 18 141/72 (95) 96 Intake and Output 07/26/20 07/27/20 19:00 07:00 Intake Total 480 ml 500 ml Output Total 400 ml 400 ml Balance 80 ml 100 ml Intake Oral 480 ml Other 500 ml Output Urine Total 400 ml 400 ml Laboratory Tests Test 07/26/20 16:59 07/26/20 21:50 07/27/20 06:42 07/27/20 11:15 POC Whole Blood Glucose 192 MG/DL (74-106) H 273 MG/DL (74-106) H 182 MG/DL (74-106) H White Blood Count 18.9 K/UL (4.8-10.8) H Red Blood Count 3.03 M/UL (4.20-5.40) L Hemoglobin 9.8 G/DL (12.0-16.0) L Hematocrit 28.6 % (37.0-47.0) L Mean Corpuscular Volume 94 FL (80-99) Mean Corpuscular Hemoglobin 32.2 PG (27.0-31.0) H Mean Corpuscular Hemoglobin Concent 34.1 G/DL (32.0-36.0) Red Cell Distribution Width 13.0 % (11.6-14.8) Platelet Count 253 K/UL (150-450) Mean Platelet Volume 7.5 FL (6.5-10.1) Neutrophils (%) (Auto) % (45.0-75.0) Lymphocytes (%) (Auto) % (20.0-45.0) Monocytes (%) (Auto) % (1.0-10.0) Eosinophils (%) (Auto) % (0.0-3.0) Basophils (%) (Auto) % (0.0-2.0) Differential Total Cells Counted 100 Neutrophils % (Manual) 92 % (45-75) H Lymphocytes % (Manual) 3 % (20-45) L Monocytes % (Manual) 5 % (1-10) Eosinophils % (Manual) 0 % (0-3) Basophils % (Manual) 0 % (0-2) Band Neutrophils 0 % (0-8) Platelet Estimate Adequate Platelet Morphology Normal Hypochromasia 1+ Sodium Level 137 MMOL/L (136-145) Potassium Level 4.3 MMOL/L (3.5-5.1) Chloride Level 101 MMOL/L (98-107) Carbon Dioxide Level 28 MMOL/L (21-32) Anion Gap 8 mmol/L (5-15) Blood Urea Nitrogen 25 mg/dL (7-18) H Creatinine 1.0 MG/DL (0.55-1.30) Estimat Glomerular Filtration Rate 52.5 mL/min (>60) Glucose Level 223 MG/DL (74-106) H Calcium Level 9.4 MG/DL (8.5-10.1) Test 07/27/20 11:51 POC Whole Blood Glucose 209 MG/DL (74-106) H Hema Mcclure MD Jul 27, 2020 15:17
[2020-07-27 16:00] VITALS: BP 133/73
[2020-07-27] MEDS: Lisinopril 10mg tab ORAL SCH (16:01)
--- NOTE | 2020-07-27 16:26 | NUR ---
NURSE NOTES: Wound care nurse recommended wound care physician. RN spoke to Dr. Rebollar and received wound care physician consult with Dr. Haley.
--- NOTE | 2020-07-27 16:46 | NUR ---
NURSE NOTES: Received covid result from Jose Mckenzie. Paged Dr. Babcock ID. Awaiting for return call.
--- NOTE | 2020-07-27 17:00 | NUR ---
NURSE NOTES: RN spoke to Dr. Babcock and let her know that patient was covid positive on 07/08/20 and negative on 07/22/20. It has been more than 10 days since she was positive. Dr. Babcock wants to keep patient on isolation til patient is being discharged.
--- NOTE | 2020-07-27 17:20 | Internal Med Progress Note ---
Subjective Date of Service: Jul 27, 2020 Physician Name KeturahDudley Attending Physician Mateo Rankin MD Current Medications Medications (Trade) Dose Ordered Sig/Ranjeet Route PRN Reason Start Time Stop Time Status Last Admin Dose Admin Acetaminophen (Tylenol) 650 mg Q6H PRN ORAL Temp >100.5 07/19/20 09:15 08/18/20 09:14 Aspirin (Ecotrin) 81 mg DAILY ORAL 07/20/20 10:00 09/03/20 09:59 07/27/20 08:48 Dexamethasone Sodium Phosphate (Decadron 4mg/ml vial) 6 mg DAILY IVP 07/25/20 09:00 07/29/20 09:01 07/27/20 08:49 Dextrose (Dextrose 50%) 25 ml Q30M PRN IV Hypoglycemia 07/20/20 12:00 10/18/20 11:59 Dextrose (Dextrose 50%) 50 ml Q30M PRN IV Hypoglycemia 07/20/20 12:00 10/18/20 11:59 Diltiazem HCl (Cardizem ER) 240 mg DAILY ORAL 07/20/20 10:00 08/19/20 09:59 07/27/20 08:48 Docusate Sodium (Colace) 100 mg THREE TIMES A DAY NG 07/25/20 18:00 08/24/20 17:59 07/27/20 17:00 Heparin Sodium (Porcine) (Heparin 5000 units/ml) 5,000 units EVERY 12 HOURS SUBQ 07/23/20 10:30 09/06/20 10:29 07/27/20 08:50 Insulin Aspart (NovoLOG) give half dose if not eating BEFORE MEALS AND HS SUBQ 07/20/20 16:30 10/18/20 16:29 07/27/20 16:58 Levothyroxine Sodium (Synthroid) 100 mcg Q24H ORAL 07/21/20 06:30 08/20/20 06:29 07/27/20 06:33 Lisinopril (ZestriL) 10 mg DAILY ORAL 07/27/20 15:30 08/26/20 15:29 07/27/20 16:01 Ondansetron HCl (Zofran) 4 mg Q6H PRN IVP Nausea & Vomiting 07/19/20 09:15 08/18/20 09:14 Polyethylene Glycol (Miralax) 17 gm DAILYPRN PRN ORAL Constipation 07/19/20 09:15 08/18/20 09:14 Promethazine HCl/ Codeine (Phenergan with Codeine) 5 ml Q6H PRN ORAL cough 07/19/20 09:15 08/18/20 09:14 Allergies: Coded Allergies: SULFAMETHOXAZOLE (Verified Allergy, Unknown, 07/19/20) TRIMETHOPRIM (Verified Allergy, Unknown, 07/19/20) ROS Limited/Unobtainable: Yes Subjective 84 YO F admitted with COVID 19 pos and respiratory failure. Now COVID 19 pneumonia. Cover for Int Med-Dr Rankin Objective Last Vital Signs Date Time Temp Pulse Resp B/P (MAP) Pulse Ox O2 Delivery O2 Flow Rate FiO2 07/27/20 16:01 133/73 07/27/20 16:00 98.5 94 20 98 07/27/20 09:00 Nasal Cannula 2.0 07/26/20 16:00 28 Laboratory Tests Test 07/26/20 21:50 07/27/20 06:42 07/27/20 11:15 07/27/20 11:51 POC Whole Blood Glucose 273 MG/DL (74-106) H 182 MG/DL (74-106) H 209 MG/DL (74-106) H White Blood Count 18.9 K/UL (4.8-10.8) H Red Blood Count 3.03 M/UL (4.20-5.40) L Hemoglobin 9.8 G/DL (12.0-16.0) L Hematocrit 28.6 % (37.0-47.0) L Mean Corpuscular Volume 94 FL (80-99) Mean Corpuscular Hemoglobin 32.2 PG (27.0-31.0) H Mean Corpuscular Hemoglobin Concent 34.1 G/DL (32.0-36.0) Red Cell Distribution Width 13.0 % (11.6-14.8) Platelet Count 253 K/UL (150-450) Mean Platelet Volume 7.5 FL (6.5-10.1) Neutrophils (%) (Auto) % (45.0-75.0) Lymphocytes (%) (Auto) % (20.0-45.0) Monocytes (%) (Auto) % (1.0-10.0) Eosinophils (%) (Auto) % (0.0-3.0) Basophils (%) (Auto) % (0.0-2.0) Differential Total Cells Counted 100 Neutrophils % (Manual) 92 % (45-75) H Lymphocytes % (Manual) 3 % (20-45) L Monocytes % (Manual) 5 % (1-10) Eosinophils % (Manual) 0 % (0-3) Basophils % (Manual) 0 % (0-2) Band Neutrophils 0 % (0-8) Platelet Estimate Adequate Platelet Morphology Normal Hypochromasia 1+ Sodium Level 137 MMOL/L (136-145) Potassium Level 4.3 MMOL/L (3.5-5.1) Chloride Level 101 MMOL/L (98-107) Carbon Dioxide Level 28 MMOL/L (21-32) Anion Gap 8 mmol/L (5-15) Blood Urea Nitrogen 25 mg/dL (7-18) H Creatinine 1.0 MG/DL (0.55-1.30) Estimat Glomerular Filtration Rate 52.5 mL/min (>60) Glucose Level 223 MG/DL (74-106) H Calcium Level 9.4 MG/DL (8.5-10.1) Test 07/27/20 16:56 POC Whole Blood Glucose 180 MG/DL (74-106) H Intake and Output 07/26/20 07/27/20 19:00 07:00 Intake Total 480 ml 500 ml Output Total 400 ml 400 ml Balance 80 ml 100 ml Intake Oral 480 ml Other 500 ml Output Urine Total 400 ml 400 ml Objective PHYSICAL EXAMINATION: GENERAL: The patient is a well-developed and well-nourished female, in moderate respiratory distress. HEENT: Eyes, pupils are equal and responsive to light and accommodation. Extraocular movements are intact. NECK: Supple without lymphadenopathy. CHEST: Decreased breath sounds in bilateral bases, otherwise without wheezes or rales. CARDIOVASCULAR: Regular rhythm and rate. S1, S2 normal without murmurs, rubs, or gallops. ABDOMEN: Soft, nontender, nondistended. Positive bowel sounds. No evidence of hepatosplenomegaly. Currently, no rebound or guarding noted. EXTREMITIES: Negative for clubbing, cyanosis, or edema. RECTAL/GENITAL: Not performed. NEUROLOGIC: Cranial nerves II through XII are grossly intact without focal deficits. Assessment/Plan Assessment/Plan ASSESSMENT: This is an 84-year-old female with: 1. COVID-19 positive. 2. Pneumonia. 3. Alzheimer's dementia. 4. Hypertension. 5. Congestive heart failure. 6. Atrial fibrillation. 7. Hypothyroidism. 8. Diabetes type 2. 9. Hyponatremia-resolving TREATMENT: 1. COVID-19/pneumonia. Infectious Disease = Dr. Babcock. S/P Decadron ABX= S/P ceftriaxone; S/P azithromycin A Pulmonary consultation has been obtained with Dr. Riccardo Drew. Not a candidate for remdesivir per ID 2. Alzheimer's dementia. 3. Hypertension. The patient is currently hypotensive. Hold diltiazem. 4. Congestive heart failure. Cardiology consultation has been obtained with Dr. Hema Mcclure. 5. Atrial fibrillation. 6. Hypothyroidism. Continue Levoxyl as above. 7. Diabetes type 2. A NovoLog sliding scale has been instituted. Dudley Rebollar MD Jul 27, 2020 17:20
--- NOTE | 2020-07-27 18:51 | NUR ---
NURSE HAND-OFF: Important Events on Shift: assessed by wound care nurses, continue with isolation per ID Patient Status: stable Diet: pureed diet Pending Orders: Pending Results/Labs: Pending MD notification: Latest Vital Signs: Temperature 98.5 , Pulse 94 , B/P 133 /73 , Respiratory Rate 20 , O2 SAT 98 , Nasal Cannula, O2 Flow Rate 2.0 . Vital Sign Comment: Latest [place] Fall Score: 60 Fall Risk: High Risk Safety Measures: Call light Within Reach, Bed Alarm Zone 1, Side Rails Side Rails x3, Bed position Low and Locked. Fall Precautions: Yellow Socks Yellow Gown Door Sign Patient Fall Education Report given to Vega and endorsed plan of care.
--- NOTE | 2020-07-27 19:47 | NUR ---
NURSE NOTES: Received report from JENNIFER Bishop. AAO x 1, on NC 2L. IV site intact and patent. Fall precaution and Isolation maintained. Alanis in place and draining urine well. CX tomorrow. No labored breathing. Bed locked, lowest position, alarm on, side rails up, call light within reach. Will continue to monitor.
[2020-07-27 20:00] VITALS: BP 146/95
[2020-07-28] VITALS: BP 127/86
[2020-07-28 04:00] VITALS: BP 131/74
[2020-07-28] MEDS: NovoLOG Insulin Flexpen SUBQ SCH ×4 (05:36→21:06)
[2020-07-28 06:10] LABS: HEMATOCRIT 27.7 % (37.0-47.0); HEMOGLOBIN 9.9 G/DL (12.0-16.0); MEAN CORPUSCULAR VOLUME 90 FL (80-99); PLATELET COUNT 244 K/UL (150-450); RED BLOOD COUNT 3.06 M/UL (4.20-5.40); RED CELL DISTRIBUTION WIDTH 14.1 % (11.6-14.8); WHITE BLOOD COUNT 16.9 K/UL (4.8-10.8)
--- NOTE | 2020-07-28 06:31 | NUR ---
NURSE HAND-OFF: Important Events on Shift: Patient Status: stable Diet: ccho m, pureed moist Pending Orders: CX 07/28 Pending Results/Labs:am labs Pending MD notification: Latest Vital Signs: Temperature 97.5 , Pulse 100 , B/P 131 /74 , Respiratory Rate 18 , O2 SAT 98 , Nasal Cannula, O2 Flow Rate 2.0 . Vital Sign Comment: [] Latest [place] Fall Score: 60 Fall Risk: High Risk Safety Measures: Call light Within Reach, Bed Alarm Zone 1, Side Rails Side Rails x3, Bed position Low and Locked. Fall Precautions: Yellow Socks Yellow Gown Door Sign Patient Fall Education Addendum: 07/28/20 at 0733 by ISH YI RN RN HAND-OFF: Report given to
[2020-07-28 06:40] LABS: ALBUMIN 3.6 G/DL (3.4-5.0); BILIRUBIN,TOTAL 1.2 MG/DL (0.2-1.0); CALCIUM 9.3 MG/DL (8.5-10.1); CREATININE 1.1 MG/DL (0.55-1.30); POTASSIUM 3.7 MMOL/L (3.5-5.1)
[2020-07-28 06:44] LABS: BILIRUBIN,DIRECT 0.6 MG/DL (0.0-0.3)
[2020-07-28 08:00] VITALS: BP 107/70
--- NOTE | 2020-07-28 08:00 | NUR ---
NURSE NOTES: Patent alert to name. ,respirations unlabored.. 02 on at 2L N/C nelson catheter is in place and draining estefania color urine Heplock to the left arm intact.Will assist patient breakfast.Bed alarm is online communications specialist light within reach.
--- NOTE | 2020-07-28 08:20 | Infectious Diseases Prog Note ---
Assessment/Plan 84yo F with: Afebrile Normal WBC Leukopenia COVID pna, dx'd 07/08 at [facility] Acute hypoxic resp failure 2/2 COVID pna 07/19 BCx NTD UA +blood, 10-15 WBC, UCx NTD CXR: No acute infiltrate SUZETTE , sp 07/19 Renal US: Mild right hydro. R/o PE: 07/19 VQ scan: Asymmetric tracer distribution, left lung more than right. Suspect that this is artifactual, probably due to asymmetric overlapping soft tissues, but makes exam nondiagnostic for exclusion of pulmonary embolus PMH: CHF Afib HTN DM2 Dementia Plan: Cont dexamethasone 6mg daily #06/05 OK to d/c isolation precautions given pt tested positive on 07/08, which is now >10 days ago, and pt has symptomatically improved 07/23/20 SP CTX/azithro #5/5 empiric Would start RDV (SUZETTE improved, on 3 L NC) as per pharm, Hospital policy would not provide the Rx, if pt is not a candidate for RDV if DNR/DNI) No convalescent plasma available at this institution unfortunately Monitor CBC/CMP Monitor resp status Monitor temp curve, hemodynamics D/w RN Thank you for this consult. [facility] will continue to follow. Subjective Allergies: Coded Allergies: SULFAMETHOXAZOLE (Verified Allergy, Unknown, 07/19/20) TRIMETHOPRIM (Verified Allergy, Unknown, 07/19/20) AF WBC 16, improving on steroids NAD in bed on RA Objective Last 24 Hour Vital Signs Date Time Temp Pulse Resp B/P (MAP) Pulse Ox O2 Delivery O2 Flow Rate FiO2 07/28/20 04:00 97.5 100 18 131/74 (93) 98 07/28/20 00:00 96.3 64 17 127/86 (100) 96 07/27/20 21:00 Nasal Cannula 2.0 07/27/20 20:00 98.7 107 18 146/95 (112) 99 07/27/20 16:01 133/73 07/27/20 16:00 98.5 94 20 133/73 (93) 98 07/27/20 12:00 97.0 93 20 143/68 (93) 96 07/27/20 09:00 Nasal Cannula 2.0 07/27/20 08:48 105 150/88 Height (Feet): 5 Height (Inches): 6.00 Weight (Pounds): 130 Gen: NAD in bed on NC HEENT: NCAT Pulm: BL chest rise, non-labored Abd: Thin, soft, NTND Ext: No c/c/e Neuro: Sleeping Laboratory Tests Test 07/27/20 11:15 07/27/20 11:51 07/27/20 16:56 07/27/20 20:23 White Blood Count 18.9 K/UL (4.8-10.8) H Red Blood Count 3.03 M/UL (4.20-5.40) L Hemoglobin 9.8 G/DL (12.0-16.0) L Hematocrit 28.6 % (37.0-47.0) L Mean Corpuscular Volume 94 FL (80-99) Mean Corpuscular Hemoglobin 32.2 PG (27.0-31.0) H Mean Corpuscular Hemoglobin Concent 34.1 G/DL (32.0-36.0) Red Cell Distribution Width 13.0 % (11.6-14.8) Platelet Count 253 K/UL (150-450) Mean Platelet Volume 7.5 FL (6.5-10.1) Neutrophils (%) (Auto) % (45.0-75.0) Lymphocytes (%) (Auto) % (20.0-45.0) Monocytes (%) (Auto) % (1.0-10.0) Eosinophils (%) (Auto) % (0.0-3.0) Basophils (%) (Auto) % (0.0-2.0) Differential Total Cells Counted 100 Neutrophils % (Manual) 92 % (45-75) H Lymphocytes % (Manual) 3 % (20-45) L Monocytes % (Manual) 5 % (1-10) Eosinophils % (Manual) 0 % (0-3) Basophils % (Manual) 0 % (0-2) Band Neutrophils 0 % (0-8) Platelet Estimate Adequate Platelet Morphology Normal Hypochromasia 1+ Sodium Level 137 MMOL/L (136-145) Potassium Level 4.3 MMOL/L (3.5-5.1) Chloride Level 101 MMOL/L (98-107) Carbon Dioxide Level 28 MMOL/L (21-32) Anion Gap 8 mmol/L (5-15) Blood Urea Nitrogen 25 mg/dL (7-18) H Creatinine 1.0 MG/DL (0.55-1.30) Estimat Glomerular Filtration Rate 52.5 mL/min (>60) Glucose Level 223 MG/DL (74-106) H Calcium Level 9.4 MG/DL (8.5-10.1) POC Whole Blood Glucose 209 MG/DL (74-106) H 180 MG/DL (74-106) H 217 MG/DL (74-106) H Test 07/27/20 20:59 07/28/20 04:40 07/28/20 05:35 POC Whole Blood Glucose 144 MG/DL (74-106) H 182 MG/DL (74-106) H White Blood Count 16.9 K/UL (4.8-10.8) H Red Blood Count 3.06 M/UL (4.20-5.40) L Hemoglobin 9.9 G/DL (12.0-16.0) L Hematocrit 27.7 % (37.0-47.0) L Mean Corpuscular Volume 90 FL (80-99) Mean Corpuscular Hemoglobin 32.4 PG (27.0-31.0) H Mean Corpuscular Hemoglobin Concent 35.8 G/DL (32.0-36.0) Red Cell Distribution Width 14.1 % (11.6-14.8) Platelet Count 244 K/UL (150-450) Mean Platelet Volume 8.1 FL (6.5-10.1) Neutrophils (%) (Auto) % (45.0-75.0) Lymphocytes (%) (Auto) % (20.0-45.0) Monocytes (%) (Auto) % (1.0-10.0) Eosinophils (%) (Auto) % (0.0-3.0) Basophils (%) (Auto) % (0.0-2.0) Neutrophils % (Manual) Pending Lymphocytes % (Manual) Pending Platelet Estimate Pending Platelet Morphology Pending Erythrocyte Sedimentation Rate 36 MM/HR (0-30) H Sodium Level 135 MMOL/L (136-145) L Potassium Level 3.7 MMOL/L (3.5-5.1) Chloride Level 99 MMOL/L (98-107) Carbon Dioxide Level 27 MMOL/L (21-32) Anion Gap 9 mmol/L (5-15) Blood Urea Nitrogen 27 mg/dL (7-18) H Creatinine 1.1 MG/DL (0.55-1.30) Estimat Glomerular Filtration Rate 47.1 mL/min (>60) Glucose Level 178 MG/DL (74-106) H Uric Acid 2.9 MG/DL (2.6-7.2) Calcium Level 9.3 MG/DL (8.5-10.1) Phosphorus Level 2.0 MG/DL (2.5-4.9) L Magnesium Level 2.0 MG/DL (1.8-2.4) Total Bilirubin 1.2 MG/DL (0.2-1.0) H Direct Bilirubin 0.6 MG/DL (0.0-0.3) H Aspartate Amino Transf (AST/SGOT) 79 U/L (15-37) H Alanine Aminotransferase (ALT/SGPT) 148 U/L (12-78) H Alkaline Phosphatase 77 U/L (46-116) C-Reactive Protein, Quantitative 0.6 mg/dL (0.00-0.90) Total Protein 7.1 G/DL (6.4-8.2) Albumin 3.6 G/DL (3.4-5.0) Globulin 3.5 g/dL Albumin/Globulin Ratio 1.0 (1.0-2.7) Current Medications Medications (Trade) Dose Ordered Sig/Ranjeet Route PRN Reason Start Time Stop Time Status Last Admin Dose Admin Acetaminophen (Tylenol) 650 mg Q6H PRN ORAL Temp >100.5 07/19/20 09:15 08/18/20 09:14 Aspirin (Ecotrin) 81 mg DAILY ORAL 07/20/20 10:00 09/03/20 09:59 07/27/20 08:48 Dexamethasone Sodium Phosphate (Decadron 4mg/ml vial) 6 mg DAILY IVP 07/25/20 09:00 07/29/20 09:01 07/27/20 08:49 Dextrose (Dextrose 50%) 25 ml Q30M PRN IV Hypoglycemia 07/20/20 12:00 10/18/20 11:59 Dextrose (Dextrose 50%) 50 ml Q30M PRN IV Hypoglycemia 07/20/20 12:00 10/18/20 11:59 Diltiazem HCl (Cardizem ER) 240 mg DAILY ORAL 07/20/20 10:00 08/19/20 09:59 07/27/20 08:48 Docusate Sodium (Colace) 100 mg THREE TIMES A DAY NG 07/25/20 18:00 08/24/20 17:59 07/27/20 17:00 Heparin Sodium (Porcine) (Heparin 5000 units/ml) 5,000 units EVERY 12 HOURS SUBQ 07/23/20 10:30 09/06/20 10:29 07/27/20 20:18 Insulin Aspart (NovoLOG) give half dose if not eating BEFORE MEALS AND HS SUBQ 07/20/20 16:30 10/18/20 16:29 07/28/20 05:36 Levothyroxine Sodium (Synthroid) 100 mcg Q24H ORAL 07/21/20 06:30 08/20/20 06:29 07/28/20 05:29 Lisinopril (ZestriL) 10 mg DAILY ORAL 07/27/20 15:30 08/26/20 15:29 07/27/20 16:01 Ondansetron HCl (Zofran) 4 mg Q6H PRN IVP Nausea & Vomiting 07/19/20 09:15 08/18/20 09:14 Polyethylene Glycol (Miralax) 17 gm DAILYPRN PRN ORAL Constipation 07/19/20 09:15 08/18/20 09:14 Promethazine HCl/ Codeine (Phenergan with Codeine) 5 ml Q6H PRN ORAL cough 07/19/20 09:15 08/18/20 09:14 Nataly Babcock M.D. Jul 28, 2020 08:20
--- NOTE | 2020-07-28 10:10 | Nephrology Progress Note ---
Assessment/Plan Problem List: (1) SUZETTE (acute kidney injury) (2) Acute hyponatremia (3) Alzheimer's dementia (4) Chronic atrial fibrillation (5) Diabetes mellitus Assessment Acute renal failure Acute respiratory failure with hypoxia Severe hyponatremia Sepsis History of hypertension History of diabetes mellitus DNR DNI Plan July 28: Labs reviewed. Serum sodium up 135. Continue per consultants. Stable from renal standpoint of view. July 27: No labs drawn today. Last serum sodium was 132 for which patient received 3% saline. Will check lab tomorrow. July 26: Labs reviewed. Serum sodium 132. 250 cc 3% saline ordered. Continue per consultants. Continue to monitor renal parameters and electrolytes. July 25: Labs reviewed. Continue to observe serum sodium and glucose level. Continue per consultants. July 24: Labs reviewed. Abnormal electrolytes and chemistries addressed. Continue per consultants. July 23: Labs reviewed. Renal parameters stable. Continue per consultants. July 22: Labs reviewed. Renal parameters stable. Abnormal chemistries and electrolytes addressed. Continue per consultants. July 21: Serum sodium improved. Lab reviewed. Serum creatinine improved. Continue current management. July 20: Serum sodium 126. Labs reviewed. Serum creatinine down to 1.6. Medication list reviewed. Continue current management. Continue to monitor electrolytes and renal parameters. July 19: Saline infusion Monitor renal parameters and electrolytes Avoid nephrotoxic's Saline infusion Per consultants Subjective ROS Limited/Unobtainable: No Constitutional: Reports: malaise, weakness Objective Objective Last 24 Hour Vital Signs Date Time Temp Pulse Resp B/P (MAP) Pulse Ox O2 Delivery O2 Flow Rate FiO2 07/28/20 04:00 97.5 100 18 131/74 (93) 98 07/28/20 00:00 96.3 64 17 127/86 (100) 96 07/27/20 21:00 Nasal Cannula 2.0 07/27/20 20:00 98.7 107 18 146/95 (112) 99 07/27/20 16:01 133/73 07/27/20 16:00 98.5 94 20 133/73 (93) 98 07/27/20 12:00 97.0 93 20 143/68 (93) 96 Intake and Output 07/27/20 07/28/20 19:00 07:00 Intake Total 420 ml 360 ml Output Total 550 ml 200 ml Balance -130 ml 160 ml Intake Oral 420 ml Other 360 ml Output Urine Total 550 ml 200 ml Current Medications Medications (Trade) Dose Ordered Sig/Ranjeet Route PRN Reason Start Time Stop Time Status Last Admin Dose Admin Acetaminophen (Tylenol) 650 mg Q6H PRN ORAL Temp >100.5 07/19/20 09:15 08/18/20 09:14 Aspirin (Ecotrin) 81 mg DAILY ORAL 07/20/20 10:00 09/03/20 09:59 07/27/20 08:48 Dexamethasone Sodium Phosphate (Decadron 4mg/ml vial) 6 mg DAILY IVP 07/25/20 09:00 07/29/20 09:01 07/27/20 08:49 Dextrose (Dextrose 50%) 25 ml Q30M PRN IV Hypoglycemia 07/20/20 12:00 10/18/20 11:59 Dextrose (Dextrose 50%) 50 ml Q30M PRN IV Hypoglycemia 07/20/20 12:00 10/18/20 11:59 Diltiazem HCl (Cardizem ER) 240 mg DAILY ORAL 07/20/20 10:00 08/19/20 09:59 07/27/20 08:48 Docusate Sodium (Colace) 100 mg THREE TIMES A DAY NG 07/25/20 18:00 08/24/20 17:59 07/27/20 17:00 Heparin Sodium (Porcine) (Heparin 5000 units/ml) 5,000 units EVERY 12 HOURS SUBQ 07/23/20 10:30 09/06/20 10:29 07/27/20 20:18 Insulin Aspart (NovoLOG) give half dose if not eating BEFORE MEALS AND HS SUBQ 07/20/20 16:30 10/18/20 16:29 07/28/20 05:36 Levothyroxine Sodium (Synthroid) 100 mcg Q24H ORAL 07/21/20 06:30 08/20/20 06:29 07/28/20 05:29 Lisinopril (ZestriL) 10 mg DAILY ORAL 07/27/20 15:30 08/26/20 15:29 07/27/20 16:01 Ondansetron HCl (Zofran) 4 mg Q6H PRN IVP Nausea & Vomiting 07/19/20 09:15 08/18/20 09:14 Polyethylene Glycol (Miralax) 17 gm DAILYPRN PRN ORAL Constipation 07/19/20 09:15 08/18/20 09:14 Promethazine HCl/ Codeine (Phenergan with Codeine) 5 ml Q6H PRN ORAL cough 07/19/20 09:15 08/18/20 09:14 Laboratory Tests 07/27/20 11:15: White Blood Count 18.9H, Red Blood Count 3.03L, Hemoglobin 9.8L, Hematocrit 28.6L, Mean Corpuscular Volume 94, Mean Corpuscular Hemoglobin 32.2H, Mean Corpuscular Hemoglobin Concent 34.1, Red Cell Distribution Width 13.0, Platelet Count 253, Mean Platelet Volume 7.5, Neutrophils (%) (Auto) , Lymphocytes (%) (Auto) , Monocytes (%) (Auto) , Eosinophils (%) (Auto) , Basophils (%) (Auto) , Differential Total Cells Counted 100, Neutrophils % (Manual) 92H, Lymphocytes % (Manual) 3L, Monocytes % (Manual) 5, Eosinophils % (Manual) 0, Basophils % (Manual) 0, Band Neutrophils 0, Platelet Estimate Adequate, Platelet Morphology Normal, Hypochromasia 1+, Sodium Level 137, Potassium Level 4.3, Chloride Level 101, Carbon Dioxide Level 28, Anion Gap 8, Blood Urea Nitrogen 25H, Creatinine 1.0, Estimat Glomerular Filtration Rate 52.5, Glucose Level 223H, Calcium Level 9.4 07/27/20 11:51: POC Whole Blood Glucose 209H 07/27/20 16:56: POC Whole Blood Glucose 180H 07/27/20 20:23: POC Whole Blood Glucose 217H 07/27/20 20:59: POC Whole Blood Glucose 144H 07/28/20 04:40: White Blood Count 16.9H, Red Blood Count 3.06L, Hemoglobin 9.9L, Hematocrit 27.7L, Mean Corpuscular Volume 90, Mean Corpuscular Hemoglobin 32.4H, Mean Corpuscular Hemoglobin Concent 35.8, Red Cell Distribution Width 14.1, Platelet Count 244, Mean Platelet Volume 8.1, Neutrophils (%) (Auto) , Lymphocytes (%) (Auto) , Monocytes (%) (Auto) , Eosinophils (%) (Auto) , Basophils (%) (Auto) , Differential Total Cells Counted 100, Neutrophils % (Manual) 87H, Lymphocytes % (Manual) 7L, Monocytes % (Manual) 6, Eosinophils % (Manual) 0, Basophils % (Manual) 0, Band Neutrophils 0, Platelet Estimate Adequate, Platelet Morphology Normal, Anisocytosis 1+, Erythrocyte Sedimentation Rate 36H, Sodium Level 135L, Potassium Level 3.7, Chloride Level 99, Carbon Dioxide Level 27, Anion Gap 9, Blood Urea Nitrogen 27H, Creatinine 1.1, Estimat Glomerular Filtration Rate 47.1, Glucose Level 178H, Uric Acid 2.9, Calcium Level 9.3, Phosphorus Level 2.0L, Magnesium Level 2.0, Total Bilirubin 1.2H, Direct Bilirubin 0.6H, Aspartate Amino Transf (AST/SGOT) 79H, Alanine Aminotransferase (ALT/SGPT) 148H, Alkaline Phosphatase 77, C-Reactive Protein, Quantitative 0.6, Total Protein 7.1, Albumin 3.6, Globulin 3.5, Albumin/Globulin Ratio 1.0 07/28/20 05:35: POC Whole Blood Glucose 182H Height (Feet): 5 Height (Inches): 6.00 Weight (Pounds): 130 General Appearance: no apparent distress Cardiovascular: tachycardia, other - Variable rate Respiratory/Chest: decreased breath sounds Abdomen: distended Objective No change Jethro Cleaning MD Jul 28, 2020 10:10
[2020-07-28] MEDS: Heparin 5000 units/ml inj SUBQ SCH ×2 (10:43→21:04)
[2020-07-28] MEDS: Aspirin EC 81mg tab ORAL SCH (10:48)
[2020-07-28] MEDS: Docusate 100mg/10ml Liq NG SCH ×3 (10:56→18:00)
[2020-07-28] MEDS: Lisinopril 10mg tab ORAL SCH (10:59)
[2020-07-28] MEDS: DILTIAZEM HCL 240 MG ORAL SCH (11:00)
--- NOTE | 2020-07-28 11:37 | Internal Med Progress Note ---
Subjective Date of Service: Jul 28, 2020 Physician Name KeturahDudley Attending Physician Mateo Rankin MD Current Medications Medications (Trade) Dose Ordered Sig/Ranjeet Route PRN Reason Start Time Stop Time Status Last Admin Dose Admin Acetaminophen (Tylenol) 650 mg Q6H PRN ORAL Temp >100.5 07/19/20 09:15 08/18/20 09:14 Aspirin (Ecotrin) 81 mg DAILY ORAL 07/20/20 10:00 09/03/20 09:59 07/28/20 10:48 Dexamethasone Sodium Phosphate (Decadron 4mg/ml vial) 6 mg DAILY IVP 07/25/20 09:00 07/29/20 09:01 07/28/20 10:56 Dextrose (Dextrose 50%) 25 ml Q30M PRN IV Hypoglycemia 07/20/20 12:00 10/18/20 11:59 Dextrose (Dextrose 50%) 50 ml Q30M PRN IV Hypoglycemia 07/20/20 12:00 10/18/20 11:59 Diltiazem HCl (Cardizem ER) 240 mg DAILY ORAL 07/20/20 10:00 08/19/20 09:59 07/28/20 11:00 Docusate Sodium (Colace) 100 mg THREE TIMES A DAY NG 07/25/20 18:00 08/24/20 17:59 07/28/20 10:56 Heparin Sodium (Porcine) (Heparin 5000 units/ml) 5,000 units EVERY 12 HOURS SUBQ 07/23/20 10:30 09/06/20 10:29 07/28/20 10:43 Insulin Aspart (NovoLOG) give half dose if not eating BEFORE MEALS AND HS SUBQ 07/20/20 16:30 10/18/20 16:29 07/28/20 05:36 Levothyroxine Sodium (Synthroid) 100 mcg Q24H ORAL 07/21/20 06:30 08/20/20 06:29 07/28/20 05:29 Lisinopril (ZestriL) 10 mg DAILY ORAL 07/27/20 15:30 08/26/20 15:29 07/28/20 10:59 Ondansetron HCl (Zofran) 4 mg Q6H PRN IVP Nausea & Vomiting 07/19/20 09:15 08/18/20 09:14 Polyethylene Glycol (Miralax) 17 gm DAILYPRN PRN ORAL Constipation 07/19/20 09:15 08/18/20 09:14 Promethazine HCl/ Codeine (Phenergan with Codeine) 5 ml Q6H PRN ORAL cough 07/19/20 09:15 08/18/20 09:14 Allergies: Coded Allergies: SULFAMETHOXAZOLE (Verified Allergy, Unknown, 07/19/20) TRIMETHOPRIM (Verified Allergy, Unknown, 07/19/20) ROS Limited/Unobtainable: Yes Subjective 84 YO F admitted with COVID 19 pos and respiratory failure. Now COVID 19 pneumonia. Cover for Int Med-Dr Rankin Objective Last Vital Signs Date Time Temp Pulse Resp B/P (MAP) Pulse Ox O2 Delivery O2 Flow Rate FiO2 07/28/20 11:00 98 133/61 07/28/20 09:00 Nasal Cannula 2.0 07/28/20 08:00 97.5 20 100 07/26/20 16:00 28 Laboratory Tests Test 07/27/20 11:51 07/27/20 16:56 07/27/20 20:23 07/27/20 20:59 POC Whole Blood Glucose 209 MG/DL (74-106) H 180 MG/DL (74-106) H 217 MG/DL (74-106) H 144 MG/DL (74-106) H Test 07/28/20 04:40 07/28/20 05:35 White Blood Count 16.9 K/UL (4.8-10.8) H Red Blood Count 3.06 M/UL (4.20-5.40) L Hemoglobin 9.9 G/DL (12.0-16.0) L Hematocrit 27.7 % (37.0-47.0) L Mean Corpuscular Volume 90 FL (80-99) Mean Corpuscular Hemoglobin 32.4 PG (27.0-31.0) H Mean Corpuscular Hemoglobin Concent 35.8 G/DL (32.0-36.0) Red Cell Distribution Width 14.1 % (11.6-14.8) Platelet Count 244 K/UL (150-450) Mean Platelet Volume 8.1 FL (6.5-10.1) Neutrophils (%) (Auto) % (45.0-75.0) Lymphocytes (%) (Auto) % (20.0-45.0) Monocytes (%) (Auto) % (1.0-10.0) Eosinophils (%) (Auto) % (0.0-3.0) Basophils (%) (Auto) % (0.0-2.0) Differential Total Cells Counted 100 Neutrophils % (Manual) 87 % (45-75) H Lymphocytes % (Manual) 7 % (20-45) L Monocytes % (Manual) 6 % (1-10) Eosinophils % (Manual) 0 % (0-3) Basophils % (Manual) 0 % (0-2) Band Neutrophils 0 % (0-8) Platelet Estimate Adequate Platelet Morphology Normal Anisocytosis 1+ Erythrocyte Sedimentation Rate 36 MM/HR (0-30) H Sodium Level 135 MMOL/L (136-145) L Potassium Level 3.7 MMOL/L (3.5-5.1) Chloride Level 99 MMOL/L (98-107) Carbon Dioxide Level 27 MMOL/L (21-32) Anion Gap 9 mmol/L (5-15) Blood Urea Nitrogen 27 mg/dL (7-18) H Creatinine 1.1 MG/DL (0.55-1.30) Estimat Glomerular Filtration Rate 47.1 mL/min (>60) Glucose Level 178 MG/DL (74-106) H Uric Acid 2.9 MG/DL (2.6-7.2) Calcium Level 9.3 MG/DL (8.5-10.1) Phosphorus Level 2.0 MG/DL (2.5-4.9) L Magnesium Level 2.0 MG/DL (1.8-2.4) Total Bilirubin 1.2 MG/DL (0.2-1.0) H Direct Bilirubin 0.6 MG/DL (0.0-0.3) H Aspartate Amino Transf (AST/SGOT) 79 U/L (15-37) H Alanine Aminotransferase (ALT/SGPT) 148 U/L (12-78) H Alkaline Phosphatase 77 U/L (46-116) C-Reactive Protein, Quantitative 0.6 mg/dL (0.00-0.90) Total Protein 7.1 G/DL (6.4-8.2) Albumin 3.6 G/DL (3.4-5.0) Globulin 3.5 g/dL Albumin/Globulin Ratio 1.0 (1.0-2.7) POC Whole Blood Glucose 182 MG/DL (74-106) H Intake and Output 07/27/20 07/28/20 18:59 06:59 Intake Total 420 ml 360 ml Output Total 550 ml 200 ml Balance -130 ml 160 ml Intake Oral 420 ml Other 360 ml Output Urine Total 550 ml 200 ml Objective PHYSICAL EXAMINATION: GENERAL: The patient is a well-developed and well-nourished female, in moderate respiratory distress. HEENT: Eyes, pupils are equal and responsive to light and accommodation. Extraocular movements are intact. NECK: Supple without lymphadenopathy. CHEST: Decreased breath sounds in bilateral bases, otherwise without wheezes or rales. CARDIOVASCULAR: Regular rhythm and rate. S1, S2 normal without murmurs, rubs, or gallops. ABDOMEN: Soft, nontender, nondistended. Positive bowel sounds. No evidence of hepatosplenomegaly. Currently, no rebound or guarding noted. EXTREMITIES: Negative for clubbing, cyanosis, or edema. RECTAL/GENITAL: Not performed. NEUROLOGIC: Cranial nerves II through XII are grossly intact without focal deficits. Assessment/Plan Assessment/Plan ASSESSMENT: This is an 84-year-old female with: 1. Previous COVID-19 positive-now negative 2. Pneumonia. 3. Alzheimer's dementia. 4. Hypertension. 5. Congestive heart failure. 6. Atrial fibrillation. 7. Hypothyroidism. 8. Diabetes type 2. 9. Hyponatremia-resolving TREATMENT: 1. COVID-19/pneumonia. Infectious Disease = Dr. Babcock. S/P Decadron ABX= S/P ceftriaxone; S/P azithromycin A Pulmonary consultation has been obtained with Dr. Riccardo Drew. Not a candidate for remdesivir per ID 2. Alzheimer's dementia. 3. Hypertension. The patient is currently hypotensive. Hold diltiazem. 4. Congestive heart failure. Cardiology consultation has been obtained with Dr. Hema Mcclure. 5. Atrial fibrillation. 6. Hypothyroidism. Continue Levoxyl as above. 7. Diabetes type 2. A NovoLog sliding scale has been instituted. Dudley Rebollar MD Jul 28, 2020 11:37
[2020-07-28 12:00] VITALS: BP 110/70
--- NOTE | 2020-07-28 12:04 | NUR ---
NURSE NOTES: RN received order from Dr. Babcock to discontinue contact/droplet isolation.
--- NOTE | 2020-07-28 12:56 | Pulmonology Progress Note ---
Subjective ROS Limited/Unobtainable: Yes Constitutional: Reports: no symptoms HEENT: Repors: no symptoms Respiratory: Reports: no symptoms Allergies: Coded Allergies: SULFAMETHOXAZOLE (Verified Allergy, Unknown, 07/19/20) TRIMETHOPRIM (Verified Allergy, Unknown, 07/19/20) Objective Last 24 Hour Vital Signs Date Time Temp Pulse Resp B/P (MAP) Pulse Ox O2 Delivery O2 Flow Rate FiO2 07/28/20 12:00 98.1 92 19 110/70 (83) 100 07/28/20 11:00 98 133/61 07/28/20 10:59 133/61 07/28/20 09:00 Nasal Cannula 2.0 07/28/20 08:00 97.5 101 20 107/70 (82) 100 07/28/20 04:00 97.5 100 18 131/74 (93) 98 07/28/20 00:00 96.3 64 17 127/86 (100) 96 07/27/20 21:00 Nasal Cannula 2.0 07/27/20 20:00 98.7 107 18 146/95 (112) 99 07/27/20 16:01 133/73 07/27/20 16:00 98.5 94 20 133/73 (93) 98 l Intake and Output 07/27/20 07/28/20 19:00 07:00 Intake Total 420 ml 360 ml Output Total 550 ml 200 ml Balance -130 ml 160 ml Intake Oral 420 ml Other 360 ml Output Urine Total 550 ml 200 ml General Appearance: cachetic HEENT: normocephalic, atraumatic Respiratory: chest wall non-tender, lungs clear Cardiovascular: normal peripheral pulses, normal rate Abdomen: normal bowel sounds, soft, non tender, no organomegaly Genitourinary: normal external genitalia Skin: no rash Lymphatic: no neck adenopathy, no groin adenopathy Laboratory Tests 07/27/20 16:56: POC Whole Blood Glucose 180H 07/27/20 20:23: POC Whole Blood Glucose 217H 07/27/20 20:59: POC Whole Blood Glucose 144H 07/28/20 04:40: White Blood Count 16.9H, Red Blood Count 3.06L, Hemoglobin 9.9L, Hematocrit 27.7L, Mean Corpuscular Volume 90, Mean Corpuscular Hemoglobin 32.4H, Mean Corpuscular Hemoglobin Concent 35.8, Red Cell Distribution Width 14.1, Platelet Count 244, Mean Platelet Volume 8.1, Neutrophils (%) (Auto) , Lymphocytes (%) (Auto) , Monocytes (%) (Auto) , Eosinophils (%) (Auto) , Basophils (%) (Auto) , Differential Total Cells Counted 100, Neutrophils % (Manual) 87H, Lymphocytes % (Manual) 7L, Monocytes % (Manual) 6, Eosinophils % (Manual) 0, Basophils % (Manual) 0, Band Neutrophils 0, Platelet Estimate Adequate, Platelet Morphology Normal, Anisocytosis 1+, Erythrocyte Sedimentation Rate 36H, Sodium Level 135L, Potassium Level 3.7, Chloride Level 99, Carbon Dioxide Level 27, Anion Gap 9, Blood Urea Nitrogen 27H, Creatinine 1.1, Estimat Glomerular Filtration Rate 47.1, Glucose Level 178H, Uric Acid 2.9, Calcium Level 9.3, Phosphorus Level 2.0L, Magnesium Level 2.0, Total Bilirubin 1.2H, Direct Bilirubin 0.6H, Aspartate Amino Transf (AST/SGOT) 79H, Alanine Aminotransferase (ALT/SGPT) 148H, Alkaline Phosphatase 77, C-Reactive Protein, Quantitative 0.6, Total Protein 7.1, Albumin 3.6, Globulin 3.5, Albumin/Globulin Ratio 1.0 07/28/20 05:35: POC Whole Blood Glucose 182H 07/28/20 12:28: POC Whole Blood Glucose 175H Current Medications Medications (Trade) Dose Ordered Sig/Ranjeet Route PRN Reason Start Time Stop Time Status Last Admin Dose Admin Acetaminophen (Tylenol) 650 mg Q6H PRN ORAL Temp >100.5 07/19/20 09:15 08/18/20 09:14 Aspirin (Ecotrin) 81 mg DAILY ORAL 07/20/20 10:00 09/03/20 09:59 07/28/20 10:48 Dexamethasone Sodium Phosphate (Decadron 4mg/ml vial) 6 mg DAILY IVP 07/25/20 09:00 07/29/20 09:01 07/28/20 10:56 Dextrose (Dextrose 50%) 25 ml Q30M PRN IV Hypoglycemia 07/20/20 12:00 10/18/20 11:59 Dextrose (Dextrose 50%) 50 ml Q30M PRN IV Hypoglycemia 07/20/20 12:00 10/18/20 11:59 Diltiazem HCl (Cardizem ER) 240 mg DAILY ORAL 07/20/20 10:00 08/19/20 09:59 07/28/20 11:00 Docusate Sodium (Colace) 100 mg THREE TIMES A DAY NG 07/25/20 18:00 08/24/20 17:59 07/28/20 10:56 Heparin Sodium (Porcine) (Heparin 5000 units/ml) 5,000 units EVERY 12 HOURS SUBQ 07/23/20 10:30 09/06/20 10:29 07/28/20 10:43 Insulin Aspart (NovoLOG) give half dose if not eating BEFORE MEALS AND HS SUBQ 07/20/20 16:30 10/18/20 16:29 07/28/20 12:32 Levothyroxine Sodium (Synthroid) 100 mcg Q24H ORAL 07/21/20 06:30 08/20/20 06:29 07/28/20 05:29 Lisinopril (ZestriL) 10 mg DAILY ORAL 07/27/20 15:30 08/26/20 15:29 07/28/20 10:59 Ondansetron HCl (Zofran) 4 mg Q6H PRN IVP Nausea & Vomiting 07/19/20 09:15 08/18/20 09:14 Polyethylene Glycol (Miralax) 17 gm DAILYPRN PRN ORAL Constipation 07/19/20 09:15 08/18/20 09:14 Promethazine HCl/ Codeine (Phenergan with Codeine) 5 ml Q6H PRN ORAL cough 07/19/20 09:15 08/18/20 09:14 Assessment/Plan Problems: (1) Respiratory failure with hypoxia (2) Acute hyponatremia (3) SUZETTE (acute kidney injury) (4) Chronic atrial fibrillation (5) Diabetes mellitus (6) Alzheimer's dementia Assessment/Plan wbc still high, slightly lower no new complains renal function stable, No new cultures sliding scale diabetic diet, pending swallow study respiratory treatment titrate fio2 to sat of 92% dvt prophylaxis. Riccardo Drew MD Jul 28, 2020 12:56
--- NOTE | 2020-07-28 14:44 | NUR ---
CASE MANAGEMENT:REVIEW SI;COVID PNA. SEPSIS. 98.1 101 20 133/61 98% 2L NC WBC 16.9 H/H 9.3/27.7 BUN 27 BG 178 PHOS 2.0 T-BILI 1.2 D-BILI 0.6 AST 79 ALT 148 IS;LISINOPRIL PO QD DECADRON IV #9/10 HEPARIN SUBQ Q12 ASA PO QD MED SURG STATUS DCP;FROM [facility]
[2020-07-28 16:00] VITALS: BP 131/70
--- NOTE | 2020-07-28 16:44 | Diagnostic Imaging Report ---
Indication: Dyspnea Technique: One view of the chest Comparison: 07/22/2020 Findings: No acute infiltrates, effusions, or congestion. Tortuous calcified aorta. Normal heart size. Upper mediastinum unremarkable. No significant change Impression: No acute process.
--- NOTE | 2020-07-28 19:00 | NUR ---
NURSE NOTES: Attempt to assist patient with dinner,not eating, insulin not given will endorse and try later.Bed alarm on, call light within reach.
--- NOTE | 2020-07-28 19:04 | Consultation ---
History of Present Illness General Date patient seen: Jul 28, 2020 Reason for Hospitalization: Dyspnea/Respdistress Present Illness HPI 84 year old female multiple medical comorbidities currently admitted with respiratory decline under medical treatment note to have persistent leukocy tosis, abnormal lft's, and decubitus ulcers. surgery called to evaluate and assist with care. patient seen, chart reviewed, patient examined. limited history Allergies: Coded Allergies: SULFAMETHOXAZOLE (Verified Allergy, Unknown, 07/19/20) TRIMETHOPRIM (Verified Allergy, Unknown, 07/19/20) COVID-19 Screening Contact w/high risk pt: Yes Experienced COVID-19 symptoms?: Yes Coronavirus symptoms experienc: Fatigue, Shortness of Breath, Cough Medication History Scheduled Albuterol Sulfate* (Albuterol Sulfate Hfa*), 2 PUFF INH Q6H, (Reported) Ascorbic Acid* (Ascorbic Acid*), 500 MG ORAL DAILY, (Reported) Ascorbic Acid* (Ascorbic Acid*), 1,000 MG ORAL DAILY, (Reported) Chlorhexidine Gluconate (Peridex), 15 ML MM BID, (Reported) Cholecalciferol (Vitamin D3) (Vitamin D3*), 25 MCG PO DAILY, (Reported) Cyanocobalamin (Vitamin B-12)* (Vitamin B-12*), 2,500 MCG ORAL DAILY, (Reported) Diltiazem Hcl* (Cardizem Cd*), 240 MG ORAL DAILY, (Reported) Furosemide* (Lasix*), 20 MG ORAL DAILY, (Reported) Insulin Regular, Human* (Novolin R*), 0 SUBQ .SLIDING SCALE, (Reported) Levothyroxine Sodium* (Synthroid*), 100 MCG ORAL DAILY, (Reported) Losartan Potassium* (Losartan Potassium*), 50 MG ORAL DAILY, (Reported) Magnesium Oxide (Magnesium), 400 MG PO BID, (Reported) Melatonin (Melatonin), 3 MG PO BEDTIME, (Reported) Metformin Hcl (Metformin Hcl Er), 750 MG ORAL BID, (Reported) Metoprolol Tartrate* (Metoprolol Tartrate*), 100 MG ORAL EVERY 12 HOURS, (Reported) Mirtazapine* (Mirtazapine*), 15 MG ORAL BEDTIME, (Reported) Multivit W-Mn/Fa/Lycop/Lut/Ala (Multi-Betic Tablet), 1 TAB ORAL DAILY, (Reported) Potassium Chloride (Potassium Chloride), 10 MEQ PO DAILY, (Reported) Zinc Sulfate (Zinc Sulfate*), 220 MG ORAL DAILY, (Reported) Scheduled PRN Acetaminophen* (Acetaminophen 325MG Tablet*), 650 MG ORAL Q6H PRN for Temp >100.5, (Reported) Patient History Limited by: age, medical condition History Provided By: Medical Record, PMD Healthcare decision maker Resuscitation status Advanced Directive on File Past Medical/Surgical History Past Medical/Surgical History: (1) Alzheimer's dementia (2) Dizziness (3) Hyponatremia (4) Rhabdomyolysis (5) Acute hyponatremia (6) SUZETTE (acute kidney injury) (7) Sepsis (8) Respiratory failure with hypoxia (9) Pneumonia due to COVID-19 virus (10) Chronic atrial fibrillation (11) Diabetes mellitus Review of Systems Review of Symptoms General ROS: no weight loss or fever Psychological ROS: no depression or mood changes, no memory loss Ophthalmic ROS: no visual changes or eye irritation ENT ROS: no nasal congestion, hearing loss, dizziness Allergy and Immunology ROS: no allergic symptoms or urticaria Hematological and Lymphatic ROS: no swollen glands, unusual bleeding or bruising Endocrine ROS: no polyuria, polydipsia, weight changes, temperature intolerance Respiratory ROS: no cough, shortness of breath, or wheezing Cardiovascular ROS: no chest pain or dyspnea on exertion Gastrointestinal ROS: denies abdominal pain, bright red blood in stool. Musculoskeletal ROS: no myalgias or arthralgias Neurological ROS: no TIA or stroke symptoms Dermatological ROS: no new or changing skin lesions, rashes or pruritis limited Physical Exam Physical Exam General appearance: alert, no distress, appears stated age Head: Normocephalic, without obvious abnormality, atraumatic Eyes: conjunctivae/corneas clear. PERRL, EOM's intact. Fundi benign Throat: Lips, mucosa, and tongue normal. Teeth and gums normal Neck: supple, symmetrical, trachea midline, no adenopathy, thyroid: not enlarged, symmetric, no tenderness/mass/nodules, no carotid bruit and no JVD Lungs: clear to auscultation bilaterally Heart: regular rate and rhythm, S1, S2 normal, no murmur, click, rub or gallop Abdomen: soft, non-tender. Bowel sounds normal. No masses, no organomegaly Extremities: extremities normal, atraumatic, no cyanosis or edema Pulses: 2+ and symmetric Skin: Skin see below Neurologic: Grossly normal Last 24 Hour Vital Signs Date Time Temp Pulse Resp B/P (MAP) Pulse Ox O2 Delivery O2 Flow Rate FiO2 07/28/20 16:00 98.1 73 19 131/70 (90) 96 07/28/20 12:00 98.1 92 19 110/70 (83) 100 07/28/20 11:00 98 133/61 07/28/20 10:59 133/61 07/28/20 09:00 Nasal Cannula 2.0 07/28/20 08:00 97.5 101 20 107/70 (82) 100 07/28/20 04:00 97.5 100 18 131/74 (93) 98 07/28/20 00:00 96.3 64 17 127/86 (100) 96 07/27/20 21:00 Nasal Cannula 2.0 07/27/20 20:00 98.7 107 18 146/95 (112) 99 Intake and Output 07/27/20 07/28/20 19:00 07:00 Intake Total 420 ml 360 ml Output Total 550 ml 200 ml Balance -130 ml 160 ml Intake Oral 420 ml Other 360 ml Output Urine Total 550 ml 200 ml Laboratory Tests Test 07/27/20 20:23 07/27/20 20:59 07/28/20 04:40 07/28/20 05:35 POC Whole Blood Glucose 217 MG/DL (74-106) H 144 MG/DL (74-106) H 182 MG/DL (74-106) H White Blood Count 16.9 K/UL (4.8-10.8) H Red Blood Count 3.06 M/UL (4.20-5.40) L Hemoglobin 9.9 G/DL (12.0-16.0) L Hematocrit 27.7 % (37.0-47.0) L Mean Corpuscular Volume 90 FL (80-99) Mean Corpuscular Hemoglobin 32.4 PG (27.0-31.0) H Mean Corpuscular Hemoglobin Concent 35.8 G/DL (32.0-36.0) Red Cell Distribution Width 14.1 % (11.6-14.8) Platelet Count 244 K/UL (150-450) Mean Platelet Volume 8.1 FL (6.5-10.1) Neutrophils (%) (Auto) % (45.0-75.0) Lymphocytes (%) (Auto) % (20.0-45.0) Monocytes (%) (Auto) % (1.0-10.0) Eosinophils (%) (Auto) % (0.0-3.0) Basophils (%) (Auto) % (0.0-2.0) Differential Total Cells Counted 100 Neutrophils % (Manual) 87 % (45-75) H Lymphocytes % (Manual) 7 % (20-45) L Monocytes % (Manual) 6 % (1-10) Eosinophils % (Manual) 0 % (0-3) Basophils % (Manual) 0 % (0-2) Band Neutrophils 0 % (0-8) Platelet Estimate Adequate Platelet Morphology Normal Anisocytosis 1+ Erythrocyte Sedimentation Rate 36 MM/HR (0-30) H Sodium Level 135 MMOL/L (136-145) L Potassium Level 3.7 MMOL/L (3.5-5.1) Chloride Level 99 MMOL/L (98-107) Carbon Dioxide Level 27 MMOL/L (21-32) Anion Gap 9 mmol/L (5-15) Blood Urea Nitrogen 27 mg/dL (7-18) H Creatinine 1.1 MG/DL (0.55-1.30) Estimat Glomerular Filtration Rate 47.1 mL/min (>60) Glucose Level 178 MG/DL (74-106) H Uric Acid 2.9 MG/DL (2.6-7.2) Calcium Level 9.3 MG/DL (8.5-10.1) Phosphorus Level 2.0 MG/DL (2.5-4.9) L Magnesium Level 2.0 MG/DL (1.8-2.4) Total Bilirubin 1.2 MG/DL (0.2-1.0) H Direct Bilirubin 0.6 MG/DL (0.0-0.3) H Aspartate Amino Transf (AST/SGOT) 79 U/L (15-37) H Alanine Aminotransferase (ALT/SGPT) 148 U/L (12-78) H Alkaline Phosphatase 77 U/L (46-116) C-Reactive Protein, Quantitative 0.6 mg/dL (0.00-0.90) Total Protein 7.1 G/DL (6.4-8.2) Albumin 3.6 G/DL (3.4-5.0) Globulin 3.5 g/dL Albumin/Globulin Ratio 1.0 (1.0-2.7) Test 07/28/20 12:28 07/28/20 17:14 POC Whole Blood Glucose 175 MG/DL (74-106) H Pending Height (Feet): 5 Height (Inches): 6.00 Weight (Pounds): 130 Medications Current Medications Medications (Trade) Dose Ordered Sig/Ranjeet Route PRN Reason Start Time Stop Time Status Last Admin Dose Admin Acetaminophen (Tylenol) 650 mg Q6H PRN ORAL Temp >100.5 07/19/20 09:15 08/18/20 09:14 Aspirin (Ecotrin) 81 mg DAILY ORAL 07/20/20 10:00 09/03/20 09:59 07/28/20 10:48 Dexamethasone Sodium Phosphate (Decadron 4mg/ml vial) 6 mg DAILY IVP 07/25/20 09:00 07/29/20 09:01 07/28/20 10:56 Dextrose (Dextrose 50%) 25 ml Q30M PRN IV Hypoglycemia 07/20/20 12:00 10/18/20 11:59 Dextrose (Dextrose 50%) 50 ml Q30M PRN IV Hypoglycemia 07/20/20 12:00 10/18/20 11:59 Diltiazem HCl (Cardizem ER) 240 mg DAILY ORAL 07/20/20 10:00 08/19/20 09:59 07/28/20 11:00 Docusate Sodium (Colace) 100 mg THREE TIMES A DAY NG 07/25/20 18:00 08/24/20 17:59 07/28/20 10:56 Heparin Sodium (Porcine) (Heparin 5000 units/ml) 5,000 units EVERY 12 HOURS SUBQ 07/23/20 10:30 09/06/20 10:29 07/28/20 10:43 Insulin Aspart (NovoLOG) give half dose if not eating BEFORE MEALS AND HS SUBQ 07/20/20 16:30 10/18/20 16:29 07/28/20 12:32 Levothyroxine Sodium (Synthroid) 100 mcg Q24H ORAL 07/21/20 06:30 08/20/20 06:29 07/28/20 05:29 Lisinopril (ZestriL) 10 mg DAILY ORAL 07/27/20 15:30 08/26/20 15:29 07/28/20 10:59 Ondansetron HCl (Zofran) 4 mg Q6H PRN IVP Nausea & Vomiting 07/19/20 09:15 08/18/20 09:14 Polyethylene Glycol (Miralax) 17 gm DAILYPRN PRN ORAL Constipation 07/19/20 09:15 08/18/20 09:14 Promethazine HCl/ Codeine (Phenergan with Codeine) 5 ml Q6H PRN ORAL cough 07/19/20 09:15 08/18/20 09:14 Assessment/Plan Problem List: (1) Alzheimer's dementia ICD Codes: G30.9 - Alzheimer's disease, unspecified; F02.80 - Dementia in other diseases classified elsewhere without behavioral disturbance SNOMED: 44688378 (2) Dizziness ICD Codes: R42 - Dizziness and giddiness SNOMED: 931074992 (3) Hyponatremia ICD Codes: E87.1 - Hypo-osmolality and hyponatremia SNOMED: 59695578 (4) Rhabdomyolysis ICD Codes: M62.82 - Rhabdomyolysis SNOMED: 147048753 (5) Acute hyponatremia ICD Codes: E87.1 - Hypo-osmolality and hyponatremia SNOMED: 3043434, 3923833 (6) SUZETTE (acute kidney injury) ICD Codes: N17.9 - Acute kidney failure, unspecified SNOMED: 11938023, 4258384 (7) Sepsis Assessment & Plan: 84F with leukocytosis, elevated lft's on abx decubitus ulcers, malnutrition, low bmi Patient noted on admission to have multiple Pressure Injuries. Sacral DTPI noted (L)5cm x (W)7.5cm Base of Pressure Injury is Maroon and indurated with non-blanchable erythema along borders. Dry Peeling skin noted to sacrococcygeal area. L Heel is Boggy with non-Blanchable erythema(L)5cm x (W)6cm. R heel is boggy with non-blanchable erythema(L)6.5cm x (W)6.5cm. DTPI L Hallux (L)3cmx (W)3.3cm.Base of injury is fluctuant with surrounding non- Blanchable erythema. DTPI R Hallux (L)1.1cm x (W)1cm. Base of Pressure Injury is purple with surrounding maroon borders. DTPI Medial R Malleolus (L)0.6cm x (W)0.8cm. Tx.Plan: Apply Moisture Barrier Paste to Sacrum. Cover with Optifoam Drsg . [place] every 3days and prn. Apply Cavilon Skin Barrier to Both heels, Malleoli , R and L Hallux.Cover each Presuer Injury with Optifoam drsg. Change every 7 days and prn. Reposition at least every 2hours or as tolerated. Off-load heels with Pillow. Reposition at least every 2hours or as tolerated. Nutritional optimization US abd Trend labs Cont abx DAILY ESTIMATED NEEDS: Needs based on Pulmonary, DM, underweight 48.5kg 30-35 kcals/kg 9932-4474 total kcals 1-1.5 g protein/kg 49-73 g total protein 25-30ml/kcal mL/kg 1514-1307 total fluid mLs NUTRITION DIAGNOSIS: Altered nutrition related lab values r/t diabetes and clinical status as evidenced by A1C 6.4, BG 200's, on decadron. (CURRENT DIET:CCHO MED/ puree) PO DIET RECOMMENDATIONS: Liberalized REGULAR DIET/ texture per [employer] ADDITIONAL RECOMMENDATIONS: 1) Add Glucerna 1 tetra TID w/ meals 2) NON ORAL FEEDS/ TEMPORARY if part of POC 3) Obtain an accurate CBW 4) Rec D5 w/ increased insulin coverage w/ current poor po intake ICD Codes: A41.9 - Sepsis, unspecified organism SNOMED: 36120445 Qualifiers: Qualified Codes: A41.9 - Sepsis, unspecified organism; R65.20 - Severe sepsis without septic shock; J96.01 - Acute respiratory failure with hypoxia (8) Respiratory failure with hypoxia ICD Codes: J96.91 - Respiratory failure, unspecified with hypoxia SNOMED: [id number] Qualifiers: Qualified Codes: J96.01 - Acute respiratory failure with hypoxia (9) Pneumonia due to COVID-19 virus ICD Codes: U07.1 - COVID-19; J12.89 - Other viral pneumonia SNOMED: [id number] (10) Chronic atrial fibrillation ICD Codes: I48.20 - Chronic atrial fibrillation, unspecified SNOMED: 604298850 (11) Diabetes mellitus ICD Codes: E11.9 - Type 2 diabetes mellitus without complications SNOMED: [id number] Jeremiah Haley Jul 28, 2020 19:04
--- NOTE | 2020-07-28 19:23 | NUR ---
NURSE HAND-OFF: Ernesto RODRIGUEZ Important Events on Shift:[Droplet isolation discontinued.] Patient Status: [] Diet: [CCHO medium puree moist] Pending Orders: [] Pending Results/Labs:[Labs in [place] 07/29/20] Pending MD notification:[] Latest Vital Signs: Temperature 98.1 , Pulse 73 , B/P 131 /70 , Respiratory Rate 19 , O2 SAT 96 , Nasal Cannula, O2 Flow Rate 2.0 . Vital Sign Comment: [] Latest [place] Fall Score: 60 Fall Risk: High Risk Safety Measures: Call light Within Reach, Bed Alarm Zone 1, Side Rails Side Rails x3, Bed position Low and Locked. Fall Precautions: y Yellow Socks Yellow Gown Door Sign y Patient Fall Education Report given to [].
[2020-07-28 20:00] VITALS: BP 122/56
--- NOTE | 2020-07-28 20:10 | NUR ---
NURSE NOTES: Patient in bed, asleep. Unable to make needs known. Respiration is even and unlabored. iV site noted. Skin is warm and dry to touch. multiple dressings noted,intact. Bed in low and locked position. Provided safe environment. No s/s of distress noted. nasal cannula 2 L. Frequent visual checks. WIll continue plan of care.
[2020-07-29] VITALS (7 sets, daily range): BP systolic 113–155; BP diastolic 61–72
--- NOTE | 2020-07-29 02:00 | NUR ---
NURSE NOTES: Respiratory Therapist at bedside. Respiration is even and unlabored. No s/s of distress noted. Will do frequent visual checks.
[2020-07-29] MEDS: NovoLOG Insulin Flexpen SUBQ SCH ×4 (05:50→21:20)
--- NOTE | 2020-07-29 05:50 | NUR ---
NURSE NOTES: Patient not following commands. Patient has not eaten since last night and per previous shift nurse did "not eat,"held insulin at the moment. No iv fluids.
--- NOTE | 2020-07-29 07:06 | NUR ---
NURSE HAND-OFF: Important Events on Shift: Patient Status: WNL Diet: Pending Orders: Pending Results/Labs: Pending MD notification: Latest Vital Signs: Temperature 96.7 , Pulse 62 , B/P 155 /72 , Respiratory Rate 14 , O2 SAT 100 , Nasal Cannula, O2 Flow Rate 2.0 . Vital Sign Comment: Latest [place] Fall Score: 60 Fall Risk: High Risk Safety Measures: Call light Within Reach, Bed Alarm Zone 1, Side Rails Side Rails x3, Bed position Low and Locked. Fall Precautions: Yellow Socks Yellow Gown Door Sign Patient Fall Education Report given to .
--- NOTE | 2020-07-29 08:00 | NUR ---
NURSE NOTES: Patient responds to touch,but nonverbal,respirations unlabored.nelson catheter is in place and draining yellow urine.Breakfast at bedside will assist patient.Bed alarm is on,call light within reach.
--- NOTE | 2020-07-29 08:13 | Infectious Diseases Prog Note ---
Assessment/Plan 84yo F with: Afebrile Normal WBC Leukopenia COVID pna, dx'd 07/08 at [facility] Acute hypoxic resp failure 2/2 COVID pna 07/19 BCx NTD UA +blood, 10-15 WBC, UCx NTD CXR: No acute infiltrate SUZETTE , sp 07/19 Renal US: Mild right hydro. R/o PE: 07/19 VQ scan: Asymmetric tracer distribution, left lung more than right. Suspect that this is artifactual, probably due to asymmetric overlapping soft tissues, but makes exam nondiagnostic for exclusion of pulmonary embolus PMH: CHF Afib HTN DM2 Dementia Plan: Stop dexamethasone 6mg daily #10 OK to d/c isolation precautions given pt tested positive on 07/08, which is now >10 days ago, and pt has symptomatically improved OK to d/c from ID standpoint 07/23/20 SP CTX/azithro #5/5 empiric Would start RDV (SUZETTE improved, on 3 L NC) as per pharm, Hospital policy would not provide the Rx, if pt is not a candidate for RDV if DNR/DNI) No convalescent plasma available at this institution unfortunately Monitor CBC/CMP Monitor resp status Monitor temp curve, hemodynamics D/w RN Thank you for this consult. [facility] will continue to follow. Subjective Allergies: Coded Allergies: SULFAMETHOXAZOLE (Verified Allergy, Unknown, 07/19/20) TRIMETHOPRIM (Verified Allergy, Unknown, 07/19/20) AF NAD on 2L NC WBC 13, improving Objective Last 24 Hour Vital Signs Date Time Temp Pulse Resp B/P (MAP) Pulse Ox O2 Delivery O2 Flow Rate FiO2 07/29/20 04:00 96.7 62 14 155/72 (99) 100 07/29/20 00:00 96.1 60 12 120/66 (84) 100 07/28/20 21:00 Nasal Cannula 2.0 07/28/20 20:00 97 Nasal Cannula 2.0 28 07/28/20 20:00 96.4 78 18 122/56 (78) 94 07/28/20 16:00 98.1 73 19 131/70 (90) 96 07/28/20 12:00 98.1 92 19 110/70 (83) 100 07/28/20 11:00 98 133/61 07/28/20 10:59 133/61 07/28/20 09:00 Nasal Cannula 2.0 Height (Feet): 5 Height (Inches): 6.00 Weight (Pounds): 130 Gen: NAD in bed on NC HEENT: NCAT Pulm: BL chest rise, non-labored Abd: Thin, soft, NTND Ext: No c/c/e Neuro: Sleeping Laboratory Tests Test 07/28/20 12:28 07/28/20 17:14 07/28/20 20:57 07/29/20 07:10 POC Whole Blood Glucose 175 MG/DL (74-106) H Pending 198 MG/DL (74-106) H White Blood Count Pending Red Blood Count Pending Hemoglobin Pending Hematocrit Pending Mean Corpuscular Volume Pending Mean Corpuscular Hemoglobin Pending Mean Corpuscular Hemoglobin Concent Pending Red Cell Distribution Width Pending Platelet Count Pending Mean Platelet Volume Pending Neutrophils (%) (Auto) Pending Lymphocytes (%) (Auto) Pending Monocytes (%) (Auto) Pending Eosinophils (%) (Auto) Pending Basophils (%) (Auto) Pending Sodium Level Pending Potassium Level Pending Chloride Level Pending Carbon Dioxide Level Pending Blood Urea Nitrogen Pending Creatinine Pending Estimat Glomerular Filtration Rate Pending Glucose Level Pending Calcium Level Pending Total Bilirubin Pending Aspartate Amino Transf (AST/SGOT) Pending Alanine Aminotransferase (ALT/SGPT) Pending Alkaline Phosphatase Pending Total Protein Pending Albumin Pending Globulin Pending Current Medications Medications (Trade) Dose Ordered Sig/Ranjeet Route PRN Reason Start Time Stop Time Status Last Admin Dose Admin Acetaminophen (Tylenol) 650 mg Q6H PRN ORAL Temp >100.5 07/19/20 09:15 08/18/20 09:14 Aspirin (Ecotrin) 81 mg DAILY ORAL 07/20/20 10:00 09/03/20 09:59 07/28/20 10:48 Dexamethasone Sodium Phosphate (Decadron 4mg/ml vial) 6 mg DAILY IVP 07/25/20 09:00 07/29/20 09:01 07/28/20 10:56 Dextrose (Dextrose 50%) 25 ml Q30M PRN IV Hypoglycemia 07/20/20 12:00 10/18/20 11:59 Dextrose (Dextrose 50%) 50 ml Q30M PRN IV Hypoglycemia 07/20/20 12:00 10/18/20 11:59 Diltiazem HCl (Cardizem ER) 240 mg DAILY ORAL 07/20/20 10:00 08/19/20 09:59 07/28/20 11:00 Docusate Sodium (Colace) 100 mg THREE TIMES A DAY NG 07/25/20 18:00 08/24/20 17:59 07/28/20 10:56 Heparin Sodium (Porcine) (Heparin 5000 units/ml) 5,000 units EVERY 12 HOURS SUBQ 07/23/20 10:30 09/06/20 10:29 07/28/20 21:04 Insulin Aspart (NovoLOG) give half dose if not eating BEFORE MEALS AND HS SUBQ 07/20/20 16:30 10/18/20 16:29 07/28/20 21:06 Levothyroxine Sodium (Synthroid) 100 mcg Q24H ORAL 07/21/20 06:30 08/20/20 06:29 07/28/20 05:29 Lisinopril (ZestriL) 10 mg DAILY ORAL 07/27/20 15:30 08/26/20 15:29 07/28/20 10:59 Ondansetron HCl (Zofran) 4 mg Q6H PRN IVP Nausea & Vomiting 07/19/20 09:15 08/18/20 09:14 Polyethylene Glycol (Miralax) 17 gm DAILYPRN PRN ORAL Constipation 07/19/20 09:15 08/18/20 09:14 Promethazine HCl/ Codeine (Phenergan with Codeine) 5 ml Q6H PRN ORAL cough 07/19/20 09:15 08/18/20 09:14 Nataly Babcock M.D. Jul 29, 2020 08:13
[2020-07-29 08:41] LABS: HEMOGLOBIN 9.8 G/DL (12.0-16.0); MEAN CORPUSCULAR VOLUME 90 FL (80-99); PLATELET COUNT 211 K/UL (150-450); RED BLOOD COUNT 3.01 M/UL (4.20-5.40); RED CELL DISTRIBUTION WIDTH 13.1 % (11.6-14.8); WHITE BLOOD COUNT 13.6 K/UL (4.8-10.8)
[2020-07-29 08:52] LABS: ALBUMIN 3.1 G/DL (3.4-5.0); ALBUMIN/GLOBULIN RATIO 0.9 (1.0-2.7); CALCIUM 8.9 MG/DL (8.5-10.1); CREATININE 0.9 MG/DL (0.55-1.30); POTASSIUM 4.5 MMOL/L (3.5-5.1)
[2020-07-29] MEDS: DILTIAZEM HCL 240 MG ORAL SCH (09:00)
[2020-07-29] MEDS: Lisinopril 10mg tab ORAL SCH (09:00)
[2020-07-29] MEDS: Docusate 100mg/10ml Liq NG SCH ×3 (09:59→18:03)
[2020-07-29] MEDS: Aspirin EC 81mg tab ORAL SCH (10:00)
[2020-07-29] MEDS: Heparin 5000 units/ml inj SUBQ SCH ×2 (10:01→21:19)
--- NOTE | 2020-07-29 11:24 | Surgery Progress Note ---
Surgery Progress Note Subjective Symptoms: improved, tolerating diet, passing flatus, BM Objective Last 24 Hour Vital Signs Date Time Temp Pulse Resp B/P (MAP) Pulse Ox O2 Delivery O2 Flow Rate FiO2 07/29/20 09:00 114/64 07/29/20 04:00 96.7 62 14 155/72 (99) 100 07/29/20 00:00 96.1 60 12 120/66 (84) 100 07/28/20 21:00 Nasal Cannula 2.0 07/28/20 20:00 97 Nasal Cannula 2.0 28 07/28/20 20:00 96.4 78 18 122/56 (78) 94 07/28/20 16:00 98.1 73 19 131/70 (90) 96 07/28/20 12:00 98.1 92 19 110/70 (83) 100 I&O Intake and Output 07/28/20 07/29/20 19:00 07:00 Intake Total 118 ml 50 ml Output Total 300 ml 350 ml Balance -182 ml -300 ml Intake Oral 118 ml Other 50 ml Output Urine Total 300 ml 350 ml Dressing: dry Wound: clean Cardiovascular: RSR Respiratory: decreased breath sounds Abdomen: soft, flat, non-tender, present bowel sounds, non-distended Extremities: no edema, no tenderness, no cyanosis Laboratory Tests Test 07/28/20 12:28 07/28/20 17:14 07/28/20 20:57 07/29/20 07:10 POC Whole Blood Glucose 175 MG/DL (74-106) H Pending 198 MG/DL (74-106) H White Blood Count 13.6 K/UL (4.8-10.8) H Red Blood Count 3.01 M/UL (4.20-5.40) L Hemoglobin 9.8 G/DL (12.0-16.0) L Hematocrit 27.0 % (37.0-47.0) L Mean Corpuscular Volume 90 FL (80-99) Mean Corpuscular Hemoglobin 32.7 PG (27.0-31.0) H Mean Corpuscular Hemoglobin Concent 36.5 G/DL (32.0-36.0) H Red Cell Distribution Width 13.1 % (11.6-14.8) Platelet Count 211 K/UL (150-450) Mean Platelet Volume 7.8 FL (6.5-10.1) Neutrophils (%) (Auto) % (45.0-75.0) Lymphocytes (%) (Auto) % (20.0-45.0) Monocytes (%) (Auto) % (1.0-10.0) Eosinophils (%) (Auto) % (0.0-3.0) Basophils (%) (Auto) % (0.0-2.0) Neutrophils % (Manual) Pending Lymphocytes % (Manual) Pending Platelet Estimate Pending Platelet Morphology Pending Sodium Level 133 MMOL/L (136-145) L Potassium Level 4.5 MMOL/L (3.5-5.1) Chloride Level 100 MMOL/L (98-107) Carbon Dioxide Level 24 MMOL/L (21-32) Anion Gap 9 mmol/L (5-15) Blood Urea Nitrogen 29 mg/dL (7-18) H Creatinine 0.9 MG/DL (0.55-1.30) Estimat Glomerular Filtration Rate 59.4 mL/min (>60) Glucose Level 165 MG/DL (74-106) H Calcium Level 8.9 MG/DL (8.5-10.1) Total Bilirubin 1.0 MG/DL (0.2-1.0) Aspartate Amino Transf (AST/SGOT) 83 U/L (15-37) H Alanine Aminotransferase (ALT/SGPT) 164 U/L (12-78) H Alkaline Phosphatase 67 U/L (46-116) Total Protein 6.5 G/DL (6.4-8.2) Albumin 3.1 G/DL (3.4-5.0) L Globulin 3.4 g/dL Albumin/Globulin Ratio 0.9 (1.0-2.7) L Plan Problems: (1) Alzheimer's dementia (2) Dizziness (3) Hyponatremia (4) Rhabdomyolysis (5) Acute hyponatremia (6) SUZETTE (acute kidney injury) (7) Sepsis Assessment & Plan: 84F with leukocytosis, elevated lft's on abx decubitus ulcers, malnutrition, low bmi Patient noted on admission to have multiple Pressure Injuries. Sacral DTPI noted (L)5cm x (W)7.5cm Base of Pressure Injury is Maroon and in durated with non-blanchable erythema along borders. Dry Peeling skin noted to sacrococcygeal area. L Heel is Boggy with non-Blanchable erythema(L)5cm x (W)6cm. R heel is boggy with non-blanchable erythema(L)6.5cm x (W)6.5cm. DTPI L Hallux (L)3cmx (W)3.3cm.Base of injury is fluctuant with surrounding non- Blanchable erythema. DTPI R Hallux (L)1.1cm x (W)1cm. Base of Pressure Injury is purple with surrounding maroon borders. DTPI Medial R Malleolus (L)0.6cm x (W)0.8cm. Tx.Plan: Apply Moisture Barrier Paste to Sacrum. Cover with Optifoam Drsg . [place] every 3days and prn. Apply Cavilon Skin Barrier to Both heels, Malleoli , R and L Hallux.Cover each Presuer Injury with Optifoam drsg. Change every 7 days and prn. Reposition at least every 2hours or as tolerated. Off-load heels with Pillow. Reposition at least every 2hours or as tolerated. Nutritional optimization US abd Trend labs Cont abx DAILY ESTIMATED NEEDS: Needs based on Pulmonary, DM, underweight 48.5kg 30-35 kcals/kg 5670-2360 total kcals 1-1.5 g protein/kg 49-73 g total protein 25-30ml/kcal mL/kg 0595-0933 total fluid mLs NUTRITION DIAGNOSIS: Altered nutrition related lab values r/t diabetes and clinical status as evidenced by A1C 6.4, BG 200's, on decadron. (CURRENT DIET:CCHO MED/ puree) PO DIET RECOMMENDATIONS: Liberalized REGULAR DIET/ texture per ALMOND BLANCHER ADDITIONAL RECOMMENDATIONS: 1) Add Glucerna 1 tetra TID w/ meals 2) NON ORAL FEEDS/ TEMPORARY if part of POC 3) Obtain an accurate CBW 4) Rec D5 w/ increased insulin coverage w/ current poor po intake (8) Respiratory failure with hypoxia (9) Pneumonia due to COVID-19 virus (10) Chronic atrial fibrillation (11) Diabetes mellitus Jeremiah Haley Jul 29, 2020 11:24
--- NOTE | 2020-07-29 11:54 | Nephrology Progress Note ---
Assessment/Plan Problem List: (1) SUZETTE (acute kidney injury) (2) Acute hyponatremia (3) Alzheimer's dementia (4) Chronic atrial fibrillation (5) Diabetes mellitus Assessment Acute renal failure Acute respiratory failure with hypoxia Severe hyponatremia Sepsis History of hypertension History of diabetes mellitus DNR DNI Plan July 29: Labs reviewed. Serum sodium 133. Renal parameters stable. Okay to discharge and follow-up electrolytes as an outpatient. July 28: Labs reviewed. Serum sodium up 135. Continue per consultants. Stable from renal standpoint of view. July 27: No labs drawn today. Last serum sodium was 132 for which patient received 3% saline. Will check lab tomorrow. July 26: Labs reviewed. Serum sodium 132. 250 cc 3% saline ordered. Continue per consultants. Continue to monitor renal parameters and electrolytes. July 25: Labs reviewed. Continue to observe serum sodium and glucose level. Continue per consultants. July 24: Labs reviewed. Abnormal electrolytes and chemistries addressed. Continue per consultants. July 23: Labs reviewed. Renal parameters stable. Continue per consultants. July 22: Labs reviewed. Renal parameters stable. Abnormal chemistries and electrolytes addressed. Continue per consultants. July 21: Serum sodium improved. Lab reviewed. Serum creatinine improved. Continue current management. July 20: Serum sodium 126. Labs reviewed. Serum creatinine down to 1.6. Medication list reviewed. Continue current management. Continue to monitor electrolytes and renal parameters. July 19: Saline infusion Monitor renal parameters and electrolytes Avoid nephrotoxic's Saline infusion Per consultants Subjective ROS Limited/Unobtainable: No Constitutional: Reports: malaise Objective Objective Last 24 Hour Vital Signs Date Time Temp Pulse Resp B/P (MAP) Pulse Ox O2 Delivery O2 Flow Rate FiO2 07/29/20 09:55 86 114/64 (81) 07/29/20 09:00 Nasal Cannula 2.0 07/29/20 09:00 114/64 07/29/20 08:00 96.7 56 18 130/72 (91) 99 07/29/20 04:00 96.7 62 14 155/72 (99) 100 07/29/20 00:00 96.1 60 12 120/66 (84) 100 07/28/20 21:00 Nasal Cannula 2.0 07/28/20 20:00 97 Nasal Cannula 2.0 28 07/28/20 20:00 96.4 78 18 122/56 (78) 94 07/28/20 16:00 98.1 73 19 131/70 (90) 96 07/28/20 12:00 98.1 92 19 110/70 (83) 100 Intake and Output 07/28/20 07/29/20 19:00 07:00 Intake Total 118 ml 50 ml Output Total 300 ml 350 ml Balance -182 ml -300 ml Intake Oral 118 ml Other 50 ml Output Urine Total 300 ml 350 ml Current Medications Medications (Trade) Dose Ordered Sig/Ranjeet Route PRN Reason Start Time Stop Time Status Last Admin Dose Admin Acetaminophen (Tylenol) 650 mg Q6H PRN ORAL Temp >100.5 07/19/20 09:15 08/18/20 09:14 Aspirin (Ecotrin) 81 mg DAILY ORAL 07/20/20 10:00 09/03/20 09:59 07/29/20 10:00 Dextrose (Dextrose 50%) 25 ml Q30M PRN IV Hypoglycemia 07/20/20 12:00 10/18/20 11:59 Dextrose (Dextrose 50%) 50 ml Q30M PRN IV Hypoglycemia 07/20/20 12:00 10/18/20 11:59 Diltiazem HCl (Cardizem ER) 240 mg DAILY ORAL 07/20/20 10:00 08/19/20 09:59 07/28/20 11:00 Docusate Sodium (Colace) 100 mg THREE TIMES A DAY NG 07/25/20 18:00 08/24/20 17:59 07/29/20 09:59 Heparin Sodium (Porcine) (Heparin 5000 units/ml) 5,000 units EVERY 12 HOURS SUBQ 07/23/20 10:30 09/06/20 10:29 07/29/20 10:01 Insulin Aspart (NovoLOG) give half dose if not eating BEFORE MEALS AND HS SUBQ 07/20/20 16:30 10/18/20 16:29 07/28/20 21:06 Levothyroxine Sodium (Synthroid) 100 mcg Q24H ORAL 07/21/20 06:30 08/20/20 06:29 07/28/20 05:29 Lisinopril (ZestriL) 10 mg DAILY ORAL 07/27/20 15:30 08/26/20 15:29 07/28/20 10:59 Ondansetron HCl (Zofran) 4 mg Q6H PRN IVP Nausea & Vomiting 07/19/20 09:15 08/18/20 09:14 Polyethylene Glycol (Miralax) 17 gm DAILYPRN PRN ORAL Constipation 07/19/20 09:15 08/18/20 09:14 Promethazine HCl/ Codeine (Phenergan with Codeine) 5 ml Q6H PRN ORAL cough 07/19/20 09:15 08/18/20 09:14 Laboratory Tests 07/28/20 12:28: POC Whole Blood Glucose 175H 07/28/20 17:14: POC Whole Blood Glucose [Pending] 07/28/20 20:57: POC Whole Blood Glucose 198H 07/29/20 07:10: White Blood Count 13.6H, Red Blood Count 3.01L, Hemoglobin 9.8L, Hematocrit 27.0L, Mean Corpuscular Volume 90, Mean Corpuscular Hemoglobin 32.7H, Mean Corpuscular Hemoglobin Concent 36.5H, Red Cell Distribution Width 13.1, Platelet Count 211, Mean Platelet Volume 7.8, Neutrophils (%) (Auto) , Lymphocytes (%) (Auto) , Monocytes (%) (Auto) , Eosinophils (%) (Auto) , Basophils (%) (Auto) , Neutrophils % (Manual) [Pending], Lymphocytes % (Manual) [Pending], Platelet Estimate [Pending], Platelet Morphology [Pending], Sodium Level 133L, Potassium Level 4.5, Chloride Level 100, Carbon Dioxide Level 24, Anion Gap 9, Blood Urea Nitrogen 29H, Creatinine 0.9, Estimat Glomerular Filtration Rate 59.4, Glucose Level 165H, Calcium Level 8.9, Total Bilirubin 1.0, Aspartate Amino Transf (AST/SGOT) 83H, Alanine Aminotransferase (ALT/SGPT) 164H, Alkaline Phosphatase 67, Total Protein 6.5, Albumin 3.1L, Globulin 3.4, Albumin/Globulin Ratio 0.9L Height (Feet): 5 Height (Inches): 6.00 Weight (Pounds): 130 General Appearance: no apparent distress Objective No change Jethro Cleaning MD Jul 29, 2020 11:54
--- NOTE | 2020-07-29 12:59 | NUR ---
RD ASSESSMENT & RECOMMENDATIONS SEE CARE ACTIVITY FOR COMPLETE ASSESSMENT DAILY ESTIMATED NEEDS: Needs based on Pulmonary, DM, underweight 48.5kg 30-35 kcals/kg 9714-2097 total kcals 1-1.5 g protein/kg 49-73 g total protein 25-30ml/kcal mL/kg 6903-1079 total fluid mLs NUTRITION DIAGNOSIS: * Altered nutrition related lab values r/t diabetes and clinical status as evidenced by A1C 6.4, BG high 100's and 200's, Decadron now dc'ed. * Increased kcal/prot needs R/T underweight status and wound healing as evidenced by pt @ 89% IBW w/ low BMI per guidelines, w/ multiple DTPI wounds @ L R hallux, medial R malleolus CURRENT DIET:CCHO MED/ puree PO DIET RECOMMENDATIONS: Liberalized REGULAR w/ poor PO/ texture per CAT OPERATOR + Glucerna TID w/ meals ENTERAL NUTRITION RECOMMENDATIONS: Glucerna 1.2 @ 55ml/hr x 24 hrs to provide 1320ml, 1584kcal, 79g prot, 1063ml free water * W/ continued poor PO, rec nonoral feeds w/ part of POC * W/ GI access, initiate Glucerna 1.2 @ 15ml/hr x 6hrs, advance 10ml q 4-6 hrs as tolerated to goal * HOB over 30 degrees/ water flush per MD. ADDITIONAL RECOMMENDATIONS: 1) Glucerna 1 tetra TID w/ meals 2) Rec nonoral feeds if part of POC: POLST indicates OK for a trial of TF -> poor and variable PO since adm 3) Monitor closely for hypoglycemia w/ poor PO -> monitor need for added D5 4) Wound healing: Add MVI x 1, Vit C 500mg QD, ZnSO4 220mg QD x 10 days [place] BID as tolerated
--- NOTE | 2020-07-29 14:27 | Pulmonology Progress Note ---
Subjective ROS Limited/Unobtainable: No Constitutional: Reports: no symptoms HEENT: Repors: no symptoms Respiratory: Reports: no symptoms Allergies: Coded Allergies: SULFAMETHOXAZOLE (Verified Allergy, Unknown, 07/19/20) TRIMETHOPRIM (Verified Allergy, Unknown, 07/19/20) Objective Last 24 Hour Vital Signs Date Time Temp Pulse Resp B/P (MAP) Pulse Ox O2 Delivery O2 Flow Rate FiO2 07/29/20 12:00 98.0 57 19 119/61 (80) 100 07/29/20 09:55 86 114/64 (81) 07/29/20 09:00 Nasal Cannula 2.0 07/29/20 09:00 114/64 07/29/20 08:00 98.9 56 18 130/72 (91) 99 07/29/20 04:00 96.7 62 14 155/72 (99) 100 07/29/20 00:00 96.1 60 12 120/66 (84) 100 07/28/20 21:00 Nasal Cannula 2.0 07/28/20 20:00 97 Nasal Cannula 2.0 28 07/28/20 20:00 96.4 78 18 122/56 (78) 94 07/28/20 16:00 98.1 73 19 131/70 (90) 96 Intake and Output 07/28/20 07/29/20 19:00 07:00 Intake Total 118 ml 50 ml Output Total 300 ml 350 ml Balance -182 ml -300 ml Intake Oral 118 ml Other 50 ml Output Urine Total 300 ml 350 ml General Appearance: cachetic HEENT: normocephalic, atraumatic Respiratory: chest wall non-tender, lungs clear Cardiovascular: normal peripheral pulses, normal rate Abdomen: normal bowel sounds, soft, non tender, no organomegaly Genitourinary: normal external genitalia Skin: no rash Lymphatic: no neck adenopathy, no groin adenopathy Laboratory Tests 07/28/20 17:14: POC Whole Blood Glucose [Pending] 07/28/20 20:57: POC Whole Blood Glucose 198H 07/29/20 07:10: White Blood Count 13.6H, Red Blood Count 3.01L, Hemoglobin 9.8L, Hematocrit 27.0L, Mean Corpuscular Volume 90, Mean Corpuscular Hemoglobin 32.7H, Mean Corpuscular Hemoglobin Concent 36.5H, Red Cell Distribution Width 13.1, Platelet Count 211, Mean Platelet Volume 7.8, Neutrophils (%) (Auto) , Lymphocytes (%) (Auto) , Monocytes (%) (Auto) , Eosinophils (%) (Auto) , Basophils (%) (Auto) , Differential Total Cells Counted 100, Neutrophils % (Manual) 88H, Lymphocytes % (Manual) 3L, Monocytes % (Manual) 9, Eosinophils % (Manual) 0, Basophils % (Manual) 0, Band Neutrophils 0, Platelet Estimate Adequate, Platelet Morphology Normal, Red Blood Cell Morphology Normal, Sodium Level 133L, Potassium Level 4.5, Chloride Level 100, Carbon Dioxide Level 24, Anion Gap 9, Blood Urea Nitrogen 29H, Creatinine 0.9, Estimat Glomerular Filtration Rate 59.4, Glucose Level 165H, Calcium Level 8.9, Total Bilirubin 1.0, Aspartate Amino Transf (AST/SGOT) 83H, Alanine Aminotransferase (ALT/SGPT) 164H, Alkaline Phosphatase 67, Total Protein 6.5, Albumin 3.1L, Globulin 3.4, Albumin/Globulin Ratio 0.9L 07/29/20 12:30: POC Whole Blood Glucose 205H Current Medications Medications (Trade) Dose Ordered Sig/Ranjeet Route PRN Reason Start Time Stop Time Status Last Admin Dose Admin Acetaminophen (Tylenol) 650 mg Q6H PRN ORAL Temp >100.5 07/19/20 09:15 08/18/20 09:14 Aspirin (Ecotrin) 81 mg DAILY ORAL 07/20/20 10:00 09/03/20 09:59 07/29/20 10:00 Dextrose (Dextrose 50%) 25 ml Q30M PRN IV Hypoglycemia 07/20/20 12:00 10/18/20 11:59 Dextrose (Dextrose 50%) 50 ml Q30M PRN IV Hypoglycemia 07/20/20 12:00 10/18/20 11:59 Diltiazem HCl (Cardizem ER) 240 mg DAILY ORAL 07/20/20 10:00 08/19/20 09:59 07/28/20 11:00 Docusate Sodium (Colace) 100 mg THREE TIMES A DAY NG 07/25/20 18:00 08/24/20 17:59 07/29/20 14:06 Heparin Sodium (Porcine) (Heparin 5000 units/ml) 5,000 units EVERY 12 HOURS SUBQ 07/23/20 10:30 09/06/20 10:29 07/29/20 10:01 Insulin Aspart (NovoLOG) give half dose if not eating BEFORE MEALS AND HS SUBQ 07/20/20 16:30 10/18/20 16:29 07/29/20 12:49 Levothyroxine Sodium (Synthroid) 100 mcg Q24H ORAL 07/21/20 06:30 08/20/20 06:29 07/28/20 05:29 Lisinopril (ZestriL) 10 mg DAILY ORAL 07/27/20 15:30 08/26/20 15:29 07/28/20 10:59 Ondansetron HCl (Zofran) 4 mg Q6H PRN IVP Nausea & Vomiting 07/19/20 09:15 08/18/20 09:14 Polyethylene Glycol (Miralax) 17 gm DAILYPRN PRN ORAL Constipation 07/19/20 09:15 08/18/20 09:14 Promethazine HCl/ Codeine (Phenergan with Codeine) 5 ml Q6H PRN ORAL cough 07/19/20 09:15 08/18/20 09:14 Assessment/Plan Problems: (1) Respiratory failure with hypoxia (2) Acute hyponatremia (3) SUZETTE (acute kidney injury) (4) Chronic atrial fibrillation (5) Diabetes mellitus (6) Alzheimer's dementia Assessment/Plan wbc still high, slightly lower at 13 no new complains renal function stable, No new cultures sliding scale diabetic diet, pending swallow study respiratory treatment titrate fio2 to sat of 92% dvt prophylaxis. Riccardo Drew MD Jul 29, 2020 14:27
--- NOTE | 2020-07-29 15:50 | Diagnostic Imaging Report ---
Indication: Bilateral lower extremity edema, shortness of breath Technique: Grayscale and duplex images of the bilateral lower extremity veins Comparison: None Findings: Bilaterally, grayscale and duplex images demonstrate no evidence of intraluminal thrombus. Normal phasic Doppler waveforms, demonstrating normal augmentation response and no evidence of valvular insufficiency. Greater saphenous vein(s) and tibial veins are patent. Normal compressibility. Impression: Negative for evidence of lower extremity deep venous thrombosis bilaterally
[2020-07-29] MEDS: dilTIAZem HCl 60mg tab ORAL SCH ×2 (18:02→21:18)
--- NOTE | 2020-07-29 18:18 | Cardiology Progress Note ---
Assessment/Plan Assessment/Plan 1. Respiratory insuf 2. Hyponatremia. 3. Hhis atrial fib atrial flutter 4. History of diastolic and systolic heart failure. 5. Moderate mitral, aortic, and tricuspid regurgitation. 6. Dementia. 7. Tachycardia, likely secondary to demand. 8.. Renal insuf hr controlled with cardizem will swithcd to shrot acting as uanbl eo swallow capsules d/w rn cr improved na normal nursing note reviewed will add acei not fel to need remdizivir as oxygeation has improved will consider anticoag for stroke prevention if not at fall risk Subjective ROS Limited/Unobtainable: Yes Subjective in covid 19 isoaltion patient in bed,awake, breathing is even and unlabored, no s/s of pain or discomfort. IV intact, no s/s of infiltration Objective Last 24 Hour Vital Signs Date Time Temp Pulse Resp B/P (MAP) Pulse Ox O2 Delivery O2 Flow Rate FiO2 07/29/20 18:02 71 116/53 07/29/20 16:00 98.3 56 18 127/71 (89) 98 07/29/20 12:00 98.0 57 19 119/61 (80) 100 07/29/20 09:55 86 114/64 (81) 07/29/20 09:00 Nasal Cannula 2.0 07/29/20 09:00 114/64 07/29/20 08:00 98.9 56 18 130/72 (91) 99 07/29/20 04:00 96.7 62 14 155/72 (99) 100 07/29/20 00:00 96.1 60 12 120/66 (84) 100 07/28/20 21:00 Nasal Cannula 2.0 07/28/20 20:00 97 Nasal Cannula 2.0 28 07/28/20 20:00 96.4 78 18 122/56 (78) 94 Intake and Output 07/28/20 07/29/20 19:00 07:00 Intake Total 118 ml 50 ml Output Total 300 ml 350 ml Balance -182 ml -300 ml Intake Oral 118 ml Other 50 ml Output Urine Total 300 ml 350 ml Laboratory Tests Test 07/28/20 20:57 07/29/20 07:10 07/29/20 12:30 07/29/20 17:05 POC Whole Blood Glucose 198 MG/DL (74-106) H 205 MG/DL (74-106) H 290 MG/DL (74-106) H White Blood Count 13.6 K/UL (4.8-10.8) H Red Blood Count 3.01 M/UL (4.20-5.40) L Hemoglobin 9.8 G/DL (12.0-16.0) L Hematocrit 27.0 % (37.0-47.0) L Mean Corpuscular Volume 90 FL (80-99) Mean Corpuscular Hemoglobin 32.7 PG (27.0-31.0) H Mean Corpuscular Hemoglobin Concent 36.5 G/DL (32.0-36.0) H Red Cell Distribution Width 13.1 % (11.6-14.8) Platelet Count 211 K/UL (150-450) Mean Platelet Volume 7.8 FL (6.5-10.1) Neutrophils (%) (Auto) % (45.0-75.0) Lymphocytes (%) (Auto) % (20.0-45.0) Monocytes (%) (Auto) % (1.0-10.0) Eosinophils (%) (Auto) % (0.0-3.0) Basophils (%) (Auto) % (0.0-2.0) Differential Total Cells Counted 100 Neutrophils % (Manual) 88 % (45-75) H Lymphocytes % (Manual) 3 % (20-45) L Monocytes % (Manual) 9 % (1-10) Eosinophils % (Manual) 0 % (0-3) Basophils % (Manual) 0 % (0-2) Band Neutrophils 0 % (0-8) Platelet Estimate Adequate Platelet Morphology Normal Red Blood Cell Morphology Normal Sodium Level 133 MMOL/L (136-145) L Potassium Level 4.5 MMOL/L (3.5-5.1) Chloride Level 100 MMOL/L (98-107) Carbon Dioxide Level 24 MMOL/L (21-32) Anion Gap 9 mmol/L (5-15) Blood Urea Nitrogen 29 mg/dL (7-18) H Creatinine 0.9 MG/DL (0.55-1.30) Estimat Glomerular Filtration Rate 59.4 mL/min (>60) Glucose Level 165 MG/DL (74-106) H Calcium Level 8.9 MG/DL (8.5-10.1) Total Bilirubin 1.0 MG/DL (0.2-1.0) Aspartate Amino Transf (AST/SGOT) 83 U/L (15-37) H Alanine Aminotransferase (ALT/SGPT) 164 U/L (12-78) H Alkaline Phosphatase 67 U/L (46-116) Total Protein 6.5 G/DL (6.4-8.2) Albumin 3.1 G/DL (3.4-5.0) L Globulin 3.4 g/dL Albumin/Globulin Ratio 0.9 (1.0-2.7) L Objective pt with active covid per pulm Respiratory: chest wall non-tender, lungs clear Cardiovascular: normal peripheral pulses, normal rate Abdomen: normal bowel sounds, soft, non tender, no organomegaly Hema Mcclure MD Jul 29, 2020 18:18
--- NOTE | 2020-07-29 19:00 | NUR ---
NURSE NOTES: Patient resting,nelson remains in place .patient remains with maximum assist nonverbal,.Bed alarm on,call light within reach
--- NOTE | 2020-07-29 19:35 | NUR ---
NURSE HAND-OFF: Colton RODRIGUEZ Important Events on Shift:[] Patient Status: [] Diet: [mechanical puree] need assist with meals/Feeder Pending Orders: [12/4 AM labs] Pending Results/Labs:[] Pending MD notification:[] Latest Vital Signs: Temperature 98.2 , Pulse 67 , B/P 113 /64 , Respiratory Rate 20 , O2 SAT 99 , Nasal Cannula, O2 Flow Rate 2.0 . Vital Sign Comment: [] Latest [place] Fall Score: 60 Fall Risk: High Risk Safety Measures: Call light Within Reach, Bed Alarm Zone 1, Side Rails Side Rails x3, Bed position Low and Locked. Fall Precautions: Yellow Socks Yellow Gown Door Sign Y Patient Fall Education Report given to [].
--- NOTE | 2020-07-29 19:45 | NUR ---
NURSE NOTES: Received patient in bed. A&OX1. IV site patent and intact. Alanis draining well by gravity, yellow urine noted. Bed in lowest position. Call light within reach. Will continue to monitor.
[2020-07-30] VITALS: BP 136/73
[2020-07-30 04:00] VITALS: BP 121/73
[2020-07-30] MEDS: NovoLOG Insulin Flexpen SUBQ SCH ×4 (06:09→21:05)
[2020-07-30 06:38] LABS: HEMATOCRIT 29.9 % (37.0-47.0); HEMOGLOBIN 10.5 G/DL (12.0-16.0); MEAN CORPUSCULAR VOLUME 92 FL (80-99); PLATELET COUNT 211 K/UL (150-450); RED BLOOD COUNT 3.24 M/UL (4.20-5.40); RED CELL DISTRIBUTION WIDTH 13.1 % (11.6-14.8); WHITE BLOOD COUNT 16.8 K/UL (4.8-10.8)
[2020-07-30 07:01] LABS: ALBUMIN/GLOBULIN RATIO 0.9 (1.0-2.7); BILIRUBIN,TOTAL 1.1 MG/DL (0.2-1.0); CALCIUM 9.2 MG/DL (8.5-10.1); CREATININE 1.1 MG/DL (0.55-1.30); PHOSPHORUS 2.5 MG/DL (2.5-4.9); POTASSIUM 3.5 MMOL/L (3.5-5.1)
[2020-07-30 07:14] LABS: BILIRUBIN,DIRECT 0.5 MG/DL (0.0-0.3)
--- NOTE | 2020-07-30 07:18 | NUR ---
NURSE HAND-OFF: Important Events on Shift: Patient Status: Diet: CCHO(M), pureed moist Pending Orders: Pending Results/Labs: Pending MD notification: Latest Vital Signs: Temperature 98.4 , Pulse 74 , B/P 121 /73 , Respiratory Rate 18 , O2 SAT 98 , Nasal Cannula, O2 Flow Rate 2.0 . Vital Sign Comment: Latest [place] Fall Score: 60 Fall Risk: High Risk Safety Measures: Call light Within Reach, Bed Alarm Zone 1, Side Rails Side Rails x3, Bed position Low and Locked. Fall Precautions: Yellow Socks Yellow Gown Door Sign Patient Fall Education Report given to Maria M RODRIGUEZ.
--- NOTE | 2020-07-30 07:30 | NUR ---
NURSE NOTES: Received report from JENNIFER Segura. Patient observed to be asleep in bed with HOB elevated, currently on NC 2L no s/sx of SOB/Distress, no s/sx of pain or discomfort. Patient with IV site left hand gauge 24, line is patent, inplace and asymptomatic. With nelson catheter running well. Bed placed on lowest and locked, call light plced within reach and will continue to monitor for any changes in condition.
[2020-07-30 08:00] VITALS: BP 131/76
[2020-07-30] MEDS: Docusate 100mg/10ml Liq NG SCH ×3 (08:59→17:02)
[2020-07-30] MEDS: Aspirin EC 81mg tab ORAL SCH (08:59)
[2020-07-30] MEDS: Heparin 5000 units/ml inj SUBQ SCH ×2 (08:59→21:04)
[2020-07-30] MEDS: Lisinopril 10mg tab ORAL SCH (08:59)
[2020-07-30] MEDS: dilTIAZem HCl 60mg tab ORAL SCH ×4 (09:00→20:56)
--- NOTE | 2020-07-30 09:10 | Infectious Diseases Prog Note ---
Assessment/Plan 84yo F with: Afebrile Normal WBC Leukopenia COVID pna, dx'd 07/[address] [facility] Acute hypoxic resp failure 2/2 COVID pna 07/19 BCx NTD UA +blood, 10-15 WBC, UCx NTD CXR: No acute infiltrate SUZETTE , sp 07/19 Renal US: Mild right hydro. R/o PE: 07/19 VQ scan: Asymmetric tracer distribution, left lung more than right. Suspect that this is artifactual, probably due to asymmetric overlapping soft tissues, but makes exam nondiagnostic for exclusion of pulmonary embolus BLE US neg for DVT 07/29 PMH: CHF Afib HTN DM2 Dementia Plan: Monitor off abx OK to d/c from ID standpoint 07/29 SP dexamethasone #10 07/23/20 SP CTX/azithro #5/5 empiric Would start RDV (SUZETTE improved, on 3 L NC) as per pharm, Hospital policy would not provide the Rx, if pt is not a candidate for RDV if DNR/DNI) No convalescent plasma available at this institution unfortunately Monitor CBC/CMP Monitor resp status Monitor temp curve, hemodynamics D/w RN Thank you for this consult. [facility] will continue to follow. Subjective Allergies: Coded Allergies: SULFAMETHOXAZOLE (Verified Allergy, Unknown, 07/19/20) TRIMETHOPRIM (Verified Allergy, Unknown, 07/19/20) AF NAD on 2L NC WBC 16, just off steroids Objective Last 24 Hour Vital Signs Date Time Temp Pulse Resp B/P (MAP) Pulse Ox O2 Delivery O2 Flow Rate FiO2 07/30/20 09:00 77 131/74 07/30/20 08:59 131/74 07/30/20 04:00 98.4 74 18 121/73 (89) 98 07/30/20 00:00 98.3 71 20 136/73 (94) 98 07/29/20 21:18 67 113/64 07/29/20 21:00 Nasal Cannula 2.0 07/29/20 20:16 98 Nasal Cannula 2.0 28 07/29/20 20:00 98.2 67 20 113/64 (80) 99 07/29/20 18:02 71 116/53 07/29/20 16:00 98.3 56 18 127/71 (89) 98 07/29/20 12:00 98.0 57 19 119/61 (80) 100 07/29/20 09:55 86 114/64 (81) Height (Feet): 5 Height (Inches): 6.00 Weight (Pounds): 130 Gen: NAD in bed on NC HEENT: NCAT Pulm: BL chest rise, non-labored Abd: Thin, soft, NTND Ext: No c/c/e Neuro: Sleeping Laboratory Tests Test 07/29/20 12:30 07/29/20 17:05 07/29/20 20:54 07/30/20 04:53 POC Whole Blood Glucose 205 MG/DL (74-106) H 290 MG/DL (74-106) H 224 MG/DL (74-106) H White Blood Count 16.8 K/UL (4.8-10.8) H Red Blood Count 3.24 M/UL (4.20-5.40) L Hemoglobin 10.5 G/DL (12.0-16.0) L Hematocrit 29.9 % (37.0-47.0) L Mean Corpuscular Volume 92 FL (80-99) Mean Corpuscular Hemoglobin 32.4 PG (27.0-31.0) H Mean Corpuscular Hemoglobin Concent 35.1 G/DL (32.0-36.0) Red Cell Distribution Width 13.1 % (11.6-14.8) Platelet Count 211 K/UL (150-450) Mean Platelet Volume 8.1 FL (6.5-10.1) Neutrophils (%) (Auto) % (45.0-75.0) Lymphocytes (%) (Auto) % (20.0-45.0) Monocytes (%) (Auto) % (1.0-10.0) Eosinophils (%) (Auto) % (0.0-3.0) Basophils (%) (Auto) % (0.0-2.0) Neutrophils % (Manual) Pending Lymphocytes % (Manual) Pending Platelet Estimate Pending Platelet Morphology Pending Erythrocyte Sedimentation Rate 36 MM/HR (0-30) H Sodium Level 136 MMOL/L (136-145) Potassium Level 3.5 MMOL/L (3.5-5.1) Chloride Level 101 MMOL/L (98-107) Carbon Dioxide Level 26 MMOL/L (21-32) Anion Gap 9 mmol/L (5-15) Blood Urea Nitrogen 36 mg/dL (7-18) H Creatinine 1.1 MG/DL (0.55-1.30) Estimat Glomerular Filtration Rate 47.1 mL/min (>60) Glucose Level 212 MG/DL (74-106) H Calcium Level 9.2 MG/DL (8.5-10.1) Phosphorus Level 2.5 MG/DL (2.5-4.9) Magnesium Level 2.0 MG/DL (1.8-2.4) Total Bilirubin 1.1 MG/DL (0.2-1.0) H Direct Bilirubin 0.5 MG/DL (0.0-0.3) H Aspartate Amino Transf (AST/SGOT) 58 U/L (15-37) H Alanine Aminotransferase (ALT/SGPT) 153 U/L (12-78) H Alkaline Phosphatase 84 U/L (46-116) C-Reactive Protein, Quantitative 0.9 mg/dL (0.00-0.90) Total Protein 6.3 G/DL (6.4-8.2) L Albumin 3.0 G/DL (3.4-5.0) L Globulin 3.3 g/dL Albumin/Globulin Ratio 0.9 (1.0-2.7) L Test 07/30/20 05:53 POC Whole Blood Glucose 208 MG/DL (74-106) H Current Medications Medications (Trade) Dose Ordered Sig/Ranjeet Route PRN Reason Start Time Stop Time Status Last Admin Dose Admin Acetaminophen (Tylenol) 650 mg Q6H PRN ORAL Temp >100.5 07/19/20 09:15 08/18/20 09:14 Aspirin (Ecotrin) 81 mg DAILY ORAL 07/20/20 10:00 09/03/20 09:59 07/30/20 08:59 Dextrose (Dextrose 50%) 25 ml Q30M PRN IV Hypoglycemia 07/20/20 12:00 10/18/20 11:59 Dextrose (Dextrose 50%) 50 ml Q30M PRN IV Hypoglycemia 07/20/20 12:00 10/18/20 11:59 Diltiazem HCl (Cardizem Tab) 60 mg QID ORAL 07/29/20 18:00 08/28/20 17:59 07/30/20 09:00 Docusate Sodium (Colace) 100 mg THREE TIMES A DAY NG 07/25/20 18:00 08/24/20 17:59 07/30/20 08:59 Heparin Sodium (Porcine) (Heparin 5000 units/ml) 5,000 units EVERY 12 HOURS SUBQ 07/23/20 10:30 09/06/20 10:29 07/30/20 08:59 Insulin Aspart (NovoLOG) give half dose if not eating BEFORE MEALS AND HS SUBQ 07/20/20 16:30 10/18/20 16:29 07/30/20 06:09 Levothyroxine Sodium (Synthroid) 100 mcg Q24H ORAL 07/21/20 06:30 08/20/20 06:29 07/30/20 06:07 Lisinopril (ZestriL) 10 mg DAILY ORAL 07/27/20 15:30 08/26/20 15:29 07/30/20 08:59 Ondansetron HCl (Zofran) 4 mg Q6H PRN IVP Nausea & Vomiting 07/19/20 09:15 08/18/20 09:14 Polyethylene Glycol (Miralax) 17 gm DAILYPRN PRN ORAL Constipation 07/19/20 09:15 08/18/20 09:14 Promethazine HCl/ Codeine (Phenergan with Codeine) 5 ml Q6H PRN ORAL cough 07/19/20 09:15 08/18/20 09:14 Nataly Babcock M.D. Jul 30, 2020 09:10
--- NOTE | 2020-07-30 10:32 | Nephrology Progress Note ---
Assessment/Plan Problem List: (1) SUZETTE (acute kidney injury) (2) Acute hyponatremia (3) Alzheimer's dementia (4) Chronic atrial fibrillation (5) Diabetes mellitus Assessment Acute renal failure Acute respiratory failure with hypoxia Severe hyponatremia Sepsis History of hypertension History of diabetes mellitus DNR DNI Plan July 30: Labs reviewed. Serum sodium within normal limit. White blood cells up to over 16,000's. Continue per consultants. Stable from renal standpoint of view. July 29: Labs reviewed. Serum sodium 133. Renal parameters stable. Okay to discharge and follow-up electrolytes as an outpatient. July 28: Labs reviewed. Serum sodium up 135. Continue per consultants. Stable from renal standpoint of view. July 27: No labs drawn today. Last serum sodium was 132 for which patient received 3% saline. Will check lab tomorrow. July 26: Labs reviewed. Serum sodium 132. 250 cc 3% saline ordered. Con tinue per consultants. Continue to monitor renal parameters and electrolytes. July 25: Labs reviewed. Continue to observe serum sodium and glucose level. Continue per consultants. July 24: Labs reviewed. Abnormal electrolytes and chemistries addressed. Continue per consultants. July 23: Labs reviewed. Renal parameters stable. Continue per consultants. July 22: Labs reviewed. Renal parameters stable. Abnormal chemistries and electrolytes addressed. Continue per consultants. July 21: Serum sodium improved. Lab reviewed. Serum creatinine improved. Continue current management. July 20: Serum sodium 126. Labs reviewed. Serum creatinine down to 1.6. Medication list reviewed. Continue current management. Continue to monitor electrolytes and renal parameters. July 19: Saline infusion Monitor renal parameters and electrolytes Avoid nephrotoxic's Saline infusion Per consultants Subjective ROS Limited/Unobtainable: No Constitutional: Reports: malaise, weakness Objective Objective Last 24 Hour Vital Signs Date Time Temp Pulse Resp B/P (MAP) Pulse Ox O2 Delivery O2 Flow Rate FiO2 07/30/20 09:00 Nasal Cannula 2.0 07/30/20 09:00 77 131/74 07/30/20 08:59 131/74 07/30/20 08:00 96.6 77 20 131/76 (94) 96 07/30/20 04:00 98.4 74 18 121/73 (89) 98 07/30/20 00:00 98.3 71 20 136/73 (94) 98 07/29/20 21:18 67 113/64 07/29/20 21:00 Nasal Cannula 2.0 07/29/20 20:16 98 Nasal Cannula 2.0 28 07/29/20 20:00 98.2 67 20 113/64 (80) 99 07/29/20 18:02 71 116/53 07/29/20 16:00 98.3 56 18 127/71 (89) 98 07/29/20 12:00 98.0 57 19 119/61 (80) 100 Intake and Output 07/29/20 07/30/20 18:59 06:59 Intake Total 200 ml 60 ml Output Total 250 ml 150 ml Balance -50 ml -90 ml Intake Oral 60 ml Other 200 ml Output Urine Total 250 ml 150 ml # Voids 1 Current Medications Medications (Trade) Dose Ordered Sig/Ranjeet Route PRN Reason Start Time Stop Time Status Last Admin Dose Admin Acetaminophen (Tylenol) 650 mg Q6H PRN ORAL Temp >100.5 07/19/20 09:15 08/18/20 09:14 Aspirin (Ecotrin) 81 mg DAILY ORAL 07/20/20 10:00 09/03/20 09:59 07/30/20 08:59 Dextrose (Dextrose 50%) 25 ml Q30M PRN IV Hypoglycemia 07/20/20 12:00 10/18/20 11:59 Dextrose (Dextrose 50%) 50 ml Q30M PRN IV Hypoglycemia 07/20/20 12:00 10/18/20 11:59 Diltiazem HCl (Cardizem Tab) 60 mg QID ORAL 07/29/20 18:00 08/28/20 17:59 07/30/20 09:00 Docusate Sodium (Colace) 100 mg THREE TIMES A DAY NG 07/25/20 18:00 08/24/20 17:59 07/30/20 08:59 Heparin Sodium (Porcine) (Heparin 5000 units/ml) 5,000 units EVERY 12 HOURS SUBQ 07/23/20 10:30 09/06/20 10:29 07/30/20 08:59 Insulin Aspart (NovoLOG) give half dose if not eating BEFORE MEALS AND HS SUBQ 07/20/20 16:30 10/18/20 16:29 07/30/20 06:09 Levothyroxine Sodium (Synthroid) 100 mcg Q24H ORAL 07/21/20 06:30 08/20/20 06:29 07/30/20 06:07 Lisinopril (ZestriL) 10 mg DAILY ORAL 07/27/20 15:30 08/26/20 15:29 07/30/20 08:59 Ondansetron HCl (Zofran) 4 mg Q6H PRN IVP Nausea & Vomiting 07/19/20 09:15 08/18/20 09:14 Polyethylene Glycol (Miralax) 17 gm DAILYPRN PRN ORAL Constipation 07/19/20 09:15 08/18/20 09:14 Promethazine HCl/ Codeine (Phenergan with Codeine) 5 ml Q6H PRN ORAL cough 07/19/20 09:15 08/18/20 09:14 Laboratory Tests 07/29/20 12:30: POC Whole Blood Glucose 205H 07/29/20 17:05: POC Whole Blood Glucose 290H 07/29/20 20:54: POC Whole Blood Glucose 224H 07/30/20 04:53: White Blood Count 16.8H, Red Blood Count 3.24L, Hemoglobin 10.5L, Hematocrit 29.9L, Mean Corpuscular Volume 92, Mean Corpuscular Hemoglobin 32.4H, Mean Corpuscular Hemoglobin Concent 35.1, Red Cell Distribution Width 13.1, Platelet Count 211, Mean Platelet Volume 8.1, Neutrophils (%) (Auto) , Lymphocytes (%) (Auto) , Monocytes (%) (Auto) , Eosinophils (%) (Auto) , Basophils (%) (Auto) , Neutrophils % (Manual) [Pending], Lymphocytes % (Manual) [Pending], Platelet Estimate [Pending], Platelet Morphology [Pending], Erythrocyte Sedimentation Rate 36H, Sodium Level 136, Potassium Level 3.5, Chloride Level 101, Carbon Dioxide Level 26, Anion Gap 9, Blood Urea Nitrogen 36H, Creatinine 1.1, Estimat Glomerular Filtration Rate 47.1, Glucose Level 212H, Calcium Level 9.2, Phosphorus Level 2.5, Magnesium Level 2.0, Total Bilirubin 1.1H, Direct Bilirubin 0.5H, Aspartate Amino Transf (AST/SGOT) 58H, Alanine Aminotransferase (ALT/SGPT) 153H, Alkaline Phosphatase 84, C-Reactive Protein, Quantitative 0.9, Total Protein 6.3L, Albumin 3.0L, Globulin 3.3, Albumin/Globulin Ratio 0.9L 07/30/20 05:53: POC Whole Blood Glucose 208H Height (Feet): 5 Height (Inches): 6.00 Weight (Pounds): 130 General Appearance: no apparent distress, lethargic Cardiovascular: normal rate Respiratory/Chest: decreased breath sounds Abdomen: distended Objective No change Jethro Cleaning MD Jul 30, 2020 10:32
[2020-07-30 12:00] VITALS: BP 86/69
--- NOTE | 2020-07-30 12:34 | NUR ---
NURSE NOTES: Upon taking 12nn VS patient observed to be less arousable to stimuli. Patient's VS AT 86/99, HR 116 02 94% on 3L NC. Notified Dr. Drew, no new orders were given at this time
--- NOTE | 2020-07-30 12:42 | Pulmonology Progress Note ---
Subjective ROS Limited/Unobtainable: No Constitutional: Reports: no symptoms HEENT: Repors: no symptoms Respiratory: Reports: no symptoms Allergies: Coded Allergies: SULFAMETHOXAZOLE (Verified Allergy, Unknown, 07/19/20) TRIMETHOPRIM (Verified Allergy, Unknown, 07/19/20) Objective Last 24 Hour Vital Signs Date Time Temp Pulse Resp B/P (MAP) Pulse Ox O2 Delivery O2 Flow Rate FiO2 07/30/20 12:35 116 86/69 07/30/20 12:00 97.7 116 20 86/69 (75) 94 07/30/20 09:00 Nasal Cannula 2.0 07/30/20 09:00 77 131/74 07/30/20 08:59 131/74 07/30/20 08:00 96.6 77 20 131/76 (94) 96 07/30/20 04:00 98.4 74 18 121/73 (89) 98 07/30/20 00:00 98.3 71 20 136/73 (94) 98 07/29/20 21:18 67 113/64 07/29/20 21:00 Nasal Cannula 2.0 07/29/20 20:16 98 Nasal Cannula 2.0 28 07/29/20 20:00 98.2 67 20 113/64 (80) 99 07/29/20 18:02 71 116/53 07/29/20 16:00 98.3 56 18 127/71 (89) 98 Intake and Output 07/29/20 07/30/20 19:00 07:00 Intake Total 200 ml 60 ml Output Total 250 ml 150 ml Balance -50 ml -90 ml Intake Oral 60 ml Other 200 ml Output Urine Total 250 ml 150 ml # Voids 1 General Appearance: cachetic HEENT: normocephalic, atraumatic Respiratory: chest wall non-tender, lungs clear Cardiovascular: normal peripheral pulses, normal rate Abdomen: normal bowel sounds, soft, non tender, no organomegaly Genitourinary: normal external genitalia Skin: no rash Lymphatic: no neck adenopathy, no groin adenopathy Laboratory Tests 07/29/20 17:05: POC Whole Blood Glucose 290H 07/29/20 20:54: POC Whole Blood Glucose 224H 07/30/20 04:53: White Blood Count 16.8H, Red Blood Count 3.24L, Hemoglobin 10.5L, Hematocrit 29.9L, Mean Corpuscular Volume 92, Mean Corpuscular Hemoglobin 32.4H, Mean Corpuscular Hemoglobin Concent 35.1, Red Cell Distribution Width 13.1, Platelet Count 211, Mean Platelet Volume 8.1, Neutrophils (%) (Auto) , Lymphocytes (%) (Auto) , Monocytes (%) (Auto) , Eosinophils (%) (Auto) , Basophils (%) (Auto) , Differential Total Cells Counted 100, Neutrophils % (Manual) 88H, Lymphocytes % (Manual) 8L, Monocytes % (Manual) 4, Eosinophils % (Manual) 0, Basophils % (Manual) 0, Band Neutrophils 0, Platelet Estimate Adequate, Platelet Morphology Normal, Hypochromasia 1+, Anisocytosis 1+, Erythrocyte Sedimentation Rate 36H, Sodium Level 136, Potassium Level 3.5, Chloride Level 101, Carbon Dioxide Level 26, Anion Gap 9, Blood Urea Nitrogen 36H, Creatinine 1.1, Estimat Glomerular Filtration Rate 47.1, Glucose Level 212H, Calcium Level 9.2, Phosphorus Level 2.5, Magnesium Level 2.0, Total Bilirubin 1.1H, Direct Bilirubin 0.5H, Aspartate Amino Transf (AST/SGOT) 58H, Alanine Aminotransferase (ALT/SGPT) 153H, Alkaline Phosphatase 84, C-Reactive Protein, Quantitative 0.9, Total Protein 6.3L, Albumin 3.0L, Globulin 3.3, Albumin/Globulin Ratio 0.9L 07/30/20 05:53: POC Whole Blood Glucose 208H 07/30/20 10:53: POC Whole Blood Glucose 129H Current Medications Medications (Trade) Dose Ordered Sig/Ranjeet Route PRN Reason Start Time Stop Time Status Last Admin Dose Admin Acetaminophen (Tylenol) 650 mg Q6H PRN ORAL Temp >100.5 07/19/20 09:15 08/18/20 09:14 Aspirin (Ecotrin) 81 mg DAILY ORAL 07/20/20 10:00 09/03/20 09:59 07/30/20 08:59 Dextrose (Dextrose 50%) 25 ml Q30M PRN IV Hypoglycemia 07/20/20 12:00 10/18/20 11:59 Dextrose (Dextrose 50%) 50 ml Q30M PRN IV Hypoglycemia 07/20/20 12:00 10/18/20 11:59 Diltiazem HCl (Cardizem Tab) 60 mg QID ORAL 07/29/20 18:00 08/28/20 17:59 07/30/20 09:00 Docusate Sodium (Colace) 100 mg THREE TIMES A DAY NG 07/25/20 18:00 08/24/20 17:59 07/30/20 08:59 Heparin Sodium (Porcine) (Heparin 5000 units/ml) 5,000 units EVERY 12 HOURS SUBQ 07/23/20 10:30 09/06/20 10:29 07/30/20 08:59 Insulin Aspart (NovoLOG) give half dose if not eating BEFORE MEALS AND HS SUBQ 07/20/20 16:30 10/18/20 16:29 07/30/20 06:09 Levothyroxine Sodium (Synthroid) 100 mcg Q24H ORAL 07/21/20 06:30 08/20/20 06:29 07/30/20 06:07 Lisinopril (ZestriL) 10 mg DAILY ORAL 07/27/20 15:30 08/26/20 15:29 07/30/20 08:59 Ondansetron HCl (Zofran) 4 mg Q6H PRN IVP Nausea & Vomiting 07/19/20 09:15 08/18/20 09:14 Polyethylene Glycol (Miralax) 17 gm DAILYPRN PRN ORAL Constipation 07/19/20 09:15 08/18/20 09:14 Promethazine HCl/ Codeine (Phenergan with Codeine) 5 ml Q6H PRN ORAL cough 07/19/20 09:15 08/18/20 09:14 Assessment/Plan Problems: (1) Respiratory failure with hypoxia (2) Acute hyponatremia (3) SUZETTE (acute kidney injury) (4) Chronic atrial fibrillation (5) Diabetes mellitus (6) Alzheimer's dementia Assessment/Plan comfort measures borderline low BP wbc still high, higher today no new complains renal function stable, sliding scale respiratory treatment titrate fio2 to sat of 92% dvt prophylaxis. Riccardo Drew MD Jul 30, 2020 12:42
--- NOTE | 2020-07-30 14:38 | NUR ---
CASE MANAGEMENT:REVIEW SI;SUZETTE. DM. RESPIRATORY INSUFFICIENCY. 98.4 116 20 86/69 94% 2L NC WBC 16.8 H/H 10.5/29.9 BUN 36 BG 212 T-BILI 1.1 DD-BILI 0.5 AST 58 ALT 153 ALB 3.0 IS;ZESTRIL PO QD HEPARIN SQ Q12 ASA PO QD MED SURG STATUS DCP;PATIENT IS FROM [facility]
[2020-07-30 16:00] VITALS: BP 83/56
--- NOTE | 2020-07-30 16:20 | Surgery Progress Note ---
Surgery Progress Note Subjective Symptoms: improved Objective Last 24 Hour Vital Signs Date Time Temp Pulse Resp B/P (MAP) Pulse Ox O2 Delivery O2 Flow Rate FiO2 07/30/20 16:00 98.2 117 20 83/56 (65) 91 07/30/20 12:35 116 86/69 07/30/20 12:00 97.7 116 20 86/69 (75) 94 07/30/20 09:00 Nasal Cannula 2.0 07/30/20 09:00 77 131/74 07/30/20 08:59 131/74 07/30/20 08:00 96.6 77 20 131/76 (94) 96 07/30/20 04:00 98.4 74 18 121/73 (89) 98 07/30/20 00:00 98.3 71 20 136/73 (94) 98 07/29/20 21:18 67 113/64 07/29/20 21:00 Nasal Cannula 2.0 07/29/20 20:16 98 Nasal Cannula 2.0 28 07/29/20 20:00 98.2 67 20 113/64 (80) 99 07/29/20 18:02 71 116/53 I&O Intake and Output 07/29/20 07/30/20 19:00 07:00 Intake Total 200 ml 60 ml Output Total 250 ml 150 ml Balance -50 ml -90 ml Intake Oral 60 ml Other 200 ml Output Urine Total 250 ml 150 ml # Voids 1 Cardiovascular: RSR Respiratory: decreased breath sounds Abdomen: non-tender, present bowel sounds Extremities: no edema, no tenderness Laboratory Tests Test 07/29/20 17:05 07/29/20 20:54 07/30/20 04:53 07/30/20 05:53 POC Whole Blood Glucose 290 MG/DL (74-106) H 224 MG/DL (74-106) H 208 MG/DL (74-106) H White Blood Count 16.8 K/UL (4.8-10.8) H Red Blood Count 3.24 M/UL (4.20-5.40) L Hemoglobin 10.5 G/DL (12.0-16.0) L Hematocrit 29.9 % (37.0-47.0) L Mean Corpuscular Volume 92 FL (80-99) Mean Corpuscular Hemoglobin 32.4 PG (27.0-31.0) H Mean Corpuscular Hemoglobin Concent 35.1 G/DL (32.0-36.0) Red Cell Distribution Width 13.1 % (11.6-14.8) Platelet Count 211 K/UL (150-450) Mean Platelet Volume 8.1 FL (6.5-10.1) Neutrophils (%) (Auto) % (45.0-75.0) Lymphocytes (%) (Auto) % (20.0-45.0) Monocytes (%) (Auto) % (1.0-10.0) Eosinophils (%) (Auto) % (0.0-3.0) Basophils (%) (Auto) % (0.0-2.0) Differential Total Cells Counted 100 Neutrophils % (Manual) 88 % (45-75) H Lymphocytes % (Manual) 8 % (20-45) L Monocytes % (Manual) 4 % (1-10) Eosinophils % (Manual) 0 % (0-3) Basophils % (Manual) 0 % (0-2) Band Neutrophils 0 % (0-8) Platelet Estimate Adequate Platelet Morphology Normal Hypochromasia 1+ Anisocytosis 1+ Erythrocyte Sedimentation Rate 36 MM/HR (0-30) H Sodium Level 136 MMOL/L (136-145) Potassium Level 3.5 MMOL/L (3.5-5.1) Chloride Level 101 MMOL/L (98-107) Carbon Dioxide Level 26 MMOL/L (21-32) Anion Gap 9 mmol/L (5-15) Blood Urea Nitrogen 36 mg/dL (7-18) H Creatinine 1.1 MG/DL (0.55-1.30) Estimat Glomerular Filtration Rate 47.1 mL/min (>60) Glucose Level 212 MG/DL (74-106) H Calcium Level 9.2 MG/DL (8.5-10.1) Phosphorus Level 2.5 MG/DL (2.5-4.9) Magnesium Level 2.0 MG/DL (1.8-2.4) Total Bilirubin 1.1 MG/DL (0.2-1.0) H Direct Bilirubin 0.5 MG/DL (0.0-0.3) H Aspartate Amino Transf (AST/SGOT) 58 U/L (15-37) H Alanine Aminotransferase (ALT/SGPT) 153 U/L (12-78) H Alkaline Phosphatase 84 U/L (46-116) C-Reactive Protein, Quantitative 0.9 mg/dL (0.00-0.90) Total Protein 6.3 G/DL (6.4-8.2) L Albumin 3.0 G/DL (3.4-5.0) L Globulin 3.3 g/dL Albumin/Globulin Ratio 0.9 (1.0-2.7) L Test 07/30/20 10:53 POC Whole Blood Glucose 129 MG/DL (74-106) H Plan Problems: (1) Alzheimer's dementia (2) Dizziness (3) Hyponatremia (4) Rhabdomyolysis (5) Acute hyponatremia (6) SUZETTE (acute kidney injury) (7) Sepsis Assessment & Plan: 84F with leukocytosis, elevated lft's on abx decubitus ulcers, malnutrition, low bmi Patient noted on admission to have multiple Pressure Injuries. Sacral DTPI noted (L)5cm x (W)7.5cm Base of Pressure Injury is Maroon and indurated with non-blanchable erythema along borders. Dry Peeling skin noted to sacrococcygeal area. L Heel is Boggy with non-Blanchable erythema(L)5cm x (W)6cm. R heel is boggy with non-blanchable erythema(L)6.5cm x (W)6.5cm. DTPI L Hallux (L)3cmx (W)3.3cm.Base of injury is fluctuant with surrounding non- Blanchable erythema. DTPI R Hallux (L)1.1cm x (W)1cm. Base of Pressure Injury is purple with surrounding maroon borders. DTPI Medial R Malleolus (L)0.6cm x (W)0.8cm. Tx.Plan: Apply Moisture Barrier Paste to Sacrum. Cover with Optifoam Drsg . [place] every 3days and prn. Apply Cavilon Skin Barrier to Both heels, Malleoli , R and L Hallux.Cover each Presuer Injury with Optifoam drsg. Change every 7 days and prn. Reposition at least every 2hours or as tolerated. Off-load heels with Pillow. Reposition at least every 2hours or as tolerated. Nutritional optimization US abd Trend labs Cont abx DAILY ESTIMATED NEEDS: Needs based on Pulmonary, DM, underweight 48.5kg 30-35 kcals/kg 0498-5536 total kcals 1-1.5 g protein/kg 49-73 g total protein 25-30ml/kcal mL/kg 2041-6641 total fluid mLs NUTRITION DIAGNOSIS: Altered nutrition related lab values r/t diabetes and clinical status as evidenced by A1C 6.4, BG 200's, on decadron. (CURRENT DIET:CCHO MED/ puree) PO DIET RECOMMENDATIONS: Liberalized REGULAR DIET/ texture per [employer] ADDITIONAL RECOMMENDATIONS: 1) Add Glucerna 1 tetra TID w/ meals 2) NON ORAL FEEDS/ TEMPORARY if part of POC 3) Obtain an accurate CBW 4) Rec D5 w/ increased insulin coverage w/ current poor po intake (8) Respiratory failure with hypoxia (9) Pneumonia due to COVID-19 virus (10) Chronic atrial fibrillation (11) Diabetes mellitus Jeremiah Haley Jul 30, 2020 16:20
--- NOTE | 2020-07-30 19:26 | Cardiology Progress Note ---
Assessment/Plan Assessment/Plan 1. Respiratory insuf 2. Hyponatremia. 3. Hhis atrial fib atrial flutter 4. History of diastolic and systolic heart failure. 5. Moderate mitral, aortic, and tricuspid regurgitation. 6. Dementia. 7. Tachycardia, likely secondary to demand. 8.. Renal insuf 9. hypotension hr controlled with cardizem will switched to short acting as unable to swallow capsules d/w rn cr improved na normal nursing note reviewed bp low dc acei ns bolus and drip tonite Subjective Subjective in covid 19 isoaltion per rn atient observed to be asleep in bed with HOB elevated, currently on NC 2L no s/sx of SOB/Distress, no s/sx of pain or discomfort. Objective Last 24 Hour Vital Signs Date Time Temp Pulse Resp B/P (MAP) Pulse Ox O2 Delivery O2 Flow Rate FiO2 07/30/20 17:02 117 83/56 07/30/20 16:00 98.2 117 20 83/56 (65) 91 07/30/20 12:35 116 86/69 07/30/20 12:00 97.7 116 20 86/69 (75) 94 07/30/20 09:00 Nasal Cannula 2.0 07/30/20 09:00 77 131/74 07/30/20 08:59 131/74 07/30/20 08:00 96.6 77 20 131/76 (94) 96 07/30/20 04:00 98.4 74 18 121/73 (89) 98 07/30/20 00:00 98.3 71 20 136/73 (94) 98 07/29/20 21:18 67 113/64 07/29/20 21:00 Nasal Cannula 2.0 07/29/20 20:16 98 Nasal Cannula 2.0 28 07/29/20 20:00 98.2 67 20 113/64 (80) 99 Intake and Output 07/29/20 07/30/20 18:59 06:59 Intake Total 200 ml 60 ml Output Total 250 ml 150 ml Balance -50 ml -90 ml Intake Oral 60 ml Other 200 ml Output Urine Total 250 ml 150 ml # Voids 1 Laboratory Tests Test 07/29/20 20:54 07/30/20 04:53 07/30/20 05:53 07/30/20 10:53 POC Whole Blood Glucose 224 MG/DL (74-106) H 208 MG/DL (74-106) H 129 MG/DL (74-106) H White Blood Count 16.8 K/UL (4.8-10.8) H Red Blood Count 3.24 M/UL (4.20-5.40) L Hemoglobin 10.5 G/DL (12.0-16.0) L Hematocrit 29.9 % (37.0-47.0) L Mean Corpuscular Volume 92 FL (80-99) Mean Corpuscular Hemoglobin 32.4 PG (27.0-31.0) H Mean Corpuscular Hemoglobin Concent 35.1 G/DL (32.0-36.0) Red Cell Distribution Width 13.1 % (11.6-14.8) Platelet Count 211 K/UL (150-450) Mean Platelet Volume 8.1 FL (6.5-10.1) Neutrophils (%) (Auto) % (45.0-75.0) Lymphocytes (%) (Auto) % (20.0-45.0) Monocytes (%) (Auto) % (1.0-10.0) Eosinophils (%) (Auto) % (0.0-3.0) Basophils (%) (Auto) % (0.0-2.0) Differential Total Cells Counted 100 Neutrophils % (Manual) 88 % (45-75) H Lymphocytes % (Manual) 8 % (20-45) L Monocytes % (Manual) 4 % (1-10) Eosinophils % (Manual) 0 % (0-3) Basophils % (Manual) 0 % (0-2) Band Neutrophils 0 % (0-8) Platelet Estimate Adequate Platelet Morphology Normal Hypochromasia 1+ Anisocytosis 1+ Erythrocyte Sedimentation Rate 36 MM/HR (0-30) H Sodium Level 136 MMOL/L (136-145) Potassium Level 3.5 MMOL/L (3.5-5.1) Chloride Level 101 MMOL/L (98-107) Carbon Dioxide Level 26 MMOL/L (21-32) Anion Gap 9 mmol/L (5-15) Blood Urea Nitrogen 36 mg/dL (7-18) H Creatinine 1.1 MG/DL (0.55-1.30) Estimat Glomerular Filtration Rate 47.1 mL/min (>60) Glucose Level 212 MG/DL (74-106) H Calcium Level 9.2 MG/DL (8.5-10.1) Phosphorus Level 2.5 MG/DL (2.5-4.9) Magnesium Level 2.0 MG/DL (1.8-2.4) Total Bilirubin 1.1 MG/DL (0.2-1.0) H Direct Bilirubin 0.5 MG/DL (0.0-0.3) H Aspartate Amino Transf (AST/SGOT) 58 U/L (15-37) H Alanine Aminotransferase (ALT/SGPT) 153 U/L (12-78) H Alkaline Phosphatase 84 U/L (46-116) C-Reactive Protein, Quantitative 0.9 mg/dL (0.00-0.90) Total Protein 6.3 G/DL (6.4-8.2) L Albumin 3.0 G/DL (3.4-5.0) L Globulin 3.3 g/dL Albumin/Globulin Ratio 0.9 (1.0-2.7) L Test 07/30/20 16:32 POC Whole Blood Glucose 142 MG/DL (74-106) H Objective pt with active covid i did not see pt Hema Mcclure MD Jul 30, 2020 19:26
[2020-07-30] MEDS ORDERED: NS 250 ML IVPB ONE (19:30)
--- NOTE | 2020-07-30 19:30 | NUR ---
NURSE NOTES: Received patient in bed, awake, slow speech, mumbling, non coherent, disoriented, confused, withdraws to painful stimuli, possibly transitioning. IV site is clean dry and intact. Alanis catheter is in place, secured, draining well. Call light is within reach, bed is lowered, locked, alarm is on, will continue to monitor for comfort and safety.
--- NOTE | 2020-07-30 19:33 | NUR ---
NURSE HAND-OFF: Important Events on Shift:DECREASED BP, POSSIBLE TRANSITIONING Patient Status: GUARDED Diet: ccho med Pending Orders: n/a Pending Results/Labs:n/a Pending MD notification:n/a Latest Vital Signs: Temperature 98.2 , Pulse 117 , B/P 83 /56 , Respiratory Rate 20 , O2 SAT 91 , Nasal Cannula, O2 Flow Rate 2.0 . Vital Sign Comment: stable Latest [place] Fall Score: 60 Fall Risk: High Risk Safety Measures: Call light Within Reach, Bed Alarm Zone 1, Side Rails Side Rails x3, Bed position Low and Locked. Fall Precautions: Yellow Socks Yellow Gown Door Sign Patient Fall Education Report given to JENNIFER EVERETT.
[2020-07-30 20:00] VITALS: BP 74/37
[2020-07-30] MEDS ORDERED: Morphine Sulfate 2mg/ml Inj(IV/IM USE ONLY) IVP PRN (21:45)
[2020-07-31] VITALS: BP 88/50
[2020-07-31 04:00] VITALS: BP 106/67
[2020-07-31] MEDS: NovoLOG Insulin Flexpen SUBQ SCH ×4 (06:16→20:51)
--- NOTE | 2020-07-31 07:09 | NUR ---
NURSE NOTES: Report received from JENNIFER Hoffman. Pt is in bed, awake, alert and oriented x 1, no SOB, bed in lowest position with breaks engaged and alarm on, no s/sx of pain or discomfort at this time, pt with poor PO intake per report, IV line on left hand in place, on 02 via NC, will continue to monitor and proceed with plan of care, call light within reach.
--- NOTE | 2020-07-31 07:15 | NUR ---
NURSE HAND-OFF: Important Events on Shift: stable, with episodes of low blood pressure Patient Status: DNR/ DNI Diet:CCHO med pureed moist, crush meds Pending Orders: Pending Results/Labs: Pending MD notification: Latest Vital Signs: Temperature 99.0 , Pulse 107 , B/P 106 /67 , Respiratory Rate 20 , O2 SAT 94 , Nasal Cannula, O2 Flow Rate 2.0 . Vital Sign Comment: Latest [place] Fall Score: 60 Fall Risk: High Risk Safety Measures: Call light Within Reach, Bed Alarm Zone 1, Side Rails Side Rails x3, Bed position Low and Locked. Fall Precautions: Yellow Socks Yellow Gown Door Sign Patient Fall Education Report given to Loren RODRIGUEZ
[2020-07-31 08:00] VITALS: BP 119/62
[2020-07-31] MEDS: Docusate 100mg/10ml Liq NG SCH ×3 (08:43→17:01)
[2020-07-31] MEDS: Aspirin EC 81mg tab ORAL SCH (08:43)
[2020-07-31] MEDS: dilTIAZem HCl 60mg tab ORAL SCH ×4 (08:43→20:59)
[2020-07-31] MEDS: Heparin 5000 units/ml inj SUBQ SCH ×2 (08:44→20:55)
--- NOTE | 2020-07-31 08:49 | Pulmonology Progress Note ---
Subjective ROS Limited/Unobtainable: Yes Allergies: Coded Allergies: SULFAMETHOXAZOLE (Verified Allergy, Unknown, 07/19/20) TRIMETHOPRIM (Verified Allergy, Unknown, 07/19/20) Subjective BP better still with leukocytosis, no fevers pulse ox stable on O2 via NC denies pain Objective Last 24 Hour Vital Signs Date Time Temp Pulse Resp B/P (MAP) Pulse Ox O2 Delivery O2 Flow Rate FiO2 07/31/20 08:00 97.4 96 18 119/62 (81) 98 07/31/20 04:00 99.0 107 20 106/67 (80) 94 07/31/20 00:00 98.8 88 20 88/50 (63) 94 07/30/20 22:06 Nasal Cannula 2.0 07/30/20 20:00 98.8 85 20 74/37 (49) 94 07/30/20 17:02 117 83/56 07/30/20 16:00 98.2 117 20 83/56 (65) 91 07/30/20 12:35 116 86/69 07/30/20 12:00 97.7 116 20 86/69 (75) 94 07/30/20 09:00 Nasal Cannula 2.0 07/30/20 09:00 77 131/74 07/30/20 08:59 131/74 Intake and Output 07/30/20 07/31/20 19:00 07:00 Intake Total 100 ml Output Total 200 ml Balance -100 ml Intake Oral 100 ml Output Urine Total 200 ml General Appearance: no acute distress, cachetic HEENT: normocephalic, atraumatic Respiratory: chest wall non-tender, lungs clear, other - O2 via NC Cardiovascular: normal peripheral pulses, normal rate Abdomen: normal bowel sounds, soft, non tender Genitourinary: normal external genitalia Skin: no rash Neurologic: abnormal gait, alert - confused Lymphatic: no neck adenopathy Musculoskeletal: atrophy - BLE Laboratory Tests 07/30/20 10:53: POC Whole Blood Glucose 129H 07/30/20 16:32: POC Whole Blood Glucose 142H Current Medications Medications (Trade) Dose Ordered Sig/Ranjeet Route PRN Reason Start Time Stop Time Status Last Admin Dose Admin Acetaminophen (Tylenol) 650 mg Q6H PRN ORAL Temp >100.5 07/19/20 09:15 08/18/20 09:14 Aspirin (Ecotrin) 81 mg DAILY ORAL 07/20/20 10:00 09/03/20 09:59 07/30/20 08:59 Dextrose (Dextrose 50%) 25 ml Q30M PRN IV Hypoglycemia 07/20/20 12:00 10/18/20 11:59 Dextrose (Dextrose 50%) 50 ml Q30M PRN IV Hypoglycemia 07/20/20 12:00 10/18/20 11:59 Diltiazem HCl (Cardizem Tab) 60 mg QID ORAL 07/29/20 18:00 08/28/20 17:59 07/30/20 09:00 Docusate Sodium (Colace) 100 mg THREE TIMES A DAY NG 07/25/20 18:00 08/24/20 17:59 07/30/20 17:02 Heparin Sodium (Porcine) (Heparin 5000 units/ml) 5,000 units EVERY 12 HOURS SUBQ 07/23/20 10:30 09/06/20 10:29 07/30/20 21:04 Insulin Aspart (NovoLOG) give half dose if not eating BEFORE MEALS AND HS SUBQ 07/20/20 16:30 10/18/20 16:29 07/31/20 06:16 Levothyroxine Sodium (Synthroid) 100 mcg Q24H ORAL 07/21/20 06:30 08/20/20 06:29 07/30/20 06:07 Morphine Sulfate (Morphine Sulfate) 2 mg Q4H PRN IVP Severe Pain (Pain Scale 7-10) 07/30/20 21:45 08/06/20 21:44 Ondansetron HCl (Zofran) 4 mg Q6H PRN IVP Nausea & Vomiting 07/19/20 09:15 08/18/20 09:14 Polyethylene Glycol (Miralax) 17 gm DAILYPRN PRN ORAL Constipation 07/19/20 09:15 08/18/20 09:14 Promethazine HCl/ Codeine (Phenergan with Codeine) 5 ml Q6H PRN ORAL cough 07/19/20 09:15 08/18/20 09:14 Sodium Chloride 1,000 ml @ 75 mls/hr [id number] IV 07/30/20 19:30 08/29/20 19:29 07/30/20 19:30 Assessment/Plan Assessment/Plan ASSESSMENT Recent history of Covid pneumonia, now negative Acute hypoxemic respiratory failure Hypertension CHF A. fib Hypothyroidism Diabetes mellitus Dementia Multiple pressure injury present on admission PLAN OF CARE [facility] floor COVID-19 07/22 NGT BCX NGT , UCX NGT CXR initial and f/up no acute process ID follows s/p steroids x10 days, s/p abx x 5 days ID recommends monitor off abx still with leukocytosis, but no fevers ID cleared for discharge Venous duplex BLE negative VQ scan nondiagnostic a/PLT with ASA O2 titrate to keep sat above 92 % , now on 2 L of oxygen via NC, puls4e ox stable BP low, off SHANNA, s/p bolus and now on IVF, BP this am better HR control with the Cardizem, overall controlled , switched to SA as per cardio monitor closely HD status DVT prophylaxis BS management with SSI sensitive dose Hgb A1c 6.4 monitor renal parameters and electrolytes , avoid nephrotoxics renal US with mild R hydro creatinine down to normal, Na stabilized supportive care DNR/DNI status case discussed and evaluated by supervising physician Eloisa Dobson NP Jul 31, 2020 08:49
--- NOTE | 2020-07-31 10:20 | Nephrology Progress Note ---
Assessment/Plan Problem List: (1) SUZETTE (acute kidney injury) (2) Acute hyponatremia (3) Alzheimer's dementia (4) Chronic atrial fibrillation (5) Diabetes mellitus Assessment Acute renal failure Acute respiratory failure with hypoxia Severe hyponatremia Sepsis History of hypertension History of diabetes mellitus DNR DNI Plan July 31: No labs drawn today. Renal parameters been stable. Leukocytosis persists. Continue per ID. July 30: Labs reviewed. Serum sodium within normal limit. White blood cells up to over 16,000's. Continue per consultants. Stable from renal standpoint of view. July 29: Labs reviewed. Serum sodium 133. Renal parameters stable. Okay to discharge and follow-up electrolytes as an outpatient. July 28: Labs reviewed. Serum sodium up 135. Continue per consultants. Stable from renal standpoint of view. July 27: No labs drawn today. Last serum sodium was 132 for which patient received 3% saline. Will check lab tomorrow. July 26: Labs reviewed. Serum sodium 132. 250 cc 3% saline ordered. Continue per consultants. Continue to monitor renal parameters and electrolytes. July 25: Labs reviewed. Continue to observe serum sodium and glucose level. Continue per consultants. July 24: Labs reviewed. Abnormal electrolytes and chemistries addressed. Continue per consultants. July 23: Labs reviewed. Renal parameters stable. Continue per consultants. July 22: Labs reviewed. Renal parameters stable. Abnormal chemistries and electrolytes addressed. Continue per consultants. July 21: Serum sodium improved. Lab reviewed. Serum creatinine improved. Continue current management. July 20: Serum sodium 126. Labs reviewed. Serum creatinine down to 1.6. Medication list reviewed. Continue current management. Continue to monitor electrolytes and renal parameters. July 19: Saline infusion Monitor renal parameters and electrolytes Avoid nephrotoxic's Saline infusion Per consultants Subjective ROS Limited/Unobtainable: No Constitutional: Reports: malaise, weakness Objective Objective Last 24 Hour Vital Signs Date Time Temp Pulse Resp B/P (MAP) Pulse Ox O2 Delivery O2 Flow Rate FiO2 07/31/20 09:00 Nasal Cannula 2.0 07/31/20 08:43 96 119/62 07/31/20 08:00 97.4 96 18 119/62 (81) 98 07/31/20 04:00 99.0 107 20 106/67 (80) 94 07/31/20 00:00 98.8 88 20 88/50 (63) 94 07/30/20 22:06 Nasal Cannula 2.0 07/30/20 20:00 98.8 85 20 74/37 (49) 94 07/30/20 17:02 117 83/56 07/30/20 16:00 98.2 117 20 83/56 (65) 91 07/30/20 12:35 116 86/69 07/30/20 12:00 97.7 116 20 86/69 (75) 94 Intake and Output 07/30/20 07/31/20 19:00 07:00 Intake Total 100 ml Output Total 200 ml Balance -100 ml Intake Oral 100 ml Output Urine Total 200 ml No labs drawn today Laboratory Tests 07/30/20 10:53: POC Whole Blood Glucose 129H 07/30/20 16:32: POC Whole Blood Glucose 142H Height (Feet): 5 Height (Inches): 6.00 Weight (Pounds): 130 General Appearance: no apparent distress, lethargic Cardiovascular: tachycardia Respiratory/Chest: decreased breath sounds Abdomen: distended Objective No change Jethro Cleaning MD Jul 31, 2020 10:20
[2020-07-31 12:00] VITALS: BP 96/56
--- NOTE | 2020-07-31 13:11 | Cardiology Report ---
APPROVED REPORT EKG Measurement Heart [id number] <Conclusion> Atrial fibrillation ST & T wave abnormality, consider anterolateral ischemia Abnormal ECG
--- NOTE | 2020-07-31 13:18 | Cardiology Report ---
APPROVED REPORT EXAM: Two-dimensional and M-mode echocardiogram with Doppler and color Doppler. INDICATION LV FUNCTION M-Mode DIMENSIONS IVSd1.1 (0.7-1.1cm)Left Atrium (MM)3.7 (1.6-4.0cm) LVDd4.6 (3.5-5.6cm)Aortic Root3.7 (2.0-3.7cm) PWd1.1 (0.7-1.1cm)Aortic Cusp Exc.1.6 (1.5-2.0cm) IVSs1.2 cm LVDs3.4 (2.5-4.0cm) PWs1.6 cm <Conclusion> Technically difficult study due to poor acoustical windows. Normal left ventricular chamber size, systolic function and wall motion to extent visualized. Left ventricular ejection fraction estimated to be 55-60 %. Anterior Echo-free space, may be due to pericardial fat or effusion. All other cardiac chamber sizes are within normal limits. Moderate mitral valve leaflets calcification with normal excursion. Moderate mitral annulus and aortic root calcification. Pulmonic valve not well visualized. Normal tricuspid valve structure. IVC at normal size with physiologic collapse. A color flow and spectral Doppler study was performed and revealed: Moderate aortic insufficiency. Moderate mitral regurgitation. Moderate tricuspid regurgitation. Left ventricular diastolic functionnot diagnostic due to A-fib. Tricuspid systolic velocities suggests peak right ventricular systolic pressure of 42 mmHg,consistent with mild pulmonary hypertension. Trace pulmonic regurgitation present.
--- NOTE | 2020-07-31 14:47 | Infectious Diseases Prog Note ---
Assessment/Plan 84yo F with: Afebrile Leukocytosis, persistent (sp recent steroid course) Leukopenia COVID pna, dx'd 07/08 [facility] Acute hypoxic resp failure 2/2 COVID pna 07/19 BCx NTD UA +blood, 10-15 WBC, UCx NTD CXR: No acute infiltrate SUZETTE , sp 07/19 Renal US: Mild right hydro. R/o PE: 07/19 VQ scan: Asymmetric tracer distribution, left lung more than right. Suspect that this is artifactual, probably due to asymmetric overlapping soft tissues, but makes exam nondiagnostic for exclusion of pulmonary embolus BLE US neg for DVT 07/29 PMH: CHF Afib HTN DM2 Dementia Plan: Monitor off abx OK to d/c from ID standpoint 07/29 SP dexamethasone #10 07/23/20 SP CTX/azithro #5/ empiric Would start RDV (SUZETTE improved, on 3 L NC) as per pharm, Hospital policy would not provide the Rx, if pt is not a candidate for RDV if DNR/DNI) No convalescent plasma available at this institution unfortunately Monitor CBC/CMP Monitor resp status Monitor temp curve, hemodynamics CBC, CMP am u/a w/ reflex D/w RN Thank you for this consult. [facility] will continue to follow. Subjective Allergies: Coded Allergies: SULFAMETHOXAZOLE (Verified Allergy, Unknown, 07/19/20) TRIMETHOPRIM (Verified Allergy, Unknown, 07/19/20) afebrile at 2l NC Objective Last 24 Hour Vital Signs Date Time Temp Pulse Resp B/P (MAP) Pulse Ox O2 Delivery O2 Flow Rate FiO2 07/31/20 12:45 80 96/56 07/31/20 12:00 96.6 80 18 96/56 (69) 91 07/31/20 09:00 Nasal Cannula 2.0 07/31/20 08:43 96 119/62 07/31/20 08:00 97.4 96 18 119/62 (81) 98 07/31/20 04:00 99.0 107 20 106/67 (80) 94 07/31/20 00:00 98.8 88 20 88/50 (63) 94 07/30/20 22:06 Nasal Cannula 2.0 07/30/20 20:00 98.8 85 20 74/37 (49) 94 07/30/20 17:02 117 83/56 12/4/20 16:00 98.2 117 20 83/56 (65) 91 Height (Feet): 5 Height (Inches): 6.00 Weight (Pounds): 130 Musculoskeletal: no effusion General Appearance: no acute distress, cachetic HEENT: normocephalic, atraumatic Respiratory: chest wall non-tender, lungs clear, other - O2 via NC Cardiovascular: normal peripheral pulses, normal rate Abdomen: normal bowel sounds, soft, non tender Genitourinary: normal external genitalia Skin: no rash Neurologic: abnormal gait, alert - confused Lymphatic: no neck adenopathy Musculoskeletal: atrophy - BLE Laboratory Tests Test 07/30/20 16:32 07/31/20 11:26 POC Whole Blood Glucose 142 MG/DL (74-106) H 180 MG/DL (74-106) H Current Medications Medications (Trade) Dose Ordered Sig/Ranjeet Route PRN Reason Start Time Stop Time Status Last Admin Dose Admin Acetaminophen (Tylenol) 650 mg Q6H PRN ORAL Temp >100.5 07/19/20 09:15 08/18/20 09:14 Aspirin (Ecotrin) 81 mg DAILY ORAL 07/20/20 10:00 09/03/20 09:59 07/31/20 08:43 Dextrose (Dextrose 50%) 25 ml Q30M PRN IV Hypoglycemia 07/20/20 12:00 10/18/20 11:59 Dextrose (Dextrose 50%) 50 ml Q30M PRN IV Hypoglycemia 07/20/20 12:00 10/18/20 11:59 Diltiazem HCl (Cardizem Tab) 60 mg QID ORAL 07/29/20 18:00 08/28/20 17:59 07/31/20 08:43 Docusate Sodium (Colace) 100 mg THREE TIMES A DAY NG 07/25/20 18:00 08/24/20 17:59 07/31/20 12:47 Heparin Sodium (Porcine) (Heparin 5000 units/ml) 5,000 units EVERY 12 HOURS SUBQ 07/23/20 10:30 09/06/20 10:29 07/31/20 08:44 Insulin Aspart (NovoLOG) give half dose if not eating BEFORE MEALS AND HS SUBQ 07/20/20 16:30 10/18/20 16:29 07/31/20 06:16 Levothyroxine Sodium (Synthroid) 100 mcg Q24H ORAL 07/21/20 06:30 08/20/20 06:29 07/30/20 06:07 Morphine Sulfate (Morphine Sulfate) 2 mg Q4H PRN IVP Severe Pain (Pain Scale 7-10) 07/30/20 21:45 08/06/20 21:44 Ondansetron HCl (Zofran) 4 mg Q6H PRN IVP Nausea & Vomiting 07/19/20 09:15 08/18/20 09:14 Polyethylene Glycol (Miralax) 17 gm DAILYPRN PRN ORAL Constipation 07/19/20 09:15 08/18/20 09:14 Promethazine HCl/ Codeine (Phenergan with Codeine) 5 ml Q6H PRN ORAL cough 07/19/20 09:15 08/18/20 09:14 Sodium Chloride 1,000 ml @ 75 mls/hr [id number] IV 07/30/20 19:30 08/29/20 19:29 07/31/20 08:45 Brenda De Luna M.D. Jul 31, 2020 14:47
[2020-07-31 15:22] LABS: APPEARANCE,URINE CLOUDY; BILIRUBIN, URINE NEGATIVE (NEGATIVE); COLOR,URINE AMBER; GLUCOSE, URINE (UA) NEGATIVE (NEGATIVE); KETONES,URINE 1+ (NEGATIVE); LEUKOCYTE ESTERASE ,URINE 3+ (NEGATIVE); NITRITE,URINE NEGATIVE (NEGATIVE); PH,URINE 5 (4.5-8.0); PROTEIN,URINE 3+ (NEGATIVE); UROBILINOGEN,URINE NORMAL MG/DL (0.0-1.0)
[2020-07-31 16:00] VITALS: BP 93/58
--- NOTE | 2020-07-31 16:10 | Cardiology Progress Note ---
Assessment/Plan Assessment/Plan atrial fibrillation, elevated WBC hemodynamically stable Subjective Subjective The patient is slighlty confused and is asking for water Objective Last 24 Hour Vital Signs Date Time Temp Pulse Resp B/P (MAP) Pulse Ox O2 Delivery O2 Flow Rate FiO2 07/31/20 16:00 96.6 77 18 93/58 (70) 95 07/31/20 12:45 80 96/56 07/31/20 12:00 96.6 80 18 96/56 (69) 91 07/31/20 09:00 Nasal Cannula 2.0 07/31/20 08:43 96 119/62 07/31/20 08:00 97.4 96 18 119/62 (81) 98 07/31/20 04:00 99.0 107 20 106/67 (80) 94 07/31/20 00:00 98.8 88 20 88/50 (63) 94 07/30/20 22:06 Nasal Cannula 2.0 07/30/20 20:00 98.8 85 20 74/37 (49) 94 07/30/20 17:02 117 83/56 General Appearance: mild distress, other EENT: PERRL/EOMI Neck: supple Rhythm: Afib Cardiovascular: tachycardia Respiratory/Chest: crackles/rales Abdomen: soft Intake and Output 07/30/20 07/31/20 19:00 07:00 Intake Total 100 ml Output Total 200 ml Balance -100 ml Intake Oral 100 ml Output Urine Total 200 ml Laboratory Tests Test 07/30/20 16:32 07/31/20 11:26 07/31/20 14:30 POC Whole Blood Glucose 142 MG/DL (74-106) H 180 MG/DL (74-106) H Urine Color Radha Urine Appearance Cloudy Urine pH 5 (4.5-8.0) Urine Specific [place] 1.015 (1.005-1.035) Urine Protein 3+ (NEGATIVE) H Urine Glucose (UA) Negative (NEGATIVE) Urine Ketones 1+ (NEGATIVE) H Urine Blood 5+ (NEGATIVE) H Urine Nitrite Negative (NEGATIVE) Urine Bilirubin Negative (NEGATIVE) Urine Ictotest Pending Urine Urobilinogen Normal MG/DL (0.0-1.0) Urine Leukocyte Esterase 3+ (NEGATIVE) H Urine RBC Pending Urine WBC Pending Urine Squamous Epithelial Cells Pending Urine Bacteria Pending Flaquita Edwards MD Jul 31, 2020 16:10
--- NOTE | 2020-07-31 17:26 | Internal Med Progress Note ---
Subjective Date of Service: Jul 31, 2020 Physician Name Dudley Rebollar Attending Physician Mateo Rankin MD Current Medications Medications (Trade) Dose Ordered Sig/Ranjeet Route PRN Reason Start Time Stop Time Status Last Admin Dose Admin Acetaminophen (Tylenol) 650 mg Q6H PRN ORAL Temp >100.5 07/19/20 09:15 08/18/20 09:14 Aspirin (Ecotrin) 81 mg DAILY ORAL 07/20/20 10:00 09/03/20 09:59 07/31/20 08:43 Dextrose (Dextrose 50%) 25 ml Q30M PRN IV Hypoglycemia 07/20/20 12:00 10/18/20 11:59 Dextrose (Dextrose 50%) 50 ml Q30M PRN IV Hypoglycemia 07/20/20 12:00 10/18/20 11:59 Diltiazem HCl (Cardizem Tab) 60 mg QID ORAL 07/29/20 18:00 08/28/20 17:59 07/31/20 08:43 Docusate Sodium (Colace) 100 mg THREE TIMES A DAY NG 07/25/20 18:00 08/24/20 17:59 07/31/20 17:01 Heparin Sodium (Porcine) (Heparin 5000 units/ml) 5,000 units EVERY 12 HOURS SUBQ 07/23/20 10:30 09/06/20 10:29 07/31/20 08:44 Insulin Aspart (NovoLOG) give half dose if not eating BEFORE MEALS AND HS SUBQ 07/20/20 16:30 10/18/20 16:29 07/31/20 17:02 Levothyroxine Sodium (Synthroid) 100 mcg Q24H ORAL 07/21/20 06:30 08/20/20 06:29 07/30/20 06:07 Morphine Sulfate (Morphine Sulfate) 2 mg Q4H PRN IVP Severe Pain (Pain Scale 7-10) 07/30/20 21:45 08/06/20 21:44 Ondansetron HCl (Zofran) 4 mg Q6H PRN IVP Nausea & Vomiting 07/19/20 09:15 08/18/20 09:14 Polyethylene Glycol (Miralax) 17 gm DAILYPRN PRN ORAL Constipation 07/19/20 09:15 08/18/20 09:14 Promethazine HCl/ Codeine (Phenergan with Codeine) 5 ml Q6H PRN ORAL cough 07/19/20 09:15 08/18/20 09:14 Sodium Chloride 1,000 ml @ 75 mls/hr [id number] IV 07/30/20 19:30 08/29/20 19:29 07/31/20 08:45 Allergies: Coded Allergies: SULFAMETHOXAZOLE (Verified Allergy, Unknown, 07/19/20) TRIMETHOPRIM (Verified Allergy, Unknown, 07/19/20) ROS Limited/Unobtainable: Yes Subjective 84 YO F admitted with COVID 19 pos and respiratory failure. Now COVID 19 pneumonia. Cover for Int Med-Dr Rankin Objective Last Vital Signs Date Time Temp Pulse Resp B/P (MAP) Pulse Ox O2 Delivery O2 Flow Rate FiO2 07/31/20 17:01 77 93/58 07/31/20 16:00 96.6 18 95 07/31/20 09:00 Nasal Cannula 2.0 07/29/20 20:16 28 Laboratory Tests Test 07/31/20 11:26 07/31/20 14:30 07/31/20 16:23 POC Whole Blood Glucose 180 MG/DL (74-106) H 174 MG/DL (74-106) H Urine Color Radha Urine Appearance Cloudy Urine pH 5 (4.5-8.0) Urine Specific [place] 1.015 (1.005-1.035) Urine Protein 3+ (NEGATIVE) H Urine Glucose (UA) Negative (NEGATIVE) Urine Ketones 1+ (NEGATIVE) H Urine Blood 5+ (NEGATIVE) H Urine Nitrite Negative (NEGATIVE) Urine Bilirubin Negative (NEGATIVE) Urine Ictotest Negative (NEGATIVE) Urine Urobilinogen Normal MG/DL (0.0-1.0) Urine Leukocyte Esterase 3+ (NEGATIVE) H Urine RBC 20-30 /HPF (0 - 2) H Urine WBC Tntc /HPF (0 - 2) H Urine Squamous Epithelial Cells Moderate /LPF (NONE/OCC) H Urine Bacteria Many /HPF (NONE) H Urine Yeast Many /HPF (NONE) H Intake and Output 07/30/20 07/31/20 19:00 07:00 Intake Total 100 ml Output Total 200 ml Balance -100 ml Intake Oral 100 ml Output Urine Total 200 ml Objective PHYSICAL EXAMINATION: GENERAL: The patient is a well-developed and well-nourished female, in moderate respiratory distress. HEENT: Eyes, pupils are equal and responsive to light and accommodation. Extraocular movements are intact. NECK: Supple without lymphadenopathy. CHEST: Decreased breath sounds in bilateral bases, otherwise without wheezes or rales. CARDIOVASCULAR: Regular rhythm and rate. S1, S2 normal without murmurs, rubs, or gallops. ABDOMEN: Soft, nontender, nondistended. Positive bowel sounds. No evidence of hepatosplenomegaly. Currently, no rebound or guarding noted. EXTREMITIES: Negative for clubbing, cyanosis, or edema. RECTAL/GENITAL: Not performed. NEUROLOGIC: Cranial nerves II through XII are grossly intact without focal deficits. Assessment/Plan Assessment/Plan ASSESSMENT: This is an 84-year-old female with: 1. Previous COVID-19 positive-now negative 2. Pneumonia. 3. Alzheimer's dementia. 4. Hypertension. 5. Congestive heart failure. 6. Atrial fibrillation. 7. Hypothyroidism. 8. Diabetes type 2. 9. Hyponatremia-resolving TREATMENT: 1. COVID-19/pneumonia. Infectious Disease = Dr. Babcock. S/P Decadron ABX= S/P ceftriaxone; S/P azithromycin A Pulmonary consultation has been obtained with Dr. Riccardo Drew. Not a candidate for remdesivir per ID 2. Alzheimer's dementia. 3. Hypertension. The patient is currently hypotensive. Hold diltiazem. 4. Congestive heart failure. Cardiology consultation has been obtained with Dr. Hema Mcclure. 5. Atrial fibrillation. 6. Hypothyroidism. Continue Levoxyl as above. 7. Diabetes type 2. A NovoLog sliding scale has been instituted. Dudley Rebollar MD Jul 31, 2020 17:26
--- NOTE | 2020-07-31 19:27 | NUR ---
NURSE HAND-OFF: Important Events on Shift:[monitoring blood sugar and PO intake, turning and repositioning, monitoring blood pressure] Patient Status: [stable] Diet: [CCHO medium pureed moist] Pending Orders: [] Pending Results/Labs:[] Pending MD notification:[] Latest Vital Signs: Temperature 96.6 , Pulse 77 , B/P 93 /58 , Respiratory Rate 18 , O2 SAT 95 , Nasal Cannula, O2 Flow Rate 2.0 . Vital Sign Comment: [] Latest [place] Fall Score: 60 Fall Risk: High Risk Safety Measures: Call light Within Reach, Bed Alarm Zone 1, Side Rails Side Rails x3, Bed position Low and Locked. Fall Precautions: Yellow Socks Yellow Gown Door Sign Patient Fall Education Report given to [JENNIFER Orozco].
[2020-07-31 20:00] VITALS: BP 123/65
--- NOTE | 2020-07-31 22:40 | NUR ---
NURSE NOTES: Patient in bed, awake, confused, able to make simple needs known. Respiration is even and unlabored. On Nasal canula. No s/s of distress noted. Skin is warm and dry. Dressings are intact. Bed in low and locked position. Iv site noted, iv fluid is infusing as ordered. Provided safe environment. call light is at bedside. Will continue plan of care.
--- NOTE | 2020-07-31 23:07 | Surgery Progress Note ---
Surgery Progress Note Subjective Symptoms: improved, tolerating diet, passing flatus Objective Last 24 Hour Vital Signs Date Time Temp Pulse Resp B/P (MAP) Pulse Ox O2 Delivery O2 Flow Rate FiO2 07/31/20 20:59 112 123/65 07/31/20 20:18 Nasal Cannula 2.0 07/31/20 20:00 97.6 112 17 123/65 (84) 93 07/31/20 17:01 77 93/58 07/31/20 16:00 96.6 77 18 93/58 (70) 95 07/31/20 12:45 80 96/56 07/31/20 12:00 96.6 80 18 96/56 (69) 91 07/31/20 09:00 Nasal Cannula 2.0 07/31/20 08:43 96 119/62 07/31/20 08:00 97.4 96 18 119/62 (81) 98 07/31/20 04:00 99.0 107 20 106/67 (80) 94 07/31/20 00:00 98.8 88 20 88/50 (63) 94 I&O Intake and Output 07/30/20 07/31/20 19:00 07:00 Intake Total 100 ml Output Total 200 ml Balance -100 ml Intake Oral 100 ml Output Urine Total 200 ml Dressing: saturated Cardiovascular: RSR Respiratory: decreased breath sounds Abdomen: non-tender, present bowel sounds Extremities: no tenderness, no cyanosis Laboratory Tests Test 07/31/20 11:26 07/31/20 14:30 07/31/20 16:23 07/31/20 20:40 POC Whole Blood Glucose 180 MG/DL (74-106) H 174 MG/DL (74-106) H 143 MG/DL (74-106) H Urine Color Radha Urine Appearance Cloudy Urine pH 5 (4.5-8.0) Urine Specific [place] 1.015 (1.005-1.035) Urine Protein 3+ (NEGATIVE) H Urine Glucose (UA) Negative (NEGATIVE) Urine Ketones 1+ (NEGATIVE) H Urine Blood 5+ (NEGATIVE) H Urine Nitrite Negative (NEGATIVE) Urine Bilirubin Negative (NEGATIVE) Urine Ictotest Negative (NEGATIVE) Urine Urobilinogen Normal MG/DL (0.0-1.0) Urine Leukocyte Esterase 3+ (NEGATIVE) H Urine RBC 20-30 /HPF (0 - 2) H Urine WBC Tntc /HPF (0 - 2) H Urine Squamous Epithelial Cells Moderate /LPF (NONE/OCC) H Urine Bacteria Many /HPF (NONE) H Urine Yeast Many /HPF (NONE) H Plan Problems: (1) Alzheimer's dementia (2) Dizziness (3) Hyponatremia (4) Rhabdomyolysis (5) Acute hyponatremia (6) SUZETTE (acute kidney injury) (7) Sepsis Assessment & Plan: 84F with leukocytosis, elevated lft's on abx decubitus ulcers, malnutrition, low bmi Patient noted on admission to have multiple Pressure Injuries. Sacral DTPI noted (L)5cm x (W)7.5cm Base of Pressure Injury is Maroon and in durated with non-blanchable erythema along borders. Dry Peeling skin noted to sacrococcygeal area. L Heel is Boggy with non-Blanchable erythema(L)5cm x (W)6cm. R heel is boggy with non-blanchable erythema(L)6.5cm x (W)6.5cm. DTPI L Hallux (L)3cmx (W)3.3cm.Base of injury is fluctuant with surrounding non- Blanchable erythema. DTPI R Hallux (L)1.1cm x (W)1cm. Base of Pressure Injury is purple with surrounding maroon borders. DTPI Medial R Malleolus (L)0.6cm x (W)0.8cm. Tx.Plan: Apply Moisture Barrier Paste to Sacrum. Cover with Optifoam Drsg . [place] every 3days and prn. Apply Cavilon Skin Barrier to Both heels, Malleoli , R and L Hallux.Cover each Presuer Injury with Optifoam drsg. Change every 7 days and prn. Reposition at least every 2hours or as tolerated. Off-load heels with Pillow. Reposition at least every 2hours or as tolerated. Nutritional optimization US abd Trend labs Cont abx DAILY ESTIMATED NEEDS: Needs based on Pulmonary, DM, underweight 48.5kg 30-35 kcals/kg 6286-0208 total kcals 1-1.5 g protein/kg 49-73 g total protein 25-30ml/kcal mL/kg 6546-1924 total fluid mLs NUTRITION DIAGNOSIS: Altered nutrition related lab values r/t diabetes and clinical status as evidenced by A1C 6.4, BG 200's, on decadron. (CURRENT DIET:CCHO MED/ puree) PO DIET RECOMMENDATIONS: Liberalized REGULAR DIET/ texture per ELECTROPLATER ADDITIONAL RECOMMENDATIONS: 1) Add Glucerna 1 tetra TID w/ meals 2) NON ORAL FEEDS/ TEMPORARY if part of POC 3) Obtain an accurate CBW 4) Rec D5 w/ increased insulin coverage w/ current poor po intake (8) Respiratory failure with hypoxia (9) Pneumonia due to COVID-19 virus (10) Chronic atrial fibrillation (11) Diabetes mellitus Jeremiah Haley Jul 31, 2020 23:07
[2020-08-01] VITALS: BP 92/64
[2020-08-01 04:00] VITALS: BP 101/60
[2020-08-01] MEDS: NovoLOG Insulin Flexpen SUBQ SCH ×4 (05:54→20:53)
[2020-08-01 06:03] LABS: HEMATOCRIT 24.2 % (37.0-47.0); HEMOGLOBIN 8.7 G/DL (12.0-16.0); MEAN CORPUSCULAR VOLUME 93 FL (80-99); PLATELET COUNT 150 K/UL (150-450); RED BLOOD COUNT 2.62 M/UL (4.20-5.40); RED CELL DISTRIBUTION WIDTH 13.5 % (11.6-14.8); WHITE BLOOD COUNT 12.3 K/UL (4.8-10.8)
[2020-08-01 06:41] LABS: ALBUMIN 2.3 G/DL (3.4-5.0); ALBUMIN/GLOBULIN RATIO 0.7 (1.0-2.7); BILIRUBIN,TOTAL 1.1 MG/DL (0.2-1.0); CALCIUM 8.4 MG/DL (8.5-10.1); CREATININE 1.6 MG/DL (0.55-1.30)
[2020-08-01 06:54] LABS: BILIRUBIN,DIRECT 0.6 MG/DL (0.0-0.3)
--- NOTE | 2020-08-01 06:59 | NUR ---
NURSE HAND-OFF: Important Events on Shift:WNL Patient Status: WNL Diet: CCHO MED pureed moist Pending Orders: CBC, BMP Pending Results/Labs: Pending MD notification: Latest Vital Signs: Temperature 97.5 , Pulse 99 , B/P 101 /60 , Respiratory Rate 17 , O2 SAT 92 , Nasal Cannula, O2 Flow Rate 2.0 . Vital Sign Comment: WNL Latest [place] Fall Score: 60 Fall Risk: High Risk Safety Measures: Call light Within Reach, Bed Alarm Zone 1, Side Rails Side Rails x3, Bed position Low and Locked. Fall Precautions: Yellow Socks Yellow Gown Door Sign Patient Fall Education Report given to JENNIFER Villafana.
--- NOTE | 2020-08-01 07:12 | NUR ---
NURSE NOTES: Report received from JENNIFER Orozco. Pt is in bed, awake, alert and oriented x 1, no SOB, bed in lowest position with breaks engaged and alarm on, no s/sx of pain or discomfort at this time, IV line on right hand in place, FC in place, on 02 via NC, will continue to monitor and proceed with plan of care, call light within reach.
[2020-08-01 07:22] LABS: PHOSPHORUS 2.3 MG/DL (2.5-4.9)
[2020-08-01 08:00] VITALS: BP 112/71
--- NOTE | 2020-08-01 08:27 | NUR ---
CHARGE NURSE NOTE: K3.0. notified.
[2020-08-01] MEDS: Docusate 100mg/10ml Liq NG SCH (08:47)
[2020-08-01] MEDS: Aspirin EC 81mg tab ORAL SCH (08:47)
[2020-08-01] MEDS: dilTIAZem HCl 60mg tab ORAL SCH ×4 (08:48→20:51)
[2020-08-01] MEDS: Heparin 5000 units/ml inj SUBQ SCH ×2 (08:49→20:52)
--- NOTE | 2020-08-01 09:51 | Pulmonology Progress Note ---
Subjective ROS Limited/Unobtainable: Yes Allergies: Coded Allergies: SULFAMETHOXAZOLE (Verified Allergy, Unknown, 07/19/20) TRIMETHOPRIM (Verified Allergy, Unknown, 07/19/20) Subjective BP better still with leukocytosis, but trending down; no fevers pulse ox stable on O2 via NC denies pain creat up to 1.6 again Hgb trending down K-3.0 Objective Last 24 Hour Vital Signs Date Time Temp Pulse Resp B/P (MAP) Pulse Ox O2 Delivery O2 Flow Rate FiO2 08/01/20 09:00 Nasal Cannula 2.0 08/01/20 08:48 106 112/71 08/01/20 08:00 96.8 106 16 112/71 (85) 97 08/01/20 04:00 97.5 99 17 101/60 (74) 92 08/01/20 00:00 97.4 89 16 92/64 (73) 93 07/31/20 20:59 112 123/65 07/31/20 20:18 Nasal Cannula 2.0 07/31/20 20:00 97.6 112 17 123/65 (84) 93 07/31/20 17:01 77 93/58 07/31/20 16:00 96.6 77 18 93/58 (70) 95 07/31/20 12:45 80 96/56 07/31/20 12:00 96.6 80 18 96/56 (69) 91 Intake and Output 07/31/20 08/01/20 19:00 07:00 Intake Total 295 ml 1305 ml Output Total 400 ml 450 ml Balance -105 ml 855 ml Intake Oral 220 ml 480 ml IV Total 75 ml 825 ml Output Urine Total 400 ml 450 ml # Voids 1 General Appearance: no acute distress, cachetic HEENT: normocephalic, atraumatic Respiratory: chest wall non-tender, lungs clear, other - O2 via NC Cardiovascular: normal peripheral pulses, normal rate Abdomen: normal bowel sounds, soft, non tender Genitourinary: normal external genitalia Skin: no rash Neurologic: abnormal gait, alert - confused Lymphatic: no neck adenopathy Musculoskeletal: atrophy - BLE Microbiology Date/Time Source Procedure Growth Status 07/31/20 14:30 Urine,Clean Catch Urine Culture - Preliminary NO GROWTH Resulted Laboratory Tests 07/31/20 11:26: POC Whole Blood Glucose 180H 07/31/20 14:30: Urine Color Radha, Urine Appearance Cloudy, Urine pH 5, Urine Specific [place] 1.015, Urine Protein 3+H, Urine Glucose (UA) Negative, Urine Ketones 1+H, Urine Blood 5+H, Urine Nitrite Negative, Urine Bilirubin Negative, Urine Ictotest Negative, Urine Urobilinogen Normal, Urine Leukocyte Esterase 3+H, Urine RBC 20- 30H, Urine WBC TntcH, Urine Squamous Epithelial Cells ModerateH, Urine Bacteria ManyH, Urine Yeast ManyH 07/31/20 16:23: POC Whole Blood Glucose 174H 07/31/20 20:40: POC Whole Blood Glucose 143H 08/01/20 05:35: White Blood Count 12.3H, Red Blood Count 2.62L, Hemoglobin 8.7L, Hematocrit 24.2L, Mean Corpuscular Volume 93, Mean Corpuscular Hemoglobin 33.1H, Mean Corpuscular Hemoglobin Concent 35.7, Red Cell Distribution Width 13.5, Platelet Count 150, Mean Platelet Volume 8.7, Neutrophils (%) (Auto) , Lymphocytes (%) (Auto) , Monocytes (%) (Auto) , Eosinophils (%) (Auto) , Basophils (%) (Auto) , Differential Total Cells Counted 100, Neutrophils % (Manual) 92H, Lymphocytes % (Manual) 4L, Monocytes % (Manual) 4, Eosinophils % (Manual) 0, Basophils % (Manual) 0, Band Neutrophils 0, Platelet Estimate Adequate, Platelet Morphology Normal, Anisocytosis 1+, Sodium Level 135L, Potassium Level 3.0L, Chloride Level 102, Carbon Dioxide Level 23, Anion Gap 10, Blood Urea Nitrogen 41H, Creatinine 1.6H, Estimat Glomerular Filtration Rate 30.6, Glucose Level 133H, Calcium Level 8.4L, Phosphorus Level 2.3L, Magnesium Level 1.6L, Total Bilirubin 1.1H, Direct Bilirubin 0.6H, Aspartate Amino Transf (AST/SGOT) 45H, Alanine Aminotransferase (ALT/SGPT) 74, Alkaline Phosphatase 74, C-Reactive Protein, Quantitative 26.7H, Pro-B-Type Natriuretic Peptide 4412H, Total Protein 5.5L, Albumin 2.3L, Globulin 3.2, Albumin/Globulin Ratio 0.7L 08/01/20 05:48: POC Whole Blood Glucose 123H Current Medications Medications (Trade) Dose Ordered Sig/Ranjeet Route PRN Reason Start Time Stop Time Status Last Admin Dose Admin Acetaminophen (Tylenol) 650 mg Q6H PRN ORAL Temp >100.5 07/19/20 09:15 08/18/20 09:14 Aspirin (Ecotrin) 81 mg DAILY ORAL 07/20/20 10:00 09/03/20 09:59 08/01/20 08:47 Dextrose (Dextrose 50%) 25 ml Q30M PRN IV Hypoglycemia 07/20/20 12:00 10/18/20 11:59 Dextrose (Dextrose 50%) 50 ml Q30M PRN IV Hypoglycemia 07/20/20 12:00 10/18/20 11:59 Diltiazem HCl (Cardizem Tab) 60 mg QID ORAL 07/29/20 18:00 08/28/20 17:59 08/01/20 08:48 Docusate Sodium (Colace) 100 mg THREE TIMES A DAY NG 07/25/20 18:00 08/24/20 17:59 08/01/20 08:47 Heparin Sodium (Porcine) (Heparin 5000 units/ml) 5,000 units EVERY 12 HOURS SUBQ 07/23/20 10:30 09/06/20 10:29 08/01/20 08:49 Insulin Aspart (NovoLOG) give half dose if not eating BEFORE MEALS AND HS SUBQ 07/20/20 16:30 10/18/20 16:29 07/31/20 17:02 Levothyroxine Sodium (Synthroid) 100 mcg Q24H ORAL 07/21/20 06:30 08/20/20 06:29 08/01/20 05:54 Morphine Sulfate (Morphine Sulfate) 2 mg Q4H PRN IVP Severe Pain (Pain Scale 7-10) 07/30/20 21:45 08/06/20 21:44 Ondansetron HCl (Zofran) 4 mg Q6H PRN IVP Nausea & Vomiting 07/19/20 09:15 08/18/20 09:14 Polyethylene Glycol (Miralax) 17 gm DAILYPRN PRN ORAL Constipation 07/19/20 09:15 08/18/20 09:14 Potassium Chloride 100 ml @ 100 mls/hr Q1HR IVPB 08/01/20 09:00 08/01/20 12:59 08/01/20 08:48 Promethazine HCl/ Codeine (Phenergan with Codeine) 5 ml Q6H PRN ORAL cough 07/19/20 09:15 08/18/20 09:14 Sodium Chloride 1,000 ml @ 75 mls/hr [id number] IV 07/30/20 19:30 08/29/20 19:29 07/31/20 00:00 Assessment/Plan Assessment/Plan ASSESSMENT Recent history of Covid pneumonia, now negative Acute hypoxemic respiratory failure SUZETTE Hypertension CHF A. fib Hypothyroidism Diabetes mellitus Dementia Multiple pressure injury present on admission PLAN OF CARE [facility] floor COVID-19 07/22 NGT BCX NGT , UCX NGT CXR initial and f/up no acute process ID follows s/p steroids x10 days, s/p abx x 5 days ID recommends monitor off abx still with leukocytosis, but no fevers Venous duplex BLE negative VQ scan nondiagnostic a/PLT with ASA O2 titrate to keep sat above 92 % , now on 2 L of oxygen via NC, pulse ox stable BP low, off SHANNA, s/p bolus and now on IVF, BP this am better HR control with the Cardizem, overall controlled , switched to SA as per cardio monitor closely HD status DVT prophylaxis BS management with SSI sensitive dose Hgb A1c 6.4 monitor renal parameters and electrolytes , avoid nephrotoxics renal US with mild R hydro creatinine now up to 1.6, on IVF, per further nephto recs Na stabilized K already replaced by nephro monitor HH with goal to keep Hgb above 7, check stool OB supportive care DNR/DNI status case discussed and evaluated by supervising physician Eloisa Dobson NP Aug 01, 2020 09:50
--- NOTE | 2020-08-01 10:33 | NUR ---
NURSE NOTES: Patient was transferred to in stable condition with all belongings at 1015.
--- NOTE | 2020-08-01 10:35 | NUR ---
NURSE NOTES: Patient arrived on unit via hospital bed. Stable. Breathing is even and unlabored. No visible signs of distress noted. Patient instructed to use call light for assistance, unable to comprehend. F/C patent and draining estefania urine. Patient is in bed in locked and lowest position with call light within reach, all safety measures provided. Patient in room close to nurses station for safety measures. All needs met at this time. WIll continue to monitor.
[2020-08-01] MEDS ORDERED: Albumin Human 5% 250ml IV SCH (11:00)
[2020-08-01] MEDS: Potassium Phosphate 15mm/250ml 250 ML IVPB SCH ×2 (11:10→15:25)
--- NOTE | 2020-08-01 11:13 | Nephrology Progress Note ---
Assessment/Plan Problem List: (1) SUZETTE (acute kidney injury) (2) Acute hyponatremia (3) Alzheimer's dementia (4) Chronic atrial fibrillation (5) Diabetes mellitus Assessment Acute renal failure Acute respiratory failure with hypoxia Severe hyponatremia Sepsis History of hypertension History of diabetes mellitus DNR DNI Plan August 01: Labs reviewed. Electrolyte abnormalities addressed. Albumin bolus IV given. Serum creatinine laurent to 1.6. Continue to monitor renal parameters and electrolytes. Per orders. Patient DNR. July 31: No labs drawn today. Renal parameters been stable. Leukocytosis persists. Continue per ID. July 30: Labs reviewed. Serum sodium within normal limit. White blood cells up to over 16,000's. Continue per consultants. Stable from renal standpoint of view. July 29: Labs reviewed. Serum sodium 133. Renal parameters stable. Okay to discharge and follow-up electrolytes as an outpatient. July 28: Labs reviewed. Serum sodium up 135. Continue per consultants. Stable from renal standpoint of view. July 27: No labs drawn today. Last serum sodium was 132 for which patient received 3% saline. Will check lab tomorrow. July 26: Labs reviewed. Serum sodium 132. 250 cc 3% saline ordered. Continue per consultants. Continue to monitor renal parameters and electroly gabriel. July 25: Labs reviewed. Continue to observe serum sodium and glucose level. Continue per consultants. July 24: Labs reviewed. Abnormal electrolytes and chemistries addressed. Continue per consultants. July 23: Labs reviewed. Renal parameters stable. Continue per consultants. July 22: Labs reviewed. Renal parameters stable. Abnormal chemistries and electrolytes addressed. Continue per consultants. July 21: Serum sodium improved. Lab reviewed. Serum creatinine improved. Continue current management. July 20: Serum sodium 126. Labs reviewed. Serum creatinine down to 1.6. Medication list reviewed. Continue current management. Continue to monitor electrolytes and renal parameters. July 19: Saline infusion Monitor renal parameters and electrolytes Avoid nephrotoxic's Saline infusion Per consultants Subjective ROS Limited/Unobtainable: No Constitutional: Reports: malaise, weakness Objective Objective Last 24 Hour Vital Signs Date Time Temp Pulse Resp B/P (MAP) Pulse Ox O2 Delivery O2 Flow Rate FiO2 08/01/20 09:00 Nasal Cannula 2.0 08/01/20 08:48 106 112/71 08/01/20 08:00 96.8 106 16 112/71 (85) 97 08/01/20 04:00 97.5 99 17 101/60 (74) 92 08/01/20 00:00 97.4 89 16 92/64 (73) 93 07/31/20 20:59 112 123/65 07/31/20 20:18 Nasal Cannula 2.0 07/31/20 20:00 97.6 112 17 123/65 (84) 93 07/31/20 17:01 77 93/58 07/31/20 16:00 96.6 77 18 93/58 (70) 95 07/31/20 12:45 80 96/56 07/31/20 12:00 96.6 80 18 96/56 (69) 91 Intake and Output 07/31/20 08/01/20 19:00 07:00 Intake Total 295 ml 1305 ml Output Total 400 ml 450 ml Balance -105 ml 855 ml Intake Oral 220 ml 480 ml IV Total 75 ml 825 ml Output Urine Total 400 ml 450 ml # Voids 1 Current Medications Medications (Trade) Dose Ordered Sig/Ranjeet Route PRN Reason Start Time Stop Time Status Last Admin Dose Admin Acetaminophen (Tylenol) 650 mg Q6H PRN ORAL Temp >100.5 07/19/20 09:15 08/18/20 09:14 Albumin Human (Albuminar-5) 250 ml ONCE IV 08/01/20 11:00 08/01/20 13:00 Aspirin (Ecotrin) 81 mg DAILY ORAL 07/20/20 10:00 09/03/20 09:59 08/01/20 08:47 Dextrose (Dextrose 50%) 25 ml Q30M PRN IV Hypoglycemia 07/20/20 12:00 10/18/20 11:59 Dextrose (Dextrose 50%) 50 ml Q30M PRN IV Hypoglycemia 07/20/20 12:00 10/18/20 11:59 Diltiazem HCl (Cardizem Tab) 60 mg QID ORAL 07/29/20 18:00 08/28/20 17:59 08/01/20 08:48 Docusate Sodium (Colace) 100 mg THREE TIMES A DAY NG 07/25/20 18:00 08/24/20 17:59 08/01/20 08:47 Heparin Sodium (Porcine) (Heparin 5000 units/ml) 5,000 units EVERY 12 HOURS SUBQ 07/23/20 10:30 09/06/20 10:29 08/01/20 08:49 Insulin Aspart (NovoLOG) give half dose if not eating BEFORE MEALS AND HS SUBQ 07/20/20 16:30 10/18/20 16:29 07/31/20 17:02 Levothyroxine Sodium (Synthroid) 100 mcg Q24H ORAL 07/21/20 06:30 08/20/20 06:29 08/01/20 05:54 Morphine Sulfate (Morphine Sulfate) 2 mg Q4H PRN IVP Severe Pain (Pain Scale 7-10) 07/30/20 21:45 08/06/20 21:44 Ondansetron HCl (Zofran) 4 mg Q6H PRN IVP Nausea & Vomiting 07/19/20 09:15 08/18/20 09:14 Polyethylene Glycol (Miralax) 17 gm DAILYPRN PRN ORAL Constipation 07/19/20 09:15 08/18/20 09:14 Potassium Phosphate 250 ml @ 62.5 mls/hr Q4H IVPB 08/01/20 11:00 08/01/20 18:59 Promethazine HCl/ Codeine (Phenergan with Codeine) 5 ml Q6H PRN ORAL cough 07/19/20 09:15 08/18/20 09:14 Sodium Chloride 1,000 ml @ 75 mls/hr [id number] IV 07/30/20 19:30 08/29/20 19:29 07/31/20 00:00 Laboratory Tests 07/31/20 11:26: POC Whole Blood Glucose 180H 07/31/20 14:30: Urine Color Radha, Urine Appearance Cloudy, Urine pH 5, Urine Specific [place] 1.015, Urine Protein 3+H, Urine Glucose (UA) Negative, Urine Ketones 1+H, Urine Blood 5+H, Urine Nitrite Negative, Urine Bilirubin Negative, Urine Ictotest Negative, Urine Urobilinogen Normal, Urine Leukocyte Esterase 3+H, Urine RBC 20- 30H, Urine WBC TntcH, Urine Squamous Epithelial Cells ModerateH, Urine Bacteria ManyH, Urine Yeast ManyH 07/31/20 16:23: POC Whole Blood Glucose 174H 07/31/20 20:40: POC Whole Blood Glucose 143H 08/01/20 05:35: White Blood Count 12.3H, Red Blood Count 2.62L, Hemoglobin 8.7L, Hematocrit 24.2L, Mean Corpuscular Volume 93, Mean Corpuscular Hemoglobin 33.1H, Mean Corpuscular Hemoglobin Concent 35.7, Red Cell Distribution Width 13.5, Platelet Count 150, Mean Platelet Volume 8.7, Neutrophils (%) (Auto) , Lymphocytes (%) (Auto) , Monocytes (%) (Auto) , Eosinophils (%) (Auto) , Basophils (%) (Auto) , Differential Total Cells Counted 100, Neutrophils % (Manual) 92H, Lymphocytes % (Manual) 4L, Monocytes % (Manual) 4, Eosinophils % (Manual) 0, Basophils % (Manual) 0, Band Neutrophils 0, Platelet Estimate Adequate, Platelet Morphology Normal, Anisocytosis 1+, Sodium Level 135L, Potassium Level 3.0L, Chloride Level 102, Carbon Dioxide Level 23, Anion Gap 10, Blood Urea Nitrogen 41H, Creatinine 1.6H, Estimat Glomerular Filtration Rate 30.6, Glucose Level 133H, Calcium Level 8.4L, Phosphorus Level 2.3L, Magnesium Level 1.6L, Total Bilirubin 1.1H, Direct Bilirubin 0.6H, Aspartate Amino Transf (AST/SGOT) 45H, Alanine Aminotransferase (ALT/SGPT) 74, Alkaline Phosphatase 74, C-Reactive Protein, Quantitative 26.7H, Pro-B-Type Natriuretic Peptide 4412H, Total Protein 5.5L, Albumin 2.3L, Globulin 3.2, Albumin/Globulin Ratio 0.7L 08/01/20 05:48: POC Whole Blood Glucose 123H Height (Feet): 5 Height (Inches): 6.00 Weight (Pounds): 130 General Appearance: no apparent distress, lethargic Cardiovascular: tachycardia Respiratory/Chest: decreased breath sounds Abdomen: distended Objective No change Jethro Cleaning MD Aug 01, 2020 11:13
[2020-08-01 11:30] VITALS: BP 112/75
[2020-08-01] MEDS: Docusate 100mg/10ml Liq ORAL SCH ×2 (12:11→17:07)
--- NOTE | 2020-08-01 12:41 | Internal Med Progress Note ---
Subjective Date of Service: Aug 01, 2020 Physician Name Dudley Rebollar Attending Physician Mateo Rankin MD Current Medications Medications (Trade) Dose Ordered Sig/Ranjeet Route PRN Reason Start Time Stop Time Status Last Admin Dose Admin Acetaminophen (Tylenol) 650 mg Q6H PRN ORAL Temp >100.5 07/19/20 09:15 08/18/20 09:14 Albumin Human (Albuminar-5) 250 ml ONCE IV 08/01/20 11:00 08/01/20 13:00 08/01/20 11:10 Aspirin (Ecotrin) 81 mg DAILY ORAL 07/20/20 10:00 09/03/20 09:59 08/01/20 08:47 Dextrose (Dextrose 50%) 25 ml Q30M PRN IV Hypoglycemia 07/20/20 12:00 10/18/20 11:59 Dextrose (Dextrose 50%) 50 ml Q30M PRN IV Hypoglycemia 07/20/20 12:00 10/18/20 11:59 Diltiazem HCl (Cardizem Tab) 60 mg QID ORAL 07/29/20 18:00 08/28/20 17:59 08/01/20 12:12 Docusate Sodium (Colace) 100 mg THREE TIMES A DAY ORAL 08/01/20 13:00 08/24/20 17:59 08/01/20 12:11 Heparin Sodium (Porcine) (Heparin 5000 units/ml) 5,000 units EVERY 12 HOURS SUBQ 07/23/20 10:30 09/06/20 10:29 08/01/20 08:49 Insulin Aspart (NovoLOG) give half dose if not eating BEFORE MEALS AND HS SUBQ 07/20/20 16:30 10/18/20 16:29 07/31/20 17:02 Levothyroxine Sodium (Synthroid) 100 mcg Q24H ORAL 07/21/20 06:30 08/20/20 06:29 08/01/20 05:54 Morphine Sulfate (Morphine Sulfate) 2 mg Q4H PRN IVP Severe Pain (Pain Scale 7-10) 07/30/20 21:45 08/06/20 21:44 Ondansetron HCl (Zofran) 4 mg Q6H PRN IVP Nausea & Vomiting 07/19/20 09:15 08/18/20 09:14 Polyethylene Glycol (Miralax) 17 gm DAILYPRN PRN ORAL Constipation 07/19/20 09:15 08/18/20 09:14 Potassium Phosphate 250 ml @ 62.5 mls/hr Q4H IVPB 08/01/20 11:00 08/01/20 18:59 08/01/20 11:10 Promethazine HCl/ Codeine (Phenergan with Codeine) 5 ml Q6H PRN ORAL cough 07/19/20 09:15 08/18/20 09:14 Sodium Chloride 1,000 ml @ 75 mls/hr [id number] IV 07/30/20 19:30 08/29/20 19:29 08/01/20 11:21 Allergies: Coded Allergies: SULFAMETHOXAZOLE (Verified Allergy, Unknown, 07/19/20) TRIMETHOPRIM (Verified Allergy, Unknown, 07/19/20) ROS Limited/Unobtainable: Yes Subjective 84 YO F admitted with COVID 19 pos and respiratory failure. Now COVID 19 pneumonia. Cover for Int Med-Dr Rankin Objective Last Vital Signs Date Time Temp Pulse Resp B/P (MAP) Pulse Ox O2 Delivery O2 Flow Rate FiO2 08/01/20 12:12 71 112/75 08/01/20 11:30 97.8 20 94 08/01/20 09:00 Nasal Cannula 2.0 07/29/20 20:16 28 Laboratory Tests Test 07/31/20 14:30 07/31/20 16:23 07/31/20 20:40 08/01/20 05:35 Urine Color Radha Urine Appearance Cloudy Urine pH 5 (4.5-8.0) Urine Specific [place] 1.015 (1.005-1.035) Urine Protein 3+ (NEGATIVE) H Urine Glucose (UA) Negative (NEGATIVE) Urine Ketones 1+ (NEGATIVE) H Urine Blood 5+ (NEGATIVE) H Urine Nitrite Negative (NEGATIVE) Urine Bilirubin Negative (NEGATIVE) Urine Ictotest Negative (NEGATIVE) Urine Urobilinogen Normal MG/DL (0.0-1.0) Urine Leukocyte Esterase 3+ (NEGATIVE) H Urine RBC 20-30 /HPF (0 - 2) H Urine WBC Tntc /HPF (0 - 2) H Urine Squamous Epithelial Cells Moderate /LPF (NONE/OCC) H Urine Bacteria Many /HPF (NONE) H Urine Yeast Many /HPF (NONE) H POC Whole Blood Glucose 174 MG/DL (74-106) H 143 MG/DL (74-106) H White Blood Count 12.3 K/UL (4.8-10.8) H Red Blood Count 2.62 M/UL (4.20-5.40) L Hemoglobin 8.7 G/DL (12.0-16.0) L Hematocrit 24.2 % (37.0-47.0) L Mean Corpuscular Volume 93 FL (80-99) Mean Corpuscular Hemoglobin 33.1 PG (27.0-31.0) H Mean Corpuscular Hemoglobin Concent 35.7 G/DL (32.0-36.0) Red Cell Distribution Width 13.5 % (11.6-14.8) Platelet Count 150 K/UL (150-450) Mean Platelet Volume 8.7 FL (6.5-10.1) Neutrophils (%) (Auto) % (45.0-75.0) Lymphocytes (%) (Auto) % (20.0-45.0) Monocytes (%) (Auto) % (1.0-10.0) Eosinophils (%) (Auto) % (0.0-3.0) Basophils (%) (Auto) % (0.0-2.0) Differential Total Cells Counted 100 Neutrophils % (Manual) 92 % (45-75) H Lymphocytes % (Manual) 4 % (20-45) L Monocytes % (Manual) 4 % (1-10) Eosinophils % (Manual) 0 % (0-3) Basophils % (Manual) 0 % (0-2) Band Neutrophils 0 % (0-8) Platelet Estimate Adequate Platelet Morphology Normal Anisocytosis 1+ Sodium Level 135 MMOL/L (136-145) L Potassium Level 3.0 MMOL/L (3.5-5.1) L Chloride Level 102 MMOL/L (98-107) Carbon Dioxide Level 23 MMOL/L (21-32) Anion Gap 10 mmol/L (5-15) Blood Urea Nitrogen 41 mg/dL (7-18) H Creatinine 1.6 MG/DL (0.55-1.30) H Estimat Glomerular Filtration Rate 30.6 mL/min (>60) Glucose Level 133 MG/DL (74-106) H Calcium Level 8.4 MG/DL (8.5-10.1) L Phosphorus Level 2.3 MG/DL (2.5-4.9) L Magnesium Level 1.6 MG/DL (1.8-2.4) L Total Bilirubin 1.1 MG/DL (0.2-1.0) H Direct Bilirubin 0.6 MG/DL (0.0-0.3) H Aspartate Amino Transf (AST/SGOT) 45 U/L (15-37) H Alanine Aminotransferase (ALT/SGPT) 74 U/L (12-78) Alkaline Phosphatase 74 U/L (46-116) C-Reactive Protein, Quantitative 26.7 mg/dL (0.00-0.90) H Pro-B-Type Natriuretic Peptide 4412 pg/mL (0-125) H Total Protein 5.5 G/DL (6.4-8.2) L Albumin 2.3 G/DL (3.4-5.0) L Globulin 3.2 g/dL Albumin/Globulin Ratio 0.7 (1.0-2.7) L Test 08/01/20 05:48 08/01/20 11:11 POC Whole Blood Glucose 123 MG/DL (74-106) H Pending Microbiology Date/Time Source Procedure Growth Status 07/31/20 14:30 Urine,Clean Catch Urine Culture - Preliminary NO GROWTH Resulted Intake and Output 07/31/20 08/01/20 19:00 07:00 Intake Total 295 ml 1305 ml Output Total 400 ml 450 ml Balance -105 ml 855 ml Intake Oral 220 ml 480 ml IV Total 75 ml 825 ml Output Urine Total 400 ml 450 ml # Voids 1 Objective PHYSICAL EXAMINATION: GENERAL: The patient is a well-developed and well-nourished female, in moderate respiratory distress. HEENT: Eyes, pupils are equal and responsive to light and accommodation. Extraocular movements are intact. NECK: Supple without lymphadenopathy. CHEST: Decreased breath sounds in bilateral bases, otherwise without wheezes or rales. CARDIOVASCULAR: Regular rhythm and rate. S1, S2 normal without murmurs, rubs, or gallops. ABDOMEN: Soft, nontender, nondistended. Positive bowel sounds. No evidence of hepatosplenomegaly. Currently, no rebound or guarding noted. EXTREMITIES: Negative for clubbing, cyanosis, or edema. RECTAL/GENITAL: Not performed. NEUROLOGIC: Cranial nerves II through XII are grossly intact without focal deficits. Assessment/Plan Assessment/Plan ASSESSMENT: This is an 84-year-old female with: 1. Previous COVID-19 positive-now negative 2. Pneumonia. 3. Alzheimer's dementia. 4. Hypertension. 5. Congestive heart failure. 6. Atrial fibrillation. 7. Hypothyroidism. 8. Diabetes type 2. 9. Hyponatremia-resolving TREATMENT: 1. COVID-19/pneumonia. Infectious Disease = Dr. Babcock. S/P Decadron ABX= S/P ceftriaxone; S/P azithromycin A Pulmonary consultation has been obtained with Dr. Riccardo Drew. Not a candidate for remdesivir per ID 2. Alzheimer's dementia. 3. Hypertension. The patient is currently hypotensive. Hold diltiazem. 4. Congestive heart failure. Cardiology consultation has been obtained with Dr. Hema Mcclure. 5. Atrial fibrillation. 6. Hypothyroidism. Continue Levoxyl as above. 7. Diabetes type 2. A NovoLog sliding scale has been instituted. Dudley Rebollar MD Aug 01, 2020 12:41
--- NOTE | 2020-08-01 12:54 | NUR ---
NURSE NOTES: Rounds done with Dr. Rebollar. No new orders, will continue plan of care.
[2020-08-01 16:00] VITALS: BP_SYST 112; BP_SYST 129; BP_DIAS 70
--- NOTE | 2020-08-01 16:08 | Surgery Progress Note ---
Surgery Progress Note Subjective Additional Comments domingo cute events labs noted imaging reviewed no n/v Objective Last 24 Hour Vital Signs Date Time Temp Pulse Resp B/P (MAP) Pulse Ox O2 Delivery O2 Flow Rate FiO2 08/01/20 12:12 71 112/75 08/01/20 11:30 97.8 71 20 112/75 (87) 94 08/01/20 09:00 Nasal Cannula 2.0 08/01/20 08:48 106 112/71 08/01/20 08:00 96.8 106 16 112/71 (85) 97 08/01/20 04:00 97.5 99 17 101/60 (74) 92 08/01/20 00:00 97.4 89 16 92/64 (73) 93 07/31/20 20:59 112 123/65 07/31/20 20:18 Nasal Cannula 2.0 07/31/20 20:00 97.6 112 17 123/65 (84) 93 07/31/20 17:01 77 93/58 I&O Intake and Output 07/31/20 08/01/20 19:00 07:00 Intake Total 295 ml 1305 ml Output Total 400 ml 450 ml Balance -105 ml 855 ml Intake Oral 220 ml 480 ml IV Total 75 ml 825 ml Output Urine Total 400 ml 450 ml # Voids 1 Dressing: saturated Cardiovascular: RSR Respiratory: decreased breath sounds Abdomen: non-tender, present bowel sounds Extremities: no edema, no tenderness, no cyanosis Laboratory Tests Test 07/31/20 16:23 07/31/20 20:40 08/01/20 05:35 08/01/20 05:48 POC Whole Blood Glucose 174 MG/DL (74-106) H 143 MG/DL (74-106) H 123 MG/DL (74-106) H White Blood Count 12.3 K/UL (4.8-10.8) H Red Blood Count 2.62 M/UL (4.20-5.40) L Hemoglobin 8.7 G/DL (12.0-16.0) L Hematocrit 24.2 % (37.0-47.0) L Mean Corpuscular Volume 93 FL (80-99) Mean Corpuscular Hemoglobin 33.1 PG (27.0-31.0) H Mean Corpuscular Hemoglobin Concent 35.7 G/DL (32.0-36.0) Red Cell Distribution Width 13.5 % (11.6-14.8) Platelet Count 150 K/UL (150-450) Mean Platelet Volume 8.7 FL (6.5-10.1) Neutrophils (%) (Auto) % (45.0-75.0) Lymphocytes (%) (Auto) % (20.0-45.0) Monocytes (%) (Auto) % (1.0-10.0) Eosinophils (%) (Auto) % (0.0-3.0) Basophils (%) (Auto) % (0.0-2.0) Differential Total Cells Counted 100 Neutrophils % (Manual) 92 % (45-75) H Lymphocytes % (Manual) 4 % (20-45) L Monocytes % (Manual) 4 % (1-10) Eosinophils % (Manual) 0 % (0-3) Basophils % (Manual) 0 % (0-2) Band Neutrophils 0 % (0-8) Platelet Estimate Adequate Platelet Morphology Normal Anisocytosis 1+ Sodium Level 135 MMOL/L (136-145) L Potassium Level 3.0 MMOL/L (3.5-5.1) L Chloride Level 102 MMOL/L (98-107) Carbon Dioxide Level 23 MMOL/L (21-32) Anion Gap 10 mmol/L (5-15) Blood Urea Nitrogen 41 mg/dL (7-18) H Creatinine 1.6 MG/DL (0.55-1.30) H Estimat Glomerular Filtration Rate 30.6 mL/min (>60) Glucose Level 133 MG/DL (74-106) H Calcium Level 8.4 MG/DL (8.5-10.1) L Phosphorus Level 2.3 MG/DL (2.5-4.9) L Magnesium Level 1.6 MG/DL (1.8-2.4) L Total Bilirubin 1.1 MG/DL (0.2-1.0) H Direct Bilirubin 0.6 MG/DL (0.0-0.3) H Aspartate Amino Transf (AST/SGOT) 45 U/L (15-37) H Alanine Aminotransferase (ALT/SGPT) 74 U/L (12-78) Alkaline Phosphatase 74 U/L (46-116) C-Reactive Protein, Quantitative 26.7 mg/dL (0.00-0.90) H Pro-B-Type Natriuretic Peptide 4412 pg/mL (0-125) H Total Protein 5.5 G/DL (6.4-8.2) L Albumin 2.3 G/DL (3.4-5.0) L Globulin 3.2 g/dL Albumin/Globulin Ratio 0.7 (1.0-2.7) L Test 08/01/20 11:11 POC Whole Blood Glucose Pending Plan Problems: (1) Alzheimer's dementia (2) Dizziness (3) Hyponatremia (4) Rhabdomyolysis (5) Acute hyponatremia (6) SUZETTE (acute kidney injury) (7) Sepsis Assessment & Plan: 84F with leukocytosis, elevated lft's on abx decubitus ulcer s, malnutrition, low bmi Patient noted on admission to have multiple Pressure Injuries. Sacral DTPI noted (L)5cm x (W)7.5cm Base of Pressure Injury is Maroon and indurated with non-blanchable erythema along borders. Dry Peeling skin noted to sacrococcygeal area. L Heel is Boggy with non-Blanchable erythema(L)5cm x (W)6cm. R heel is boggy with non-blanchable erythema(L)6.5cm x (W)6.5cm. DTPI L Hallux (L)3cmx (W)3.3cm.Base of injury is fluctuant with surrounding non- Blanchable erythema. DTPI R Hallux (L)1.1cm x (W)1cm. Base of Pressure Injury is purple with surrounding maroon borders. DTPI Medial R Malleolus (L)0.6cm x (W)0.8cm. Tx.Plan: Apply Moisture Barrier Paste to Sacrum. Cover with Optifoam Drsg . [place] every 3days and prn. Apply Cavilon Skin Barrier to Both heels, Malleoli , R and L Hallux.Cover each Presuer Injury with Optifoam drsg. Change every 7 days and prn. Reposition at least every 2hours or as tolerated. Off-load heels with Pillow. Reposition at least every 2hours or as tolerated. Nutritional optimization US abd Trend labs Cont abx DAILY ESTIMATED NEEDS: Needs based on Pulmonary, DM, underweight 48.5kg 30-35 kcals/kg 9796-6545 total kcals 1-1.5 g protein/kg 49-73 g total protein 25-30ml/kcal mL/kg 9415-0531 total fluid mLs NUTRITION DIAGNOSIS: Altered nutrition related lab values r/t diabetes and clinical status as evidenced by A1C 6.4, BG 200's, on decadron. (CURRENT DIET:CCHO MED/ puree) PO DIET RECOMMENDATIONS: Liberalized REGULAR DIET/ texture per EDITORIAL INTERN ADDITIONAL RECOMMENDATIONS: 1) Add Glucerna 1 tetra TID w/ meals 2) NON ORAL FEEDS/ TEMPORARY if part of POC 3) Obtain an accurate CBW 4) Rec D5 w/ increased insulin coverage w/ current poor po intake (8) Respiratory failure with hypoxia (9) Pneumonia due to COVID-19 virus (10) Chronic atrial fibrillation (11) Diabetes mellitus Jeremiah Haley Aug 01, 2020 16:08
--- NOTE | 2020-08-01 18:21 | NUR ---
NURSE NOTES: unable to collect stool sample, no bm during shift.
--- NOTE | 2020-08-01 19:34 | NUR ---
NURSE HAND-OFF: Important Events on Shift: transfer from , IV albumin, IV kphos Patient Status: stable Diet: ccho pureed moist Pending Orders: n/a Pending Results/Labs:n/a Pending MD notification:n/a Latest Vital Signs: Temperature 97.9 , Pulse 118 , B/P 129 /70 , Respiratory Rate 20 , O2 SAT 93 , Nasal Cannula, O2 Flow Rate 2.0 . Vital Sign Comment: n/a Latest [place] Fall Score: 60 Fall Risk: High Risk Safety Measures: Call light Within Reach, Bed Alarm Zone 1, Side Rails Side Rails x3, Bed position Low and Locked. Fall Precautions: Yellow Socks Yellow Gown Door Sign Patient Fall Education Report given to Paz RODRIGUEZ.
--- NOTE | 2020-08-01 19:45 | NUR ---
NURSE NOTES: Received report from Anita RODRIGUEZ. Patient is asleep, alert and oriented x2. Patient is on NC 4L. Breathing is even and unlabored. Patient is in no distress noted. Patient has nelson catheter with yellow colored urine noted. Optiform on heels. IV on right hand intact and patent. IVF running as ordered. Bed low and locked. Call light within reach. Will continue to monitor.
[2020-08-01 20:00] VITALS: BP 124/78
--- NOTE | 2020-08-01 21:46 | Cardiology Progress Note ---
Assessment/Plan Assessment/Plan will add digoxin for better rate control, as the patient is running soft BP despite IVF Shge received K replacement today Subjective Subjective The patient is resting in her bed, she is not in acute distress, she is confused when talks but denies dyspnea or palptiations Objective Last 24 Hour Vital Signs Date Time Temp Pulse Resp B/P (MAP) Pulse Ox O2 Delivery O2 Flow Rate FiO2 08/01/20 20:51 114 124/78 08/01/20 20:00 99.2 114 18 124/78 (93) 98 08/01/20 17:08 118 129/70 08/01/20 16:00 97.9 114 20 129/70 (89) 93 08/01/20 12:12 71 112/75 08/01/20 11:30 97.8 71 20 112/75 (87) 94 08/01/20 09:00 Nasal Cannula 2.0 08/01/20 08:48 106 112/71 08/01/20 08:00 96.8 106 16 112/71 (85) 97 08/01/20 04:00 97.5 99 17 101/60 (74) 92 08/01/20 00:00 97.4 89 16 92/64 (73) 93 General Appearance: no apparent distress, other - confused EENT: PERRL/EOMI Neck: JVD Rhythm: Afib Cardiovascular: arrhythmia Respiratory/Chest: crackles/rales - at bases Abdomen: no mass Extremities: normal range of motion Intake and Output 07/31/20 08/01/20 19:00 07:00 Intake Total 295 ml 1305 ml Output Total 400 ml 450 ml Balance -105 ml 855 ml Intake Oral 220 ml 480 ml IV Total 75 ml 825 ml Output Urine Total 400 ml 450 ml # Voids 1 Laboratory Tests Test 08/01/20 05:35 08/01/20 05:48 08/01/20 11:11 08/01/20 16:44 White Blood Count 12.3 K/UL (4.8-10.8) H Red Blood Count 2.62 M/UL (4.20-5.40) L Hemoglobin 8.7 G/DL (12.0-16.0) L Hematocrit 24.2 % (37.0-47.0) L Mean Corpuscular Volume 93 FL (80-99) Mean Corpuscular Hemoglobin 33.1 PG (27.0-31.0) H Mean Corpuscular Hemoglobin Concent 35.7 G/DL (32.0-36.0) Red Cell Distribution Width 13.5 % (11.6-14.8) Platelet Count 150 K/UL (150-450) Mean Platelet Volume 8.7 FL (6.5-10.1) Neutrophils (%) (Auto) % (45.0-75.0) Lymphocytes (%) (Auto) % (20.0-45.0) Monocytes (%) (Auto) % (1.0-10.0) Eosinophils (%) (Auto) % (0.0-3.0) Basophils (%) (Auto) % (0.0-2.0) Differential Total Cells Counted 100 Neutrophils % (Manual) 92 % (45-75) H Lymphocytes % (Manual) 4 % (20-45) L Monocytes % (Manual) 4 % (1-10) Eosinophils % (Manual) 0 % (0-3) Basophils % (Manual) 0 % (0-2) Band Neutrophils 0 % (0-8) Platelet Estimate Adequate Platelet Morphology Normal Anisocytosis 1+ Sodium Level 135 MMOL/L (136-145) L Potassium Level 3.0 MMOL/L (3.5-5.1) L Chloride Level 102 MMOL/L (98-107) Carbon Dioxide Level 23 MMOL/L (21-32) Anion Gap 10 mmol/L (5-15) Blood Urea Nitrogen 41 mg/dL (7-18) H Creatinine 1.6 MG/DL (0.55-1.30) H Estimat Glomerular Filtration Rate 30.6 mL/min (>60) Glucose Level 133 MG/DL (74-106) H Calcium Level 8.4 MG/DL (8.5-10.1) L Phosphorus Level 2.3 MG/DL (2.5-4.9) L Magnesium Level 1.6 MG/DL (1.8-2.4) L Total Bilirubin 1.1 MG/DL (0.2-1.0) H Direct Bilirubin 0.6 MG/DL (0.0-0.3) H Aspartate Amino Transf (AST/SGOT) 45 U/L (15-37) H Alanine Aminotransferase (ALT/SGPT) 74 U/L (12-78) Alkaline Phosphatase 74 U/L (46-116) C-Reactive Protein, Quantitative 26.7 mg/dL (0.00-0.90) H Pro-B-Type Natriuretic Peptide 4412 pg/mL (0-125) H Total Protein 5.5 G/DL (6.4-8.2) L Albumin 2.3 G/DL (3.4-5.0) L Globulin 3.2 g/dL Albumin/Globulin Ratio 0.7 (1.0-2.7) L POC Whole Blood Glucose 123 MG/DL (74-106) H Pending 134 MG/DL (74-106) H Test 08/01/20 20:49 POC Whole Blood Glucose 140 MG/DL (74-106) H Microbiology Date/Time Source Procedure Growth Status 07/31/20 14:30 Urine,Clean Catch Urine Culture - Preliminary NO GROWTH Resulted Flaquita Edwards MD Aug 01, 2020 21:46
[2020-08-01] MEDS ORDERED: Digoxin 0.125mg tab ONE ×2 (22:00→22:06)
[2020-08-02] VITALS: BP 105/68
[2020-08-02 05:51] LABS: HEMATOCRIT 22.6 % (37.0-47.0); HEMOGLOBIN 7.7 G/DL (12.0-16.0); MEAN CORPUSCULAR VOLUME 95 FL (80-99); PLATELET COUNT 118 K/UL (150-450); RED BLOOD COUNT 2.38 M/UL (4.20-5.40); RED CELL DISTRIBUTION WIDTH 13.4 % (11.6-14.8); WHITE BLOOD COUNT 9.3 K/UL (4.8-10.8)
[2020-08-02 06:16] LABS: CALCIUM 7.8 MG/DL (8.5-10.1); CREATININE 1.1 MG/DL (0.55-1.30); POTASSIUM 3.3 MMOL/L (3.5-5.1)
[2020-08-02] MEDS: NovoLOG Insulin Flexpen SUBQ SCH ×3 (06:30→16:30)
--- NOTE | 2020-08-02 07:30 | NUR ---
NURSE NOTES: Patient is in bed asleep. Stable. Breathing is even and unlabored. No visible signs of distress noted. f/c patent and draining cloudy yellow urine with sediment. Patient is in bed in locked and lowest position with call light within reach. All safety measures provided. Will continue to monitor.
--- NOTE | 2020-08-02 07:41 | NUR ---
NURSE NOTES: Reported H/H and potassium values to Dr. Rankin, new orders for kcl po 40mg x1 read back and entered.
--- NOTE | 2020-08-02 07:46 | NUR ---
NURSE HAND-OFF: Important Events on Shift: Still with poor PO intake Patient Status: stable Diet: ccho (m) pureed moist Pending Orders: none Pending Results/Labs:none Pending MD notification:none Latest Vital Signs: Temperature 97.2 , Pulse 85 , B/P 105 /68 , Respiratory Rate 18 , O2 SAT 95 , Nasal Cannula, O2 Flow Rate 4.0 . Vital Sign Comment: none Latest [place] Fall Score: 60 Fall Risk: High Risk Safety Measures: Call light Within Reach, Bed Alarm Zone 1, Side Rails Side Rails x3, Bed position Low and Locked. Fall Precautions: Yellow Socks Yellow Gown Door Sign Patient Fall Education Report given to JENNIFER Howard.
[2020-08-02 08:00] VITALS: BP 106/64
[2020-08-02] MEDS: Docusate 100mg/10ml Liq ORAL SCH ×3 (08:32→18:00)
[2020-08-02] MEDS: Aspirin EC 81mg tab ORAL SCH (08:32)
[2020-08-02] MEDS: dilTIAZem HCl 60mg tab ORAL SCH ×3 (09:00→18:00)
[2020-08-02] MEDS: Heparin 5000 units/ml inj SUBQ SCH (09:00)
--- NOTE | 2020-08-02 09:12 | Infectious Diseases Prog Note ---
Assessment/Plan 84yo F with: Afebrile Leukocytosis, persistent (sp recent steroid course) Leukopenia COVID pna, dx'd 07/08 [facility] Acute hypoxic resp failure 2/2 COVID pna 07/19 BCx NTD UA +blood, 10-15 WBC, UCx NTD CXR: No acute infiltrate 08/02 CXR: New left basilar infiltrate and possible tiny effusion. Asymptomatic bacteriuria 07/31 UA +WBC, UCx +yeast/Strep sp SUZETTE , sp 07/19 Renal US: Mild right hydro. R/o PE: 07/19 VQ scan: Asymmetric tracer distribution, left lung more than right. Suspect that this is artifactual, probably due to asymmetric overlapping soft tissues, but makes exam nondiagnostic for exclusion of pulmonary embolus BLE US neg for DVT 07/29 PMH: CHF Afib HTN DM2 Dementia Plan: Monitor off abx OK to d/c from ID standpoint Wound not treat +UCx from 07/31 given likely asymptomatic bacteriuria, no sx, no fevers, no leukocytosis 07/29 SP dexamethasone #10 07/23/20 SP CTX/azithro #/ empiric Would start RDV (SUZETTE improved, on 3 L NC) as per pharm, Hospital policy would not provide the Rx, if pt is not a candidate for RDV if DNR/DNI) No convalescent plasma available at this institution unfortunately Monitor CBC/CMP Monitor resp status Monitor temp curve, hemodynamics D/w RN Thank you for this consult. [facility] will continue to follow. Subjective Allergies: Coded Allergies: SULFAMETHOXAZOLE (Verified Allergy, Unknown, 07/19/20) TRIMETHOPRIM (Verified Allergy, Unknown, 07/19/20) AF NAD on 4L NC WBC 9.3 Objective Last 24 Hour Vital Signs Date Time Temp Pulse Resp B/P (MAP) Pulse Ox O2 Delivery O2 Flow Rate FiO2 08/02/20 00:00 97.2 85 18 105/68 (80) 95 08/01/20 21:00 Nasal Cannula 4.0 08/01/20 20:51 114 124/78 08/01/20 20:47 97 Nasal Cannula 2.0 28 08/01/20 20:00 99.2 114 18 124/78 (93) 98 08/01/20 17:08 118 129/70 08/01/20 16:00 97.9 114 20 129/70 (89) 93 08/01/20 12:12 71 112/75 08/01/20 11:30 97.8 71 20 112/75 (87) 94 Height (Feet): 5 Height (Inches): 6.00 Weight (Pounds): 130 Gen: NAD in bed on NC HEENT: NCAT Pulm: BL chest rise, non-labored Abd: Thin, soft, NTND Ext: No c/c/e Neuro: Sleeping Microbiology Date/Time Source Procedure Growth Status 07/31/20 14:30 Urine,Clean Catch Urine Culture - Preliminary Yeast Species Strep Species, Gamma-Hemolytic Resulted Laboratory Tests Test 08/01/20 11:11 08/01/20 16:44 08/01/20 20:49 08/02/20 05:30 POC Whole Blood Glucose Pending 134 MG/DL (74-106) H 140 MG/DL (74-106) H White Blood Count 9.3 K/UL (4.8-10.8) Red Blood Count 2.38 M/UL (4.20-5.40) L Hemoglobin 7.7 G/DL (12.0-16.0) L Hematocrit 22.6 % (37.0-47.0) L Mean Corpuscular Volume 95 FL (80-99) Mean Corpuscular Hemoglobin 32.5 PG (27.0-31.0) H Mean Corpuscular Hemoglobin Concent 34.2 G/DL (32.0-36.0) Red Cell Distribution Width 13.4 % (11.6-14.8) Platelet Count 118 K/UL (150-450) L Mean Platelet Volume 8.3 FL (6.5-10.1) Neutrophils (%) (Auto) % (45.0-75.0) Lymphocytes (%) (Auto) % (20.0-45.0) Monocytes (%) (Auto) % (1.0-10.0) Eosinophils (%) (Auto) % (0.0-3.0) Basophils (%) (Auto) % (0.0-2.0) Sodium Level 133 MMOL/L (136-145) L Potassium Level 3.3 MMOL/L (3.5-5.1) L Chloride Level 102 MMOL/L (98-107) Carbon Dioxide Level 24 MMOL/L (21-32) Anion Gap 7 mmol/L (5-15) Blood Urea Nitrogen 24 mg/dL (7-18) H Creatinine 1.1 MG/DL (0.55-1.30) Estimat Glomerular Filtration Rate 47.1 mL/min (>60) Glucose Level 94 MG/DL (74-106) Calcium Level 7.8 MG/DL (8.5-10.1) L Test 08/02/20 06:36 POC Whole Blood Glucose 88 MG/DL (74-106) Current Medications Medications (Trade) Dose Ordered Sig/Ranjeet Route PRN Reason Start Time Stop Time Status Last Admin Dose Admin Acetaminophen (Tylenol) 650 mg Q6H PRN ORAL Temp >100.5 07/19/20 09:15 08/18/20 09:14 Aspirin (Ecotrin) 81 mg DAILY ORAL 07/20/20 10:00 09/03/20 09:59 08/02/20 08:32 Dextrose (Dextrose 50%) 25 ml Q30M PRN IV Hypoglycemia 07/20/20 12:00 10/18/20 11:59 Dextrose (Dextrose 50%) 50 ml Q30M PRN IV Hypoglycemia 07/20/20 12:00 10/18/20 11:59 Diltiazem HCl (Cardizem Tab) 60 mg QID ORAL 07/29/20 18:00 08/28/20 17:59 08/01/20 20:51 Docusate Sodium (Colace) 100 mg THREE TIMES A DAY ORAL 08/01/20 13:00 08/24/20 17:59 08/02/20 08:32 Heparin Sodium (Porcine) (Heparin 5000 units/ml) 5,000 units EVERY 12 HOURS SUBQ 07/23/20 10:30 09/06/20 10:29 08/01/20 20:52 Insulin Aspart (NovoLOG) give half dose if not eating BEFORE MEALS AND HS SUBQ 07/20/20 16:30 10/18/20 16:29 08/01/20 20:53 Levothyroxine Sodium (Synthroid) 100 mcg Q24H ORAL 07/21/20 06:30 08/20/20 06:29 08/02/20 06:56 Morphine Sulfate (Morphine Sulfate) 2 mg Q4H PRN IVP Severe Pain (Pain Scale 7-10) 07/30/20 21:45 08/06/20 21:44 Ondansetron HCl (Zofran) 4 mg Q6H PRN IVP Nausea & Vomiting 07/19/20 09:15 08/18/20 09:14 Polyethylene Glycol (Miralax) 17 gm DAILYPRN PRN ORAL Constipation 07/19/20 09:15 08/18/20 09:14 Promethazine HCl/ Codeine (Phenergan with Codeine) 5 ml Q6H PRN ORAL cough 07/19/20 09:15 08/18/20 09:14 Sodium Chloride 1,000 ml @ 75 mls/hr [id number] IV 07/30/20 19:30 08/29/20 19:29 08/02/20 00:53 Nataly Babcock M.D. Aug 02, 2020 09:12
--- NOTE | 2020-08-02 09:47 | Pulmonology Progress Note ---
Subjective ROS Limited/Unobtainable: No Constitutional: Reports: no symptoms HEENT: Repors: no symptoms Respiratory: Reports: no symptoms Allergies: Coded Allergies: SULFAMETHOXAZOLE (Verified Allergy, Unknown, 07/19/20) TRIMETHOPRIM (Verified Allergy, Unknown, 07/19/20) Objective Last 24 Hour Vital Signs Date Time Temp Pulse Resp B/P (MAP) Pulse Ox O2 Delivery O2 Flow Rate FiO2 08/02/20 00:00 97.2 85 18 105/68 (80) 95 08/01/20 21:00 Nasal Cannula 4.0 08/01/20 20:51 114 124/78 08/01/20 20:47 97 Nasal Cannula 2.0 28 08/01/20 20:00 99.2 114 18 124/78 (93) 98 08/01/20 17:08 118 129/70 08/01/20 16:00 97.9 114 20 129/70 (89) 93 08/01/20 12:12 71 112/75 08/01/20 11:30 97.8 71 20 112/75 (87) 94 Intake and Output 08/01/20 08/02/20 19:00 07:00 Intake Total 325 ml Output Total 350 ml 1050 ml Balance -350 ml -725 ml Intake Oral 100 ml IV Total 225 ml Output Urine Total 350 ml 1050 ml General Appearance: no acute distress, cachetic HEENT: normocephalic, atraumatic Respiratory: chest wall non-tender, lungs clear, other - O2 via NC Cardiovascular: normal peripheral pulses, normal rate Abdomen: normal bowel sounds, soft, non tender Genitourinary: normal external genitalia Skin: no rash Neurologic: abnormal gait, alert - confused Lymphatic: no neck adenopathy Musculoskeletal: atrophy - BLE Microbiology Date/Time Source Procedure Growth Status 07/31/20 14:30 Urine,Clean Catch Urine Culture - Preliminary Yeast Species Strep Species, Gamma-Hemolytic Resulted Laboratory Tests 08/01/20 11:11: POC Whole Blood Glucose [Pending] 08/01/20 16:44: POC Whole Blood Glucose 134H 08/01/20 20:49: POC Whole Blood Glucose 140H 08/02/20 05:30: White Blood Count 9.3, Red Blood Count 2.38L, Hemoglobin 7.7L, Hematocrit 22.6L, Mean Corpuscular Volume 95, Mean Corpuscular Hemoglobin 32.5H, Mean Corpuscular Hemoglobin Concent 34.2, Red Cell Distribution Width 13.4, Platelet Count 118L, Mean Platelet Volume 8.3, Neutrophils (%) (Auto) , Lymphocytes (%) (Auto) , Monocytes (%) (Auto) , Eosinophils (%) (Auto) , Basophils (%) (Auto) , Sodium Level 133L, Potassium Level 3.3L, Chloride Level 102, Carbon Dioxide Level 24, Anion Gap 7, Blood Urea Nitrogen 24H, Creatinine 1.1, Estimat Glomerular Filtration Rate 47.1, Glucose Level 94, Calcium Level 7.8L 08/02/20 06:36: POC Whole Blood Glucose 88 Current Medications Medications (Trade) Dose Ordered Sig/Ranjeet Route PRN Reason Start Time Stop Time Status Last Admin Dose Admin Acetaminophen (Tylenol) 650 mg Q6H PRN ORAL Temp >100.5 07/19/20 09:15 08/18/20 09:14 Aspirin (Ecotrin) 81 mg DAILY ORAL 07/20/20 10:00 09/03/20 09:59 08/02/20 08:32 Dextrose (Dextrose 50%) 25 ml Q30M PRN IV Hypoglycemia 07/20/20 12:00 10/18/20 11:59 Dextrose (Dextrose 50%) 50 ml Q30M PRN IV Hypoglycemia 07/20/20 12:00 10/18/20 11:59 Diltiazem HCl (Cardizem Tab) 60 mg QID ORAL 07/29/20 18:00 08/28/20 17:59 08/01/20 20:51 Docusate Sodium (Colace) 100 mg THREE TIMES A DAY ORAL 08/01/20 13:00 08/24/20 17:59 08/02/20 08:32 Heparin Sodium (Porcine) (Heparin 5000 units/ml) 5,000 units EVERY 12 HOURS SUBQ 07/23/20 10:30 09/06/20 10:29 08/01/20 20:52 Insulin Aspart (NovoLOG) give half dose if not eating BEFORE MEALS AND HS SUBQ 07/20/20 16:30 10/18/20 16:29 08/01/20 20:53 Levothyroxine Sodium (Synthroid) 100 mcg Q24H ORAL 07/21/20 06:30 08/20/20 06:29 08/02/20 06:56 Morphine Sulfate (Morphine Sulfate) 2 mg Q4H PRN IVP Severe Pain (Pain Scale 7-10) 07/30/20 21:45 08/06/20 21:44 Ondansetron HCl (Zofran) 4 mg Q6H PRN IVP Nausea & Vomiting 07/19/20 09:15 08/18/20 09:14 Polyethylene Glycol (Miralax) 17 gm DAILYPRN PRN ORAL Constipation 07/19/20 09:15 08/18/20 09:14 Potassium Chloride 100 ml @ 100 mls/hr Q1H IVPB 08/02/20 10:00 08/02/20 11:59 Promethazine HCl/ Codeine (Phenergan with Codeine) 5 ml Q6H PRN ORAL cough 07/19/20 09:15 08/18/20 09:14 Sodium Chloride 1,000 ml @ 75 mls/hr [id number] IV 07/30/20 19:30 08/29/20 19:29 08/02/20 00:53 Assessment/Plan Problems: (1) Respiratory failure with hypoxia (2) Acute hyponatremia (3) SUZETTE (acute kidney injury) (4) Chronic atrial fibrillation (5) Diabetes mellitus (6) Alzheimer's dementia Assessment/Plan prbc times one comfort measures wbc better no new complains renal function stable, sliding scale respiratory treatment titrate fio2 to sat of 92% dvt prophylaxis. dc after blood transfusion Riccardo Drew MD Aug 02, 2020 09:47
--- NOTE | 2020-08-02 10:04 | Diagnostic Imaging Report ---
Procedure: XRAY Chest 1v Reason for study: Reason For Exam: SOB Comparison films: 07/28/2020. FINDINGS: A single one view chest is obtained. Vascularity is normal. There is new left basilar infiltrate. Cardiomegaly unchanged. There is possible tiny left effusion. The bony thorax appear unremarkable. IMPRESSION: New left basilar infiltrate and possible tiny effusion.
--- NOTE | 2020-08-02 10:15 | NUR ---
*-*DISCHARGE PLANNING*-* PATIENT HAS BEEN ACCEPTED BACK AND WILL BE DISCHARGED TO: [facility] P: [phone] ROOM# 14.[facility] ON A "WILL CALL" [id number]
--- NOTE | 2020-08-02 10:43 | Nephrology Progress Note ---
Assessment/Plan Problem List: (1) SUZETTE (acute kidney injury) (2) Acute hyponatremia (3) Alzheimer's dementia (4) Chronic atrial fibrillation (5) Diabetes mellitus Assessment Acute renal failure Acute respiratory failure with hypoxia Severe hyponatremia Sepsis History of hypertension History of diabetes mellitus DNR DNI Plan August 02: Lab results reviewed. Abnormal electrolytes addressed. Serum creatinine down to 1.1. Continue per current management. August 01: Labs reviewed. Electrolyte abnormalities addressed. Albumin bolus IV given. Serum creatinine laurent to 1.6. Continue to monitor renal parameters and electrolytes. Per orders. Patient DNR. July 31: No labs drawn today. Renal parameters been stable. Leukocytosis persists. Continue per ID. July 30: Labs reviewed. Serum sodium within normal limit. White blood cells up to over 16,000's. Continue per consultants. Stable from renal standpoint of view. July 29: Labs reviewed. Serum sodium 133. Renal parameters stable. Okay to discharge and follow-up electrolytes as an outpatient. July 28: Labs reviewed. Serum sodium up 135. Continue per consultants. Stable from renal standpoint of view. July 27: No labs drawn today. Last serum sodium was 132 for which patient received 3% saline. Will check lab tomorrow. July 26: Labs reviewed. Serum sodium 132. 250 cc 3% saline ordered. Continue per consultants. Continue to monitor renal parameters and elec trolytes. July 25: Labs reviewed. Continue to observe serum sodium and glucose level. Continue per consultants. July 24: Labs reviewed. Abnormal electrolytes and chemistries addressed. Continue per consultants. July 23: Labs reviewed. Renal parameters stable. Continue per consultants. July 22: Labs reviewed. Renal parameters stable. Abnormal chemistries and electrolytes addressed. Continue per consultants. July 21: Serum sodium improved. Lab reviewed. Serum creatinine improved. Continue current management. July 20: Serum sodium 126. Labs reviewed. Serum creatinine down to 1.6. Medication list reviewed. Continue current management. Continue to monitor electrolytes and renal parameters. July 19: Saline infusion Monitor renal parameters and electrolytes Avoid nephrotoxic's Saline infusion Per consultants Subjective ROS Limited/Unobtainable: No Constitutional: Reports: malaise, weakness Objective Objective Last 24 Hour Vital Signs Date Time Temp Pulse Resp B/P (MAP) Pulse Ox O2 Delivery O2 Flow Rate FiO2 08/02/20 09:00 Nasal Cannula 4.0 08/02/20 08:00 97.6 76 18 106/64 (78) 97 08/02/20 00:00 97.2 85 18 105/68 (80) 95 08/01/20 21:00 Nasal Cannula 4.0 08/01/20 20:51 114 124/78 08/01/20 20:47 97 Nasal Cannula 2.0 28 08/01/20 20:00 99.2 114 18 124/78 (93) 98 08/01/20 17:08 118 129/70 08/01/20 16:00 97.9 114 20 129/70 (89) 93 08/01/20 12:12 71 112/75 08/01/20 11:30 97.8 71 20 112/75 (87) 94 Intake and Output 08/01/20 08/02/20 19:00 07:00 Intake Total 325 ml Output Total 350 ml 1050 ml Balance -350 ml -725 ml Intake Oral 100 ml IV Total 225 ml Output Urine Total 350 ml 1050 ml Current Medications Medications (Trade) Dose Ordered Sig/Ranjeet Route PRN Reason Start Time Stop Time Status Last Admin Dose Admin Acetaminophen (Tylenol) 650 mg Q6H PRN ORAL Temp >100.5 07/19/20 09:15 08/18/20 09:14 Aspirin (Ecotrin) 81 mg DAILY ORAL 07/20/20 10:00 09/03/20 09:59 08/02/20 08:32 Dextrose (Dextrose 50%) 25 ml Q30M PRN IV Hypoglycemia 07/20/20 12:00 10/18/20 11:59 Dextrose (Dextrose 50%) 50 ml Q30M PRN IV Hypoglycemia 07/20/20 12:00 10/18/20 11:59 Diltiazem HCl (Cardizem Tab) 60 mg QID ORAL 07/29/20 18:00 08/28/20 17:59 08/01/20 20:51 Docusate Sodium (Colace) 100 mg THREE TIMES A DAY ORAL 08/01/20 13:00 08/24/20 17:59 08/02/20 08:32 Heparin Sodium (Porcine) (Heparin 5000 units/ml) 5,000 units EVERY 12 HOURS SUBQ 07/23/20 10:30 09/06/20 10:29 08/01/20 20:52 Insulin Aspart (NovoLOG) give half dose if not eating BEFORE MEALS AND HS SUBQ 07/20/20 16:30 10/18/20 16:29 08/01/20 20:53 Levothyroxine Sodium (Synthroid) 100 mcg Q24H ORAL 07/21/20 06:30 08/20/20 06:29 08/02/20 06:56 Morphine Sulfate (Morphine Sulfate) 2 mg Q4H PRN IVP Severe Pain (Pain Scale 7-10) 07/30/20 21:45 08/06/20 21:44 Ondansetron HCl (Zofran) 4 mg Q6H PRN IVP Nausea & Vomiting 07/19/20 09:15 08/18/20 09:14 Polyethylene Glycol (Miralax) 17 gm DAILYPRN PRN ORAL Constipation 07/19/20 09:15 08/18/20 09:14 Potassium Chloride 100 ml @ 100 mls/hr Q1H IVPB 08/02/20 10:00 08/02/20 11:59 08/02/20 10:24 Promethazine HCl/ Codeine (Phenergan with Codeine) 5 ml Q6H PRN ORAL cough 07/19/20 09:15 08/18/20 09:14 Sodium Chloride 1,000 ml @ 75 mls/hr [id number] IV 07/30/20 19:30 08/29/20 19:29 08/02/20 00:53 Laboratory Tests 08/01/20 11:11: POC Whole Blood Glucose [Pending] 08/01/20 16:44: POC Whole Blood Glucose 134H 08/01/20 20:49: POC Whole Blood Glucose 140H 08/02/20 05:30: White Blood Count 9.3, Red Blood Count 2.38L, Hemoglobin 7.7L, Hematocrit 22.6L, Mean Corpuscular Volume 95, Mean Corpuscular Hemoglobin 32.5H, Mean Corpuscular Hemoglobin Concent 34.2, Red Cell Distribution Width 13.4, Platelet Count 118L, Mean Platelet Volume 8.3, Neutrophils (%) (Auto) , Lymphocytes (%) (Auto) , Monocytes (%) (Auto) , Eosinophils (%) (Auto) , Basophils (%) (Auto) , Sodium Level 133L, Potassium Level 3.3L, Chloride Level 102, Carbon Dioxide Level 24, Anion Gap 7, Blood Urea Nitrogen 24H, Creatinine 1.1, Estimat Glomerular Filtration Rate 47.1, Glucose Level 94, Calcium Level 7.8L 08/02/20 06:36: POC Whole Blood Glucose 88 Height (Feet): 5 Height (Inches): 6.00 Weight (Pounds): 130 General Appearance: no apparent distress, lethargic Cardiovascular: tachycardia Respiratory/Chest: decreased breath sounds Abdomen: distended Objective No change Jethro Cleaning MD Aug 02, 2020 10:43
[2020-08-02 12:00] VITALS: BP 100/63
--- NOTE | 2020-08-02 13:07 | Internal Med Progress Note ---
Subjective Date of Service: Aug 02, 2020 Physician Name Dudley Rebollar Attending Physician Mateo Rankin MD Current Medications Medications (Trade) Dose Ordered Sig/Ranjeet Route PRN Reason Start Time Stop Time Status Last Admin Dose Admin Acetaminophen (Tylenol) 650 mg Q6H PRN ORAL Temp >100.5 07/19/20 09:15 08/18/20 09:14 Aspirin (Ecotrin) 81 mg DAILY ORAL 07/20/20 10:00 09/03/20 09:59 08/02/20 08:32 Dextrose (Dextrose 50%) 25 ml Q30M PRN IV Hypoglycemia 07/20/20 12:00 10/18/20 11:59 Dextrose (Dextrose 50%) 50 ml Q30M PRN IV Hypoglycemia 07/20/20 12:00 10/18/20 11:59 Diltiazem HCl (Cardizem Tab) 60 mg QID ORAL 07/29/20 18:00 08/28/20 17:59 08/01/20 20:51 Docusate Sodium (Colace) 100 mg THREE TIMES A DAY ORAL 08/01/20 13:00 08/24/20 17:59 08/02/20 08:32 Heparin Sodium (Porcine) (Heparin 5000 units/ml) 5,000 units EVERY 12 HOURS SUBQ 07/23/20 10:30 09/06/20 10:29 08/01/20 20:52 Insulin Aspart (NovoLOG) give half dose if not eating BEFORE MEALS AND HS SUBQ 07/20/20 16:30 10/18/20 16:29 08/01/20 20:53 Levothyroxine Sodium (Synthroid) 100 mcg Q24H ORAL 07/21/20 06:30 08/20/20 06:29 08/02/20 06:56 Morphine Sulfate (Morphine Sulfate) 2 mg Q4H PRN IVP Severe Pain (Pain Scale 7-10) 07/30/20 21:45 08/06/20 21:44 Ondansetron HCl (Zofran) 4 mg Q6H PRN IVP Nausea & Vomiting 07/19/20 09:15 08/18/20 09:14 Polyethylene Glycol (Miralax) 17 gm DAILYPRN PRN ORAL Constipation 07/19/20 09:15 08/18/20 09:14 Promethazine HCl/ Codeine (Phenergan with Codeine) 5 ml Q6H PRN ORAL cough 07/19/20 09:15 08/18/20 09:14 Sodium Chloride 1,000 ml @ 75 mls/hr [id number] IV 07/30/20 19:30 08/29/20 19:29 08/02/20 00:53 Allergies: Coded Allergies: SULFAMETHOXAZOLE (Verified Allergy, Unknown, 07/19/20) TRIMETHOPRIM (Verified Allergy, Unknown, 07/19/20) ROS Limited/Unobtainable: Yes Subjective 84 YO F admitted with COVID 19 pos and respiratory failure. Now COVID 19 pneumonia. Cover for Int Med-Dr Rankin Objective Last Vital Signs Date Time Temp Pulse Resp B/P (MAP) Pulse Ox O2 Delivery O2 Flow Rate FiO2 08/02/20 12:00 98.1 100 18 100/63 (75) 96 08/02/20 09:00 Nasal Cannula 4.0 08/01/20 20:47 28 Laboratory Tests Test 08/01/20 16:44 08/01/20 20:49 08/02/20 05:30 08/02/20 06:36 POC Whole Blood Glucose 134 MG/DL (74-106) H 140 MG/DL (74-106) H 88 MG/DL (74-106) White Blood Count 9.3 K/UL (4.8-10.8) Red Blood Count 2.38 M/UL (4.20-5.40) L Hemoglobin 7.7 G/DL (12.0-16.0) L Hematocrit 22.6 % (37.0-47.0) L Mean Corpuscular Volume 95 FL (80-99) Mean Corpuscular Hemoglobin 32.5 PG (27.0-31.0) H Mean Corpuscular Hemoglobin Concent 34.2 G/DL (32.0-36.0) Red Cell Distribution Width 13.4 % (11.6-14.8) Platelet Count 118 K/UL (150-450) L Mean Platelet Volume 8.3 FL (6.5-10.1) Neutrophils (%) (Auto) % (45.0-75.0) Lymphocytes (%) (Auto) % (20.0-45.0) Monocytes (%) (Auto) % (1.0-10.0) Eosinophils (%) (Auto) % (0.0-3.0) Basophils (%) (Auto) % (0.0-2.0) Sodium Level 133 MMOL/L (136-145) L Potassium Level 3.3 MMOL/L (3.5-5.1) L Chloride Level 102 MMOL/L (98-107) Carbon Dioxide Level 24 MMOL/L (21-32) Anion Gap 7 mmol/L (5-15) Blood Urea Nitrogen 24 mg/dL (7-18) H Creatinine 1.1 MG/DL (0.55-1.30) Estimat Glomerular Filtration Rate 47.1 mL/min (>60) Glucose Level 94 MG/DL (74-106) Calcium Level 7.8 MG/DL (8.5-10.1) L Test 08/02/20 11:42 POC Whole Blood Glucose Pending Microbiology Date/Time Source Procedure Growth Status 07/31/20 14:30 Urine,Clean Catch Urine Culture - Preliminary Yeast Species Strep Species, Gamma-Hemolytic Resulted Intake and Output 08/01/20 08/02/20 19:00 07:00 Intake Total 325 ml Output Total 350 ml 1050 ml Balance -350 ml -725 ml Intake Oral 100 ml IV Total 225 ml Output Urine Total 350 ml 1050 ml Objective PHYSICAL EXAMINATION: GENERAL: The patient is a well-developed and well-nourished female, in moderate respiratory distress. HEENT: Eyes, pupils are equal and responsive to light and accommodation. Extraocular movements are intact. NECK: Supple without lymphadenopathy. CHEST: Decreased breath sounds in bilateral bases, otherwise without wheezes or rales. CARDIOVASCULAR: Regular rhythm and rate. S1, S2 normal without murmurs, rubs, or gallops. ABDOMEN: Soft, nontender, nondistended. Positive bowel sounds. No evidence of hepatosplenomegaly. Currently, no rebound or guarding noted. EXTREMITIES: Negative for clubbing, cyanosis, or edema. RECTAL/GENITAL: Not performed. NEUROLOGIC: Cranial nerves II through XII are grossly intact without focal deficits. Assessment/Plan Assessment/Plan ASSESSMENT: This is an 84-year-old female with: 1. Previous COVID-19 positive-now negative 2. Pneumonia. 3. Alzheimer's dementia. 4. Hypertension. 5. Congestive heart failure. 6. Atrial fibrillation. 7. Hypothyroidism. 8. Diabetes type 2. 9. Hyponatremia-resolving TREATMENT: 1. COVID-19/pneumonia. Infectious Disease = Dr. Babcock. S/P Decadron ABX= S/P ceftriaxone; S/P azithromycin A Pulmonary consultation has been obtained with Dr. Riccardo Drew. Not a candidate for remdesivir per ID 2. Alzheimer's dementia. 3. Hypertension. The patient is currently hypotensive. Hold diltiazem. 4. Congestive heart failure. Cardiology consultation has been obtained with Dr. Hema Mcclure. 5. Atrial fibrillation. 6. Hypothyroidism. Continue Levoxyl as above. 7. Diabetes type 2. A NovoLog sliding scale has been instituted. 8. Discharge to [facility] when bed available Dudley Rebollar MD Aug 02, 2020 13:07
--- NOTE | 2020-08-02 13:08 | NUR ---
RD ASSESSMENT & RECOMMENDATIONS SEE CARE ACTIVITY FOR COMPLETE ASSESSMENT DAILY ESTIMATED NEEDS: Needs based on Pulmonary, DM, underweight 48.5kg 30-35 kcals/kg 0543-8463 total kcals 1-1.5 g protein/kg 49-73 g total protein 25-30ml/kcal mL/kg [id number] total fluid mLs NUTRITION DIAGNOSIS: * Altered nutrition related lab values r/t diabetes and clinical status as evidenced by A1C 6.4, BG high 100's and 200's, Decadron now dc'ed. * Increased kcal/prot needs R/T underweight status and wound healing as evidenced by pt @ 89% IBW w/ low BMI per guidelines, w/ multiple DTPI wounds @ L R hallux, medial R malleolus CURRENT DIET:CCHO MED/ puree PO DIET RECOMMENDATIONS: Liberalized REGULAR w/ poor PO/ texture per FILLING SEPARATOR + Glucerna TID w/ meals ENTERAL NUTRITION RECOMMENDATIONS: Glucerna 1.2 @ 55ml/hr x 24 hrs to provide 1320ml, 1584kcal, 79g prot, 1063ml free water * W/ continued poor PO, rec nonoral feeds w/ part of POC * W/ GI access, initiate Glucerna 1.2 @ 15ml/hr x 6hrs, advance 10ml q 4-6 hrs as tolerated to goal * HOB over 30 degrees/ water flush per MD. ADDITIONAL RECOMMENDATIONS: 1) Glucerna 1 tetra TID w/ meals 2) Rec nonoral feeds if part of POC: POLST indicates OK for a trial of TF -> poor and variable PO since adm 3) Monitor closely for hypoglycemia w/ poor PO -> monitor need for added D5 4) Wound healing: Add MVI x 1, Vit C 500mg QD, ZnSO4 220mg QD x 10 days [place] BID as tolerated
--- NOTE | 2020-08-02 14:48 | NUR ---
NURSE NOTES: Blood transfusion started. Blood verified by 2 RN. See paper chart for pre transfusion vitals.Will monitor for transfusion reactions.
--- NOTE | 2020-08-02 15:03 | NUR ---
NURSE NOTES: Patient receiving blood. No s/s transfusion reaction. RN monitored and assessed patient. Refer to paper chart for vitals.
[2020-08-02 16:00] VITALS: BP 124/66
--- NOTE | 2020-08-02 16:25 | NUR ---
*-*DISCHARGE PLANNED*-* PATIENT HAS BEEN ACCEPTED BACK AND WILL BE DISCHARGED TO: [facility] P: [phone] FOR NURSE TO NURSE REPORT ROOM# 14.[facility] SET FOR 5:30PM S/W ALFREDA [id number]. S/W PATIENTS DAUGHTER, OWEN DORAN, WHO IS IN AGREEMENT WITH DISCHARGE PLAN.
--- NOTE | 2020-08-02 17:00 | Surgery Progress Note ---
Surgery Progress Note Subjective Additional Comments leukocytosis resolved labs improved no n/v comfortable no complaints Objective Last 24 Hour Vital Signs Date Time Temp Pulse Resp B/P (MAP) Pulse Ox O2 Delivery O2 Flow Rate FiO2 08/02/20 12:00 98.1 100 18 100/63 (75) 96 08/02/20 09:00 Nasal Cannula 4.0 08/02/20 08:00 97.6 76 18 106/64 (78) 97 08/02/20 00:00 97.2 85 18 105/68 (80) 95 08/01/20 21:00 Nasal Cannula 4.0 08/01/20 20:51 114 124/78 08/01/20 20:47 97 Nasal Cannula 2.0 28 08/01/20 20:00 99.2 114 18 124/78 (93) 98 08/01/20 17:08 118 129/70 I&O Intake and Output 08/01/20 08/02/20 19:00 07:00 Intake Total 325 ml Output Total 350 ml 1050 ml Balance -350 ml -725 ml Intake Oral 100 ml IV Total 225 ml Output Urine Total 350 ml 1050 ml Dressing: saturated Cardiovascular: RSR Respiratory: decreased breath sounds Abdomen: non-tender, present bowel sounds Extremities: no tenderness, no cyanosis Laboratory Tests Test 08/01/20 20:49 08/02/20 05:30 08/02/20 06:36 08/02/20 11:42 POC Whole Blood Glucose 140 MG/DL (74-106) H 88 MG/DL (74-106) Pending White Blood Count 9.3 K/UL (4.8-10.8) Red Blood Count 2.38 M/UL (4.20-5.40) L Hemoglobin 7.7 G/DL (12.0-16.0) L Hematocrit 22.6 % (37.0-47.0) L Mean Corpuscular Volume 95 FL (80-99) Mean Corpuscular Hemoglobin 32.5 PG (27.0-31.0) H Mean Corpuscular Hemoglobin Concent 34.2 G/DL (32.0-36.0) Red Cell Distribution Width 13.4 % (11.6-14.8) Platelet Count 118 K/UL (150-450) L Mean Platelet Volume 8.3 FL (6.5-10.1) Neutrophils (%) (Auto) % (45.0-75.0) Lymphocytes (%) (Auto) % (20.0-45.0) Monocytes (%) (Auto) % (1.0-10.0) Eosinophils (%) (Auto) % (0.0-3.0) Basophils (%) (Auto) % (0.0-2.0) Sodium Level 133 MMOL/L (136-145) L Potassium Level 3.3 MMOL/L (3.5-5.1) L Chloride Level 102 MMOL/L (98-107) Carbon Dioxide Level 24 MMOL/L (21-32) Anion Gap 7 mmol/L (5-15) Blood Urea Nitrogen 24 mg/dL (7-18) H Creatinine 1.1 MG/DL (0.55-1.30) Estimat Glomerular Filtration Rate 47.1 mL/min (>60) Glucose Level 94 MG/DL (74-106) Calcium Level 7.8 MG/DL (8.5-10.1) L Plan Problems: (1) Alzheimer's dementia (2) Dizziness (3) Hyponatremia (4) Rhabdomyolysis (5) Acute hyponatremia (6) SUZETTE (acute kidney injury) (7) Sepsis Assessment & Plan: 84F with leukocytosis, elevated lft's on abx decubitus ulcers, malnutrition, low bmi Patient noted on admission to have multiple Pressure Injuries. Sacral DTPI noted (L)5cm x (W)7.5cm Base of Pressure Injury is Maroon and indurated with non-blanchable erythema along borders. Dry Peeling skin noted to sacrococcygeal area. L Heel is Boggy with non-Blanchable erythema(L)5cm x (W)6cm. R heel is boggy with non-blanchable erythema(L)6.5cm x (W)6.5cm. DTPI L Hallux (L)3cmx (W)3.3cm.Base of injury is fluctuant with surrounding non- Blanchable erythema. DTPI R Hallux (L)1.1cm x (W)1cm. Base of Pressure Injury is purple with surrounding maroon borders. DTPI Medial R Malleolus (L)0.6cm x (W)0.8cm. Tx.Plan: Apply Moisture Barrier Paste to Sacrum. Cover with Optifoam Drsg . [place] every 3days and prn. Apply Cavilon Skin Barrier to Both heels, Malleoli , R and L Hallux.Cover each Presuer Injury with Optifoam drsg. Change every 7 days and prn. Reposition at least every 2hours or as tolerated. Off-load heels with Pillow. Reposition at least every 2hours or as tolerated. Nutritional optimization US abd Trend labs Cont abx DAILY ESTIMATED NEEDS: Needs based on Pulmonary, DM, underweight 48.5kg 30-35 kcals/kg 9736-1086 total kcals 1-1.5 g protein/kg 49-73 g total protein 25-30ml/kcal mL/kg 9497-7434 total fluid mLs NUTRITION DIAGNOSIS: Altered nutrition related lab values r/t diabetes and clinical status as evidenced by A1C 6.4, BG 200's, on decadron. (CURRENT DIET:CCHO MED/ puree) PO DIET RECOMMENDATIONS: Liberalized REGULAR DIET/ texture per [employer] ADDITIONAL RECOMMENDATIONS: 1) Add Glucerna 1 tetra TID w/ meals 2) NON ORAL FEEDS/ TEMPORARY if part of POC 3) Obtain an accurate CBW 4) Rec D5 w/ increased insulin coverage w/ current poor po intake (8) Respiratory failure with hypoxia (9) Pneumonia due to COVID-19 virus (10) Chronic atrial fibrillation (11) Diabetes mellitus Jeremiah Haley Aug 02, 2020 16:59
--- NOTE | 2020-08-02 17:30 | NUR ---
NURSE NOTES: Blood transfusion completed. Patient is stable. No s/s transfusion reaction noted. Patient's vitals WNL, refer to paper chart. Will continue to monitor.
--- NOTE | 2020-08-02 18:01 | NUR ---
NURSE NOTES: Report given to Mimi RODRIGUEZ at [facility]. Awaiting pickup.
--- NOTE | 2020-08-02 19:14 | NUR ---
HAND-OFF: Report given to Joey RN, patient ready for discharge, Mimi RN awaiting patient's arrival. Daughter aware of transfer to [facility]. Awaiting EMT arrival.
--- NOTE | 2020-08-04 09:09 | Discharge Summary ---
Discharge Summary Discharge Summary _ DATE OF ADMISSION: 07/19/2020 DATE OF DISCHARGE:08/02/2020 DISCHARGED BY: Dr. Rankin REASON FOR ADMISSION: 84 years old female with past medical history of hypertension, diabetes mellitus, congestive heart failure, atrial fibrillation, recently diagnosed with COVID-19 (on July 07), presented with respiratory distress. Patient was hypoxic , saturating 79% on room air. Nursing staff called paramedics. [employer] Sander placed her on a nonrebreather mask , which brought her saturation to mid 80 percentile. No noted fever or chills. Nursing staff reported dry cough. Patient with a DNR/DNI status. Chest x-ray revealed bilateral interstitial infiltrates. Troponin negative. EKG revealed atrial fibrillation with controlled response. Laboratory work-up revealed no leukocytosis ,hemoglobin 11.4 , hematocrit 31.8 , platelet count 244. Sodium 115. BUN 27, creatinine 1.9. Albumin 3.3 Urinalysis revealed pyuria and few bacteria. Rapid COVID-19 was negative. In emergency department patient was pancultured, started on empiric antibiotic and subsequently admitted for further management. CONSULTANTS: vending machine assembler Dr. Mcclure pulmonary Dr. Drew ID specialist Dr. Carlson surface to air weapons officer Dr. Cleaning [facility] COURSE: Patient admitted to isolation room. Blood cultures were negative. Urine culture initially were negative. Rapid COVID-19 was negative. Supplemental oxygen provided and titrated to keep pulse oximetry above 92%. Nebulizing treatment provided. Patient received antibiotics and steroids . No Remdesivivr started initially given renal failure. In addition, when renal function improved, patient was not a candidate for it per hospital protocol, given DNR/DNI status. Follow-up chest x-ray revealed no acute process. ID specialist recommended to monitor patient off antibiotics. Venous duplex bilateral lower extremity was negative. VQ scan was nondiagnostic. Antiplatelet therapy with aspirin continued. DVT prophylaxis provided. Blood pressure was noted to be low . Patient was taken off SHANNA inhibitor. Patient received IV bolus and then started on the IV fluids. Blood pressure stabilized. Hemodynamic status was closely monitored. Echocardiogram demonstrated preserved ejection fraction of 55 to 60%. No evidence of wall motion abnormality. Moderate aortic insufficiency. Moderate mitral and tricuspid regurgitation. Right ventricular systolic pressure of 42, consistent with a mild pulmonary hypertension. Heart rate was controlled with Cardizem ; Cardizem switched to short acting as per vending machine assembler recommendation. Digoxin was added for better rate control . Repeated urine culture showed yeast and Enterococcus faecalis, likely asymptomatic bacteriuria , since patient had no symptoms : no fever , no leukocytosis Patient was able to be weaned to oxygen via nasal cannula with stable oxygen saturation. Renal parameters and electrolytes were closely monitored ,electrolytes corrected as needed, and nephrotoxic's were avoided. Creatinine down to 1.1. Hyponatremia work-up was done. Sodium up to 133 upon discharge. Potassium replaced prior to discharge . GI prophylaxis provided . Wound care for multiple pressure injury , present on admission. provided as per surgeon recommendation. Continue wound care at the facility. Hemoglobin and hematocrit were closely monitored with goal to keep hemoglobin above 7. Prior to discharge hemoglobin 9.5, hematocrit 29.3. Patient undergone 1 unit of packed red blood cell transfusion while in the hospital. Blood sugar was managed with sliding scale of insulin. Hemoglobin A1c 6.4. TSH within normal limits. Current dose of levothyroxine continued. Supportive care provided. Patient clinically stabilized and was ready for transfer back to halfway facility for continuation of care FINAL DIAGNOSES: Acute hypoxemic respiratory failure Recent Covid pneumonia ( last test negative) Acute kidney injury-resolved Severe hyponatremia CHF Atrial fibrillation Hypothyroidism Diabetes mellitus Alzheimer dementia Multiple pressure injury , present on admission DISCHARGE MEDICATIONS: See Medication Reconciliation list. DISCHARGE INSTRUCTIONS: Patient was discharged to the halfway facility. Follow up with medical doctor at the facility. I have been assigned to dictate discharge summary for this account. Eloisa Dobson NP Aug 04, 2020 09:09
== END 2020-08-02 19:35 | DRG 177 ==
LOC: EDBD 01:58 → EMR 02:12 → 2E 03:21 → EDBEDREQ 04:01 → 4E 07-21 22:12 → 3E 08-01 10:26
DX: U07.1 COVID-19 (principal); J12.89 Other viral pneumonia; J96.01 Acute respiratory failure with hypoxia; N17.9 Acute kidney failure, unspecified; E87.1 Hypo-osmolality and hyponatremia; I50.40 Unspecified combined systolic (congestive) and diastolic (congestive) heart failure; I48.92 Unspecified atrial flutter; E46 Unspecified protein-calorie malnutrition; G30.9 Alzheimer's disease, unspecified; F02.80 Dementia in other diseases classified elsewhere, unspecified severity, without behavioral disturbance, psychotic disturbance, mood disturbance, and anxiety; I11.0 Hypertensive heart disease with heart failure; I48.91 Unspecified atrial fibrillation; E03.9 Hypothyroidism, unspecified; E11.9 Type 2 diabetes mellitus without complications; Z66 Do not resuscitate; R00.0 Tachycardia, unspecified; I35.1 Nonrheumatic aortic (valve) insufficiency; I34.0 Nonrheumatic mitral (valve) insufficiency; I36.1 Nonrheumatic tricuspid (valve) insufficiency; L89.516 Pressure-induced deep tissue damage of right ankle; L89.156 Pressure-induced deep tissue damage of sacral region; L89.896 Pressure-induced deep tissue damage of other site; I95.9 Hypotension, unspecified; Z68.21 Body mass index [BMI] 21.0-21.9, adult
CPT/HCPCS: 36415; 71045; 76770; 78580; 80048; 80053; 80061; 80076; 81003; 82248; 82550; 82553; 82607; 82728; 82746; 82962; 82977; 83036; 83540; 83550; 83605; 83615; 83690; 83735; 83880; 83930; 84100; 84443; 84484; 84550; 85007; 85025; 85379; 85610; 85651; 85730; 86140; 86850; 86900; 86901; 86920; 87040; 87086; 93005; 93306; 93970; 96365; 96368; 96372; 96375; 99291; J1815; J8499